=== PATIENT | male | born 1975 | race Caucasian/White ===

== ENCOUNTER 2016-06-03 11:10 | Emergency (ER) | payer MEDICARE ==
--- NOTE | 2016-06-03 11:18 | ER Document Report ---
ED Medical Screen (RME) - General Chief Complaint: Nausea Stated Complaint: NAUSEA Notes: 40-year-old male coming in with EMS has a history of elevated liver enzymes, right upper quadrant pain. Nausea, dry heaves and vomiting yesterday today just dry heaves states he has not eaten anything today. 1 liquid stool today taking fluids cannot eat. Angina, taking 7-8 hydrocodone 10 with 325 Tylenol a day for the last 6 days. Does not have a prescription. States he is having chills and sweats. I have greeted and performed a rapid initial assessment of this patient. A comprehensive ED assessment and evaluation of the patient, analysis of test results and completion of medical decision making process will be conducted by an additional ED providers. TRAVEL OUTSIDE OF THE [place] IN LAST 30 DAYS: No - Related Data Allergies/Adverse Reactions: quetiapine fumarate [From Seroquel] Adverse Reaction (Verified 05/08/16 08:18) Past Medical History - Social History Family history: CAD - Past Medical History Cardiac Medical History: Reports: Hx Hypercholesterolemia, Hx Hypertension, Hx Peripheral Vascular Disease - Left carotid stenosis 50-69% Denies: Hx Congestive Heart Failure, Hx DVT, Hx Heart Attack, Hx Pulmonary Embolism Pulmonary Medical History: Denies: Hx Asthma, Hx COPD Neurological Medical History: Reports: Hx Migraine. Denies: Hx Seizures Endocrine Medical History: Reports: Hx Hypothyroidism. Denies: Hx Diabetes Mellitus Type 1, Hx Diabetes Mellitus Type 2, Hx Hyperthyroidism GI Medical History: Reports: Hx Gastroesophageal Reflux Disease, Hx Hiatal Hernia. Denies: Hx Cirrhosis, Hx Hepatitis Musculoskeltal Medical History: Denies Hx Arthritis Psychiatric Medical History: Reports: Hx Anxiety, Hx Depression Infectious Medical History: Denies: Hx Hepatitis Past Surgical History: Reports: Hx Abdominal Surgery - x7 gastric bypass 05, bowel blockage,hernia repair, Hx Cardiac Catheterization - Which is found to be negative, Hx Cholecystectomy, Hx Gastric Bypass Surgery - Immunizations Immunizations up to date: Yes Hx Diphtheria, Pertussis, Tetanus Vaccination: Yes
[2016-06-03] MEDS ORDERED: ONDANSETRON 4 MG TAB.RAPDIS PO ONE (11:55)
[2016-06-03 12:20] LABS: APPEARANCE,URINE CLEAR; BILIRUBIN,URINE NEGATIVE (NEGATIVE); GLUCOSE, URINE NEGATIVE (NEGATIVE); KETONES,URINE NEGATIVE (NEGATIVE); LEUKOCYTE ESTERASE,URINE NEGATIVE (NEGATIVE); NITRITE,URINE NEGATIVE (NEGATIVE); PROTEIN,URINE NEGATIVE (NEGATIVE); URINE SPECIFIC GRAVITY 1.011
[2016-06-03 12:27] LABS: ABSOLUTE EOSINOPHILS # (AUTO) 0.1 10^3/uL (0.0-0.6); ABSOLUTE MONOCYTES (AUTO) 0.3 10^3/uL (0.1-1.4); ABSOLUTE NEUT (AUTO) 4.3 10^3/uL (1.7-8.2); BASOPHILS % (AUTO) 0.7 % (0-2); EOSINOPHILS % (AUTO) 2.3 % (0-6); HEMATOCRIT 45.3 % (37.9-51.0); HEMOGLOBIN 15.4 g/dL (13.5-17.0); HGB HCT DIFFERENCE 0.9; MEAN CORPUSCULAR HEMOGLOBIN 29.6 pg (27.0-33.4); MEAN CORPUSCULAR VOLUME 87 fl (80-97); RED BLOOD COUNT 5.21 10^6/uL (4.35-5.55); RED CELL DISTRIBUTION WIDTH 12.9 % (11.5-14.0); WHITE BLOOD COUNT 5.8 10^3/uL (4.0-10.5)
[2016-06-03 12:42] LABS: ALANINE AMINOTRANSFERASE 106 U/L (21-72); ALBUMIN 4.6 g/dL (3.5-5.0); ALCOHOL < 10 mg/dL (NONE DETECTED); ALKALINE PHOSPHATASE 76 U/L (38-126); ANION GAP 11 (5-19); ASPARTATE AMINO TRANSFERASE 68 U/L (17-59); BLOOD UREA NITROGEN 10 mg/dL (7-20); CALCIUM 9.5 mg/dL (8.4-10.2); CARBON DIOXIDE 28 mmol/L (22-30); CHLORIDE 94 mmol/L (98-107); CREATININE RESULT 0.76 mg/dL (0.52-1.25); GLUCOSE 104 mg/dL (75-110); LIPASE 23.6 U/L (23-300); POTASSIUM 5.4 mmol/L (3.6-5.0); SODIUM 132.8 mmol/L (137-145); TOTAL PROTEIN 7.2 g/dL (6.3-8.2)
[2016-06-03 12:51] LABS: URINE BARBITURATES SCREEN NEGATIVE; URINE METHADONE SCREEN NEGATIVE; URINE PHENCYCLIDINE SCREEN NEGATIVE
[2016-06-03] MEDS ORDERED: PROMETHAZINE HCL 25 MG TABLET PO ONE (13:54)
--- NOTE | 2016-06-03 13:54 | ER Document Report ---
ED General - General Chief Complaint: Abdominal Pain Stated Complaint: NAUSEA Time seen by provider: 13:51 Mode of Arrival: Medic Information source: Patient Notes: 40-year-old male complains of a one-day history of nausea dry heaves loose stool and right upper quadrant pain area she reports chronically having right upper quadrant abdominal pain that he says is what he feels like when his liver enzymes are elevated. He has had multiple emergency department visits abdominal pain in various locations and is taking hydrocodone that he gets off the street for abdominal pain. He reports recently taking up to 8 a day. On direct questioning he also reports subjective fever, chills, cough, shortness of breath, chest pain, back pain, dark urine, dark stools, pain and numbness and weakness in all extremities. Patient reports primary care physician is Eliane he recently had a colonoscopy which showed colitis but doesn't recall details what medications BiPAP and prescribed. Physical Exam: General: Alert, appears well. HEENT: Normocephalic. Atraumatic. PERRLA. Extraocular movements intact. Oropharynx clear. Extremities membranes moist Neck: Supple. Non-tender. Respiratory: No respiratory distress. Clear and equal breath sounds bilaterally. Cardiovascular: Regular rate and rhythm. Abdominal: Normal Inspection. Soft, trace diffuse tenderness no distension. Normal Bowel Sounds. No guarding rebound rigidity Back: Non-tender. No deformity or step off. Extremities: Moves all four extremities. Upper extremities: Normal inspection. Non-tender. Normal color. Normal ROM. Normal temperature. Lower extremities: Normal inspection. Non-tender. No edema. Normal color. Normal ROM. Normal temperature. Neurological: Speech clear mentation normal Psychological: Normal affect. Normal Mood. Skin: Warm. Dry. Normal color. TRAVEL OUTSIDE OF THE [place] IN LAST 30 DAYS: No - Related Data Allergies/Adverse Reactions: quetiapine fumarate [From [employer]] Adverse Reaction (Verified 05/08/16 08:18) Past Medical History - Social History Smoking Status: Never Smoker Family History: CAD - States all the males in his family have of heart disease in their 40s., CVA, Other - [place] Patient has suicidal ideation: No Patient has homicidal ideation: No - Past Medical History Cardiac Medical History: Reports: Hx Hypercholesterolemia, Hx Hypertension, Hx Peripheral Vascular Disease - Left carotid stenosis 50-69% Denies: Hx Congestive Heart Failure, Hx DVT, Hx Heart Attack, Hx Pulmonary Embolism Pulmonary Medical History: Denies: Hx Asthma, Hx COPD Neurological Medical History: Reports: Hx Migraine. Denies: Hx Seizures Endocrine Medical History: Reports: Hx Hypothyroidism. Denies: Hx Diabetes Mellitus Type 1, Hx Diabetes Mellitus Type 2, Hx Hyperthyroidism Renal/ Medical History: Denies: Hx Peritoneal Dialysis GI Medical History: Reports: Hx Gastroesophageal Reflux Disease, Hx Hiatal Hernia. Denies: Hx Cirrhosis, Hx Hepatitis Musculoskeltal Medical History: Denies Hx Arthritis Psychiatric Medical History: Reports: Hx Anxiety, Hx Depression Infectious Medical History: Denies: Hx Hepatitis Past Surgical History: Reports: Hx Abdominal Surgery - x7 gastric bypass 05, bowel blockage,hernia repair, Hx Cardiac Catheterization - Which is found to be negative, Hx Cholecystectomy, Hx Gastric Bypass Surgery - Immunizations Immunizations up to date: Yes Hx Diphtheria, Pertussis, Tetanus Vaccination: Yes Review of Systems - Review of Systems Constitutional: See HPI EENT: denies: Ear pain, Throat pain Cardiovascular: See HPI Respiratory: denies: Cough, Short of breath Gastrointestinal: See HPI Genitourinary: See HPI Musculoskeletal: Back pain Neurological/Psychological: denies: Weakness, Numbness Physical Exam - Vital signs Vitals: Temp Pulse Resp BP Pulse Ox 98.5 F 80 18 124/84 100 06/03/16 11:33 06/03/16 11:33 06/03/16 11:33 06/03/16 11:33 06/03/16 11:33 Course - Re-evaluation Re-evalutation: 06/03/16 14:49 While patient has a positive review of systems he does not have an exam worrisome for surgical abdomen. Review of records shows that he has had presentation similar to this many times in the past. Patient expresses concern about kidney function, liver function, and urinary tract infection, bowel obstruction, an abdominal infection and he is reassured that there is no evidence an x-ray blood test or urine tests of any of those things. He does have some nausea and will be discharged with prescription for Phenergan which she reports is worked well in the past for nausea is counseled to stop taking street drugs intervillous hydrocodone. - Vital Signs Vital signs: Temp Pulse Resp BP Pulse Ox 98.5 F 80 18 124/84 100 06/03/16 11:33 06/03/16 11:33 06/03/16 11:33 06/03/16 11:33 06/03/16 11:33 - Laboratory Result Diagrams: 06/03/16 11:51 06/03/16 11:51 Laboratory results interpreted by me: 06/03/16 06/03/16 11:51 11:51 Sodium 132.8 L Potassium 5.4 H Chloride 94 L AST 68 H ALT 106 H Urine Urobilinogen 4.0 H - Diagnostic Test Radiology reviewed: Image reviewed, Reports reviewed - EKG Interpretation by Me Additional EKG results interpreted by me: 06/03/16 14:49 EKG reviewed by myself sinus rhythm 61 no acute changes Discharge - Discharge Clinical Impression: Chronic abdominal pain, Nausea Condition: Stable Disposition: HOME, SELF-CARE Prescriptions: Promethazine HCl [Phenergan 25 mg Tablet] 1 tab PO Q6H PRN #20 tablet PRN Reason: For Nausea/Vomiting Referrals: NEHEMIAS ALONZO MD [NO LOCAL MD] - Follow up in 1 week
[2016-06-03 15:20] VITALS: BP 111/64
--- NOTE | 2016-06-03 15:50 | EKG REPORT ---
SEVERITY:- NORMAL ECG - SINUS RHYTHM : Confirmed by: Galen Lloyd 03-Jun-2016 15:49:29
== END 2016-06-03 15:20 | disposition home or self-care (01) ==
LOC: ER 11:10
DX: R10.9 Unspecified abdominal pain (principal); G89.29 Other chronic pain; R11.0 Nausea; R19.7 Diarrhea, unspecified; R10.11 Right upper quadrant pain
CPT/HCPCS: 93005; 99284; 36415; 80307 ×2; 83690; 85025; 80053; 81001; 74022; 93010; A9270 ×2; S0119

== ENCOUNTER 2016-06-04 17:39 | Emergency (ER) | payer MEDICARE ==
--- NOTE | 2016-06-04 17:55 | ER Document Report ---
ED Medical Screen (RME) - General Chief Complaint: Chest Pain Stated Complaint: CHEST PAIN Time seen by provider: 17:52 Mode of Arrival: Medic Notes: 40-year-old male presents to ED for left chest pain since 250 going up to his shoulder and his throat brought in by EMS. EKG and EMS was sinus rhythm of 88. EMS states he didn't not complain of nausea when they had him but he complained of nausea now. EMS states that he received 1 nitroglycerin his blood pressure dropped and they gave him fluids. Patient was seen for abdominal pain yesterday. I have greeted and performed a rapid initial assessment of this patient. A comprehensive ED assessment and evaluation of the patient, analysis of test results and completion of medical decision making process will be conducted by an additional ED providers. TRAVEL OUTSIDE OF THE [place] IN LAST 30 DAYS: No - Related Data Allergies/Adverse Reactions: quetiapine fumarate [From Seroquel] Adverse Reaction (Verified 05/08/16 08:18) Past Medical History - Social History Family history: CAD - Past Medical History Cardiac Medical History: Reports: Hx Hypercholesterolemia, Hx Hypertension, Hx Peripheral Vascular Disease - Left carotid stenosis 50-69% Denies: Hx Congestive Heart Failure, Hx DVT, Hx Heart Attack, Hx Pulmonary Embolism Pulmonary Medical History: Denies: Hx Asthma, Hx COPD Neurological Medical History: Reports: Hx Migraine. Denies: Hx Seizures Endocrine Medical History: Reports: Hx Hypothyroidism. Denies: Hx Diabetes Mellitus Type 1, Hx Diabetes Mellitus Type 2, Hx Hyperthyroidism Renal/ Medical History: Denies: Hx Peritoneal Dialysis GI Medical History: Reports: Hx Gastroesophageal Reflux Disease, Hx Hiatal Hernia. Denies: Hx Cirrhosis, Hx Hepatitis Musculoskeltal Medical History: Denies Hx Arthritis Psychiatric Medical History: Reports: Hx Anxiety, Hx Depression Infectious Medical History: Denies: Hx Hepatitis Past Surgical History: Reports: Hx Abdominal Surgery - x7 gastric bypass 05, bowel blockage,hernia repair, Hx Cardiac Catheterization - Which is found to be negative, Hx Cholecystectomy, Hx Gastric Bypass Surgery - Immunizations Immunizations up to date: Yes Hx Diphtheria, Pertussis, Tetanus Vaccination: Yes
[2016-06-04 18:04] VITALS: BP 105/72
--- NOTE | 2016-06-04 18:42 | EKG REPORT ---
SEVERITY:- NORMAL ECG - SINUS RHYTHM : Confirmed by: Mariaelena Sahni MD 04-Jun-2016 18:41:30
[2016-06-04 19:18] LABS: ALANINE AMINOTRANSFERASE 87 U/L (21-72); ALBUMIN 4.4 g/dL (3.5-5.0); ALKALINE PHOSPHATASE 73 U/L (38-126); ANION GAP 12 (5-19); ASPARTATE AMINO TRANSFERASE 51 U/L (17-59); BLOOD UREA NITROGEN 10 mg/dL (7-20); CALCIUM 9.3 mg/dL (8.4-10.2); CARBON DIOXIDE 24 mmol/L (22-30); CHLORIDE 92 mmol/L (98-107); CREATINE KINASE 48 U/L (55-170); CREATININE RESULT 0.75 mg/dL (0.52-1.25); GLUCOSE 88 mg/dL (75-110); POTASSIUM 4.6 mmol/L (3.6-5.0); SODIUM 128.2 mmol/L (137-145)
[2016-06-04 19:19] LABS: ALCOHOL < 10 mg/dL (NONE DETECTED)
[2016-06-04 19:28] LABS: APPEARANCE,URINE CLEAR; BILIRUBIN,URINE NEGATIVE (NEGATIVE); GLUCOSE, URINE NEGATIVE (NEGATIVE); KETONES,URINE NEGATIVE (NEGATIVE); LEUKOCYTE ESTERASE,URINE NEGATIVE (NEGATIVE); NITRITE,URINE NEGATIVE (NEGATIVE); PROTEIN,URINE NEGATIVE (NEGATIVE); UROBILINOGEN,URINE NEGATIVE mg/dL (<2.0)
[2016-06-04 19:29] LABS: ABSOLUTE BASOPHILS # (AUTO) 0.1 10^3/uL (0.0-0.2); ABSOLUTE EOSINOPHILS # (AUTO) 0.1 10^3/uL (0.0-0.6); ABSOLUTE LYMPHOCYTES (AUTO) 1.7 10^3/uL (0.5-4.7); ABSOLUTE MONOCYTES (AUTO) 0.5 10^3/uL (0.1-1.4); ABSOLUTE NEUT (AUTO) 4.6 10^3/uL (1.7-8.2); BASOPHILS % (AUTO) 0.8 % (0-2); EOSINOPHILS % (AUTO) 1.9 % (0-6); HEMATOCRIT 44.5 % (37.9-51.0); HGB HCT DIFFERENCE 0.5; LYMPHOCYTES % (AUTO) 24.7 % (13-45); MEAN CORPUSCULAR HEMOGLOBIN 29.2 pg (27.0-33.4); MEAN CORPUSCULAR HGB CONC 33.7 g/dL (32.0-36.0); MEAN CORPUSCULAR VOLUME 87 fl (80-97); MONOCYTES % (AUTO) 6.7 % (3-13); RED BLOOD COUNT 5.14 10^6/uL (4.35-5.55); RED CELL DISTRIBUTION WIDTH 13.1 % (11.5-14.0); SEGMENTED NEUTROPHILS % (AUTO) 65.9 % (42-78)
[2016-06-04 19:42] LABS: URINE BARBITURATES SCREEN NEGATIVE; URINE METHADONE SCREEN NEGATIVE; URINE PHENCYCLIDINE SCREEN NEGATIVE
== END 2016-06-04 21:20 | disposition left against medical advice (07) ==
LOC: ER 17:39
DX: Z53.9 Procedure and treatment not carried out, unspecified reason (principal); R07.9 Chest pain, unspecified; M25.512 Pain in left shoulder; R10.9 Unspecified abdominal pain; R11.0 Nausea
CPT/HCPCS: 36415; 71020; 80053; 80307; 81001; 82550; 82553; 83690; 85025; 93005; 93010; 99281; 99285

== ENCOUNTER 2016-06-30 20:37 | Emergency (ER) | payer MEDICARE ==
--- NOTE | 2016-06-30 20:56 | ER Document Report ---
ED Medical Screen (RME) - General Stated Complaint: ABDOMINAL PAIN Mode of Arrival: Medic Notes: Patient called EMS for abdominal pain right upper quadrant that started yesterday. Then patient started to report left-sided chest pain that started 3 hours ago.. Patient took aspirin at home. Pt was given nitroglycerin one sublingual, patient's blood pressure dropped to the 90s systolic. Patient states that he has been overtaking hydrocodone with acetaminophen over the past 8 days. Patient states he's been taking 10-12 tablets a day. Patient states he 's had liver failure due to Tylenol overdose in the past. hx: Narcotic addiction, liver failure, angina I have greeted and performed a rapid initial assessment of this patient. A comprehensive ED assessment and evaluation of the patient, analysis of test results and completion of the medical decision making process will be conducted by additional ED providers. TRAVEL OUTSIDE OF THE [place] IN LAST 30 DAYS: No - Related Data Allergies/Adverse Reactions: quetiapine fumarate [From Seroquel] Adverse Reaction (Verified 06/30/16 20:54) Past Medical History - Social History Family history: CAD - Past Medical History Cardiac Medical History: Reports: Hx Hypercholesterolemia, Hx Hypertension, Hx Peripheral Vascular Disease - Left carotid stenosis 50-69% Denies: Hx Congestive Heart Failure, Hx DVT, Hx Heart Attack, Hx Pulmonary Embolism Pulmonary Medical History: Denies: Hx Asthma, Hx COPD Neurological Medical History: Reports: Hx Migraine. Denies: Hx Seizures Endocrine Medical History: Reports: Hx Hypothyroidism. Denies: Hx Diabetes Mellitus Type 1, Hx Diabetes Mellitus Type 2, Hx Hyperthyroidism Renal/ Medical History: Denies: Hx Peritoneal Dialysis GI Medical History: Reports: Hx Gastroesophageal Reflux Disease, Hx Hiatal Hernia. Denies: Hx Cirrhosis, Hx Hepatitis Musculoskeltal Medical History: Denies Hx Arthritis Psychiatric Medical History: Reports: Hx Anxiety, Hx Depression Infectious Medical History: Denies: Hx Hepatitis Past Surgical History: Reports: Hx Abdominal Surgery - x7 gastric bypass 05, bowel blockage,hernia repair, Hx Cardiac Catheterization - Which is found to be negative, Hx Cholecystectomy, Hx Gastric Bypass Surgery - Immunizations Immunizations up to date: Yes Hx Diphtheria, Pertussis, Tetanus Vaccination: Yes Physical Exam - Abdominal Tenderness: Tender - Right upper quadrant
--- NOTE | 2016-06-30 21:59 | EKG REPORT ---
SEVERITY:- NORMAL ECG - SINUS RHYTHM : Confirmed by: Galen Lloyd 30-Jun-2016 21:59:14
[2016-07-01 00:14] LABS: ABSOLUTE BASOPHILS # (AUTO) 0.1 10^3/uL (0.0-0.2); ABSOLUTE EOSINOPHILS # (AUTO) 0.2 10^3/uL (0.0-0.6); ABSOLUTE MONOCYTES (AUTO) 0.6 10^3/uL (0.1-1.4); ABSOLUTE NEUT (AUTO) 5.4 10^3/uL (1.7-8.2); BASOPHILS % (AUTO) 0.8 % (0-2); EOSINOPHILS % (AUTO) 2.7 % (0-6); HEMATOCRIT 44.8 % (37.9-51.0); HEMOGLOBIN 15.6 g/dL (13.5-17.0); LYMPHOCYTES % (AUTO) 23.9 % (13-45); MEAN CORPUSCULAR HEMOGLOBIN 30.1 pg (27.0-33.4); MEAN CORPUSCULAR HGB CONC 34.9 g/dL (32.0-36.0); MEAN CORPUSCULAR VOLUME 86 fl (80-97); MONOCYTES % (AUTO) 7.5 % (3-13); SEGMENTED NEUTROPHILS % (AUTO) 65.1 % (42-78); WHITE BLOOD COUNT 8.3 10^3/uL (4.0-10.5)
[2016-07-01 00:40] LABS: APPEARANCE,URINE CLEAR; BILIRUBIN,URINE NEGATIVE (NEGATIVE); GLUCOSE, URINE NEGATIVE (NEGATIVE); KETONES,URINE NEGATIVE (NEGATIVE); LEUKOCYTE ESTERASE,URINE NEGATIVE (NEGATIVE); NITRITE,URINE NEGATIVE (NEGATIVE); PROTEIN,URINE NEGATIVE (NEGATIVE); URINE SPECIFIC GRAVITY 1.015; UROBILINOGEN,URINE NEGATIVE mg/dL (<2.0)
[2016-07-01 00:53] LABS: URINE BARBITURATES SCREEN NEGATIVE; URINE METHADONE SCREEN NEGATIVE; URINE OPIATES LOW UNCONFIRMED POSITIVE; URINE PHENCYCLIDINE SCREEN NEGATIVE
--- NOTE | 2016-07-01 01:16 | ER Document Report ---
ED General - General Chief Complaint: Abdominal Pain Stated Complaint: ABDOMINAL PAIN Mode of Arrival: Medic Notes: Patient is a 40-year-old male who presents with complaint that he fears that he might be having liver damage because of taking too much [place] 5/325. He says takes 10 of these a day. Has chronic chest and abdominal pain. He's had negative heart catheter since January 2016. He continues to have these recurrent pains in his on pain management for it. He says he is taken proximal me 10 Vicodin a day for last several days. He started Lupron per quadrant pain and therefore came to the ER. He was admitted in March due to concerned because he has slight liver enzyme elevation a few doing the same thing. He is place an N-acetylcysteine for one day and then discharged next day when every thing return to normal. Patient denies any fevers. No vomiting. No other complaints at this time. TRAVEL OUTSIDE OF THE [place] IN LAST 30 DAYS: No - Related Data Allergies/Adverse Reactions: quetiapine fumarate [From [employer]] Adverse Reaction (Verified 06/30/16 20:54) Past Medical History - Social History Smoking Status: Never Smoker Chew tobacco use (# tins/day): No Frequency of alcohol use: None Drug Abuse: None Family History: CAD - States all the males in his family have of heart disease in their 40s., CVA, Other - [place] - Past Medical History Cardiac Medical History: Reports: Hx Hypercholesterolemia, Hx Hypertension, Hx Peripheral Vascular Disease - Left carotid stenosis 50-69% Denies: Hx Congestive Heart Failure, Hx DVT, Hx Heart Attack, Hx Pulmonary Embolism Pulmonary Medical History: Denies: Hx Asthma, Hx COPD Neurological Medical History: Reports: Hx Migraine. Denies: Hx Seizures Endocrine Medical History: Reports: Hx Hypothyroidism. Denies: Hx Diabetes Mellitus Type 1, Hx Diabetes Mellitus Type 2, Hx Hyperthyroidism Renal/ Medical History: Denies: Hx Peritoneal Dialysis GI Medical History: Reports: Hx Gastroesophageal Reflux Disease, Hx Hiatal Hernia. Denies: Hx Cirrhosis, Hx Hepatitis Musculoskeltal Medical History: Denies Hx Arthritis Psychiatric Medical History: Reports: Hx Anxiety, Hx Depression Infectious Medical History: Denies: Hx Hepatitis Past Surgical History: Reports: Hx Abdominal Surgery - x7 gastric bypass 05, bowel blockage,hernia repair, Hx Cardiac Catheterization - Which is found to be negative, Hx Cholecystectomy, Hx Gastric Bypass Surgery - Immunizations Immunizations up to date: Yes Hx Diphtheria, Pertussis, Tetanus Vaccination: Yes Review of Systems - Review of Systems Notes: My Normal Review Basic REVIEW OF SYSTEMS: CONSTITUTIONAL : Denies fever, chills, or sweats. Denies recent illness. EENT: Denies eye, ear, throat, or mouth pain or symptoms. Denies nasal or sinus congestion. CARDIOVASCULAR: Shahzad chest pain. RESPIRATORY: Denies cough, cold, or chest congestion. Denies shortness of breath, difficulty breathing, or wheezing. GASTROINTESTINAL: Some upper abdominal pain. Denies nausea, vomiting, or diarrhea. Denies constipation. Last BM: MUSCULOSKELETAL: Denies neck or back pain or joint pain or swelling. SKIN: Denies rash or skin lesions. NEUROLOGICAL: Denies altered mental status or loss of consciousness. Denies headache. Denies weakness or paralysis or loss of use of either side. Denies problems with gait or speech. Denies sensory or motor loss. ALL OTHER SYSTEMS REVIEWED AND NEGATIVE. Physical Exam - Vital signs Vitals: Temp Pulse Resp BP Pulse Ox 97.3 F 65 18 108/52 L 95 06/30/16 21:10 06/30/16 21:10 06/30/16 21:10 06/30/16 21:10 06/30/16 21:10 - Notes Notes: General Appearance: Well nourished, alert, cooperative, no acute distress, no obvious discomfort. Well-appearing. Vitals: reviewed, See vital signs table. Head: no swelling or tenderness to the head Eyes: PERRL, EOMI, Conjuctiva clear Mouth: No decreasd moisture Neck: Supple, no neck tenderness, No thyromegaly Lungs: No wheezing, No rales, No rhonci, No accessory muscle use, good air exchange bilaterally. Heart: Normal rate, Regular rythm, No murmur, no rub Abdomen: Normal BS, soft, No rigidity, No reproducible abdominal tenderness to palpation, No guarding, no rebound, no abdominal masses, no organomegaly Extremities: strength 5/5 in all extremities, good pulses in all extremities, no swelling or tenderness in the extremities, no edema. Skin: warm, dry, appropriate color, no rash Neuro: speech clear, oriented x 3, normal affect, responds appropriately to questions. Course - Vital Signs Vital signs: Temp Pulse Resp BP Pulse Ox 97.3 F 65 18 108/52 L 93 06/30/16 21:10 06/30/16 21:10 07/01/16 01:01 06/30/16 21:10 07/01/16 01:01 - Laboratory Result Diagrams: 07/01/16 00:01 07/01/16 01:27 Laboratory results interpreted by me: 07/01/16 01:27 Sodium 127.9 L Chloride 91 L Creatine Kinase 43 L Lipase 19.0 L Acetaminophen < 10 L - EKG Interpretation by Me Additional EKG results interpreted by me: 07/01/16 01:16 EKG is reviewed and interpreted by me. EKG shows normal sinus rhythm with rate of [address] segment elevation or depression. No ischemic T wave inversions. WA interval, QRS duration, QTC levels are within normal range. Old EKG for comparison is from 06/04/2016. - Transfer of Care Notes: 07/01/16 02:40 Patient looks well. His laboratory evaluation is totally unremarkable. She takes 10 of the hydrocodone acetaminophen tablets a day. This brings his total Tylenol not to 3.25 g a day which is under the toxic threshold. His liver enzymes are negative. His Tylenol level 0. I'm not concerned abdominal toxicity. At this time I feel he is safe to be discharged home. I once again had a long conversation with him about taking more pain medicine prescribed and how this potentially aerates his need for more and more pain medicine which makes his symptoms continually worse. I do not think he needs admission for his chest pain as he recently had a cardiac catheterization within the last 6 months which was negative. Patient will be discharged home. Dictation of this chart was performed using voice recognition software; therefore, there may be some unintended grammatical errors. Discharge - Discharge Clinical Impression: Abdominal pain Qualifiers: Abdominal location: upper abdomen, unspecified Qualified Code(s): R10.10 - Upper abdominal pain, unspecified Chest pain Qualifiers: Chest pain type: unspecified Qualified Code(s): R07.9 - Chest pain, unspecified Condition: Good Disposition: HOME, SELF-CARE Additional Instructions: Please follow-up with doctor. Please do not take more of your pain medicine than prescribed. Please return to ER if you have worsening chest pain, difficulty breathing, fevers, vomiting, or feel unwell. Referrals: NEHEMIAS ALONZO MD [Primary Care Provider] - Follow up in 3-5 days
[2016-07-01 01:49] LABS: ALANINE AMINOTRANSFERASE 49 U/L (21-72); ALKALINE PHOSPHATASE 73 U/L (38-126); ANION GAP 11 (5-19); ASPARTATE AMINO TRANSFERASE 31 U/L (17-59); BILIRUBIN,TOTAL 0.8 mg/dL (0.2-1.3); BLOOD UREA NITROGEN 15 mg/dL (7-20); CALCIUM 9.3 mg/dL (8.4-10.2); CARBON DIOXIDE 26 mmol/L (22-30); CHLORIDE 91 mmol/L (98-107); CREATINE KINASE 43 U/L (55-170); CREATININE RESULT 0.77 mg/dL (0.52-1.25); GLUCOSE 92 mg/dL (75-110); POTASSIUM 4.8 mmol/L (3.6-5.0); SODIUM 127.9 mmol/L (137-145)
[2016-07-01 02:01] LABS: CREATINE KINASE MB 0.33 ng/mL (<4.55)
[2016-07-01 02:10] LABS: TROPONIN I < 0.012 ng/mL
[2016-07-01 03:19] VITALS: BP 103/67
== END 2016-07-01 03:19 | disposition home or self-care (01) ==
LOC: ER 20:37
DX: R10.10 Upper abdominal pain, unspecified (principal); R07.9 Chest pain, unspecified; R10.9 Unspecified abdominal pain
CPT/HCPCS: 36415; 71020; 80053; 80307; 81001; 82550; 82553; 83690; 84484; 85025; 93005; 93010; 99284

== ENCOUNTER 2016-08-03 18:59 | Emergency (ER) | payer MEDICARE ==
--- NOTE | 2016-08-03 19:05 | ER Document Report ---
ED Medical Screen (RME) - General Stated Complaint: ABDOMINAL PAIN Mode of Arrival: Medic Information source: Patient Notes: Patient presents via EMS with right upper quadrant abdominal pain that radiates into his chest. Patient has a history of this chronic pain and was seen in pain management. Patient reports he may have taken too much [place] for the pain is worried about overdose of Tylenol. Reports history of liver problems. I have greeted and performed a rapid initial assessment of this patient. A comprehensive ED assessment and evaluation of the patient, analysis of test results and completion of the medical decision making process will be conducted by additional ED providers. TRAVEL OUTSIDE OF THE [place] IN LAST 30 DAYS: No - Related Data Allergies/Adverse Reactions: quetiapine fumarate [From Seroquel] Adverse Reaction (Verified 06/30/16 20:54) Past Medical History - Social History Family history: CAD - Past Medical History Cardiac Medical History: Reports: Hx Hypercholesterolemia, Hx Hypertension, Hx Peripheral Vascular Disease - Left carotid stenosis 50-69% Denies: Hx Congestive Heart Failure, Hx DVT, Hx Heart Attack, Hx Pulmonary Embolism Pulmonary Medical History: Denies: Hx Asthma, Hx COPD Neurological Medical History: Reports: Hx Migraine. Denies: Hx Seizures Endocrine Medical History: Reports: Hx Hypothyroidism. Denies: Hx Diabetes Mellitus Type 1, Hx Diabetes Mellitus Type 2, Hx Hyperthyroidism Renal/ Medical History: Denies: Hx Peritoneal Dialysis GI Medical History: Reports: Hx Gastroesophageal Reflux Disease, Hx Hiatal Hernia. Denies: Hx Cirrhosis, Hx Hepatitis Musculoskeltal Medical History: Denies Hx Arthritis Psychiatric Medical History: Reports: Hx Anxiety, Hx Depression Infectious Medical History: Denies: Hx Hepatitis Past Surgical History: Reports: Hx Abdominal Surgery - x7 gastric bypass 05, bowel blockage,hernia repair, Hx Cardiac Catheterization - Which is found to be negative, Hx Cholecystectomy, Hx Gastric Bypass Surgery - Immunizations Immunizations up to date: Yes Hx Diphtheria, Pertussis, Tetanus Vaccination: Yes
[2016-08-03] MEDS ORDERED: PROMETHAZINE HCL 25 MG TABLET PO ONE (19:38)
[2016-08-03 20:03] LABS: ABSOLUTE BASOPHILS # (AUTO) 0.1 10^3/uL (0.0-0.2); ABSOLUTE EOSINOPHILS # (AUTO) 0.2 10^3/uL (0.0-0.6); ABSOLUTE LYMPHOCYTES (AUTO) 1.9 10^3/uL (0.5-4.7); ABSOLUTE MONOCYTES (AUTO) 0.7 10^3/uL (0.1-1.4); ABSOLUTE NEUT (AUTO) 3.4 10^3/uL (1.7-8.2); BASOPHILS % (AUTO) 1.1 % (0-2); HEMATOCRIT 43.2 % (37.9-51.0); HEMOGLOBIN 14.9 g/dL (13.5-17.0); HGB HCT DIFFERENCE 1.5; MEAN CORPUSCULAR HEMOGLOBIN 30.1 pg (27.0-33.4); MEAN CORPUSCULAR HGB CONC 34.5 g/dL (32.0-36.0); MEAN CORPUSCULAR VOLUME 87 fl (80-97); RED BLOOD COUNT 4.96 10^6/uL (4.35-5.55); SEGMENTED NEUTROPHILS % (AUTO) 53.9 % (42-78); WHITE BLOOD COUNT 6.2 10^3/uL (4.0-10.5)
[2016-08-03 20:04] LABS: APPEARANCE,URINE CLEAR; BILIRUBIN,URINE NEGATIVE (NEGATIVE); GLUCOSE, URINE NEGATIVE (NEGATIVE); KETONES,URINE NEGATIVE (NEGATIVE); LEUKOCYTE ESTERASE,URINE NEGATIVE (NEGATIVE); NITRITE,URINE NEGATIVE (NEGATIVE); PROTEIN,URINE NEGATIVE (NEGATIVE); URINE SPECIFIC GRAVITY 1.013; UROBILINOGEN,URINE NEGATIVE mg/dL (<2.0)
[2016-08-03 20:24] LABS: ALANINE AMINOTRANSFERASE 69 U/L (21-72); ALBUMIN 4.4 g/dL (3.5-5.0); ALKALINE PHOSPHATASE 74 U/L (38-126); ANION GAP 8 (5-19); ASPARTATE AMINO TRANSFERASE 52 U/L (17-59); BILIRUBIN,DIRECT 0.2 mg/dL (0.0-0.4); BILIRUBIN,TOTAL 0.6 mg/dL (0.2-1.3); BLOOD UREA NITROGEN 13 mg/dL (7-20); CALCIUM 9.6 mg/dL (8.4-10.2); CARBON DIOXIDE 34 mmol/L (22-30); CHLORIDE 91 mmol/L (98-107); CREATININE RESULT 0.83 mg/dL (0.52-1.25); GLUCOSE 103 mg/dL (75-110); POTASSIUM 5.4 mmol/L (3.6-5.0); SODIUM 133.4 mmol/L (137-145); TOTAL PROTEIN 7.2 g/dL (6.3-8.2)
--- NOTE | 2016-08-03 20:38 | ER Document Report ---
ED General - General Chief Complaint: Abdominal Pain Stated Complaint: ABDOMINAL PAIN Time seen by provider: 20:37 Mode of Arrival: Medic Notes: Patient is a 40-year-old male that comes emergency department for chief complaint of pain in his right upper abdomen. Patient states that he has had a lot of tooth pain over the past couple of days because he has dental caries and he has taken 8 of his [place] pills today. He is prescribed these for pain management. He denies any current dental pain or swelling. He states he is just here because he wants to make sure his liver enzymes are not elevated because he is concerned that he took 2 much Tylenol and has damaged/irritated his liver. Patient states he currently does not have any pain, he states he was just here for labs. He denies vomiting, fever, flank pain. TRAVEL OUTSIDE OF THE [place] IN LAST 30 DAYS: No - Related Data Allergies/Adverse Reactions: quetiapine fumarate [From [facility]ero[facility]] Adverse Reaction (Verified 08/03/16 19:07) Past Medical History - General Information source: Patient - Social History Smoking Status: Never Smoker Frequency of alcohol use: None Drug Abuse: None Lives with: Alone Family History: CAD - States all the males in his family have of heart disease in their 40s., CVA, Other - [place] - Past Medical History Cardiac Medical History: Reports: Hx Hypercholesterolemia, Hx Hypertension, Hx Peripheral Vascular Disease - Left carotid stenosis 50-69% Denies: Hx Congestive Heart Failure, Hx DVT, Hx Heart Attack, Hx Pulmonary Embolism Pulmonary Medical History: Denies: Hx Asthma, Hx COPD Neurological Medical History: Reports: Hx Migraine. Denies: Hx Seizures Endocrine Medical History: Reports: Hx Hypothyroidism. Denies: Hx Diabetes Mellitus Type 1, Hx Diabetes Mellitus Type 2, Hx Hyperthyroidism Renal/ Medical History: Denies: Hx Peritoneal Dialysis GI Medical History: Reports: Hx Gastroesophageal Reflux Disease, Hx Hiatal Hernia. Denies: Hx Cirrhosis, Hx Hepatitis Musculoskeltal Medical History: Denies Hx Arthritis Psychiatric Medical History: Reports: Hx Anxiety, Hx Depression Infectious Medical History: Denies: Hx Hepatitis Past Surgical History: Reports: Hx Abdominal Surgery - x7 gastric bypass 05, bowel blockage,hernia repair, Hx Cardiac Catheterization - Which is found to be negative, Hx Cholecystectomy, Hx Gastric Bypass Surgery - Immunizations Immunizations up to date: Yes Hx Diphtheria, Pertussis, Tetanus Vaccination: Yes Review of Systems - Review of Systems Constitutional: No symptoms reported EENT: No symptoms reported Cardiovascular: No symptoms reported Respiratory: No symptoms reported Gastrointestinal: See HPI Genitourinary: No symptoms reported Male Genitourinary: No symptoms reported Musculoskeletal: No symptoms reported Skin: No symptoms reported Hematologic/Lymphatic: No symptoms reported Neurological/Psychological: No symptoms reported Physical Exam - Vital signs Vitals: Temp Pulse Resp BP Pulse Ox 97.7 F 70 18 128/97 H 97 08/03/16 19:23 08/03/16 19:23 08/03/16 19:23 08/03/16 19:23 08/03/16 19:23 Interpretation: Normal - General General appearance: Appears well, Alert In distress: None - HEENT Head: Normocephalic, Atraumatic Eyes: Normal Pupils: PERRL - Respiratory Respiratory status: No respiratory distress Chest status: Nontender Breath sounds: Normal Chest palpation: Normal - Cardiovascular Rhythm: Regular Heart sounds: Normal auscultation Murmur: No - Abdominal Inspection: Normal Distension: No distension Bowel sounds: Normal Tenderness: Nontender. No: Tender, Guarding Organomegaly: No organomegaly - Back Back: Normal, Nontender - Extremities General upper extremity: Normal inspection, Nontender, Normal color, Normal ROM , Normal temperature General lower extremity: Normal inspection, Nontender, Normal color, Normal ROM , Normal temperature, Normal weight bearing. No: Gemini's sign - Neurological Neuro grossly intact: Yes Cognition: Normal Orientation: AAOx4 Maxime Coma Scale Eye Opening: Spontaneous Maxime Coma Scale Verbal: Oriented Maxime Coma Scale Motor: Obeys Commands Maxime Coma Scale Total: 15 Speech: Normal Motor strength normal: LUE, RUE, LLE, RLE Sensory: Normal - Psychological Associated symptoms: Normal affect, Normal mood - Skin Skin Temperature: Warm Skin Moisture: Dry Skin Color: Normal Course - Re-evaluation Re-evalutation: LFTs are not elevated, acetaminophen level is unknown unremarkable, urine patient had ingested 3258 this would put him at 2.6 grams. Patient has non- tender abdomen on examination, is well-appearing. Patient asking for a copy of his chemistry. Hyperkalemia, sodium is slightly low, offered IV fluids, patient declined, states he is ready to leave now. No emergent antibodies noted , patient will be discharged with instructions to follow-up with primary care and return for any concerning symptoms in addition to recommendations not to take more than prescribed. Patient states understanding and agreement. - Vital Signs Vital signs: Temp Pulse Resp BP Pulse Ox 98.4 F 66 16 131/80 H 95 08/03/16 21:02 08/03/16 21:02 08/03/16 21:02 08/03/16 21:02 08/03/16 21:02 - Laboratory Result Diagrams: 08/03/16 19:30 08/03/16 19:30 Laboratory results interpreted by me: 08/03/16 08/03/16 19:25 19:30 Sodium 133.4 L Potassium 5.4 H Chloride 91 L Carbon Dioxide 34 H Urine Ascorbic Acid 40 H Acetaminophen < 10 L Discharge - Discharge Clinical Impression: Abdominal pain Qualifiers: Abdominal location: upper abdomen, unspecified Qualified Code(s): R10.10 - Upper abdominal pain, unspecified Condition: Stable Disposition: HOME, SELF-CARE Additional Instructions: Your liver enzyme tests are not elevated, your Tylenol level is not elevated to a concerning level on our laboratory tests at this time. Follow-up with your provider for additional management. Do not take more than the prescribed amount of your medications. Return to the emergency department for any concerning symptoms.
[2016-08-03 21:04] VITALS: BP 131/80
--- NOTE | 2016-08-04 08:58 | EKG REPORT ---
SEVERITY:- NORMAL ECG - SINUS RHYTHM : Confirmed by: Grupo Galarza MD 04-Aug-2016 08:57:31
== END 2016-08-03 21:02 | disposition home or self-care (01) ==
LOC: ER 18:59
DX: R10.10 Upper abdominal pain, unspecified (principal)
CPT/HCPCS: 93005; 99284; 36415; 80307; 85025; 80053; 81001; 93010; A9270

== ENCOUNTER 2016-08-05 14:39 | Emergency (ER) | payer MEDICARE ==
--- NOTE | 2016-08-05 14:49 | ER Document Report ---
ED Medical Screen (RME) - General Stated Complaint: ABDOMINAL PAIN Mode of Arrival: Medic Information source: Emergency Med Personnel Notes: Patient presents EMS for right upper quadrant abdominal pain. Patient was evaluated and treated for same yesterday and the emergency department. He reports pain continues. Reports nausea. EMS gave him 8 mg of Zofran. I have greeted and performed a rapid initial assessment of this patient. A comprehensive ED assessment and evaluation of the patient, analysis of test results and completion of the medical decision making process will be conducted by additional ED providers. TRAVEL OUTSIDE OF THE [place] IN LAST 30 DAYS: No - Related Data Allergies/Adverse Reactions: quetiapine fumarate [From Seroquel] Adverse Reaction (Verified 08/03/16 19:07) Past Medical History - Social History Family history: CAD - Past Medical History Cardiac Medical History: Reports: Hx Hypercholesterolemia, Hx Hypertension, Hx Peripheral Vascular Disease - Left carotid stenosis 50-69% Denies: Hx Congestive Heart Failure, Hx DVT, Hx Heart Attack, Hx Pulmonary Embolism Pulmonary Medical History: Denies: Hx Asthma, Hx COPD Neurological Medical History: Reports: Hx Migraine. Denies: Hx Seizures Endocrine Medical History: Reports: Hx Hypothyroidism. Denies: Hx Diabetes Mellitus Type 1, Hx Diabetes Mellitus Type 2, Hx Hyperthyroidism Renal/ Medical History: Denies: Hx Peritoneal Dialysis GI Medical History: Reports: Hx Gastroesophageal Reflux Disease, Hx Hiatal Hernia. Denies: Hx Cirrhosis, Hx Hepatitis Musculoskeltal Medical History: Denies Hx Arthritis Psychiatric Medical History: Reports: Hx Anxiety, Hx Depression Infectious Medical History: Denies: Hx Hepatitis Past Surgical History: Reports: Hx Abdominal Surgery - x7 gastric bypass 05, bowel blockage,hernia repair, Hx Cardiac Catheterization - Which is found to be negative, Hx Cholecystectomy, Hx Gastric Bypass Surgery - Immunizations Immunizations up to date: Yes Hx Diphtheria, Pertussis, Tetanus Vaccination: Yes Physical Exam - Vital signs Vitals: Temp Pulse Resp BP Pulse Ox 98.2 F 71 18 134/87 H 94 08/05/16 14:56 08/05/16 14:56 08/05/16 14:56 08/05/16 14:56 08/05/16 14:56 Course - Vital Signs Vital signs: Temp Pulse Resp BP Pulse Ox 98.2 F 71 18 134/87 H 94 08/05/16 14:56 08/05/16 14:56 08/05/16 14:56 08/05/16 14:56 08/05/16 14:56
[2016-08-05 14:57] VITALS: BP 134/87
== END 2016-08-05 19:24 | disposition left against medical advice (07) ==
LOC: ER 14:39
DX: R10.11 Right upper quadrant pain (principal); R11.0 Nausea; I10 Essential (primary) hypertension; Z87.19 Personal history of other diseases of the digestive system; Z98.84 Bariatric surgery status; Z90.49 Acquired absence of other specified parts of digestive tract; Z53.20 Procedure and treatment not carried out because of patient's decision for unspecified reasons
CPT/HCPCS: 99281

== ENCOUNTER 2016-08-06 16:15 | Emergency (ER) | payer MEDICARE ==
--- NOTE | 2016-08-06 17:39 | ER Document Report ---
ED Medical Screen (RME) - General Stated Complaint: ABDOMINAL PAIN Time seen by provider: 17:36 Mode of Arrival: Ambulatory Information source: Patient Notes: 40-year-old male presents to ED for abdominal pain radiating to the chest about the throat with nausea and vomiting. Patient states she also has left chest pain that goes out his left shoulder and is difficulty to breathe. He states he has taken at least 20 hydrocodone with Tylenol in the last 2 days. I have greeted and performed a rapid initial assessment of this patient. A comprehensive ED assessment and evaluation of the patient, analysis of test results and completion of medical decision making process will be conducted by an additional ED providers. TRAVEL OUTSIDE OF THE [place] IN LAST 30 DAYS: No - Related Data Allergies/Adverse Reactions: quetiapine fumarate [From Seroquel] Adverse Reaction (Verified 08/06/16 17:34) Past Medical History - Social History Family history: CAD - Past Medical History Cardiac Medical History: Reports: Hx Hypercholesterolemia, Hx Hypertension, Hx Peripheral Vascular Disease - Left carotid stenosis 50-69% Denies: Hx Congestive Heart Failure, Hx DVT, Hx Heart Attack, Hx Pulmonary Embolism Pulmonary Medical History: Denies: Hx Asthma, Hx COPD Neurological Medical History: Reports: Hx Migraine. Denies: Hx Seizures Endocrine Medical History: Reports: Hx Hypothyroidism. Denies: Hx Diabetes Mellitus Type 1, Hx Diabetes Mellitus Type 2, Hx Hyperthyroidism Renal/ Medical History: Denies: Hx Peritoneal Dialysis GI Medical History: Reports: Hx Gastroesophageal Reflux Disease, Hx Hiatal Hernia. Denies: Hx Cirrhosis, Hx Hepatitis Musculoskeltal Medical History: Denies Hx Arthritis Psychiatric Medical History: Reports: Hx Anxiety, Hx Depression Infectious Medical History: Denies: Hx Hepatitis Past Surgical History: Reports: Hx Abdominal Surgery - x7 gastric bypass 05, bowel blockage,hernia repair, Hx Cardiac Catheterization - Which is found to be negative, Hx Cholecystectomy, Hx Gastric Bypass Surgery - Immunizations Immunizations up to date: Yes Hx Diphtheria, Pertussis, Tetanus Vaccination: Yes Physical Exam - Vital signs Vitals: Temp Pulse Resp BP Pulse Ox 97.8 F 72 24 H 120/97 H 97 08/06/16 17:07 08/06/16 17:07 08/06/16 17:07 08/06/16 17:07 08/06/16 17:07 Course - Vital Signs Vital signs: Temp Pulse Resp BP Pulse Ox 97.8 F 72 24 H 120/97 H 97 08/06/16 17:07 08/06/16 17:07 08/06/16 17:07 08/06/16 17:07 08/06/16 17:07
[2016-08-06] MEDS ORDERED: NORMAL SALINE 1000 ML 1,000 ML IV PRN (18:24)
[2016-08-06] MEDS ORDERED: FAMOTIDINE INJ/PF 20 MG/2 ML SDV IV ONE (18:24)
[2016-08-06] MEDS ORDERED: METOCLOPRAMIDE HCL INJ/PF 10 MG/2 ML SDV IV ONE (18:24)
--- NOTE | 2016-08-06 18:29 | ER Document Report ---
ED GI/ - General Chief Complaint: Abdominal Pain Stated Complaint: ABDOMINAL PAIN Time seen by provider: 18:26 Mode of Arrival: Ambulatory Information source: Patient TRAVEL OUTSIDE OF THE [place] IN LAST 30 DAYS: No - HPI Patient complains to provider of: Abdominal pain, Vomiting Onset: Last week Timing/Duration: Waxing and waning Quality of pain: Achy, Cramping Severity at maximum: Moderate Severity in ED: Moderate Pain Level: 3 Location: Right flank Associated symptoms: Nausea, Vomiting Exacerbated by: Denies Relieved by: Denies Similar symptoms previously: Yes Recently seen / treated by doctor: Yes Notes: 08/06/16 18:26 Patient is a 40-year-old male who presents to emergency room complaining of right-sided abdominal pain with nausea and vomiting, radiation of pain into his chest and neck that's been going on for the past 3-4 days, in fact he was seen in this emergency room 3 days ago discharged home, patient reports that he is "sure that I overdosed on Tylenol", disease been taking so much Vicodin over the past few days for his pain, he reports diaphoresis and chills, states it is difficult to urinate, but denies any pain with urination, patient has been seen in this emergency room on multiple occasions already this year for abdominal pain of similar nature - Related Data Allergies/Adverse Reactions: quetiapine fumarate [From Seroquel] Adverse Reaction (Verified 08/06/16 17:34) Past Medical History - General Information source: Patient - Social History Smoking Status: Unknown if Ever Smoked Chew tobacco use (# tins/day): No Frequency of alcohol use: None Drug Abuse: Prescription drugs Family History: CAD - States all the males in his family have of heart disease in their 40s., CVA, Other - [place] Patient has suicidal ideation: No Patient has homicidal ideation: No - Past Medical History Cardiac Medical History: Reports: Hx Hypercholesterolemia, Hx Hypertension, Hx Peripheral Vascular Disease - Left carotid stenosis 50-69% Denies: Hx Congestive Heart Failure, Hx DVT, Hx Heart Attack, Hx Pulmonary Embolism Pulmonary Medical History: Denies: Hx Asthma, Hx COPD Neurological Medical History: Reports: Hx Migraine. Denies: Hx Seizures Endocrine Medical History: Reports: Hx Hypothyroidism. Denies: Hx Diabetes Mellitus Type 1, Hx Diabetes Mellitus Type 2, Hx Hyperthyroidism Renal/ Medical History: Denies: Hx Peritoneal Dialysis GI Medical History: Reports: Hx Gastroesophageal Reflux Disease, Hx Hiatal Hernia. Denies: Hx Cirrhosis, Hx Hepatitis Musculoskeltal Medical History: Denies Hx Arthritis Psychiatric Medical History: Reports: Hx Anxiety, Hx Depression Infectious Medical History: Denies: Hx Hepatitis Past Surgical History: Reports: Hx Abdominal Surgery - x7 gastric bypass 05, bowel blockage,hernia repair, Hx Cardiac Catheterization - Which is found to be negative, Hx Cholecystectomy, Hx Gastric Bypass Surgery - Immunizations Immunizations up to date: Yes Hx Diphtheria, Pertussis, Tetanus Vaccination: Yes Review of Systems - Review of Systems Constitutional: Chills, Diaphoresis EENT: No symptoms reported Cardiovascular: Chest pain Respiratory: No symptoms reported Gastrointestinal: See HPI Genitourinary: No symptoms reported Male Genitourinary: No symptoms reported Musculoskeletal: No symptoms reported Skin: No symptoms reported Hematologic/Lymphatic: No symptoms reported Neurological/Psychological: No symptoms reported -: Yes All other systems reviewed and negative Physical Exam - Vital signs Vitals: Temp Pulse Resp BP Pulse Ox 97.8 F 72 24 H 120/97 H 97 08/06/16 17:07 08/06/16 17:07 08/06/16 17:07 08/06/16 17:07 08/06/16 17:07 Interpretation: Normal - General General appearance: Appears well, Alert - HEENT Head: Normocephalic, Atraumatic Eyes: Normal Pupils: PERRL - Respiratory Respiratory status: No respiratory distress Chest status: Nontender Breath sounds: Normal Chest palpation: Normal - Cardiovascular Rhythm: Regular Heart sounds: Normal auscultation Murmur: No - Abdominal Inspection: Normal Distension: No distension Bowel sounds: Normal Tenderness: Tender - Right upper quadrant tenderness Organomegaly: No organomegaly - Back Back: Normal, Nontender - Extremities General upper extremity: Normal inspection, Nontender, Normal color, Normal ROM , Normal temperature General lower extremity: Normal inspection, Nontender, Normal color, Normal ROM , Normal temperature, Normal weight bearing. No: Gemini's sign - Neurological Neuro grossly intact: Yes Cognition: Normal Orientation: AAOx4 Maxime Coma Scale Eye Opening: Spontaneous Maxime Coma Scale Verbal: Oriented [place] Coma Scale Motor: Obeys Commands [place] Coma Scale Total: 15 Speech: Normal Motor strength normal: LUE, RUE, LLE, RLE Sensory: Normal - Psychological Associated symptoms: Normal affect, Normal mood - Skin Skin Temperature: Warm Skin Moisture: Dry Skin Color: Pale Course - Re-evaluation Re-evalutation: 08/06/16 21:24 Patient sleeping comfortably, easily aroused, he reports no change in his symptoms since coming to the emergency room, however his workup is fairly unremarkable, he's had stable vital signs, he has not been observed vomiting in the emergency room and he is sleeping comfortably, patient has been seen in this emergency room multiple times for this complaint with a relatively unremarkable workup each time, therefore patient will be discharged with instructions for follow-up and advised to worsen, however I am concerned for possible narcotic seeking behavior which is why he did not receive any narcotics while in the emergency room today, patient acknowledges understanding and agreement with this plan - Vital Signs Vital signs: Temp Pulse Resp BP Pulse Ox 97.8 F 72 24 H 120/97 H 97 08/06/16 17:07 08/06/16 17:07 08/06/16 17:07 08/06/16 17:07 08/06/16 17:07 - Laboratory Result Diagrams: 08/06/16 18:55 08/06/16 18:55 Laboratory results interpreted by me: 08/06/16 08/06/16 18:25 18:55 Sodium 123.6 L Chloride 87 L Creatine Kinase 44 L Lipase 21.5 L Urine Ketones TRACE H Acetaminophen < 10 L - EKG Interpretation by Ia EKG shows normal: Sinus rhythm Rate: Normal Rhythm: NSR Additional EKG results interpreted by me: 08/06/16 19:33 Prolonged QT interview with QTC measuring 505 Discharge - Discharge Clinical Impression: Abdominal pain Qualifiers: Abdominal location: upper abdomen, unspecified Qualified Code(s): R10.10 - Upper abdominal pain, unspecified Condition: Stable Disposition: HOME, SELF-CARE Instructions: Abdominal Pain ([facility]) Additional Instructions: Follow up with your primary care provider in one to 2 days. Return to the emergency room immediately if symptoms worsen or any additional concerns.
[2016-08-06 19:11] LABS: ABSOLUTE EOSINOPHILS # (AUTO) 0.1 10^3/uL (0.0-0.6); ABSOLUTE LYMPHOCYTES (AUTO) 1.5 10^3/uL (0.5-4.7); ABSOLUTE MONOCYTES (AUTO) 0.5 10^3/uL (0.1-1.4); ABSOLUTE NEUT (AUTO) 4.7 10^3/uL (1.7-8.2); BASOPHILS % (AUTO) 0.5 % (0-2); EOSINOPHILS % (AUTO) 0.9 % (0-6); HEMATOCRIT 42.6 % (37.9-51.0); HEMOGLOBIN 15.1 g/dL (13.5-17.0); HGB HCT DIFFERENCE 2.7; LYMPHOCYTES % (AUTO) 21.4 % (13-45); MEAN CORPUSCULAR HEMOGLOBIN 29.9 pg (27.0-33.4); MEAN CORPUSCULAR HGB CONC 35.6 g/dL (32.0-36.0); MEAN CORPUSCULAR VOLUME 84 fl (80-97); MONOCYTES % (AUTO) 7.4 % (3-13); RED BLOOD COUNT 5.06 10^6/uL (4.35-5.55); RED CELL DISTRIBUTION WIDTH 12.8 % (11.5-14.0); SEGMENTED NEUTROPHILS % (AUTO) 69.8 % (42-78); WHITE BLOOD COUNT 6.8 10^3/uL (4.0-10.5)
[2016-08-06 19:21] LABS: ALANINE AMINOTRANSFERASE 67 U/L (21-72); ALBUMIN 4.3 g/dL (3.5-5.0); ALKALINE PHOSPHATASE 84 U/L (38-126); ANION GAP 13 (5-19); ASPARTATE AMINO TRANSFERASE 48 U/L (17-59); BILIRUBIN,DIRECT 0.3 mg/dL (0.0-0.4); BILIRUBIN,TOTAL 0.9 mg/dL (0.2-1.3); BLOOD UREA NITROGEN 11 mg/dL (7-20); CALCIUM 9.2 mg/dL (8.4-10.2); CARBON DIOXIDE 24 mmol/L (22-30); CHLORIDE 87 mmol/L (98-107); CREATINE KINASE 44 U/L (55-170); CREATININE RESULT 0.73 mg/dL (0.52-1.25); GLUCOSE 99 mg/dL (75-110); LIPASE 21.5 U/L (23-300); POTASSIUM 4.6 mmol/L (3.6-5.0); SODIUM 123.6 mmol/L (137-145); TOTAL PROTEIN 7.2 g/dL (6.3-8.2)
[2016-08-06 19:22] LABS: ALCOHOL < 10 mg/dL (NONE DETECTED)
[2016-08-06 19:24] LABS: APPEARANCE,URINE CLEAR; BILIRUBIN,URINE NEGATIVE (NEGATIVE); GLUCOSE, URINE NEGATIVE (NEGATIVE); KETONES,URINE TRACE mg/dL (NEGATIVE); LEUKOCYTE ESTERASE,URINE NEGATIVE (NEGATIVE); NITRITE,URINE NEGATIVE (NEGATIVE); PROTEIN,URINE NEGATIVE (NEGATIVE); URINE SPECIFIC GRAVITY 1.008; UROBILINOGEN,URINE NEGATIVE mg/dL (<2.0)
[2016-08-06 19:31] LABS: CREATINE KINASE MB 0.39 ng/mL (<4.55)
[2016-08-06 19:32] LABS: TROPONIN I < 0.012 ng/mL
[2016-08-06] MEDS ORDERED: PROMETHAZINE HCL 25 MG TABLET PO ONE (19:40)
[2016-08-06] MEDS ORDERED: KETOROLAC TROMETHAMINE INJ/PF 30 MG/1 ML SDV IV ONE (20:15)
--- NOTE | 2016-08-06 20:25 | EKG REPORT ---
SEVERITY:- ABNORMAL ECG - SINUS RHYTHM PROLONGED QT INTERVAL : Confirmed by: Galen Lloyd 06-Aug-2016 20:24:39
[2016-08-06 21:49] VITALS: BP 115/77
== END 2016-08-06 21:47 | disposition home or self-care (01) ==
LOC: ER 16:15
DX: R10.10 Upper abdominal pain, unspecified (principal); R10.811 Right upper quadrant abdominal tenderness; R11.2 Nausea with vomiting, unspecified; R07.9 Chest pain, unspecified; R61 Generalized hyperhidrosis; R68.83 Chills (without fever); R39.9 Unspecified symptoms and signs involving the genitourinary system; I10 Essential (primary) hypertension; Z82.49 Family history of ischemic heart disease and other diseases of the circulatory system; Z98.84 Bariatric surgery status
CPT/HCPCS: 93005; 99284; 96361; 96374; 96375; 36415; 82553; 80307 ×2; 82550; 83690; 85025; 80053; 81001; 84484; 71020; 93010; J1885; J2765; A9270; J7030; S0028

== ENCOUNTER 2016-08-29 18:46 | Emergency (ER) | payer MEDICARE ==
--- NOTE | 2016-08-29 20:14 | ER Document Report ---
ED Medical Screen (RME) - General Chief Complaint: Abdominal Pain Stated Complaint: SHORTNESS OF BREATH,ABDOMINAL PAIN Notes: This 40-year-old male patient comes from complaining of abdominal pain. He reports he was taking excessive Vicodin up to 90 tablets in the last several days. These are not prescribed to him. He has a long history of chronic abdominal pain and is on chronic pain management. He currently is prescribed oxycodone physician in [place]. He was here just over 3 weeks ago several days in a row for abdominal pain and then on the last visit reported that he thought he was having liver issues from too much Tylenol again. His liver enzymes were completely normal on that day. I have greeted and performed a rapid initial assessment of this patient. A comprehensive ED assessment and evaluation of the patient, analysis of test results and completion of the medical decision making process will be conducted by additional ED providers. TRAVEL OUTSIDE OF THE [place] IN LAST 30 DAYS: No - Related Data Allergies/Adverse Reactions: quetiapine fumarate [From [employer]] Adverse Reaction (Verified 08/29/16 20:07) Past Medical History - Social History Family history: CAD - Past Medical History Cardiac Medical History: Reports: Hx Hypercholesterolemia, Hx Hypertension, Hx Peripheral Vascular Disease - Left carotid stenosis 50-69% Denies: Hx Congestive Heart Failure, Hx DVT, Hx Heart Attack, Hx Pulmonary Embolism Pulmonary Medical History: Denies: Hx Asthma, Hx COPD Neurological Medical History: Reports: Hx Migraine. Denies: Hx Seizures Endocrine Medical History: Reports: Hx Hypothyroidism. Denies: Hx Diabetes Mellitus Type 1, Hx Diabetes Mellitus Type 2, Hx Hyperthyroidism Renal/ Medical History: Denies: Hx Peritoneal Dialysis GI Medical History: Reports: Hx Gastroesophageal Reflux Disease, Hx Hiatal Hernia. Denies: Hx Cirrhosis, Hx Hepatitis Musculoskeltal Medical History: Denies Hx Arthritis Psychiatric Medical History: Reports: Hx Anxiety, Hx Depression Infectious Medical History: Denies: Hx Hepatitis Past Surgical History: Reports: Hx Abdominal Surgery - x7 gastric bypass 05, bowel blockage,hernia repair, Hx Cardiac Catheterization - Which is found to be negative, Hx Cholecystectomy, Hx Gastric Bypass Surgery - Immunizations Immunizations up to date: Yes Hx Diphtheria, Pertussis, Tetanus Vaccination: Yes Physical Exam - Vital signs Vitals: Temp Pulse Resp BP Pulse Ox 97.6 F 70 20 140/95 H 96 08/29/16 18:51 08/29/16 18:51 08/29/16 18:51 08/29/16 18:51 08/29/16 18:51 Course - Vital Signs Vital signs: Temp Pulse Resp BP Pulse Ox 97.6 F 70 20 140/95 H 96 08/29/16 18:51 08/29/16 18:51 08/29/16 18:51 08/29/16 18:51 08/29/16 18:51
[2016-08-29] MEDS ORDERED: ONDANSETRON 4 MG TAB.RAPDIS PO ONE (20:44)
[2016-08-29 21:13] LABS: ABSOLUTE BASOPHILS # (AUTO) 0.1 10^3/uL (0.0-0.2); ABSOLUTE EOSINOPHILS # (AUTO) 0.4 10^3/uL (0.0-0.6); ABSOLUTE LYMPHOCYTES (AUTO) 0.9 10^3/uL (0.5-4.7); ABSOLUTE MONOCYTES (AUTO) 0.6 10^3/uL (0.1-1.4); ABSOLUTE NEUT (AUTO) 6.6 10^3/uL (1.7-8.2); BASOPHILS % (AUTO) 0.6 % (0-2); EOSINOPHILS % (AUTO) 4.4 % (0-6); HEMATOCRIT 40.9 % (37.9-51.0); HEMOGLOBIN 14.3 g/dL (13.5-17.0); LYMPHOCYTES % (AUTO) 11.1 % (13-45); MEAN CORPUSCULAR HEMOGLOBIN 29.9 pg (27.0-33.4); MEAN CORPUSCULAR VOLUME 85 fl (80-97); MONOCYTES % (AUTO) 6.7 % (3-13); RED BLOOD COUNT 4.79 10^6/uL (4.35-5.55); RED CELL DISTRIBUTION WIDTH 12.7 % (11.5-14.0); SEGMENTED NEUTROPHILS % (AUTO) 77.2 % (42-78); WHITE BLOOD COUNT 8.5 10^3/uL (4.0-10.5)
[2016-08-29 21:26] LABS: ALANINE AMINOTRANSFERASE 58 U/L (21-72); ALBUMIN 4.1 g/dL (3.5-5.0); ALKALINE PHOSPHATASE 76 U/L (38-126); ANION GAP 9 (5-19); ASPARTATE AMINO TRANSFERASE 43 U/L (17-59); BILIRUBIN,DIRECT 0.3 mg/dL (0.0-0.4); BILIRUBIN,TOTAL 0.6 mg/dL (0.2-1.3); BLOOD UREA NITROGEN 9 mg/dL (7-20); CALCIUM 9.1 mg/dL (8.4-10.2); CARBON DIOXIDE 32 mmol/L (22-30); CHLORIDE 96 mmol/L (98-107); CREATININE RESULT 0.69 mg/dL (0.52-1.25); GLUCOSE 104 mg/dL (75-110); LIPASE 27.4 U/L (23-300); POTASSIUM 4.9 mmol/L (3.6-5.0); SODIUM 136.6 mmol/L (137-145); TOTAL PROTEIN 6.9 g/dL (6.3-8.2)
[2016-08-29] MEDS ORDERED: PROMETHAZINE HCL 25 MG TABLET PO ONE (22:47)
--- NOTE | 2016-08-29 22:51 | ER Document Report ---
ED General - General Chief Complaint: Abdominal Pain Stated Complaint: SHORTNESS OF BREATH,ABDOMINAL PAIN Time seen by provider: 22:47 Mode of Arrival: Ambulatory Information source: Patient Notes: This is a 40-year-old man with a history of chronic abdominal pain (status post multiple surgeries), dental caries, anxiety and depression, headaches. The patient presents to the emergency room because he is worried about his liver because she's been taking a lot of hydrocodone over the last week. Patient states he's had liver enzyme inflammation secondary to Tylenol in the past. Allergies: Seroquel Medicines: Hydrocodone, Depakote, levothyroxine, not all, diazepam, Lexapro Past surgical history: Gastric bypass, intussusception,:, Hernia, exploratory laparotomy Primary care physician: Cristal TRAVEL OUTSIDE OF THE [place] IN LAST 30 DAYS: No - HPI Onset: Last week Onset/Duration: Gradual Quality of pain: Dull Severity: Mild Pain Level: 1 Associated symptoms: denies: Chest pain, Fever, Shortness of breath Exacerbated by: Denies Relieved by: Denies Similar symptoms previously: Yes Recently seen / treated by doctor: Yes - Related Data Allergies/Adverse Reactions: quetiapine fumarate [From Seroquel] Adverse Reaction (Verified 08/29/16 20:07) Past Medical History - General Information source: Patient - Social History Smoking Status: Never Smoker Cigarette use (# per day): No Chew tobacco use (# tins/day): No Frequency of alcohol use: None Drug Abuse: None Lives with: Family Family History: CAD - States all the males in his family have of heart disease in their 40s., CVA, Other - [place] Patient has suicidal ideation: No Patient has homicidal ideation: No - Past Medical History Cardiac Medical History: Reports: Hx Hypercholesterolemia, Hx Hypertension, Hx Peripheral Vascular Disease - Left carotid stenosis 50-69% Denies: Hx Congestive Heart Failure, Hx DVT, Hx Heart Attack, Hx Pulmonary Embolism Pulmonary Medical History: Denies: Hx Asthma, Hx COPD Neurological Medical History: Reports: Hx Migraine. Denies: Hx Seizures Endocrine Medical History: Reports: Hx Hypothyroidism. Denies: Hx Diabetes Mellitus Type 1, Hx Diabetes Mellitus Type 2, Hx Hyperthyroidism Renal/ Medical History: Denies: Hx Peritoneal Dialysis GI Medical History: Reports: Hx Gastroesophageal Reflux Disease, Hx Hiatal Hernia. Denies: Hx Cirrhosis, Hx Hepatitis Musculoskeltal Medical History: Denies Hx Arthritis Psychiatric Medical History: Reports: Hx Anxiety, Hx Depression Infectious Medical History: Denies: Hx Hepatitis Past Surgical History: Reports: Hx Abdominal Surgery - x7 gastric bypass 05, bowel blockage,hernia repair, Hx Cardiac Catheterization - Which is found to be negative, Hx Cholecystectomy, Hx Gastric Bypass Surgery - Immunizations Immunizations up to date: Yes Hx Diphtheria, Pertussis, Tetanus Vaccination: Yes Review of Systems - Review of Systems Constitutional: denies: Chills, Fever EENT: No symptoms reported Cardiovascular: No symptoms reported Respiratory: No symptoms reported Gastrointestinal: No symptoms reported Genitourinary: No symptoms reported Male Genitourinary: No symptoms reported Musculoskeletal: No symptoms reported Skin: No symptoms reported Hematologic/Lymphatic: No symptoms reported Neurological/Psychological: See HPI Physical Exam - Vital signs Vitals: Temp Pulse Resp BP Pulse Ox 97.6 F 70 20 140/95 H 96 08/29/16 18:51 08/29/16 18:51 08/29/16 18:51 08/29/16 18:51 08/29/16 18:51 Notes: Physical exam: GENERAL: 40-year-old man, alert and oriented 3, no acute distress HEAD: Atraumatic, normocephalic. EYES: Pupils equal round and reactive to light, extraocular movements intact, sclera anicteric, conjunctiva are normal. ENT: TMs normal, nares patent, oropharynx clear without exudates. Moist mucous membranes. NECK: Normal range of motion, supple without lymphadenopathy or JVD. LUNGS: Breath sounds clear to auscultation bilaterally and equal. No wheezes rales or rhonchi. HEART: Regular rate and rhythm without murmurs, rubs or gallops. ABDOMEN: Soft, normoactive bowel sounds. No tenderness to palpation. No guarding, no rebound. No masses appreciated. EXTREMITIES: Normal range of motion, no pitting or edema. No clubbing or cyanosis. NEUROLOGICAL: Cranial nerves II through XII grossly intact. Normal speech, normal gait. PSYCH: Normal mood, normal affect. SKIN: Warm, Dry, normal turgor, no rashes or lesions noted. Bedside ultrasound: No free fluid, no abnormal spleen/liver enlargement. Course - Vital Signs Vital signs: Temp Pulse Resp BP Pulse Ox 97.6 F 70 20 140/95 H 96 08/29/16 18:51 08/29/16 18:51 08/29/16 18:51 08/29/16 18:51 08/29/16 18:51 - Laboratory Result Diagrams: 08/29/16 21:04 08/29/16 21:04 Laboratory results interpreted by me: 08/29/16 08/29/16 21:04 21:04 Lymphocytes % 11.1 L Sodium 136.6 L Chloride 96 L Carbon Dioxide 32 H Acetaminophen < 10 L Discharge - Discharge Clinical Impression: chronic abdominal pain Condition: Stable Disposition: HOME, SELF-CARE Additional Instructions: Note: As we discussed, your liver function tests today were completely normal. Your Tylenol level was below 0. His are good tests. However I want you to avoid Tylenol given your past history. I want you to follow-up with your pain specialist as well as Dr. Alonzo Continue all other medicines. Referrals: NEHEMIAS ALONZO MD [Primary Care Provider] - Follow up in 3-5 days
[2016-08-29 23:17] VITALS: BP 130/75
== END 2016-08-29 23:17 | disposition home or self-care (01) ==
LOC: ER 18:46
DX: G89.29 Other chronic pain (principal); R10.9 Unspecified abdominal pain; Z98.84 Bariatric surgery status; Z98.890 Other specified postprocedural states; I10 Essential (primary) hypertension; F41.9 Anxiety disorder, unspecified; F32.9 Major depressive disorder, single episode, unspecified; E03.9 Hypothyroidism, unspecified; Z87.19 Personal history of other diseases of the digestive system; Z79.891 Long term (current) use of opiate analgesic; Z79.899 Other long term (current) drug therapy
CPT/HCPCS: 99284; 36415; 83690; 80307; 85025; 80053; A9270

== ENCOUNTER 2016-10-07 15:59 | Emergency (ER) | payer MEDICARE ==
[2016-10-07 18:05] VITALS: BP 120/77
[2016-10-07] MEDS ORDERED: LORAZEPAM INJ 2 MG/1 ML VIAL IV ONE (18:52)
[2016-10-07] MEDS ORDERED: PANTOPRAZOLE SODIUM 40 MG VIAL IV ONE (18:53)
[2016-10-07] MEDS ORDERED: NORMAL SALINE 1000 ML 1,000 ML IV ONE (18:53)
--- NOTE | 2016-10-07 18:59 | ER Document Report ---
ED Medical Screen (RME) - General Chief Complaint: Chest Pain Stated Complaint: CHEST PAIN Time Seen by Provider: 10/07/16 18:44 Mode of Arrival: Wheelchair Information source: Patient Notes: This is a 40-year-old male with a complex past medical history including gastric bypass, multiple abdominal surgeries who presents complaining of left upper chest pain radiating to left shoulder. He states the chest pain has been going on for the past few days and he was seen at [facility] yesterday. He states that since leaving [facility] he has had increased pain to the point that he admits to taking up to 18 pills of Lortab in a 24 hour period. He also states that he has a prior history of liver failure in the past, he states that his abdominal pain is severe today as well. He reports nausea and vomiting today. I have greeted and performed a rapid initial assessment of this patient. A comprehensive ED assessment and evaluation of the patient, analysis of test results and completion of the medical decision making process will be conducted by additional ED providers. TRAVEL OUTSIDE OF THE [place] IN LAST 30 DAYS: No - Related Data Allergies/Adverse Reactions: quetiapine fumarate [From Seroquel] Adverse Reaction (Verified 08/29/16 20:07) Past Medical History - Social History Family history: CAD - Past Medical History Cardiac Medical History: Reports: Hx Hypercholesterolemia, Hx Hypertension, Hx Peripheral Vascular Disease - Left carotid stenosis 50-69% Denies: Hx Congestive Heart Failure, Hx DVT, Hx Heart Attack, Hx Pulmonary Embolism Pulmonary Medical History: Denies: Hx Asthma, Hx COPD Neurological Medical History: Reports: Hx Migraine. Denies: Hx Seizures Endocrine Medical History: Reports: Hx Hypothyroidism. Denies: Hx Diabetes Mellitus Type 1, Hx Diabetes Mellitus Type 2, Hx Hyperthyroidism Renal/ Medical History: Denies: Hx Peritoneal Dialysis GI Medical History: Reports: Hx Gastroesophageal Reflux Disease, Hx Hiatal Hernia. Denies: Hx Cirrhosis, Hx Hepatitis Musculoskeltal Medical History: Denies Hx Arthritis Psychiatric Medical History: Reports: Hx Anxiety, Hx Depression Infectious Medical History: Denies: Hx Hepatitis Past Surgical History: Reports: Hx Abdominal Surgery - x7 gastric bypass 05, bowel blockage,hernia repair, Hx Cardiac Catheterization - Which is found to be negative, Hx Cholecystectomy, Hx Gastric Bypass Surgery - Immunizations Immunizations up to date: Yes Hx Diphtheria, Pertussis, Tetanus Vaccination: Yes Physical Exam - Vital signs Vitals: Temp Pulse Resp BP Pulse Ox 98.2 F 80 18 106/77 97 10/07/16 16:25 10/07/16 16:25 10/07/16 16:25 10/07/16 16:25 10/07/16 16:25 - General General appearance: Anxious In distress: Mild Notes: pale, anxious, conversant - HEENT Head: Normocephalic, Atraumatic Pupils: PERRL - Respiratory Respiratory status: No respiratory distress Breath sounds: Normal. No: Rales, Rhonchi, Wheezing - Cardiovascular Rhythm: Regular Heart sounds: Normal auscultation, S1 appreciated, S2 appreciated - Abdominal Inspection: Normal Distension: No distension Bowel sounds: Normal Tenderness: Tender - epigastric and RUQ, no guarding/rebound/rigidity Course - Vital Signs Vital signs: Temp Pulse Resp BP Pulse Ox 98.1 F 71 16 120/77 98 10/07/16 18:02 10/07/16 18:02 10/07/16 18:02 10/07/16 18:02 10/07/16 18:02
[2016-10-07] MEDS ORDERED: ONDANSETRON HCL INJ/PF 4 MG/2 ML SDV IV ONE (19:37)
[2016-10-07 19:38] LABS: ABSOLUTE EOSINOPHILS # (AUTO) 0.1 10^3/uL (0.0-0.6); ABSOLUTE LYMPHOCYTES (AUTO) 1.9 10^3/uL (0.5-4.7); ABSOLUTE MONOCYTES (AUTO) 0.5 10^3/uL (0.1-1.4); ABSOLUTE NEUT (AUTO) 5.7 10^3/uL (1.7-8.2); BASOPHILS % (AUTO) 0.5 % (0-2); HEMATOCRIT 43.4 % (37.9-51.0); HEMOGLOBIN 15.2 g/dL (13.5-17.0); HGB HCT DIFFERENCE 2.2; LYMPHOCYTES % (AUTO) 22.8 % (13-45); MEAN CORPUSCULAR HGB CONC 35.1 g/dL (32.0-36.0); MEAN CORPUSCULAR VOLUME 86 fl (80-97); MONOCYTES % (AUTO) 6.5 % (3-13); RED BLOOD COUNT 5.07 10^6/uL (4.35-5.55); RED CELL DISTRIBUTION WIDTH 13.3 % (11.5-14.0); SEGMENTED NEUTROPHILS % (AUTO) 69.2 % (42-78); WHITE BLOOD COUNT 8.3 10^3/uL (4.0-10.5)
[2016-10-07 19:43] LABS: PROTHROMBIN TIME 13.1 SEC (11.4-15.4)
[2016-10-07 19:57] LABS: ALANINE AMINOTRANSFERASE 31 U/L (21-72); ALBUMIN 4.6 g/dL (3.5-5.0); ALKALINE PHOSPHATASE 71 U/L (38-126); ANION GAP 15 (5-19); ASPARTATE AMINO TRANSFERASE 22 U/L (17-59); BILIRUBIN,DIRECT 0.3 mg/dL (0.0-0.4); BILIRUBIN,TOTAL 0.7 mg/dL (0.2-1.3); BLOOD UREA NITROGEN 6 mg/dL (7-20); CALCIUM 9.5 mg/dL (8.4-10.2); CARBON DIOXIDE 25 mmol/L (22-30); CHLORIDE 87 mmol/L (98-107); CREATINE KINASE 42 U/L (55-170); CREATININE RESULT 0.78 mg/dL (0.52-1.25); GLUCOSE 90 mg/dL (75-110); POTASSIUM 5.1 mmol/L (3.6-5.0); SODIUM 127.2 mmol/L (137-145); TOTAL PROTEIN 7.6 g/dL (6.3-8.2)
--- NOTE | 2016-10-07 19:58 | RADIOLOGY REPORT (SQ) ---
EXAM DESCRIPTION: CHEST SINGLE VIEW COMPLETED DATE/TIME: 10/07/2016 7:32 pm REASON FOR STUDY: chest pain COMPARISON: 08/06/2016 EXAM PARAMETERS: NUMBER OF VIEWS: One view. TECHNIQUE: Single frontal radiographic view of the chest acquired. RADIATION DOSE: NA LIMITATIONS: None. FINDINGS: LUNGS AND PLEURA: No opacities, masses or pneumothorax. No pleural effusion. MEDIASTINUM AND HILAR STRUCTURES: No masses. Contour normal. HEART AND VASCULAR STRUCTURES: Heart normal in size. Normal vasculature. BONES: No acute findings. HARDWARE: None in the chest. OTHER: No other significant finding. IMPRESSION: NO ACUTE RADIOGRAPHIC FINDING IN THE CHEST. TECHNICAL DOCUMENTATION: JOB ID: [id number]
[2016-10-07 20:08] LABS: CREATINE KINASE MB 0.33 ng/mL (<4.55); TROPONIN I < 0.012 ng/mL
--- NOTE | 2016-10-07 21:13 | EKG REPORT ---
SEVERITY:- NORMAL ECG - SINUS RHYTHM : Confirmed by: Galen Lloyd 07-Oct-2016 21:12:42
--- NOTE | 2016-10-07 21:33 | ER Document Report ---
ED General - General Chief Complaint: Chest Pain Stated Complaint: CHEST PAIN Time Seen by Provider: 10/07/16 18:44 Mode of Arrival: Wheelchair Information source: Patient TRAVEL OUTSIDE OF THE [place] IN LAST 30 DAYS: No - HPI Patient complains to provider of: Abdominal pain Onset: Other - 3 days Onset/Duration: Gradual, Persistent Quality of pain: Achy, Pressure, Sharp, Stabbing Severity: Moderate Pain Level: 3 Associated symptoms: Chest pain, Nausea, Vomiting, Shortness of breath Exacerbated by: Movement, Coughing, Deep breathing Relieved by: Denies Similar symptoms previously: Yes Recently seen / treated by doctor: Yes Notes: Patient is a 40-year-old male who presents to the emergency room complaining of abdominal pain that radiates up into the chest and down into the groin, he reports his pain has been going on for at least 3 days as he has been seen at [facility] yesterday and the day before for similar symptoms and released with a normal workup, he reports over the past 24 hours he took approximately 18 Vicodin 5/325 mg, and is now having "liver pain" as well, he reports numbness in his legs and down his left arm, his chest pain is sharp and pressure-like, he reports facial numbness as well, with shortness of breath, nausea and dry heaves, his last bowel movement was 2-3 days ago, he also reports having a rectal exam performed at [facility] yesterday and it was negative for blood, patient reports he had a cardiac catheterization at [facility] 2 years ago as well and it was normal - Related Data Allergies/Adverse Reactions: quetiapine fumarate [From Seroquel] Adverse Reaction (Verified 08/29/16 20:07) Past Medical History - General Information source: Patient - Social History Smoking Status: Never Smoker Family History: CAD - States all the males in his family have of heart disease in their 40s., CVA, Other - [place] - Past Medical History Cardiac Medical History: Reports: Hx Hypercholesterolemia, Hx Hypertension, Hx Peripheral Vascular Disease - Left carotid stenosis 50-69% Denies: Hx Congestive Heart Failure, Hx DVT, Hx Heart Attack, Hx Pulmonary Embolism Pulmonary Medical History: Denies: Hx Asthma, Hx COPD Neurological Medical History: Reports: Hx Migraine. Denies: Hx Seizures Endocrine Medical History: Reports: Hx Hypothyroidism. Denies: Hx Diabetes Mellitus Type 1, Hx Diabetes Mellitus Type 2, Hx Hyperthyroidism Renal/ Medical History: Denies: Hx Peritoneal Dialysis GI Medical History: Reports: Hx Gastroesophageal Reflux Disease, Hx Hiatal Hernia. Denies: Hx Cirrhosis, Hx Hepatitis Musculoskeltal Medical History: Denies Hx Arthritis Psychiatric Medical History: Reports: Hx Anxiety, Hx Depression Infectious Medical History: Denies: Hx Hepatitis Past Surgical History: Reports: Hx Abdominal Surgery - x7 gastric bypass 05, bowel blockage,hernia repair, Hx Cardiac Catheterization - Which is found to be negative, Hx Cholecystectomy, Hx Gastric Bypass Surgery - Immunizations Immunizations up to date: Yes Hx Diphtheria, Pertussis, Tetanus Vaccination: Yes Review of Systems - Review of Systems Constitutional: No symptoms reported EENT: No symptoms reported Cardiovascular: See HPI Respiratory: See HPI Gastrointestinal: See HPI Genitourinary: No symptoms reported Male Genitourinary: No symptoms reported Musculoskeletal: No symptoms reported Skin: No symptoms reported Hematologic/Lymphatic: No symptoms reported Neurological/Psychological: No symptoms reported -: Yes All other systems reviewed and negative Physical Exam - Vital signs Vitals: Temp Pulse Resp BP Pulse Ox 98.2 F 80 18 106/77 97 10/07/16 16:25 10/07/16 16:25 10/07/16 16:25 10/07/16 16:25 10/07/16 16:25 Interpretation: Normal - General General appearance: Appears well, Alert - HEENT Head: Normocephalic, Atraumatic Eyes: Normal Pupils: PERRL - Respiratory Respiratory status: No respiratory distress Chest status: Nontender Breath sounds: Normal Chest palpation: Normal - Cardiovascular Rhythm: Regular Heart sounds: Normal auscultation Murmur: No - Abdominal Inspection: Normal Distension: No distension Bowel sounds: Normal Tenderness: Tender - epigastric Organomegaly: No organomegaly - Back Back: Normal, Nontender - Extremities General upper extremity: Normal inspection, Nontender, Normal color, Normal ROM , Normal temperature General lower extremity: Normal inspection, Nontender, Normal color, Normal ROM , Normal temperature, Normal weight bearing. No: Gemini's sign - Neurological Neuro grossly intact: Yes Cognition: Normal Orientation: AAOx4 Maxime Coma Scale Eye Opening: Spontaneous [place] Coma Scale Verbal: Oriented Maxime Coma Scale Motor: Obeys Commands [place] Coma Scale Total: 15 Speech: Normal Motor strength normal: LUE, RUE, LLE, RLE Sensory: Normal - Psychological Associated symptoms: Normal affect, Normal mood - Skin Skin Temperature: Warm Skin Moisture: Dry Skin Color: Normal Course - Re-evaluation Re-evalutation: 10/08/16 00:06 Lab and imaging findings were discussed with patient at bedside which are relatively unremarkable except for some minor electrolyte abnormalities, patient was advised to follow-up with her primary care provider and control room supervisor in 2-3 days or return if symptoms worsen, patient acknowledges understanding and agreement with this plan - Vital Signs Vital signs: Temp Pulse Resp BP Pulse Ox 98.1 F 71 15 120/77 97 10/07/16 18:02 10/07/16 18:02 10/07/16 21:39 10/07/16 18:02 10/07/16 21:39 - Laboratory Result Diagrams: 10/07/16 19:25 10/07/16 19:25 Laboratory results interpreted by me: 10/07/16 19:25 Sodium 127.2 L Potassium 5.1 H Chloride 87 L BUN 6 L Creatine Kinase 42 L Salicylates 1.4 L Acetaminophen < 10 L - Diagnostic Test Radiology reviewed: Image reviewed, Reports reviewed - EKG Interpretation by Ia EKG shows normal: Sinus rhythm Rate: Normal Rhythm: NSR Discharge - Discharge Clinical Impression: Chest pain of uncertain etiology Abdominal pain Qualifiers: Abdominal location: upper abdomen, unspecified Qualified Code(s): R10.10 - Upper abdominal pain, unspecified Condition: Stable Disposition: HOME, SELF-CARE Instructions: Abdominal Pain ([facility]), Chest Pain of Unclear Cause ([facility]) Additional Instructions: Follow up with your primary care provider in one to 2 days. Return to the emergency room immediately if symptoms worsen or any additional concerns. Referrals: NEHEMIAS ALONZO MD [Primary Care Provider] - Follow up as needed
--- NOTE | 2016-10-07 22:35 | RADIOLOGY REPORT (SQ) ---
EXAM DESCRIPTION: CT ABD/PELVIS WITH IV ORAL COMPLETED DATE/TIME: 10/07/2016 10:01 pm REASON FOR STUDY: abdominal pain COMPARISON: 04/02/2016 TECHNIQUE: CT scan of the abdomen and pelvis performed using helical scanning technique with dynamic intravenous contrast injection. No oral contrast. Images reviewed with lung, soft tissue, and bone windows. Reconstructed coronal and sagittal MPR images reviewed. Delayed images for evaluation of the urinary system also acquired. All images stored on PACS. All CT scanners at this facility use dose modulation, iterative reconstruction, and/or weight based d osing when appropriate to reduce radiation dose to as low as reasonably achievable (ALARA). [facility]: Dose Right [facility]: CareDose [facility]: Dose Right [facility]: Teradose 4D [facility]: Rated People CONTRAST TYPE AND DOSE: 100mL Isovue 370- low osmolar. RENAL FUNCTION: GFR > 60. RADIATION DOSE: 41.07mGy. LIMITATIONS: None. FINDINGS: LOWER CHEST: Minimal linear subsegmental atelectasis in the right lower lobe, similar to t he previous study. LIVER: Normal size. No masses or dilated ducts. SPLEEN: Normal size. No focal lesions. PANCREAS: No masses. No significant calcifications. No adjacent inflammation or peripancreatic fluid collections. Pancreatic duct not dilated. GALLBLADDER: Surgically absent. ADRENAL GLANDS: No significant masses or asymmetry. RIGHT KIDNEY AND URETER: No solid masses. No significant calcifications. No hydronephrosis or hyd roureter. LEFT KIDNEY AND URETER: No solid masses. No significant calcifications. No hydronephrosis or hydr oureter. AORTA AND VESSELS: No aneurysm. No dissection. Renal arteries, SMA, celiac without stenosis. RETROPERITONEUM: No retroperitoneal adenopathy, hemorrhage or masses. BOWEL AND PERITONEAL CAVITY: Prior gastric bypass. No masses or inflammatory changes. No free fluid or peritoneal masses. APPENDIX: Normal. PELVIS: No mass or free fluid. Normal bladder. ABDOMINAL WALL: No masses. No hernias. BONES: No significant or acute findings. OTHER: No other significant finding. IMPRESSION: NO ACUTE FINDING IN THE ABDOMEN OR PELVIS ON CT SCAN WITH IV CONTRAST. TECHNICAL DOCUMENTATION: JOB ID: [id number] Quality ID # [id number]: Final reports with documentation of one or more dose reduction techniques (e.g., Au tomated exposure control, adjustment of the mA and/or kV according to patient size, use of iterative reconstruction technique) 2010 [employer]- All Rights Reserved
== END 2016-10-07 23:24 | disposition home or self-care (01) ==
LOC: ER 15:59
DX: R07.9 Chest pain, unspecified (principal); R10.10 Upper abdominal pain, unspecified; Z79.899 Other long term (current) drug therapy
CPT/HCPCS: 93005; 99285; 96361; 96374; 96375; 36415; 82553; 82550; 80307 ×2; 85025; 85610; 80053; 84484; 71010; 74177; 93010; J2060; C9113; J2405; J7030; S0164

== ENCOUNTER 2016-10-10 15:51 | Emergency (ER) | payer MEDICARE ==
[2016-10-10] MEDS ORDERED: ONDANSETRON HCL INJ/PF 4 MG/2 ML SDV IV ONE (17:26)
[2016-10-10] MEDS ORDERED: LORAZEPAM INJ 2 MG/1 ML VIAL IV ONE (17:26)
--- NOTE | 2016-10-10 17:29 | ER Document Report ---
ED Medical Screen (RME) - General Chief Complaint: Chest Pain Stated Complaint: CHEST PAIN Time Seen by Provider: 10/10/16 17:25 Notes: Patient is complaining of left anterior chest pain this been present off and on for the past few days. Says he has been worked up with a cardiac cath in [place] about a year ago that showed only small vessel disease but the major 3 arteries were open. He has been treated with nitroglycerin in the past with some relief, but he has been out of that medication recently. He came in by EMS who gave him a nitro tablet and it seemed to help his chest pain. However, the nitroglycerin lowers his blood pressure significantly. Patient also suffers from significant anxiety and is on Zoloft and diazepam. He says when he starts having chest pains, his anxiety only worsens it. TRAVEL OUTSIDE OF THE [place] IN LAST 30 DAYS: No - Related Data Allergies/Adverse Reactions: quetiapine fumarate [From Seroquel] Adverse Reaction (Verified 10/10/16 16:12) Past Medical History - Social History Chew tobacco use (# tins/day): No Frequency of alcohol use: None Drug Abuse: None Family history: CAD - Past Medical History Cardiac Medical History: Reports: Hx Hypercholesterolemia, Hx Hypertension, Hx Peripheral Vascular Disease - Left carotid stenosis 50-69% Denies: Hx Congestive Heart Failure, Hx DVT, Hx Heart Attack, Hx Pulmonary Embolism Pulmonary Medical History: Denies: Hx Asthma, Hx COPD Neurological Medical History: Reports: Hx Migraine. Denies: Hx Seizures Endocrine Medical History: Reports: Hx Hypothyroidism. Denies: Hx Diabetes Mellitus Type 1, Hx Diabetes Mellitus Type 2, Hx Hyperthyroidism Renal/ Medical History: Denies: Hx Peritoneal Dialysis GI Medical History: Reports: Hx Gastroesophageal Reflux Disease, Hx Hiatal Hernia. Denies: Hx Cirrhosis, Hx Hepatitis Musculoskeltal Medical History: Denies Hx Arthritis Psychiatric Medical History: Reports: Hx Anxiety, Hx Depression Infectious Medical History: Denies: Hx Hepatitis Past Surgical History: Reports: Hx Abdominal Surgery - x7 gastric bypass 05, bowel blockage,hernia repair, Hx Cardiac Catheterization - Which is found to be negative, Hx Cholecystectomy, Hx Gastric Bypass Surgery - Immunizations Immunizations up to date: Yes Hx Diphtheria, Pertussis, Tetanus Vaccination: Yes Physical Exam - Vital signs Vitals: Temp Pulse Resp BP Pulse Ox 97.8 F 76 20 123/78 97 10/10/16 16:12 10/10/16 16:12 10/10/16 16:12 10/10/16 16:12 10/10/16 16:12 Course - Vital Signs Vital signs: Temp Pulse Resp BP Pulse Ox 97.8 F 76 20 123/78 97 10/10/16 16:12 10/10/16 16:12 10/10/16 16:12 10/10/16 16:12 10/10/16 16:12
[2016-10-10 18:02] LABS: ABSOLUTE BASOPHILS # (AUTO) 0.1 10^3/uL (0.0-0.2); ABSOLUTE EOSINOPHILS # (AUTO) 0.1 10^3/uL (0.0-0.6); ABSOLUTE LYMPHOCYTES (AUTO) 2.5 10^3/uL (0.5-4.7); ABSOLUTE MONOCYTES (AUTO) 0.4 10^3/uL (0.1-1.4); ABSOLUTE NEUT (AUTO) 4.5 10^3/uL (1.7-8.2); BASOPHILS % (AUTO) 0.7 % (0-2); EOSINOPHILS % (AUTO) 0.8 % (0-6); HEMATOCRIT 40.7 % (37.9-51.0); HGB HCT DIFFERENCE 1.3; LYMPHOCYTES % (AUTO) 33.4 % (13-45); MEAN CORPUSCULAR HEMOGLOBIN 29.8 pg (27.0-33.4); MEAN CORPUSCULAR HGB CONC 34.3 g/dL (32.0-36.0); MEAN CORPUSCULAR VOLUME 87 fl (80-97); MONOCYTES % (AUTO) 5.9 % (3-13); RED BLOOD COUNT 4.69 10^6/uL (4.35-5.55); RED CELL DISTRIBUTION WIDTH 12.8 % (11.5-14.0); SEGMENTED NEUTROPHILS % (AUTO) 59.2 % (42-78); WHITE BLOOD COUNT 7.6 10^3/uL (4.0-10.5)
[2016-10-10 18:17] LABS: ALANINE AMINOTRANSFERASE 24 U/L (21-72); ALBUMIN 4.2 g/dL (3.5-5.0); ALKALINE PHOSPHATASE 63 U/L (38-126); ANION GAP 10 (5-19); ASPARTATE AMINO TRANSFERASE 16 U/L (17-59); BILIRUBIN,DIRECT 0.2 mg/dL (0.0-0.4); BILIRUBIN,TOTAL 0.7 mg/dL (0.2-1.3); BLOOD UREA NITROGEN 4 mg/dL (7-20); CALCIUM 9.1 mg/dL (8.4-10.2); CARBON DIOXIDE 27 mmol/L (22-30); CHLORIDE 86 mmol/L (98-107); CREATININE RESULT 0.81 mg/dL (0.52-1.25); GLUCOSE 101 mg/dL (75-110); LIPASE 25.8 U/L (23-300); POTASSIUM 4.2 mmol/L (3.6-5.0); SODIUM 123.3 mmol/L (137-145); TOTAL PROTEIN 7.2 g/dL (6.3-8.2)
[2016-10-10 18:27] LABS: CREATINE KINASE MB 0.31 ng/mL (<4.55)
[2016-10-10 18:28] LABS: TROPONIN I < 0.012 ng/mL
[2016-10-10] MEDS ORDERED: NORMAL SALINE 1000 ML 1,000 ML IV ONE (19:16)
--- NOTE | 2016-10-10 19:29 | RADIOLOGY REPORT (SQ) ---
EXAM DESCRIPTION: CHEST PA/LAT COMPLETED DATE/TIME: 10/10/2016 7:18 pm REASON FOR STUDY: Chest pain COMPARISON: 10/07/2016 EXAM PARAMETERS: NUMBER OF VIEWS: two views TECHNIQUE: Digital Frontal and Lateral radiographic views of the chest acquired. RADIATION DOSE: NA LIMITATIONS: none FINDINGS: LUNGS AND PLEURA: No opacities, masses or pneumothorax. No pleural effusion. MEDIASTINUM AND HILAR STRUCTURES: No masses or contour abnormalities. HEART AND VASCULAR STRUCTURES: Heart normal size. No evidence for failure. BONES: No acute findings. HARDWARE: None in the chest. OTHER: No other significant finding. IMPRESSION: NO SIGNIFICANT RADIOGRAPHIC FINDING IN THE CHEST. TECHNICAL DOCUMENTATION: JOB ID: [id number] [employer]- All Rights Reserved
[2016-10-10] MEDS ORDERED: ASPIRIN 325 MG TABLET PO ONE (19:53)
--- NOTE | 2016-10-10 19:54 | ER Document Report ---
ED General - General Chief Complaint: Chest Pain Stated Complaint: CHEST PAIN Time Seen by Provider: 10/10/16 17:25 Notes: patient is a 40 year old male who returns to the ED complaining of chest pain on /off for the past six years that has gotten worse after running out of isosorbide at home, h/o anxiety. Described as pressure lasting "hours", all over his chest. He states he wont follow up with cards in the area and has difficulty getting to [place] Surgical history significant for gastric bypass, small bowel obstruction, hernia , intussusception, cholecystectomy, ex lap Primary CARE physicians Dr. 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 Had a cath and echo 18 months ago at [facility], both normal. TRAVEL OUTSIDE OF THE U[place] IN LAST 30 DAYS: No - Related Data Allergies/Adverse Reactions: quetiapine fumarate [From [employer]] Adverse Reaction (Verified 10/10/16 16:12) Past Medical History - Social History Smoking Status: Never Smoker Chew tobacco use (# tins/day): No Frequency of alcohol use: None Drug Abuse: None Family History: CAD - States all the males in his family have of heart disease in their 40s., CVA, Other - [place] Patient has suicidal ideation: No Patient has homicidal ideation: No - Past Medical History Cardiac Medical History: Reports: Hx Hypercholesterolemia, Hx Hypertension, Hx Peripheral Vascular Disease - Left carotid stenosis 50-69% Denies: Hx Congestive Heart Failure, Hx DVT, Hx Heart Attack, Hx Pulmonary Embolism Pulmonary Medical History: Denies: Hx Asthma, Hx COPD Neurological Medical History: Reports: Hx Migraine. Denies: Hx Seizures Endocrine Medical History: Reports: Hx Hypothyroidism. Denies: Hx Diabetes Mellitus Type 1, Hx Diabetes Mellitus Type 2, Hx Hyperthyroidism Renal/ Medical History: Denies: Hx Peritoneal Dialysis GI Medical History: Reports: Hx Gastroesophageal Reflux Disease, Hx Hiatal Hernia. Denies: Hx Cirrhosis, Hx Hepatitis Musculoskeltal Medical History: Denies Hx Arthritis Psychiatric Medical History: Reports: Hx Anxiety, Hx Depression Infectious Medical History: Denies: Hx Hepatitis Past Surgical History: Reports: Hx Abdominal Surgery - x7 gastric bypass 05, bowel blockage,hernia repair, Hx Cardiac Catheterization - Which is found to be negative, Hx Cholecystectomy, Hx Gastric Bypass Surgery - Immunizations Immunizations up to date: Yes Hx Diphtheria, Pertussis, Tetanus Vaccination: Yes Review of Systems - Review of Systems Constitutional: No symptoms reported Cardiovascular: Chest pain. denies: Palpitations, Heart racing, Orthopnea, Dyspnea, Syncope, Dizziness, Lightheaded, Edema, Other Respiratory: No symptoms reported -: Yes All other systems reviewed and negative Physical Exam - Vital signs Vitals: Temp Pulse Resp BP Pulse Ox 97.8 F 76 20 123/78 97 10/10/16 16:12 10/10/16 16:12 10/10/16 16:12 10/10/16 16:12 10/10/16 16:12 - Notes Notes: PHYSICAL EXAM GENERAL: Alert, interacts well. HEAD: Normocephalic, atraumatic. EYES: Pupils equal, round, and reactive to light. Extraocular movements intact. ENT: Oral mucosa moist, tongue midline. NECK: Full range of motion. Supple. Trachea midline. LUNGS: Clear to auscultation bilaterally, no wheezes, rales, or rhonchi. No respiratory distress. HEART: Regular rate and rhythm. No murmurs, gallops, or rubs. ABDOMEN: Soft, nondistended, nontender. No guarding, rebound, or rigidity.. Bowel sounds present in all 4 quadrants. EXTREMITIES: Moves all 4 extremities spontaneously. No edema, radial and dorsalis pedis pulses 2/4 bilaterally. No cyanosis. NEUROLOGICAL: Alert and oriented x4. Normal speech. PSYCH: Normal affect, normal mood. SKIN: Warm, dry, normal turgor. No rashes or lesions noted. Course - Re-evaluation Re-evalutation: 10/11/16 06:51 Patient is very well in appearance, vitals within normal limits. Low clinical suspicion for ACS given clinical history, exam, EKG without ST elevations or depressions, and negative initial troponin. HEART score less than or equal to 3. PE also seems unlikely given clinical history, absence of tachycardia or dyspnea. Well's score of 0. CXR without evidence of pneumothorax or pneumonia. No widened mediastinum. Aortic dissection also seems unlikely given history, symmetric pulses, CXR, and vitals. At this time will discharge with return precautions and follow-up recommendations. Verbal discharge instructions given a the bedside and opportunity for questions given. Medication warnings reviewed. Patient is in agreement with this plan and has verbalized understanding of return precautions and the need for primary care follow-up in the next 24-72 hours. - Vital Signs Vital signs: Temp Pulse Resp BP Pulse Ox 97.8 F 62 20 130/80 H 96 10/10/16 16:12 10/10/16 18:56 10/10/16 20:20 10/10/16 20:20 10/10/16 20:20 - Laboratory Result Diagrams: 10/10/16 17:45 10/10/16 17:45 Laboratory results interpreted by me: 10/10/16 17:45 Sodium 123.3 L Chloride 86 L BUN 4 L AST 16 L - Diagnostic Test Radiology reviewed: Image reviewed, Reports reviewed - EKG Interpretation by Me EKG shows normal: Sinus rhythm Rate: Normal Rhythm: NSR When compared to previous EKG there are: No significant change Discharge - Discharge Clinical Impression: Chest pain, Anxiety Condition: Good Disposition: HOME, SELF-CARE Instructions: Chest Pain of Unclear Cause ([facility]) Referrals: NEHEMIAS ALONZO MD [Primary Care Provider] - Follow up in 3-5 days
[2016-10-10 20:33] VITALS: BP 130/80
== END 2016-10-10 20:33 | disposition home or self-care (01) ==
LOC: ER 15:51
DX: R07.9 Chest pain, unspecified (principal); F41.9 Anxiety disorder, unspecified; E78.00 Pure hypercholesterolemia, unspecified; I10 Essential (primary) hypertension; E03.9 Hypothyroidism, unspecified; Z90.49 Acquired absence of other specified parts of digestive tract; Z98.84 Bariatric surgery status
CPT/HCPCS: 99285; 96361; 96374; 96375; 36415; 82553; 83690; 85025; 80053; 84484; 71020; J2060; J2405; J7030

== ENCOUNTER 2016-10-27 12:13 | Emergency (ER) | payer MEDICARE ==
[2016-10-27] MEDS ORDERED: ASPIRIN 81 MG TABLET, CHEWABLE PO ONE (12:20)
[2016-10-27 12:40] LABS: ABSOLUTE LYMPHOCYTES (AUTO) 1.1 10^3/uL (0.5-4.7); ABSOLUTE MONOCYTES (AUTO) 0.4 10^3/uL (0.1-1.4); ABSOLUTE NEUT (AUTO) 4.4 10^3/uL (1.7-8.2); BASOPHILS % (AUTO) 0.5 % (0-2); EOSINOPHILS % (AUTO) 0.8 % (0-6); HEMATOCRIT 40.6 % (37.9-51.0); HEMOGLOBIN 13.8 g/dL (13.5-17.0); HGB HCT DIFFERENCE 0.8; LYMPHOCYTES % (AUTO) 17.7 % (13-45); MEAN CORPUSCULAR HEMOGLOBIN 29.4 pg (27.0-33.4); MEAN CORPUSCULAR VOLUME 86 fl (80-97); MONOCYTES % (AUTO) 6.3 % (3-13); RED CELL DISTRIBUTION WIDTH 12.6 % (11.5-14.0); SEGMENTED NEUTROPHILS % (AUTO) 74.7 % (42-78); WHITE BLOOD COUNT 5.9 10^3/uL (4.0-10.5)
--- NOTE | 2016-10-27 12:46 | ER Document Report ---
ED General - General Chief Complaint: Chest Pain Stated Complaint: CHEST PAIN Time Seen by Provider: 10/27/16 12:16 Mode of Arrival: Medic Information source: Patient Notes: 41-year-old male history of chest pain recent cardiac catheterization presents with complaints of chest pain headache abdominal pain. Patient denies any fevers or chills. As noted that the patient went through pain management detox and his last treatment was yesterday. Patient states he understands it is not his heart and has recently seen his undercollar baster but believes that there might be a blockage in the upper artery Patient was given nitroglycerin notes improvement of his pain TRAVEL OUTSIDE OF THE [place].S[place] IN LAST 30 DAYS: No - HPI Onset: Other Onset/Duration: Persistent Quality of pain: Achy Severity: Mild Pain Level: 1 Associated symptoms: Chest pain, Headache Exacerbated by: Denies Relieved by: Denies Similar symptoms previously: Yes Recently seen / treated by doctor: Yes - Related Data Allergies/Adverse Reactions: quetiapine fumarate [From [employer]] Adverse Reaction (Verified 10/27/16 12:22) Past Medical History - Social History Smoking Status: Former Smoker Cigarette use (# per day): No Chew tobacco use (# tins/day): Yes Smoking Education Provided: No Frequency of alcohol use: None Drug Abuse: None Family History: CAD - States all the males in his family have of heart disease in their 40s., CVA, Other - [place] - Past Medical History Cardiac Medical History: Reports: Hx Hypercholesterolemia, Hx Hypertension, Hx Peripheral Vascular Disease - Left carotid stenosis 50-69% Denies: Hx Congestive Heart Failure, Hx DVT, Hx Heart Attack, Hx Pulmonary Embolism Pulmonary Medical History: Denies: Hx Asthma, Hx COPD Neurological Medical History: Reports: Hx Migraine. Denies: Hx Seizures Endocrine Medical History: Reports: Hx Hypothyroidism. Denies: Hx Diabetes Mellitus Type 1, Hx Diabetes Mellitus Type 2, Hx Hyperthyroidism Renal/ Medical History: Denies: Hx Peritoneal Dialysis GI Medical History: Reports: Hx Gastroesophageal Reflux Disease, Hx Hiatal Hernia. Denies: Hx Cirrhosis, Hx Hepatitis Musculoskeltal Medical History: Denies Hx Arthritis Psychiatric Medical History: Reports: Hx Anxiety, Hx Depression Infectious Medical History: Denies: Hx Hepatitis Past Surgical History: Reports: Hx Abdominal Surgery - x7 gastric bypass 05, bowel blockage,hernia repair, Hx Cardiac Catheterization - Which is found to be negative, Hx Cholecystectomy, Hx Gastric Bypass Surgery - Immunizations Immunizations up to date: Yes Hx Diphtheria, Pertussis, Tetanus Vaccination: Yes Review of Systems - Review of Systems Notes: REVIEW OF SYSTEMS: CONSTITUTIONAL : Denies fever, chills, or sweats. Denies recent illness. EENT: Denies eye, ear, throat, or mouth pain or symptoms. Denies nasal or sinus congestion or discharge. Denies throat, tongue, or mouth swelling or difficulty swallowing. CARDIOVASCULAR: Admits to chest pain RESPIRATORY: Denies cough, cold, or chest congestion. Denies shortness of breath, difficulty breathing, or wheezing. GASTROINTESTINAL: Admits to abdominal pain GENITOURINARY: Denies difficulty urinating, painful urination, burning, frequency, blood in urine, or discharge. MUSCULOSKELETAL: Denies back or neck pain or stiffness. Denies joint pain or swelling. SKIN: Denies rash, lesions or sores. HEMATOLOGIC : Denies easy bruising or bleeding. LYMPHATIC: Denies swollen, enlarged glands. NEUROLOGICAL: Admits to headache PSYCHIATRIC: Denies anxiety or stress. Denies depression, suicidal ideation, or homicidal ideation. ALL OTHER SYSTEMS REVIEWED AND NEGATIVE. Dictation was performed using [employer] voice recognition software PHYSICAL EXAMINATION: GENERAL: Well-appearing, well-nourished and in no acute distress. HEAD: Atraumatic, normocephalic. EYES: Pupils equal round and reactive to light, extraocular movements intact, sclera anicteric, conjunctiva are normal. ENT: Nares patent, oropharynx clear without exudates. Moist mucous membranes. NECK: Normal range of motion, supple without lymphadenopathy LUNGS: Breath sounds clear to auscultation bilaterally and equal. No wheezes rales or rhonchi. HEART: Regular rate and rhythm without murmurs ABDOMEN: Soft, nontender, nondistended abdomen. No guarding, no rebound. No masses appreciated. Musculoskeletal: Normal range of motion, no pitting or edema. No cyanosis. NEUROLOGICAL: Cranial nerves grossly intact. Normal speech, normal gait. Normal sensory, motor exams PSYCH: Very anxious SKIN: Warm, Dry, normal turgor, no rashes or lesions noted. Physical Exam - Vital signs Vitals: Temp Pulse Resp BP Pulse Ox 98.2 F 69 20 129/88 H 98 10/27/16 12:15 10/27/16 12:15 10/27/16 12:15 10/27/16 12:15 10/27/16 12:15 Course - Re-evaluation Re-evalutation: 10/27/16 12:46 I have extremely low suspicion for any cardiac event given that the patient has been seen in the emergency department multiple times, had been seen other emergency departments multiple times, has had a recent heart catheterization, and has generalized complaints most consistent with withdrawal symptoms There are no bruits of his carotid 10/27/16 12:56 Patient's sodium is higher than what it was on the last visit 10/27/16 14:52 CTA is negative. This was expected given the patient's generalized complaints. He is otherwise stable for discharge to follow-up with his own undercollar baster Patient has been instructed that he must follow-up with his undercollar baster for evaluation of his carotids, given that there is only 60% blockage on his last evaluation I do not believe it needs to be emergently evaluated here today but should require evaluation the very near future After performing a Medical Screening Examination, I estimate there is LOW risk for RUPTURED ESOPHAGUS, PNEUMOTHORAX, PULMONARY EMBOLISM, ACUTE CORONARY SYNDROME, OR THORACIC AORTIC DISSECTION, thus I consider the discharge disposition reasonable. I have reevaluated this patient multiple times and no significant life threatening changes are noted. The patient and I have discussed the diagnosis and risks, and we agree with discharging home with close follow-up. We also discussed returning to the Emergency Department immediately if new or worsening symptoms occur. We have discussed the symptoms which are most concerning (e.g., bloody sputum, worsening pain or shortness of breath) that necessitate immediate return. 10/27/16 14:53 - Vital Signs Vital signs: Temp Pulse Resp BP Pulse Ox 98.2 F 69 16 126/93 H 95 10/27/16 12:15 10/27/16 12:15 10/27/16 14:00 10/27/16 13:00 10/27/16 14:00 - Laboratory Result Diagrams: 10/27/16 12:25 10/27/16 12:25 Laboratory results interpreted by me: 10/27/16 12:25 Sodium 126.3 L Chloride 89 L BUN 3 L - Diagnostic Test Radiology reviewed: Image reviewed, Reports reviewed - EKG Interpretation by Me EKG shows normal: Sinus rhythm, [place], Intervals, QRS Complexes When compared to previous EKG there are: No significant change Discharge - Discharge Clinical Impression: History of gastric bypass, Hyponatremia Chest pain Qualifiers: Chest pain type: unspecified Qualified Code(s): R07.9 - Chest pain, unspecified Condition: Stable Disposition: HOME, SELF-CARE Instructions: Chest Pain of Unclear Cause ([facility]) Referrals: NEHEMIAS ALONZO MD [Primary Care Provider] - Follow up tomorrow
[2016-10-27] MEDS ORDERED: HALOPERIDOL LACTATE INJ 5 MG/1 ML VIAL IV ONE (12:50)
[2016-10-27 12:55] LABS: ALANINE AMINOTRANSFERASE 25 U/L (21-72); ALBUMIN 4.1 g/dL (3.5-5.0); ALKALINE PHOSPHATASE 69 U/L (38-126); ANION GAP 15 (5-19); ASPARTATE AMINO TRANSFERASE 19 U/L (17-59); BILIRUBIN,DIRECT 0.3 mg/dL (0.0-0.4); BILIRUBIN,TOTAL 0.5 mg/dL (0.2-1.3); BLOOD UREA NITROGEN 3 mg/dL (7-20); CALCIUM 9.1 mg/dL (8.4-10.2); CARBON DIOXIDE 22 mmol/L (22-30); CHLORIDE 89 mmol/L (98-107); CREATINE KINASE 82 U/L (55-170); CREATININE RESULT 0.64 mg/dL (0.52-1.25); GLUCOSE 84 mg/dL (75-110); POTASSIUM 4.4 mmol/L (3.6-5.0); SODIUM 126.3 mmol/L (137-145)
--- NOTE | 2016-10-27 12:58 | RADIOLOGY REPORT (SQ) ---
EXAM DESCRIPTION: CHEST SINGLE VIEW COMPLETED DATE/TIME: 10/27/2016 12:46 pm REASON FOR STUDY: chest pain COMPARISON: 10/10/2016 EXAM PARAMETERS: NUMBER OF VIEWS: One view. TECHNIQUE: Single frontal radiographic view of the chest acquired. RADIATION DOSE: NA LIMITATIONS: None. FINDINGS: LUNGS AND PLEURA: No opacities, masses or pneumothorax. No pleural effusion. MEDIASTINUM AND HILAR STRUCTURES: No masses. Contour normal. HEART AND VASCULAR STRUCTURES: Heart normal in size. Normal vasculature. BONES: No acute findings. HARDWARE: None in the chest. OTHER: No other significant finding. IMPRESSION: NO ACUTE RADIOGRAPHIC FINDING IN THE CHEST. TECHNICAL DOCUMENTATION: JOB ID: [id number]
--- NOTE | 2016-10-27 13:02 | EKG REPORT ---
SEVERITY:- NORMAL ECG - SINUS RHYTHM : Confirmed by: Mariaelena Sahni MD 27-Oct-2016 13:01:39
[2016-10-27 13:04] LABS: CREATINE KINASE MB 0.64 ng/mL (<4.55); TROPONIN I < 0.012 ng/mL
[2016-10-27 14:34] VITALS: BP 126/93
--- NOTE | 2016-10-27 14:49 | RADIOLOGY REPORT (SQ) ---
EXAM DESCRIPTION: CTA CHEST COMPLETED DATE/TIME: 10/27/2016 2:29 pm REASON FOR STUDY: chest pain COMPARISON: Chest radiograph TECHNIQUE: CT scan of the chest performed using helical scanning technique with dynamic intravenous contrast injection. Images reviewed with lung, soft tissue and bone windows. Reconstructed coronal and sagittal MPR images reviewed. Additional 3 dimensional post-processing performed to develop Maximal Intensity Projection images (TX P). All images stored on PACS. All CT scanners at this facility use dose modulation, iterative reconstruction, and/or weight based d osing when appropriate to reduce radiation dose to as low as reasonably achievable (ALARA). [facility]: Dose Right [facility]: CareDose [facility]: Dose Right [facility]: Teradose 4D [facility]: [employer] CONTRAST TYPE AND DOSE: contrast/concentration: Isovue 370.00 mg/ml; Total Contrast Delivered: 82.0 ml; Total Saline Delivered: 110.0 ml RENAL FUNCTION: None required. The patient is less than 50 years old. RADIATION DOSE: 44.16 . LIMITATIONS: None. FINDINGS: LUNGS AND PLEURA: Scarring at the right lung base. AORTA AND GREAT VESSELS: No aneurysm or dissection. HEART: No pericardial effusion. PULMONARY ARTERIES: No emboli visualized in the main pulmonary arteries or the segmental branches. HILAR AND MEDIASTINAL STRUCTURES: No identified masses or abnormal nodes. HARDWARE: None in the chest. UPPER ABDOMEN: Gastric bypass. THYROID AND OTHER SOFT TISSUES: No masses. No adenopathy. BONES: No acute or significant finding. 3D MIPS: Confirm above findings. OTHER: No other significant finding. IMPRESSION: NORMAL CTA OF THE CHEST. NO PULMONARY EMBOLI. TECHNICAL DOCUMENTATION: JOB ID: [id number] Quality ID # [id number]: Final reports with documentation of one or more dose reduction techniques (e.g., Au tomated exposure control, adjustment of the mA and/or kV according to patient size, use of iterative reconstruction technique) 2010 [employer]- All Rights Reserved
== END 2016-10-27 15:03 | disposition home or self-care (01) ==
LOC: ER 12:13
DX: R07.9 Chest pain, unspecified (principal); E87.1 Hypo-osmolality and hyponatremia; R51 Headache; R10.9 Unspecified abdominal pain; I10 Essential (primary) hypertension; F41.9 Anxiety disorder, unspecified; Z87.891 Personal history of nicotine dependence; Z82.49 Family history of ischemic heart disease and other diseases of the circulatory system; Z98.84 Bariatric surgery status; Z90.49 Acquired absence of other specified parts of digestive tract
CPT/HCPCS: 93005; 99285; 96374; 36415; 82553; 82550; 85025; 80053; 84484; 71010; 71275; 93010; J1630

== ENCOUNTER 2016-10-28 19:28 | Emergency (ER) | payer MEDICARE ==
--- NOTE | 2016-10-28 21:01 | ER Document Report ---
ED Medical Screen (RME) - General Chief Complaint: Chest Pain Stated Complaint: CHEST PAIN Time Seen by Provider: 10/28/16 21:00 Mode of Arrival: Medic Information source: Patient Notes: Patient reports midsternal chest pain that he describes as a pressure that radiates to the left shoulder. Patient states pain started 1:30 in the morning on Friday. Patient states he was just recently here yesterday for the same complaint and had a CT of the chest performed. Patient does report a history of angina in the past. hx: Angina, hypothyroid, anxiety, depression, gastric bypass TRAVEL OUTSIDE OF THE [place] IN LAST 30 DAYS: No - Related Data Allergies/Adverse Reactions: quetiapine fumarate [From [facility]] Adverse Reaction (Verified 10/27/16 12:22) Past Medical History - Social History Family history: CAD - Past Medical History Cardiac Medical History: Reports: Hx Hypercholesterolemia, Hx Hypertension, Hx Peripheral Vascular Disease - Left carotid stenosis 50-69% Denies: Hx Congestive Heart Failure, Hx DVT, Hx Heart Attack, Hx Pulmonary Embolism Pulmonary Medical History: Denies: Hx Asthma, Hx COPD Neurological Medical History: Reports: Hx Migraine. Denies: Hx Seizures Endocrine Medical History: Reports: Hx Hypothyroidism. Denies: Hx Diabetes Mellitus Type 1, Hx Diabetes Mellitus Type 2, Hx Hyperthyroidism Renal/ Medical History: Denies: Hx Peritoneal Dialysis GI Medical History: Reports: Hx Gastroesophageal Reflux Disease, Hx Hiatal Hernia. Denies: Hx Cirrhosis, Hx Hepatitis Musculoskeltal Medical History: Denies Hx Arthritis Psychiatric Medical History: Reports: Hx Anxiety, Hx Depression Infectious Medical History: Denies: Hx Hepatitis Past Surgical History: Reports: Hx Abdominal Surgery - x7 gastric bypass 05, bowel blockage,hernia repair, Hx Cardiac Catheterization - Which is found to be negative, Hx Cholecystectomy, Hx Gastric Bypass Surgery - Immunizations Immunizations up to date: Yes Hx Diphtheria, Pertussis, Tetanus Vaccination: Yes Physical Exam - Vital signs Vitals: Temp Pulse Resp BP Pulse Ox 98.5 F 74 20 106/67 96 10/28/16 19:46 10/28/16 19:46 10/28/16 19:46 10/28/16 19:46 10/28/16 19:46 - Respiratory Chest status: Nontender - Cardiovascular Rhythm: Regular Heart sounds: S1 appreciated, S2 appreciated Course - Vital Signs Vital signs: Temp Pulse Resp BP Pulse Ox 98.5 F 74 20 106/67 96 10/28/16 19:46 10/28/16 19:46 10/28/16 19:46 10/28/16 19:46 10/28/16 19:46
--- NOTE | 2016-10-28 21:54 | RADIOLOGY REPORT (SQ) ---
EXAM DESCRIPTION: CHEST PA/LAT COMPLETED DATE/TIME: 10/28/2016 9:34 pm REASON FOR STUDY: cp COMPARISON: 10/10/2016 EXAM PARAMETERS: NUMBER OF VIEWS: two views TECHNIQUE: Digital Frontal and Lateral radiographic views of the chest acquired. RADIATION DOSE: NA LIMITATIONS: none FINDINGS: LUNGS AND PLEURA: No acute opacities, masses or pneumothorax. No pleural effusion. MEDIASTINUM AND HILAR STRUCTURES: No masses or contour abnormalities. HEART AND VASCULAR STRUCTURES: Heart normal size. No evidence for failure. BONES: No acute findings. HARDWARE: None in the chest. OTHER: No other significant finding. IMPRESSION: No acute findings. TECHNICAL DOCUMENTATION: JOB ID: [id number] [employer]- All Rights Reserved
[2016-10-28 22:28] LABS: ABSOLUTE EOSINOPHILS # (AUTO) 0.1 10^3/uL (0.0-0.6); ABSOLUTE LYMPHOCYTES (AUTO) 2.2 10^3/uL (0.5-4.7); ABSOLUTE MONOCYTES (AUTO) 0.6 10^3/uL (0.1-1.4); ABSOLUTE NEUT (AUTO) 4.3 10^3/uL (1.7-8.2); BASOPHILS % (AUTO) 0.6 % (0-2); EOSINOPHILS % (AUTO) 1.2 % (0-6); HEMATOCRIT 40.8 % (37.9-51.0); HEMOGLOBIN 13.9 g/dL (13.5-17.0); HGB HCT DIFFERENCE 0.9; LYMPHOCYTES % (AUTO) 30.6 % (13-45); MEAN CORPUSCULAR HEMOGLOBIN 29.6 pg (27.0-33.4); MEAN CORPUSCULAR HGB CONC 34.2 g/dL (32.0-36.0); MEAN CORPUSCULAR VOLUME 87 fl (80-97); MONOCYTES % (AUTO) 8.3 % (3-13); RED BLOOD COUNT 4.71 10^6/uL (4.35-5.55); RED CELL DISTRIBUTION WIDTH 12.7 % (11.5-14.0); SEGMENTED NEUTROPHILS % (AUTO) 59.3 % (42-78); WHITE BLOOD COUNT 7.3 10^3/uL (4.0-10.5)
[2016-10-28 22:40] LABS: APPEARANCE,URINE SLIGHTLY-CLOUDY; BILIRUBIN,URINE SMALL (NEGATIVE); GLUCOSE, URINE NEGATIVE (NEGATIVE); KETONES,URINE 80 mg/dL (NEGATIVE); LEUKOCYTE ESTERASE,URINE NEGATIVE (NEGATIVE); NITRITE,URINE NEGATIVE (NEGATIVE); PROTEIN,URINE 30 mg/dL (NEGATIVE); URINE SPECIFIC GRAVITY 1.024
[2016-10-28 22:53] LABS: URINE BARBITURATES SCREEN UNCONFIRMED POSITIVE; URINE METHADONE SCREEN NEGATIVE; URINE OPIATES LOW NEGATIVE; URINE PHENCYCLIDINE SCREEN NEGATIVE
[2016-10-28 22:57] LABS: ALANINE AMINOTRANSFERASE 32 U/L (21-72); ALBUMIN 4.2 g/dL (3.5-5.0); ALKALINE PHOSPHATASE 69 U/L (38-126); ANION GAP 16 (5-19); ASPARTATE AMINO TRANSFERASE 20 U/L (17-59); BILIRUBIN,DIRECT 0.4 mg/dL (0.0-0.4); BILIRUBIN,TOTAL 0.5 mg/dL (0.2-1.3); BLOOD UREA NITROGEN 5 mg/dL (7-20); CALCIUM 9.4 mg/dL (8.4-10.2); CARBON DIOXIDE 23 mmol/L (22-30); CHLORIDE 91 mmol/L (98-107); CREATINE KINASE 58 U/L (55-170); GLUCOSE 79 mg/dL (75-110); LIPASE 46.2 U/L (23-300); POTASSIUM 4.5 mmol/L (3.6-5.0); SODIUM 130.2 mmol/L (137-145); TOTAL PROTEIN 7.1 g/dL (6.3-8.2)
[2016-10-28 23:14] LABS: CREATINE KINASE MB 0.36 ng/mL (<4.55)
[2016-10-28 23:15] LABS: TROPONIN I < 0.012 ng/mL
--- NOTE | 2016-10-29 00:48 | ER Document Report ---
ED General - General Chief Complaint: Chest Pain Stated Complaint: CHEST PAIN Time Seen by Provider: 10/28/16 21:00 Mode of Arrival: Medic Notes: Patient is a 41-year-old male well-known to this emergency department who presents with chest pain has been ongoing for 3 days. Describes as a stabbing, intermittent pain to his central chest with radiation into his jaw. States that he always has pain into his bilateral arms and has actually been evaluated by a neurologist both neurologic and motor testing and that this is not new or different today. States he took nitro at home with moderate improvement of the pain. Nothing worsens the pain. He has been evaluated repeatedly for this exact same complaint over the last several days and was actually just seen here in the emergency department yesterday. At that time he had a normal troponin, normal EKG and a normal CTA of the chest. Patient also relates that is been to [facility] repeatedly in the past several weeks and was actually told "not come back until I had a catheterization done". 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 Patient had a catheterization as well as a stress echocardiogram 18 months ago which were noted to be completely normal. TRAVEL OUTSIDE OF THE [place] IN LAST 30 DAYS: No - Related Data Allergies/Adverse Reactions: quetiapine fumarate [From [employer]] Adverse Reaction (Verified 10/27/16 12:22) Past Medical History - General Information source: Patient - Social History Smoking Status: Never Smoker Frequency of alcohol use: None Drug Abuse: None Lives with: Family Family History: CAD - States all the males in his family have of heart disease in their 40s., CVA, Other - [place] - Past Medical History Cardiac Medical History: Reports: Hx Hypercholesterolemia, Hx Hypertension, Hx Peripheral Vascular Disease - Left carotid stenosis 50-69% Denies: Hx Congestive Heart Failure, Hx DVT, Hx Heart Attack, Hx Pulmonary Embolism Pulmonary Medical History: Denies: Hx Asthma, Hx COPD Neurological Medical History: Reports: Hx Migraine. Denies: Hx Seizures Endocrine Medical History: Reports: Hx Hypothyroidism. Denies: Hx Diabetes Mellitus Type 1, Hx Diabetes Mellitus Type 2, Hx Hyperthyroidism Renal/ Medical History: Denies: Hx Peritoneal Dialysis GI Medical History: Reports: Hx Gastroesophageal Reflux Disease, Hx Hiatal Hernia. Denies: Hx Cirrhosis, Hx Hepatitis Musculoskeltal Medical History: Denies Hx Arthritis Psychiatric Medical History: Reports: Hx Anxiety, Hx Depression Infectious Medical History: Denies: Hx Hepatitis Past Surgical History: Reports: Hx Abdominal Surgery - x7 gastric bypass 05, bowel blockage,hernia repair, Hx Cardiac Catheterization - Which is found to be negative, Hx Cholecystectomy, Hx Gastric Bypass Surgery - Immunizations Immunizations up to date: Yes Hx Diphtheria, Pertussis, Tetanus Vaccination: Yes Review of Systems - Review of Systems Notes: Constitutional: Negative for fever. HENT: Negative for sore throat. Eyes: Negative for visual changes. Cardiovascular: Positive for chest pain. Respiratory: Negative for shortness of breath. Gastrointestinal: Negative for abdominal pain, vomiting or diarrhea. Genitourinary: Negative for dysuria. Musculoskeletal: Negative for back pain. Skin: Negative for rash. Neurological: Negative for headaches, weakness or numbness. 10 point ROS negative except as marked above and in HPI. Physical Exam - Vital signs Vitals: Temp Pulse Resp BP Pulse Ox 98.5 F 74 20 106/67 96 10/28/16 19:46 10/28/16 19:46 10/28/16 19:46 10/28/16 19:46 10/28/16 19:46 Interpretation: Normal Notes: PHYSICAL EXAMINATION: GENERAL: Well-appearing, well-nourished and in no acute distress. HEAD: Atraumatic, normocephalic. EYES: Pupils equal round and reactive to light, extraocular movements intact, sclera anicteric, conjunctiva are normal. ENT: nares patent, oropharynx clear without exudates. Moist mucous membranes. NECK: Normal range of motion, supple without lymphadenopathy LUNGS: Breath sounds clear to auscultation bilaterally and equal. No wheezes rales or rhonchi. HEART: Regular rate and rhythm without murmurs ABDOMEN: Soft, nontender, normoactive bowel sounds. No guarding, no rebound. No masses appreciated. EXTREMITIES: Normal range of motion, no pitting or edema. No cyanosis. NEUROLOGICAL: No focal neurological deficits. Moves all extremities spontaneously and on command. PSYCH: Normal mood, normal affect. SKIN: Warm, Dry, normal turgor, no rashes or lesions noted. Course - Re-evaluation Re-evalutation: 10/29/16 00:49 Patient presents again today for recurrent chest pain with a overall non- concerning story. Vitals within normal limits at time of assessment. Patient has repeatedly normal evaluations here in the emergency department and had a normal heart catheterization 18 months ago as well as a normal echo at that time. He is scheduled to follow-up with his hobbing press operator tomorrow afternoon. He had a CTA of his chest yesterday which did not demonstrate any evidence of dissection or an acute pulmonary embolus. Low clinical suspicion for ACS given clinical history, exam, EKG without ST elevations or depressions, and negative initial troponin. HEART score less than or equal to 3. PE also seems unlikely given clinical history, absence of tachycardia or dyspnea. Patient is PERC criteria negative. CXR without evidence of pneumothorax or pneumonia. No widened mediastinum. Aortic dissection also seems unlikely given history, symmetric pulses, CXR, and vitals. HEART Score: History:0 EC Age:0 Risk Factors:1 Troponin:0 Total: 1 - Vital Signs Vital signs: Temp Pulse Resp BP Pulse Ox 98.7 F 66 16 132/88 H 89 L 10/28/16 22:35 10/28/16 22:35 10/29/16 01:01 10/29/16 01:01 10/29/16 01:01 - Laboratory Result Diagrams: 10/28/16 21:50 10/28/16 21:50 Laboratory results interpreted by me: 10/28/16 10/28/16 21:50 21:50 Sodium 130.2 L Chloride 91 L BUN 5 L Urine Protein 30 H Urine Ketones 80 H Urine Bilirubin SMALL H Urine Urobilinogen 2.0 H - Diagnostic Test Radiology reviewed: Image reviewed, Reports reviewed Radiology results interpreted by me: 10/29/16 00:50 Chest x-ray: No acute infiltrate or pneumothorax - EKG Interpretation by Me Additional EKG results interpreted by me: 10/29/16 00:50 Normal sinus rhythm. Rate 71. No ST elevations or depressions. QTC is 418. Discharge - Discharge Clinical Impression: Chest pain of uncertain etiology Condition: Fair Disposition: HOME, SELF-CARE Additional Instructions: You were seen today for chest pain. The exact cause of your pain is unclear. However, based on your cardiac enzyme testing, chest x-ray, and EKG it does not appear that it is from an immediately life-threatening cause at this time. Although your testing here is normal is critical that you follow-up with your primary care physician for continued evaluation of this chest pain and possible stress testing. I recommended you see your physician within the next 24-48 hours to be evaluated for consideration of a stress test. Please return to emergency department immediately if you have worsening of your chest pain, shortness of breath, vomiting, become unable to exert yourself due to pain or difficulty breathing, you pass out, or have any pain that radiates into your arms, jaw, or back. Please also return if you have any additional symptoms that are concerning to you.
[2016-10-29 01:04] VITALS: BP 132/88
--- NOTE | 2016-10-29 12:44 | EKG REPORT ---
SEVERITY:- NORMAL ECG - SINUS RHYTHM : Confirmed by: Mariaelena Sahni MD 29-Oct-2016 12:44:01
== END 2016-10-29 01:10 | disposition home or self-care (01) ==
LOC: ER 19:28
DX: R07.9 Chest pain, unspecified (principal); R68.84 Jaw pain
CPT/HCPCS: 36415; 71020; 80053; 80307; 81001; 82550; 82553; 83690; 84484; 85025; 93005; 93010; 99285

== ENCOUNTER 2016-10-29 17:58 | Emergency (ER) | payer MEDICARE ==
[2016-10-29] MEDS ORDERED: ONDANSETRON 4 MG TAB.RAPDIS PO ONE (18:59)
--- NOTE | 2016-10-29 19:00 | ER Document Report ---
ED Medical Screen (RME) - General Chief Complaint: Abdominal pain, Nausea Stated Complaint: ABDOMINAL PAIN,NAUSEA Time Seen by Provider: 10/29/16 18:54 Notes: This 41-year-old male patient comes emergency room complaining of abdominal pain with nausea. States has not been able to have bowel movement and several days. States when he tries to move his bowels he describes what sounds like rectal prolapse. He also had chest pain for last 3 days. He emergency room yesterday and the day before. He has chronic pain but states he has had no pain medication in a month. He does have a past history of gastric bypass and bowel obstructions. I have greeted and performed a rapid initial assessment of this patient. A comprehensive ED assessment and evaluation of the patient, analysis of test results and completion of the medical decision making process will be conducted by additional ED providers. TRAVEL OUTSIDE OF THE [place] IN LAST 30 DAYS: No - Related Data Allergies/Adverse Reactions: quetiapine fumarate [From Seroquel] Adverse Reaction (Verified 10/27/16 12:22) Past Medical History - Social History Family history: CAD - Past Medical History Cardiac Medical History: Reports: Hx Hypercholesterolemia, Hx Hypertension, Hx Peripheral Vascular Disease - Left carotid stenosis 50-69% Denies: Hx Congestive Heart Failure, Hx DVT, Hx Heart Attack, Hx Pulmonary Embolism Pulmonary Medical History: Denies: Hx Asthma, Hx COPD Neurological Medical History: Reports: Hx Migraine. Denies: Hx Seizures Endocrine Medical History: Reports: Hx Hypothyroidism. Denies: Hx Diabetes Mellitus Type 1, Hx Diabetes Mellitus Type 2, Hx Hyperthyroidism Renal/ Medical History: Denies: Hx Peritoneal Dialysis GI Medical History: Reports: Hx Gastroesophageal Reflux Disease, Hx Hiatal Hernia. Denies: Hx Cirrhosis, Hx Hepatitis Musculoskeltal Medical History: Denies Hx Arthritis Psychiatric Medical History: Reports: Hx Anxiety, Hx Depression Infectious Medical History: Denies: Hx Hepatitis Past Surgical History: Reports: Hx Abdominal Surgery - x7 gastric bypass 05, bowel blockage,hernia repair, Hx Cardiac Catheterization - Which is found to be negative, Hx Cholecystectomy, Hx Gastric Bypass Surgery - Immunizations Immunizations up to date: Yes Hx Diphtheria, Pertussis, Tetanus Vaccination: Yes Physical Exam - Vital signs Vitals: Temp Pulse Resp BP Pulse Ox 98.1 F 77 20 125/81 93 10/29/16 18:19 10/29/16 18:19 10/29/16 18:19 10/29/16 18:19 10/29/16 18:19 Course - Vital Signs Vital signs: Temp Pulse Resp BP Pulse Ox 98.1 F 77 20 125/81 93 10/29/16 18:19 10/29/16 18:19 10/29/16 18:19 10/29/16 18:19 10/29/16 18:19
[2016-10-29 19:49] LABS: ABSOLUTE EOSINOPHILS # (AUTO) 0.1 10^3/uL (0.0-0.6); ABSOLUTE LYMPHOCYTES (AUTO) 1.7 10^3/uL (0.5-4.7); ABSOLUTE MONOCYTES (AUTO) 0.5 10^3/uL (0.1-1.4); BASOPHILS % (AUTO) 0.7 % (0-2); EOSINOPHILS % (AUTO) 1.1 % (0-6); HEMATOCRIT 41.9 % (37.9-51.0); HEMOGLOBIN 14.3 g/dL (13.5-17.0); LYMPHOCYTES % (AUTO) 31.8 % (13-45); MEAN CORPUSCULAR HEMOGLOBIN 29.6 pg (27.0-33.4); MEAN CORPUSCULAR HGB CONC 34.1 g/dL (32.0-36.0); MEAN CORPUSCULAR VOLUME 87 fl (80-97); MONOCYTES % (AUTO) 9.5 % (3-13); RED BLOOD COUNT 4.82 10^6/uL (4.35-5.55); RED CELL DISTRIBUTION WIDTH 12.6 % (11.5-14.0); SEGMENTED NEUTROPHILS % (AUTO) 56.9 % (42-78); WHITE BLOOD COUNT 5.2 10^3/uL (4.0-10.5)
[2016-10-29 19:55] LABS: APPEARANCE,URINE SLIGHTLY-CLOUDY; BILIRUBIN,URINE NEGATIVE (NEGATIVE); GLUCOSE, URINE NEGATIVE (NEGATIVE); KETONES,URINE 80 mg/dL (NEGATIVE); LEUKOCYTE ESTERASE,URINE NEGATIVE (NEGATIVE); NITRITE,URINE NEGATIVE (NEGATIVE); PROTEIN,URINE 30 mg/dL (NEGATIVE); URINE SPECIFIC GRAVITY 1.016
--- NOTE | 2016-10-29 19:57 | RADIOLOGY REPORT (SQ) ---
EXAM DESCRIPTION: ACUTE ABDOMEN SERIES COMPLETED DATE/TIME: 10/29/2016 7:45 pm REASON FOR STUDY: abd pain, prior gastric bypass COMPARISON: None. NUMBER OF VIEWS: Three views. TECHNIQUE: Frontal chest, supine abdomen and upright/decubitus abdomen radiographic images acquired. LIMITATIONS: None. FINDINGS: CHEST: Lungs clear of infiltrates. FREE AIR: None. No abnormal gas collections. BOWEL GAS PATTERN: Nonobstructive pattern. No dilated loops or air fluid levels. CALCIFICATIONS: No suspicious calcifications. HARDWARE: There are surgical clips in the right upper quadrant consistent with prior cholecystectomy. SOFT TISSUES: No gross mass or suggestion of organomegaly. BONES: No acute fracture. No worrisome bone lesions. OTHER: No other significant finding. IMPRESSION: NO RADIOGRAPHIC EVIDENCE FOR ACUTE ABDOMINAL DISEASE. TECHNICAL DOCUMENTATION: JOB ID: [id number] [employer]- All Rights Reserved
[2016-10-29 19:59] LABS: ALANINE AMINOTRANSFERASE 26 U/L (21-72); ALBUMIN 4.4 g/dL (3.5-5.0); ALKALINE PHOSPHATASE 70 U/L (38-126); ANION GAP 14 (5-19); ASPARTATE AMINO TRANSFERASE 20 U/L (17-59); BILIRUBIN,DIRECT 0.4 mg/dL (0.0-0.4); BILIRUBIN,TOTAL 0.5 mg/dL (0.2-1.3); BLOOD UREA NITROGEN 4 mg/dL (7-20); CALCIUM 9.3 mg/dL (8.4-10.2); CARBON DIOXIDE 26 mmol/L (22-30); CHLORIDE 87 mmol/L (98-107); CREATININE RESULT 0.67 mg/dL (0.52-1.25); GLUCOSE 84 mg/dL (75-110); POTASSIUM 4.3 mmol/L (3.6-5.0); TOTAL PROTEIN 7.2 g/dL (6.3-8.2)
[2016-10-29] MEDS ORDERED: NORMAL SALINE 1000 ML 1,000 ML IV ONE (23:25)
[2016-10-30] MEDS ORDERED: ONDANSETRON 4 MG TAB.RAPDIS PO ONE (00:59)
--- NOTE | 2016-10-30 01:04 | ER Document Report ---
ED General - General Chief Complaint: Abdominal Pain Stated Complaint: ABDOMINAL PAIN,NAUSEA Time Seen by Provider: 10/29/16 18:54 Notes: Patient is a 41-year-old male presents with complaint of pain and pain into his abdomen and some nausea and vomiting. Patient says whenever he does use a bowel movement he feels as if his rectum is prolapsing. He says when he has a sensation he feels he cannot pass stool. Says it has been ongoing for several days. 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 He has been seen here many times this week for the chest pain. He comes to the ER frequently for complaints. Patient denies any passing of blood. He denies hemorrhoids. He denies ever seeing a surgeon about rectal prolapse or hemorrhoids. He does have a history of gastric bypass. TRAVEL OUTSIDE OF THE [place] IN LAST 30 DAYS: No - Related Data Allergies/Adverse Reactions: quetiapine fumarate [From [employer]] Adverse Reaction (Verified 10/27/16 12:22) Past Medical History - Social History Smoking Status: Unknown if Ever Smoked Frequency of alcohol use: None Drug Abuse: None Family History: CAD - States all the males in his family have of heart disease in their 40s., CVA, Other - [place] - Past Medical History Cardiac Medical History: Reports: Hx Hypercholesterolemia, Hx Hypertension, Hx Peripheral Vascular Disease - Left carotid stenosis 50-69% Denies: Hx Congestive Heart Failure, Hx DVT, Hx Heart Attack, Hx Pulmonary Embolism Pulmonary Medical History: Denies: Hx Asthma, Hx COPD Neurological Medical History: Reports: Hx Migraine. Denies: Hx Seizures Endocrine Medical History: Reports: Hx Hypothyroidism. Denies: Hx Diabetes Mellitus Type 1, Hx Diabetes Mellitus Type 2, Hx Hyperthyroidism Renal/ Medical History: Denies: Hx Peritoneal Dialysis GI Medical History: Reports: Hx Gastroesophageal Reflux Disease, Hx Hiatal Hernia. Denies: Hx Cirrhosis, Hx Hepatitis Musculoskeltal Medical History: Denies Hx Arthritis Psychiatric Medical History: Reports: Hx Anxiety, Hx Depression Infectious Medical History: Denies: Hx Hepatitis Past Surgical History: Reports: Hx Abdominal Surgery - x7 gastric bypass 05, bowel blockage,hernia repair, Hx Cardiac Catheterization - Which is found to be negative, Hx Cholecystectomy, Hx Gastric Bypass Surgery - Immunizations Immunizations up to date: Yes Hx Diphtheria, Pertussis, Tetanus Vaccination: Yes Review of Systems - Review of Systems Notes: My Normal Review Basic REVIEW OF SYSTEMS: CONSTITUTIONAL : Denies fever, chills, or sweats. Denies recent illness. EENT: Denies eye, ear, throat, or mouth pain or symptoms. Denies nasal or sinus congestion. CARDIOVASCULAR: Denies chest pain. RESPIRATORY: Denies cough, cold, or chest congestion. Denies shortness of breath, difficulty breathing, or wheezing. GASTROINTESTINAL: Intermittent abdominal pain. Some nausea. Denies constipation. MUSCULOSKELETAL: Denies neck or back pain or joint pain or swelling. SKIN: Denies rash or skin lesions. NEUROLOGICAL: Denies altered mental status or loss of consciousness. Denies headache. Denies weakness or paralysis or loss of use of either side. Denies problems with gait or speech. Denies sensory or motor loss. ALL OTHER SYSTEMS REVIEWED AND NEGATIVE. Physical Exam - Vital signs Vitals: Temp Pulse Resp BP Pulse Ox 98.1 F 77 20 125/81 93 10/29/16 18:19 10/29/16 18:19 10/29/16 18:19 10/29/16 18:19 10/29/16 18:19 - Notes Notes: General Appearance: Well nourished, alert, cooperative, no acute distress, no obvious discomfort. Well appearing. Vitals: reviewed, See vital signs table. Head: no swelling or tenderness to the head Eyes: PERRL, EOMI, Conjuctiva clear Lungs: No wheezing, No rales, No rhonci, No accessory muscle use, good air exchange bilaterally. Heart: Normal rate, Regular rythm, No murmur, no rub Abdomen: Normal BS, soft, No rigidity, No abdominal tenderness, No guarding, no rebound, no abdominal masses, no organomegaly Exam: Some external/internal hemorrhoids on exam. No active bleeding. There is no inflammation or swelling of the rectal tissue. Patient cannot reproduce any type of rectal prolapse on exam even with bearing down Extremities: strength 5/5 in all extremities, good pulses in all extremities, no swelling or tenderness in the extremities, no edema. Skin: warm, dry, appropriate color, no rash Neuro: speech clear, oriented x 3, normal affect, responds appropriately to questions. Course - Vital Signs Vital signs: Temp Pulse Resp BP Pulse Ox 97.6 F 78 18 125/79 98 10/30/16 01:42 10/30/16 01:42 10/30/16 01:42 10/30/16 01:42 10/30/16 01:42 - Laboratory Result Diagrams: 10/29/16 19:30 10/29/16 19:30 Laboratory results interpreted by me: 10/29/16 10/29/16 19:30 19:30 Sodium 127.0 L Chloride 87 L BUN 4 L Urine Protein 30 H Urine Ketones 80 H Urine Urobilinogen 2.0 H - Transfer of Care Notes: 10/30/16 07:07 Describes what he thinks is rectal prolapse. I cannot reproduce the prolapse on exam. His rectum is not inflamed or swollen appearing. He does have some hemorrhoids. The sensation is feeling may be hemorrhoids or pushing out during bowel movements. His abdominal x-ray is normal. I did give him some IV fluids. He looks well. Feel it is safe for him to follow-up with the surgeon in regards to his hemorrhoids versus possible rectal prolapse. I encouraged him return to ER immediately if he has a sensation of prolapse and it does not reduce. I encouraged him return to ER immediately if has worsening pain, intractable vomiting, or fevers. Patient agrees with plan and will be discharged home. Dictation of this chart was performed using voice recognition software; therefore, there may be some unintended grammatical errors. Discharge - Discharge Clinical Impression: Rectal pain Abdominal pain Qualifiers: Abdominal location: lower abdomen, unspecified Qualified Code(s): R10.30 - Lower abdominal pain, unspecified Nausea & vomiting Qualifiers: Vomiting type: unspecified Vomiting Intractability: unspecified Qualified Code( s): R11.2 - Nausea with vomiting, unspecified Condition: Good Disposition: HOME, SELF-CARE Additional Instructions: ABDOMINAL PAIN: There are many causes of abdominal pain. Pain can mean a serious problem requiring surgery (such as appendicitis). It can also be an innocent problem that goes away on its own (such as a viral infection). Often, time must pass to determine the cause of pain. The physician does not feel that hospitalization is necessary, at present. Things may change within the next 24 hours. Call the doctor or come back for re- examination if any problems occur, such as: (1) Pain that becomes more severe, steady, or becomes concentrated in one specific area. Also, pain that is more severe with movement or coughing. (2) Vomiting that persists or becomes more frequent. (3) Blood in the vomitus, urine, or bowel movements. Blood in the stool may have a tarry or black appearance. (4) Shaking chills or fever greater than 100 degrees F. (5) The abdomen becomes more distended or swollen. (6) Bowel movements cease. (7) Failure to improve as expected. ANTINAUSEA MEDICATION: You have been given a medication to suppress nausea and vomiting. This type of medication can be given as a shot, pill, or suppository. It will usually last for many hours. Pills and shots usually last six to eight hours, suppositories last about 12 hours. For the typical illness, only one or two doses of the medication may be necessary. Mild lightheadedness may occur. This type of medicine can cause drowsiness. Do not drive or operate dangerous machinery while under its influence. Do not mix with alcohol. See your doctor at once if you have muscle spasms or tightness, or uncontrollable motions (particularly of the neck, mouth, or jaw). Persistent vomiting or severe lightheadedness should also be evaluated by the physician. FOLLOW-UP CARE: If you have been referred to a physician for follow-up care, call the physician s office for an appointment as you were instructed or within the next two days. If you experience worsening or a significant change in your symptoms, notify the physician immediately or return to the Emergency Department at any time for re-evaluation. FOLLOW-UP CARE: Please use medications as prescribed. Please follow-up closely with the primary care doctor for reevaluation. Please continue have them keep a close eye on her sodium as she did have a history of hyponatremia. Please return to ER immediately if you have fevers, worsening pain, bloody stool, or feel unwell. Please follow-up with surgery clinic in regards to your possible rectal prolapse. Prescriptions: Docusate Sodium [Colace 100 mg Capsule] 100 mg PO DAILY #30 capsule Ondansetron [Zofran Odt 4 mg Tablet] 1 tab PO Q4H PRN #15 tab.rapdis PRN Reason: For Nausea/Vomiting Phenylephrine HCl/[place] Butter [Preparation H Suppository] 1 each RC TID #20 supp.rect Referrals: MACIE YU MD [ACTIVE STAFF] - Follow up in 3-5 days
[2016-10-30 01:44] VITALS: BP 125/79
== END 2016-10-30 01:42 | disposition home or self-care (01) ==
LOC: ER 17:58
DX: R10.30 Lower abdominal pain, unspecified (principal); R11.2 Nausea with vomiting, unspecified; Z98.84 Bariatric surgery status; K64.8 Other hemorrhoids; K64.4 Residual hemorrhoidal skin tags; R07.9 Chest pain, unspecified; I10 Essential (primary) hypertension; Z82.49 Family history of ischemic heart disease and other diseases of the circulatory system; Z87.19 Personal history of other diseases of the digestive system
CPT/HCPCS: 99284; 96372; 96375; 96365; 36415; 85025; 80053; 81001; 74022; A9270 ×2; J7030; S0119

== ENCOUNTER 2016-10-30 21:46 | Emergency (ER) | payer MEDICARE ==
--- NOTE | 2016-10-30 22:32 | ER Document Report ---
ED Medical Screen (RME) - General Chief Complaint: Abdominal Pain Stated Complaint: ABDOMINAL PAIN Time Seen by Provider: 10/30/16 22:29 Notes: 41-year-old male, chief complaint of upper abdominal pain with nausea and vomiting, states now is the seventh day, states he has not had a bowel movement in 7 days, states he was evaluated yesterday and discharged with bentyl, Zofran , and stool softener recommendations. He states he is worse today so he returned. Denies fever. Got zofran by EMS. TRAVEL OUTSIDE OF THE [place] IN LAST 30 DAYS: No - Related Data Allergies/Adverse Reactions: quetiapine fumarate [From [employer]] Adverse Reaction (Verified 10/27/16 12:22) Past Medical History - Social History Family history: CAD - Past Medical History Cardiac Medical History: Reports: Hx Hypercholesterolemia, Hx Hypertension, Hx Peripheral Vascular Disease - Left carotid stenosis 50-69% Denies: Hx Congestive Heart Failure, Hx DVT, Hx Heart Attack, Hx Pulmonary Embolism Pulmonary Medical History: Denies: Hx Asthma, Hx COPD Neurological Medical History: Reports: Hx Migraine. Denies: Hx Seizures Endocrine Medical History: Reports: Hx Hypothyroidism. Denies: Hx Diabetes Mellitus Type 1, Hx Diabetes Mellitus Type 2, Hx Hyperthyroidism Renal/ Medical History: Denies: Hx Peritoneal Dialysis GI Medical History: Reports: Hx Gastroesophageal Reflux Disease, Hx Hiatal Hernia. Denies: Hx Cirrhosis, Hx Hepatitis Musculoskeltal Medical History: Denies Hx Arthritis Psychiatric Medical History: Reports: Hx Anxiety, Hx Depression Infectious Medical History: Denies: Hx Hepatitis Past Surgical History: Reports: Hx Abdominal Surgery - x7 gastric bypass 05, bowel blockage,hernia repair, Hx Cardiac Catheterization - Which is found to be negative, Hx Cholecystectomy, Hx Gastric Bypass Surgery - Immunizations Immunizations up to date: Yes Hx Diphtheria, Pertussis, Tetanus Vaccination: Yes Physical Exam - Vital signs Vitals: Temp Pulse Resp BP Pulse Ox 98.6 F 72 18 126/82 H 99 10/30/16 21:51 10/30/16 21:51 10/30/16 21:51 10/30/16 21:51 10/30/16 21:51 - General General appearance: Appears well In distress: None - Abdominal Distension: No distension Tenderness: Nontender. No: Brambila's sign, Guarding Course - Vital Signs Vital signs: Temp Pulse Resp BP Pulse Ox 98.6 F 72 18 126/82 H 99 10/30/16 21:51 10/30/16 21:51 10/30/16 21:51 10/30/16 21:51 10/30/16 21:51
[2016-10-30 22:54] LABS: ABSOLUTE EOSINOPHILS # (AUTO) 0.1 10^3/uL (0.0-0.6); ABSOLUTE LYMPHOCYTES (AUTO) 1.6 10^3/uL (0.5-4.7); ABSOLUTE MONOCYTES (AUTO) 0.5 10^3/uL (0.1-1.4); ABSOLUTE NEUT (AUTO) 4.1 10^3/uL (1.7-8.2); BASOPHILS % (AUTO) 0.8 % (0-2); EOSINOPHILS % (AUTO) 1.2 % (0-6); HEMATOCRIT 40.1 % (37.9-51.0); HEMOGLOBIN 13.9 g/dL (13.5-17.0); HGB HCT DIFFERENCE 1.6; MEAN CORPUSCULAR HEMOGLOBIN 29.8 pg (27.0-33.4); MEAN CORPUSCULAR HGB CONC 34.6 g/dL (32.0-36.0); MEAN CORPUSCULAR VOLUME 86 fl (80-97); MONOCYTES % (AUTO) 8.1 % (3-13); RED BLOOD COUNT 4.66 10^6/uL (4.35-5.55); RED CELL DISTRIBUTION WIDTH 12.6 % (11.5-14.0); SEGMENTED NEUTROPHILS % (AUTO) 63.9 % (42-78); WHITE BLOOD COUNT 6.3 10^3/uL (4.0-10.5)
[2016-10-30 23:08] LABS: ALANINE AMINOTRANSFERASE 36 U/L (21-72); ALBUMIN 4.1 g/dL (3.5-5.0); ALKALINE PHOSPHATASE 67 U/L (38-126); ANION GAP 15 (5-19); ASPARTATE AMINO TRANSFERASE 29 U/L (17-59); BILIRUBIN,DIRECT 0.4 mg/dL (0.0-0.4); BILIRUBIN,TOTAL 0.5 mg/dL (0.2-1.3); BLOOD UREA NITROGEN 3 mg/dL (7-20); CALCIUM 8.6 mg/dL (8.4-10.2); CARBON DIOXIDE 23 mmol/L (22-30); CHLORIDE 91 mmol/L (98-107); CREATININE RESULT 0.65 mg/dL (0.52-1.25); GLUCOSE 79 mg/dL (75-110); LIPASE 49.7 U/L (23-300); SODIUM 129.3 mmol/L (137-145)
[2016-10-30 23:09] LABS: POTASSIUM 3.5 mmol/L (3.6-5.0)
--- NOTE | 2016-10-30 23:53 | RADIOLOGY REPORT (SQ) ---
EXAM DESCRIPTION: ACUTE ABDOMEN SERIES COMPLETED DATE/TIME: 10/30/2016 10:51 pm REASON FOR STUDY: vomiting, no bowel movement, hx surgery COMPARISON: 10/29/2016 NUMBER OF VIEWS: Three views. TECHNIQUE: Frontal chest, supine abdomen and upright/decubitus abdomen radiographic images acquired. LIMITATIONS: None. FINDINGS: CHEST: Lungs clear of infiltrates. FREE AIR: None. No abnormal gas collections. BOWEL GAS PATTERN: Nonobstructive pattern. No dilated loops or air fluid levels. CONSTIPATION: mild. CALCIFICATIONS: No suspicious calcifications. HARDWARE: None in the abdomen. SOFT TISSUES: No gross mass or suggestion of organomegaly. BONES: No acute fracture. No worrisome bone lesions. OTHER: No other significant finding. IMPRESSION: NO RADIOGRAPHIC EVIDENCE FOR ACUTE ABDOMINAL DISEASE. CONSTIPATION. TECHNICAL DOCUMENTATION: JOB ID: [id number] [employer]- All Rights Reserved
[2016-10-31] MEDS ORDERED: MAGNESIUM CITRATE 296 ML BOTTLE PO ONE (00:18)
[2016-10-31] MEDS ORDERED: FAMOTIDINE 20 MG TABLET PO ONE (00:19)
--- NOTE | 2016-10-31 00:21 | ER Document Report ---
ED GI/ - General Chief Complaint: Abdominal Pain Stated Complaint: ABDOMINAL PAIN Time Seen by Provider: 10/30/16 22:29 Notes: 41-year-old male, chief complaint of upper abdominal pain with nausea and vomiting, states now is the seventh day, states he has not had a bowel movement in 7 days, states he was evaluated yesterday and discharged with bentyl, Zofran , and stool softener recommendations. He states he is worse today so he returned. Denies fever. Got zofran by EMS. TRAVEL OUTSIDE OF THE [place] IN LAST 30 DAYS: No - Related Data Allergies/Adverse Reactions: quetiapine fumarate [From Seroquel] Adverse Reaction (Verified 10/27/16 12:22) Past Medical History - General Information source: Patient - Social History Smoking Status: Never Smoker Frequency of alcohol use: None Drug Abuse: None Lives with: Family Family History: CAD - States all the males in his family have of heart disease in their 40s., CVA, Other - [place] Patient has suicidal ideation: No Patient has homicidal ideation: No - Past Medical History Cardiac Medical History: Reports: Hx Hypercholesterolemia, Hx Hypertension, Hx Peripheral Vascular Disease - Left carotid stenosis 50-69% Denies: Hx Congestive Heart Failure, Hx DVT, Hx Heart Attack, Hx Pulmonary Embolism Pulmonary Medical History: Denies: Hx Asthma, Hx COPD Neurological Medical History: Reports: Hx Migraine. Denies: Hx Seizures Endocrine Medical History: Reports: Hx Hypothyroidism. Denies: Hx Diabetes Mellitus Type 1, Hx Diabetes Mellitus Type 2, Hx Hyperthyroidism Renal/ Medical History: Denies: Hx Peritoneal Dialysis GI Medical History: Reports: Hx Gastroesophageal Reflux Disease, Hx Hiatal Hernia. Denies: Hx Cirrhosis, Hx Hepatitis Musculoskeltal Medical History: Denies Hx Arthritis Psychiatric Medical History: Reports: Hx Anxiety, Hx Depression Infectious Medical History: Denies: Hx Hepatitis Past Surgical History: Reports: Hx Abdominal Surgery - x7 gastric bypass 05, bowel blockage,hernia repair, Hx Cardiac Catheterization - Which is found to be negative, Hx Cholecystectomy, Hx Gastric Bypass Surgery - Immunizations Immunizations up to date: Yes Hx Diphtheria, Pertussis, Tetanus Vaccination: Yes Review of Systems - Review of Systems Constitutional: No symptoms reported EENT: No symptoms reported Cardiovascular: No symptoms reported Respiratory: No symptoms reported Gastrointestinal: See HPI Genitourinary: No symptoms reported Male Genitourinary: No symptoms reported Musculoskeletal: No symptoms reported Skin: No symptoms reported Hematologic/Lymphatic: No symptoms reported Neurological/Psychological: No symptoms reported Physical Exam - Vital signs Vitals: Temp Pulse Resp BP Pulse Ox 98.6 F 72 18 126/82 H 99 10/30/16 21:51 10/30/16 21:51 10/30/16 21:51 10/30/16 21:51 10/30/16 21:51 Interpretation: Normal - General General appearance: Appears well, Alert In distress: None - patient alert and well appearing - HEENT Head: Normocephalic, Atraumatic Eyes: Normal Pupils: PERRL - Respiratory Respiratory status: No respiratory distress Chest status: Nontender Breath sounds: Normal Chest palpation: Normal - Cardiovascular Rhythm: Regular Heart sounds: Normal auscultation Murmur: No - Abdominal Inspection: Normal Distension: No distension Bowel sounds: Normal Tenderness: Nontender. No: Tender - non-tender abdomen Organomegaly: No organomegaly - Rectal Tenderness: Yes - patient verbally reports pain, although no withdrawal or wincing noted Stool: No: Black, Bloody Hemorrhoids: Internal, External - two external, one internal noted; no significant swelling of either. No: Anal fissure, Mass Notes: I asked patient to bear down to check for rectal prolapse, patient bear down hard enough passing gas but still did not have any evidence of rectal prolapse on examination. No evidence of rectal prolapse on digital exam. - Back Back: Normal, Nontender. No: Tender - Extremities General upper extremity: Normal inspection, Nontender, Normal ROM, Normal strength General lower extremity: Normal inspection, Nontender, Normal ROM, Normal strength - Neurological Neuro grossly intact: Yes Cognition: Normal Orientation: AAOx4 Maxime Coma Scale Eye Opening: Spontaneous Maxime Coma Scale Verbal: Oriented [place] Coma Scale Motor: Obeys Commands [place] Coma Scale Total: 15 Speech: Normal Motor strength normal: LUE, RUE, LLE, RLE Sensory: Normal - Psychological Associated symptoms: Normal affect, Normal mood - Skin Skin Temperature: Warm Skin Moisture: Dry Skin Color: Normal Course - Re-evaluation Re-evalutation: CBC unremarkable, chemistry with some hyponatremia but this is improved from yesterday. Patient is well-appearing on examination, calm and relaxed. However patient speaks anxiously about his symptoms. Acute abdominal series shows no evidence of obstruction, shows some retained stool. On my examination patient has no evidence of rectal prolapse, even had him bear down and he passed gas but was unable to pass the prolapse he states he has. On examination digitally he has internal and external hemorrhoids but no other abnormalities are noted. I suspect these symptoms he is having are from the hemorrhoids. I discussed this with patient in detail. Patient insists that he tried a Fleet enema but could not "get it inside", states he was obstructed. I do not have significant concern about this because of the normal digital exam, however because his constipation and symptoms I offered him a soapsuds and mineral oil enema to help clear his constipation. Patient declines, he states he wants to drink magnesium citrate instead. I offered this again after patient started to complain about the same symptoms, patient again declines. 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 I did discuss return precautions with patient, patient states understanding and agreement. - Vital Signs Vital signs: Temp Pulse Resp BP Pulse Ox 98.6 F 72 18 126/82 H 99 10/30/16 21:51 10/30/16 21:51 10/30/16 21:51 10/30/16 21:51 10/30/16 21:51 - Laboratory Result Diagrams: 10/30/16 22:35 10/30/16 22:35 Laboratory results interpreted by me: 10/30/16 22:35 Sodium 129.3 L Potassium 3.5 L Chloride 91 L BUN 3 L Discharge - Discharge Clinical Impression: Rectal pain Abdominal pain Qualifiers: Abdominal location: generalized Qualified Code(s): R10.84 - Generalized abdominal pain Condition: Stable Disposition: HOME, SELF-CARE Additional Instructions: Your workup shows constipation, but no concerning abnormality. Your exam shows internal and external hemorrhoids, but no prolapse is found. No other abnormalities found. You have declined an enema today, but take the magnesium citrate as prescribed, continue stool softeners. Follow up with gastroenterology today as discussed. Return to the ED for any concerning or worsening symptoms.
[2016-10-31 02:19] VITALS: BP 130/74
== END 2016-10-31 00:25 | disposition home or self-care (01) ==
LOC: ER 21:46
DX: K62.89 Other specified diseases of anus and rectum (principal); R10.30 Lower abdominal pain, unspecified; R11.2 Nausea with vomiting, unspecified; R11.0 Nausea
CPT/HCPCS: 99284; 36415; 83690; 85025; 80053; 74022; A9270; J3490

== ENCOUNTER 2016-11-01 19:25 | Emergency (ER) | payer MEDICARE ==
[2016-11-01] MEDS ORDERED: SUCRALFATE 1 GM TABLET PO ONE (20:21)
[2016-11-01] MEDS ORDERED: NORMAL SALINE 1000 ML 1,000 ML IV ONE (20:21)
[2016-11-01] MEDS ORDERED: FAMOTIDINE 20 MG TABLET PO ONE (20:21)
--- NOTE | 2016-11-01 20:26 | ER Document Report ---
ED GI/ - General Chief Complaint: Abdominal Pain Stated Complaint: ABDOMINAL PAIN Notes: Patient is a 41-year-old male who comes emergency department for chief complaint of upper abdominal pain and reduced appetite. He states that he has not felt like he can eat anything and he has only ate a few chips today. He denies vomiting. He denies fever. He denies chest pain, dizziness, shortness of breath, lightheadedness. He states he did have a bowel movement yesterday. He denies blood in his stool or black stools. Patient has a past medical history of gastric bypass, on omeprazole, cholecystectomy, hernia repair, hypertension, anxiety. TRAVEL OUTSIDE OF THE [place] IN LAST 30 DAYS: No - Related Data Allergies/Adverse Reactions: quetiapine fumarate [From Seroquel] Adverse Reaction (Verified 10/27/16 12:22) Past Medical History - General Information source: Patient - Social History Smoking Status: Never Smoker Frequency of alcohol use: None Drug Abuse: None Lives with: Family Family History: CAD - States all the males in his family have of heart disease in their 40s., CVA, Other - [place] Patient has suicidal ideation: No Patient has homicidal ideation: No - Past Medical History Cardiac Medical History: Reports: Hx Hypercholesterolemia, Hx Hypertension, Hx Peripheral Vascular Disease - Left carotid stenosis 50-69% Denies: Hx Congestive Heart Failure, Hx DVT, Hx Heart Attack, Hx Pulmonary Embolism Pulmonary Medical History: Denies: Hx Asthma, Hx COPD Neurological Medical History: Reports: Hx Migraine. Denies: Hx Seizures Endocrine Medical History: Reports: Hx Hypothyroidism. Denies: Hx Diabetes Mellitus Type 1, Hx Diabetes Mellitus Type 2, Hx Hyperthyroidism Renal/ Medical History: Denies: Hx Peritoneal Dialysis GI Medical History: Reports: Hx Gastroesophageal Reflux Disease, Hx Hiatal Hernia. Denies: Hx Cirrhosis, Hx Hepatitis Musculoskeltal Medical History: Denies Hx Arthritis Psychiatric Medical History: Reports: Hx Anxiety, Hx Depression Infectious Medical History: Denies: Hx Hepatitis Past Surgical History: Reports: Hx Abdominal Surgery - x7 gastric bypass 05, bowel blockage,hernia repair, Hx Cardiac Catheterization - Which is found to be negative, Hx Cholecystectomy, Hx Gastric Bypass Surgery - Immunizations Immunizations up to date: Yes Hx Diphtheria, Pertussis, Tetanus Vaccination: Yes Review of Systems - Review of Systems Constitutional: See HPI EENT: No symptoms reported Cardiovascular: No symptoms reported Respiratory: No symptoms reported Gastrointestinal: See HPI Genitourinary: No symptoms reported Male Genitourinary: No symptoms reported Musculoskeletal: No symptoms reported Skin: No symptoms reported Hematologic/Lymphatic: No symptoms reported Neurological/Psychological: No symptoms reported Physical Exam - Vital signs Vitals: Temp Pulse Resp BP Pulse Ox 98.0 F 77 22 H 95/68 L 95 11/01/16 19:32 11/01/16 19:32 11/01/16 19:32 11/01/16 19:32 11/01/16 19:32 Interpretation: Normal - General General appearance: Appears well, Alert In distress: None - HEENT Head: Normocephalic, Atraumatic Eyes: Normal Conjunctiva: Normal Extraocular movements intact: Yes Eyelashes: Normal Pupils: PERRL Mucous membranes: Dry Pharynx: Normal Neck: Normal - Respiratory Respiratory status: No respiratory distress Chest status: Nontender Breath sounds: Normal Chest palpation: Normal - Cardiovascular Rhythm: Regular. No: Tachycardia Heart sounds: Normal auscultation, S1 appreciated, S2 appreciated Murmur: No - Abdominal Inspection: Normal Distension: No distension Bowel sounds: Normal Tenderness: Nontender - completely non-tender abdomen. No: Tender, Guarding Organomegaly: No organomegaly - Back Back: Normal, Nontender. No: Tender - Extremities General upper extremity: Normal inspection, Nontender, Normal color, Normal ROM , Normal temperature General lower extremity: Normal inspection, Nontender, Normal color, Normal ROM , Normal temperature, Normal weight bearing. No: Gemini's sign - Neurological Neuro grossly intact: Yes Cognition: Normal Orientation: AAOx4 Maxime Coma Scale Eye Opening: Spontaneous [place] Coma Scale Verbal: Oriented Maxime Coma Scale Motor: Obeys Commands [place] Coma Scale Total: 15 Speech: Normal Motor strength normal: LUE, RUE, LLE, RLE Sensory: Normal - Psychological Associated symptoms: Normal affect, Normal mood - Skin Skin Temperature: Warm Skin Moisture: Dry Skin Color: Normal Course - Re-evaluation Re-evalutation: This is patient's fourth visit to the department this week, patient is here frequently for complaints of abdominal pain and chest pain. Patient also admits that he went to his meat boner after being here multiple times for complaints of prolapse, being told it was hemorrhoids, and he was told that he does not have a prolapse but he has hemorrhoids by his meat boner. Blood pressure is slightly low, patient has dry mucous membranes, although he is not tachycardic. Giving IV fluids, checking labs, minimal abdominal tenderness noted in the epigastric region, No guarding or signs of acute abdomen. 11/02/16 Blood pressure improved after IV fluids, patient able to ambulate without any signs of difficulty, patient is actually very well-appearing. Patient is extremely talkative, difficult to interject remarks or questions. Extremely well-appearing. Abdomen reexamined and soft and benign. CBC, chemistry, lipase with no concerning abnormalities or change from prior. Patient tolerated medications and fluids by mouth without any difficulty. Patient is here very frequently with the same complaints. Low suspicion of any emergent abnormality. Discussed follow-up, will treat with Carafate in addition to his omeprazole because of upper abdominal symptoms in the setting of gastric bypass , discussed return precautions in detail, patient states understanding and agreement. - Vital Signs Vital signs: Temp Pulse Resp BP Pulse Ox 98.4 F 63 18 107/61 89 L 11/01/16 22:45 11/01/16 22:51 11/01/16 22:45 11/01/16 22:51 11/01/16 22:51 - Laboratory Result Diagrams: 11/01/16 20:55 11/01/16 20:55 Laboratory results interpreted by me: 11/01/16 11/01/16 20:55 20:55 Hgb 13.2 L Sodium 129.4 L Chloride 90 L BUN < 2 L Discharge - Discharge Clinical Impression: Abdominal pain Condition: Stable Disposition: HOME, SELF-CARE Additional Instructions: No abnormalities were seen on your workup today. Continue your omeprazole, I recommend taking the prescribed Carafate along with this. Continue to rehydrate, follow-up with your meat boner, return to the emergency department for any concerning or worsening symptoms including vomiting , returned abdominal pain, fever, black or bloody stools, or any other concerning symptoms. Prescriptions: Sucralfate [Carafate 1 gm Tablet] 1 gm PO QID #20 tablet
[2016-11-01 21:06] LABS: ABSOLUTE EOSINOPHILS # (AUTO) 0.1 10^3/uL (0.0-0.6); ABSOLUTE LYMPHOCYTES (AUTO) 1.4 10^3/uL (0.5-4.7); ABSOLUTE MONOCYTES (AUTO) 0.4 10^3/uL (0.1-1.4); ABSOLUTE NEUT (AUTO) 2.7 10^3/uL (1.7-8.2); BASOPHILS % (AUTO) 0.8 % (0-2); EOSINOPHILS % (AUTO) 1.1 % (0-6); HEMATOCRIT 38.8 % (37.9-51.0); HEMOGLOBIN 13.2 g/dL (13.5-17.0); HGB HCT DIFFERENCE 0.8; LYMPHOCYTES % (AUTO) 31.2 % (13-45); MEAN CORPUSCULAR HEMOGLOBIN 29.4 pg (27.0-33.4); MEAN CORPUSCULAR HGB CONC 34.1 g/dL (32.0-36.0); MEAN CORPUSCULAR VOLUME 86 fl (80-97); MONOCYTES % (AUTO) 9.5 % (3-13); SEGMENTED NEUTROPHILS % (AUTO) 57.4 % (42-78); WHITE BLOOD COUNT 4.6 10^3/uL (4.0-10.5)
[2016-11-01 21:24] LABS: ALANINE AMINOTRANSFERASE 30 U/L (21-72); ALBUMIN 3.7 g/dL (3.5-5.0); ALKALINE PHOSPHATASE 64 U/L (38-126); ANION GAP 14 (5-19); ASPARTATE AMINO TRANSFERASE 18 U/L (17-59); BILIRUBIN,DIRECT 0.4 mg/dL (0.0-0.4); BILIRUBIN,TOTAL 0.4 mg/dL (0.2-1.3); CALCIUM 8.5 mg/dL (8.4-10.2); CARBON DIOXIDE 25 mmol/L (22-30); CHLORIDE 90 mmol/L (98-107); CREATININE RESULT 0.71 mg/dL (0.52-1.25); GLUCOSE 76 mg/dL (75-110); LIPASE 30.4 U/L (23-300); POTASSIUM 4.1 mmol/L (3.6-5.0); SODIUM 129.4 mmol/L (137-145); TOTAL PROTEIN 6.3 g/dL (6.3-8.2)
[2016-11-01 21:26] LABS: BLOOD UREA NITROGEN < 2 mg/dL (7-20)
[2016-11-01 22:53] VITALS: BP 107/61
== END 2016-11-01 23:27 | disposition home or self-care (01) ==
LOC: ER 19:25
DX: R10.10 Upper abdominal pain, unspecified (principal); E78.00 Pure hypercholesterolemia, unspecified; I10 Essential (primary) hypertension; E03.9 Hypothyroidism, unspecified; K21.9 Gastro-esophageal reflux disease without esophagitis; Z98.84 Bariatric surgery status; Z90.49 Acquired absence of other specified parts of digestive tract
CPT/HCPCS: 99284; 36415; 83690; 85025; 80053; A9270 ×2; J7030

== ENCOUNTER 2016-11-04 13:48 | Emergency (ER) | payer MEDICARE ==
--- NOTE | 2016-11-04 14:42 | ER Document Report ---
ED Medical Screen (RME) - General Chief Complaint: Abdominal Pain Stated Complaint: ABDOMINAL PAIN Time Seen by Provider: 11/04/16 14:19 Mode of Arrival: Wheelchair Information source: Patient TRAVEL OUTSIDE OF THE [place] IN LAST 30 DAYS: No - HPI Patient complains to provider of: pain Notes: 11/04/16 14:42 Patient is a 41-year-old male who presents to the emergency room for the time this month complaining of abdominal pain radiating up into his chest, he also complains of left-sided head pain, left arm pain, inability to have a bowel movement for over a week - Related Data Allergies/Adverse Reactions: quetiapine fumarate [From [employer] Adverse Reaction (Verified 11/04/16 13:57) Past Medical History - Social History Family history: CAD - Past Medical History Cardiac Medical History: Reports: Hx Hypercholesterolemia, Hx Hypertension, Hx Peripheral Vascular Disease - Left carotid stenosis 50-69% Denies: Hx Congestive Heart Failure, Hx DVT, Hx Heart Attack, Hx Pulmonary Embolism Pulmonary Medical History: Denies: Hx Asthma, Hx COPD Neurological Medical History: Reports: Hx Migraine. Denies: Hx Seizures Endocrine Medical History: Reports: Hx Hypothyroidism. Denies: Hx Diabetes Mellitus Type 1, Hx Diabetes Mellitus Type 2, Hx Hyperthyroidism Renal/ Medical History: Denies: Hx Peritoneal Dialysis GI Medical History: Reports: Hx Gastroesophageal Reflux Disease, Hx Hiatal Hernia. Denies: Hx Cirrhosis, Hx Hepatitis Musculoskeltal Medical History: Denies Hx Arthritis Psychiatric Medical History: Reports: Hx Anxiety, Hx Depression Infectious Medical History: Denies: Hx Hepatitis Past Surgical History: Reports: Hx Abdominal Surgery - x7 gastric bypass 05, bowel blockage,hernia repair, Hx Cardiac Catheterization - Which is found to be negative, Hx Cholecystectomy, Hx Gastric Bypass Surgery - Immunizations Immunizations up to date: Yes Hx Diphtheria, Pertussis, Tetanus Vaccination: Yes Physical Exam - Vital signs Vitals: Temp Pulse Resp BP Pulse Ox 97.6 F 82 20 115/77 97 11/04/16 13:58 11/04/16 13:58 11/04/16 13:58 11/04/16 13:58 11/04/16 13:58 Course - Vital Signs Vital signs: Temp Pulse Resp BP Pulse Ox 97.6 F 82 20 115/77 97 11/04/16 13:58 11/04/16 13:58 11/04/16 13:58 11/04/16 13:58 11/04/16 13:58
[2016-11-04] MEDS ORDERED: ONDANSETRON 4 MG TAB.RAPDIS SL ONE (15:11)
[2016-11-04 15:33] LABS: ABSOLUTE BASOPHILS # (AUTO) 0.1 10^3/uL (0.0-0.2); ABSOLUTE MONOCYTES (AUTO) 0.4 10^3/uL (0.1-1.4); BASOPHILS % (AUTO) 1.1 % (0-2); EOSINOPHILS % (AUTO) 0.6 % (0-6); HEMATOCRIT 45.9 % (37.9-51.0); HGB HCT DIFFERENCE 0.9; LYMPHOCYTES % (AUTO) 18.4 % (13-45); MEAN CORPUSCULAR HEMOGLOBIN 29.9 pg (27.0-33.4); MEAN CORPUSCULAR HGB CONC 34.1 g/dL (32.0-36.0); MEAN CORPUSCULAR VOLUME 88 fl (80-97); MONOCYTES % (AUTO) 7.1 % (3-13); RED BLOOD COUNT 5.23 10^6/uL (4.35-5.55); RED CELL DISTRIBUTION WIDTH 13.4 % (11.5-14.0); SEGMENTED NEUTROPHILS % (AUTO) 72.8 % (42-78); WHITE BLOOD COUNT 5.5 10^3/uL (4.0-10.5)
[2016-11-04 15:50] LABS: ALANINE AMINOTRANSFERASE 25 U/L (21-72); ALBUMIN 4.2 g/dL (3.5-5.0); ALKALINE PHOSPHATASE 74 U/L (38-126); ANION GAP 14 (5-19); ASPARTATE AMINO TRANSFERASE 14 U/L (17-59); BILIRUBIN,DIRECT 0.4 mg/dL (0.0-0.4); BILIRUBIN,TOTAL 0.5 mg/dL (0.2-1.3); CALCIUM 9.2 mg/dL (8.4-10.2); CARBON DIOXIDE 28 mmol/L (22-30); CHLORIDE 91 mmol/L (98-107); CREATINE KINASE 33 U/L (55-170); CREATININE RESULT 0.69 mg/dL (0.52-1.25); GLUCOSE 100 mg/dL (75-110); HEMOGLOBIN 15.6 g/dL (13.5-17.0); LIPASE 44.9 U/L (23-300); POTASSIUM 4.3 mmol/L (3.6-5.0); SODIUM 132.8 mmol/L (137-145)
[2016-11-04 15:54] LABS: BLOOD UREA NITROGEN < 2 mg/dL (7-20)
--- NOTE | 2016-11-04 15:58 | RADIOLOGY REPORT (SQ) ---
EXAM DESCRIPTION: CHEST PA/LAT COMPLETED DATE/TIME: 11/04/2016 3:28 pm REASON FOR STUDY: cp COMPARISON: Chest films 08/06/2016, 10/28/2016 CT angio chest 10/27/2016 EXAM PARAMETERS: NUMBER OF VIEWS: two views TECHNIQUE: Digital Frontal and Lateral radiographic views of the chest acquired. RADIATION DOSE: NA LIMITATIONS: none FINDINGS: LUNGS AND PLEURA: No opacities, masses or pneumothorax. No pleural effusion. MEDIASTINUM AND HILAR STRUCTURES: No masses or contour abnormalities. HEART AND VASCULAR STRUCTURES: Heart normal size. No evidence for failure. BONES: No acute findings. Old right clavicle fracture HARDWARE: Clips right upper quadrant post cholecystectomy OTHER: No other significant finding. IMPRESSION: NO SIGNIFICANT RADIOGRAPHIC FINDING IN THE CHEST. TECHNICAL DOCUMENTATION: JOB ID: [id number] [employer]- All Rights Reserved
[2016-11-04 16:05] LABS: CREATINE KINASE MB < 0.22 ng/mL (<4.55); TROPONIN I < 0.012 ng/mL
--- NOTE | 2016-11-04 18:55 | EKG REPORT ---
SEVERITY:- NORMAL ECG - SINUS RHYTHM : Confirmed by: Galen Lloyd 04-Nov-2016 18:54:26
--- NOTE | 2016-11-04 19:32 | ER Document Report ---
ED General - General Chief Complaint: Abdominal Pain Stated Complaint: ABDOMINAL PAIN Time Seen by Provider: 11/04/16 14:19 Mode of Arrival: Wheelchair Information source: Patient Notes: Patient presents emergency department with multiple complaints to include abdominal pain chest pain face and arm numbness constipation. Patient reports he has not had a bowel movement for 13 days. He reports that he has some tissue coming out of his rectum. Patient also complains he has been able to eat and drink. He denies fever vomiting he reports diarrhea on and off but again reports no bowel movement in the last 13 days. Patient has been to the emergency department multiple times for these complaints. This is his seventh visit in October. He has had CTAs CTs KUB multiple biopsies done. Patient reports he was at his GI doctor today who told him to take MiraLAX. 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 Patient reports his symptoms started in 2004 after he had gastric bypass. Patient also complains that his groin area is purple. TRAVEL OUTSIDE OF THE [place] IN LAST 30 DAYS: No - HPI Onset: Other - chronic Onset/Duration: Persistent Quality of pain: Achy Severity: Severe Pain Level: 4 Associated symptoms: Nausea, Vomiting Exacerbated by: Denies Relieved by: Denies Similar symptoms previously: Yes Recently seen / treated by doctor: Yes - Related Data Allergies/Adverse Reactions: quetiapine fumarate [From Seroquel] Adverse Reaction (Verified 11/04/16 13:57) Past Medical History - General Information source: Patient - Social History Smoking Status: Former Smoker Frequency of alcohol use: None Drug Abuse: None Family History: CAD - States all the males in his family have of heart disease in their 40s., CVA, Other - [place] Patient has suicidal ideation: No Patient has homicidal ideation: No - Past Medical History Cardiac Medical History: Reports: Hx Hypercholesterolemia, Hx Hypertension, Hx Peripheral Vascular Disease - Left carotid stenosis 50-69% Denies: Hx Congestive Heart Failure, Hx DVT, Hx Heart Attack, Hx Pulmonary Embolism Pulmonary Medical History: Denies: Hx Asthma, Hx COPD Neurological Medical History: Reports: Hx Migraine. Denies: Hx Seizures Endocrine Medical History: Reports: Hx Hypothyroidism. Denies: Hx Diabetes Mellitus Type 1, Hx Diabetes Mellitus Type 2, Hx Hyperthyroidism Renal/ Medical History: Denies: Hx Peritoneal Dialysis GI Medical History: Reports: Hx Gastroesophageal Reflux Disease, Hx Hiatal Hernia. Denies: Hx Cirrhosis, Hx Hepatitis Musculoskeltal Medical History: Denies Hx Arthritis Psychiatric Medical History: Reports: Hx Anxiety, Hx Depression Infectious Medical History: Denies: Hx Hepatitis Past Surgical History: Reports: Hx Abdominal Surgery - x7 gastric bypass 05, bowel blockage,hernia repair, Hx Cardiac Catheterization - Which is found to be negative, Hx Cholecystectomy, Hx Gastric Bypass Surgery - Immunizations Immunizations up to date: Yes Hx Diphtheria, Pertussis, Tetanus Vaccination: Yes Physical Exam - Vital signs Vitals: Temp Pulse Resp BP Pulse Ox 97.6 F 82 20 115/77 97 11/04/16 13:58 11/04/16 13:58 11/04/16 13:58 11/04/16 13:58 11/04/16 13:58 - Notes Notes: PHYSICAL EXAMINATION: GENERAL:nontoxic looking HEAD: Atraumatic, normocephalic. EYES: Pupils equal round , extraocular movements intact, sclera anicteric, conjunctiva are normal. ENT: nares patent, Moist mucous membranes. NECK: Normal range of motion, supple without lymphadenopathy LUNGS: CTAB and equal. No wheezes rales or rhonchi. HEART: Regular rate and rhythm without murmurs ABDOMEN: Soft, no tenderness. No guarding, no rebound EXTREMITIES: Normal range of motion, no pitting edema. No cyanosis. NEUROLOGICAL: Cranial nerves grossly intact. Normal sensory/motor exams. PSYCH: Normal mood, normal affect. SKIN: Warm, Dry, normal turgor, no rashes or lesions noted - Rectal Tenderness: No Hemorrhoids: No: Internal - Genitourinary Tenderness: Nontender Scrotum: Normal. No: Swelling, Redness Course - Re-evaluation Re-evalutation: 11/05/16 Labs unremarkable patient is requesting a repeat CT of his abdomen. Consulted Dr. Ma. He advises against this. Patient has been here 7 times this month for the same complaints. He has been evaluated by GI today. He is experiencing chronic abdominal and chest pain. Pt was advised on the importance of fu with his pcp and GI for these symptoms. - Vital Signs Vital signs: Temp Pulse Resp BP Pulse Ox 98.0 F 86 15 131/87 H 96 11/04/16 19:48 11/04/16 19:13 11/04/16 19:48 11/04/16 19:48 11/04/16 19:48 - Laboratory Result Diagrams: 11/04/16 15:20 11/04/16 15:20 Laboratory results interpreted by me: 11/04/16 15:20 Sodium 132.8 L Chloride 91 L BUN < 2 L AST 14 L Creatine Kinase 33 L - Diagnostic Test Radiology reviewed: Image reviewed, Reports reviewed - neg Discharge - Discharge Clinical Impression: Paresthesia, Chronic abdominal pain, Chronic chest pain Condition: Stable Disposition: HOME, SELF-CARE Instructions: Abdominal Pain ([facility]), Chest Pain of Unclear Cause ([facility]), Constipation ([facility]), Stool Softener ([facility]), Gastroenterology Additional Instructions: *You have been evaluated for chronic abdominal pain, chronic chest pain, constipation, paresthesia *Take over the counter stool softener as indicated *Follow up with a primary care provider this week *Follow up with your central stores attendant within one week *Return to ED for worsening condition, changes, needs Referrals: NEHEMIAS ALONZO MD [Primary Care Provider] - Follow up in 3-5 days
[2016-11-04 19:57] VITALS: BP 131/87
== END 2016-11-04 19:49 | disposition home or self-care (01) ==
LOC: ER 13:48
DX: G89.29 Other chronic pain (principal); R10.9 Unspecified abdominal pain; R07.89 Other chest pain; R20.0 Anesthesia of skin; K59.00 Constipation, unspecified; R11.0 Nausea; I25.10 Atherosclerotic heart disease of native coronary artery without angina pectoris; I10 Essential (primary) hypertension; Z98.84 Bariatric surgery status; Z87.891 Personal history of nicotine dependence; Z82.49 Family history of ischemic heart disease and other diseases of the circulatory system; Z90.49 Acquired absence of other specified parts of digestive tract; Z87.19 Personal history of other diseases of the digestive system
CPT/HCPCS: 36415; 71020; 80053; 82550; 82553; 83690; 84484; 85025; 93005; 93010; 99284

== ENCOUNTER 2016-11-07 21:53 | Emergency (ER) | payer MEDICARE ==
[2016-11-08] MEDS ORDERED: SUCRALFATE SUSP 1 GM/10 ML UDCUP PO ONE (00:32)
[2016-11-08] MEDS ORDERED: PROMETHAZINE HCL 25 MG TABLET PO ONE (00:32)
[2016-11-08] MEDS ORDERED: DIAZEPAM 5 MG TABLET PO ONE (00:32)
[2016-11-08] MEDS ORDERED: FAMOTIDINE 20 MG TABLET PO ONE (00:32)
--- NOTE | 2016-11-08 01:01 | ER Document Report ---
ED General - General Chief Complaint: Abdominal Pain Stated Complaint: ABDOMINAL PAIN Time Seen by Provider: 11/07/16 23:57 Mode of Arrival: Medic Information source: Patient TRAVEL OUTSIDE OF THE [place] IN LAST 30 DAYS: No - HPI Notes: 41 y.o. male with hx 7 prior abdominal surgeries with gastric bypass and cholecystectomy comes in with report of chronic pain extending from the upper thighs through the abdomen to the lower chest through the head. The patient denies any head injury or neck stiffness or fever or chills. Patient has had multiple evaluations for various degrees of pain, and he states this is worse since he stopped taking his Valium and pain medications approximately a month ago. The patient reports he is also out of his Phenergan that he takes. The patient has had 7 visits previously this month and is had [address] scans in the last month. The patient has also had multiple negative x-ray studies within the past month. He was seen by his neurophysiological technician to demonstrate a negative nuclear stress test earlier this month and had a negative cardiac catheterization 18 months ago. The patient saw his GI specialist and had a upper endoscopy performed this morning which showed mild gastritis and inflammation and a biopsy was taken. He initially described constipation with no bowel movement for up to 14 days, then later admitted he was having watery bowel movements. He has had no recent antibiotics. He has been taking magnesium citrate. He does report recent weight loss, then states that he has gained some weight more recently. He is taking Prilosec daily [id number] 40 mg. The patient takes aspirin on a daily basis, with supplemental aspirin whenever he thinks he is having chest pain. Patient was advised to stop taking the aspirin, and he states his fans clerk had told him this previously also. - Related Data Allergies/Adverse Reactions: quetiapine fumarate [From [employer]] Adverse Reaction (Verified 11/04/16 13:57) Past Medical History - Social History Smoking Status: Former Smoker Frequency of alcohol use: None Drug Abuse: None Lives with: Family Family History: CAD - States all the males in his family have of heart disease in their 40s., CVA, Other - [place] Patient has suicidal ideation: No Patient has homicidal ideation: No - Past Medical History Cardiac Medical History: Reports: Hx Hypercholesterolemia, Hx Hypertension, Hx Peripheral Vascular Disease - Left carotid stenosis 50-69% Denies: Hx Congestive Heart Failure, Hx DVT, Hx Heart Attack, Hx Pulmonary Embolism Pulmonary Medical History: Denies: Hx Asthma, Hx COPD Neurological Medical History: Reports: Hx Migraine. Denies: Hx Seizures Endocrine Medical History: Reports: Hx Hypothyroidism. Denies: Hx Diabetes Mellitus Type 1, Hx Diabetes Mellitus Type 2, Hx Hyperthyroidism Renal/ Medical History: Denies: Hx Peritoneal Dialysis GI Medical History: Reports: Hx Gastroesophageal Reflux Disease, Hx Hiatal Hernia. Denies: Hx Cirrhosis, Hx Hepatitis Musculoskeltal Medical History: Denies Hx Arthritis Psychiatric Medical History: Reports: Hx Anxiety, Hx Depression Infectious Medical History: Denies: Hx Hepatitis Past Surgical History: Reports: Hx Abdominal Surgery - x7 gastric bypass 05, bowel blockage,hernia repair, Hx Cardiac Catheterization - Which is found to be negative, Hx Cholecystectomy, Hx Gastric Bypass Surgery - Immunizations Immunizations up to date: Yes Hx Diphtheria, Pertussis, Tetanus Vaccination: Yes Review of Systems - Review of Systems Notes: REVIEW OF SYSTEMS: CONSTITUTIONAL : Denies fever, chills, or sweats. EENT: Denies eye, ear, throat, or mouth pain or symptoms. Denies nasal or sinus congestion or discharge. Denies throat, tongue, or mouth swelling or difficulty swallowing. CARDIOVASCULAR: Denies palpitations or racing or irregular heart beat. Denies ankle edema. RESPIRATORY: Denies cough, cold, or chest congestion. Denies shortness of breath, difficulty breathing, or wheezing. GASTROINTESTINAL: Denies abdominal distention. Denies diarrhea and later admitted to possible diarrhea. Denies blood in vomitus, stools, or per rectum. Denies black, tarry stools. GENITOURINARY: Denies difficulty urinating, painful urination, burning, frequency, blood in urine, or discharge. MUSCULOSKELETAL: Denies neck pain or stiffness. Denies joint pain or swelling. SKIN: Denies rash, lesions or sores. HEMATOLOGIC : Denies easy bruising or bleeding. LYMPHATIC: Denies swollen, enlarged glands. NEUROLOGICAL: Denies confusion or altered mental status. Denies passing out or loss of consciousness. Denies dizziness or lightheadedness. Denies weakness or paralysis or loss of use of either side. Denies problems with gait or speech. Denies sensory loss, numbness, or tingling. Denies seizures. PSYCHIATRIC: Admits to anxiety, worse since he stopped taking his Valium. Denies depression, suicidal ideation, or homicidal ideation. ALL OTHER SYSTEMS REVIEWED AND NEGATIVE. Dictation was performed using [employer] voice recognition software Physical Exam - Vital signs Vitals: Temp Pulse Resp BP Pulse Ox 98.4 F 68 18 127/84 H 99 11/07/16 22:02 11/07/16 22:02 11/07/16 22:02 11/07/16 22:02 11/07/16 22:02 - Notes Notes: PHYSICAL EXAMINATION: GENERAL: Well-appearing, well-nourished and in no acute distress. HEAD: Atraumatic, normocephalic. EYES: Pupils equal round and reactive to light, extraocular movements intact, sclera anicteric, conjunctiva are normal. No temporal arterial tenderness. No TMJ joint tenderness. Normal anterior chambers that are not shallow. ENT: Nares patent, oropharynx clear without exudates. Moist mucous membranes. Poor dentition. NECK: Normal range of motion, supple without lymphadenopathy LUNGS: Breath sounds clear to auscultation bilaterally and equal. No wheezes rales or rhonchi. HEART: Regular rate and rhythm without murmurs ABDOMEN: Soft, nondistended abdomen. No guarding, no rebound. No masses appreciated. patient describes diffuse abdominal pain mainly to the upper abdomen, but He can be distracted with away from the pain with discussion. Musculoskeletal: Normal range of motion, no pitting or edema. No cyanosis. NEUROLOGICAL: Cranial nerves grossly intact. Normal speech, normal gait. Normal sensory, motor exams PSYCH: Normal mood, normal affect. SKIN: Warm, Dry, normal turgor, no rashes or lesions noted. Course - Re-evaluation Re-evalutation: 11/08/16 03:27 Patient given medications for gastritis and nausea with improvement on repeat exam. There is no significant pain or nausea at the current time. No obvious evidence for constipation noted on x-ray. No evidence for bowel obstruction or significant inflammatory process or hepatitis or pancreatitis or GI bleed or acidosis or severe dehydration. Patient was reassured that he did not have any obvious vascular phenomenon going on. The patient was also counseled about the number of CT scans he had had previously and the risk for developing cancer related to the multiple CT scans. We will start the patient on Levsin, add in Carafate, write for prescription of Phenergan, and have him stop taking aspirin. 11/08/16 03:30 - Vital Signs Vital signs: Temp Pulse Resp BP Pulse Ox 98.1 F 71 14 123/64 95 11/08/16 02:02 11/08/16 02:02 11/08/16 02:02 11/08/16 02:02 11/08/16 02:02 - Laboratory Result Diagrams: 11/08/16 00:54 11/08/16 00:54 Laboratory results interpreted by me: 11/08/16 11/08/16 11/08/16 00:54 00:54 00:54 Sodium 127.6 L Chloride 92 L BUN 3 L Lactic Acid 0.6 L Direct Bilirubin 0.5 H Urine Ketones Valproic Acid 30.0 L 11/08/16 02:04 Sodium Chloride BUN Lactic Acid Direct Bilirubin Urine Ketones 20 H Valproic Acid - EKG Interpretation by Me Additional EKG results interpreted by me: 11/08/16 01:22 EKG as interpreted by me showed normal sinus rhythm heart rate of 67. There is no gross evidence for acute [place] or ischemia identified. Discharge - Discharge Clinical Impression: Dehydration Abdominal pain Qualifiers: Abdominal location: upper abdomen, unspecified Qualified Code(s): R10.10 - Upper abdominal pain, unspecified Gastritis Qualifiers: Gastritis type: unspecified gastritis Chronicity: acute Gastritis bleeding: without bleeding Qualified Code(s): K29.00 - Acute gastritis without bleeding Condition: Stable Disposition: HOME, SELF-CARE Instructions: Abdominal Pain ([facility]), Antinausea Medication ([facility]), Gastritis ([facility] ) Additional Instructions: Drink plenty of fluids. Return to the ED in case of bloody diarrhea, severe pain or vomiting or fever. Stop taking aspirin. Continue Prilosec as directed. Add in Carafate for gastritis. Take Levsin for abdominal cramping and spasm. Prescriptions: Hyoscyamine Sulfate [Levsin 0.125 Tablet] 0.125 mg PO Q6HP PRN #30 tablet PRN Reason: Promethazine HCl [Phenergan 25 mg Tablet] 1 tab PO Q6H PRN #20 tablet PRN Reason: Sucralfate [Carafate 1 gm Tablet] 1 gm PO ACHS #120 tablet Referrals: NEHEMIAS ALONZO MD [Primary Care Provider] - Follow up as needed
[2016-11-08 01:12] LABS: ABSOLUTE EOSINOPHILS # (AUTO) 0.1 10^3/uL (0.0-0.6); ABSOLUTE LYMPHOCYTES (AUTO) 1.8 10^3/uL (0.5-4.7); ABSOLUTE MONOCYTES (AUTO) 0.6 10^3/uL (0.1-1.4); ABSOLUTE NEUT (AUTO) 3.6 10^3/uL (1.7-8.2); BASOPHILS % (AUTO) 0.7 % (0-2); EOSINOPHILS % (AUTO) 0.9 % (0-6); HEMATOCRIT 44.1 % (37.9-51.0); HEMOGLOBIN 14.8 g/dL (13.5-17.0); HGB HCT DIFFERENCE 0.3; LYMPHOCYTES % (AUTO) 30.1 % (13-45); MEAN CORPUSCULAR HEMOGLOBIN 29.5 pg (27.0-33.4); MEAN CORPUSCULAR HGB CONC 33.7 g/dL (32.0-36.0); MEAN CORPUSCULAR VOLUME 88 fl (80-97); MONOCYTES % (AUTO) 9.1 % (3-13); RED BLOOD COUNT 5.03 10^6/uL (4.35-5.55); RED CELL DISTRIBUTION WIDTH 13.2 % (11.5-14.0); SEGMENTED NEUTROPHILS % (AUTO) 59.2 % (42-78); WHITE BLOOD COUNT 6.1 10^3/uL (4.0-10.5)
[2016-11-08 01:32] LABS: MAGNESIUM 2.1 mg/dL (1.6-2.3)
[2016-11-08 01:33] LABS: ALANINE AMINOTRANSFERASE 39 U/L (21-72); ALBUMIN 3.8 g/dL (3.5-5.0); ALKALINE PHOSPHATASE 62 U/L (38-126); ANION GAP 14 (5-19); ASPARTATE AMINO TRANSFERASE 24 U/L (17-59); BILIRUBIN,DIRECT 0.5 mg/dL (0.0-0.4); BILIRUBIN,TOTAL 0.7 mg/dL (0.2-1.3); BLOOD UREA NITROGEN 3 mg/dL (7-20); CALCIUM 8.8 mg/dL (8.4-10.2); CARBON DIOXIDE 22 mmol/L (22-30); CHLORIDE 92 mmol/L (98-107); CREATININE RESULT 0.61 mg/dL (0.52-1.25); GLUCOSE 83 mg/dL (75-110); LIPASE 35.2 U/L (23-300); POTASSIUM 3.8 mmol/L (3.6-5.0); SODIUM 127.6 mmol/L (137-145); TOTAL PROTEIN 6.4 g/dL (6.3-8.2)
[2016-11-08 02:05] LABS: THYROID STIMULATING HORMONE 2.97 uIU/mL (0.47-4.68)
[2016-11-08 02:22] LABS: APPEARANCE,URINE CLEAR; BILIRUBIN,URINE NEGATIVE (NEGATIVE); GLUCOSE, URINE NEGATIVE (NEGATIVE); KETONES,URINE 20 mg/dL (NEGATIVE); LEUKOCYTE ESTERASE,URINE NEGATIVE (NEGATIVE); NITRITE,URINE NEGATIVE (NEGATIVE); PROTEIN,URINE NEGATIVE (NEGATIVE); URINE SPECIFIC GRAVITY 1.005; UROBILINOGEN,URINE NEGATIVE mg/dL (<2.0)
--- NOTE | 2016-11-08 02:23 | RADIOLOGY REPORT (SQ) ---
EXAM DESCRIPTION: ACUTE ABDOMEN SERIES COMPLETED DATE/TIME: 11/08/2016 2:09 am REASON FOR STUDY: abd pain, chest pain COMPARISON: 10/30/2016. NUMBER OF VIEWS: Three views. 4 images. TECHNIQUE: Frontal chest, supine abdomen and upright/decubitus abdomen radiographic images acquired. LIMITATIONS: None. FINDINGS: CHEST: Lungs clear of infiltrates. FREE AIR: None. No abnormal gas collections. BOWEL GAS PATTERN: All retained fluid in the colon with small air-fluid levels. Right colon measures up to 6 cm. CALCIFICATIONS: No suspicious calcifications. HARDWARE: Right upper abdominal clips. SOFT TISSUES: No gross mass or suggestion of organomegaly. BONES: No acute fracture. No worrisome bone lesions. [id number] osteoarthritis of bilateral h ips. OTHER: No other significant finding. IMPRESSION: There is retained fluid in the colon which may indicate malabsorption and/or gastroenter itis. No acute cardiopulmonary findings. TECHNICAL DOCUMENTATION: JOB ID: [id number] [employer]- All Rights Reserved
[2016-11-08 02:35] LABS: URINE BARBITURATES SCREEN UNCONFIRMED POSITIVE; URINE METHADONE SCREEN NEGATIVE; URINE OPIATES LOW NEGATIVE; URINE PHENCYCLIDINE SCREEN NEGATIVE
[2016-11-08 04:05] VITALS: BP 118/71
--- NOTE | 2016-11-08 08:38 | EKG REPORT ---
SEVERITY:- NORMAL ECG - SINUS RHYTHM : Confirmed by: Galen Lloyd 08-Nov-2016 08:38:11
== END 2016-11-08 04:02 | disposition home or self-care (01) ==
LOC: ER 21:53
DX: K29.00 Acute gastritis without bleeding (principal); E86.0 Dehydration; M79.659 Pain in unspecified thigh; R07.9 Chest pain, unspecified; R51 Headache; G89.29 Other chronic pain; K21.9 Gastro-esophageal reflux disease without esophagitis; Z98.890 Other specified postprocedural states; I10 Essential (primary) hypertension; Z79.899 Other long term (current) drug therapy; Z79.82 Long term (current) use of aspirin; Z98.84 Bariatric surgery status; Z90.49 Acquired absence of other specified parts of digestive tract; Z87.891 Personal history of nicotine dependence; Z82.49 Family history of ischemic heart disease and other diseases of the circulatory system; F41.9 Anxiety disorder, unspecified; T42.4X6A Underdosing of benzodiazepines, initial encounter; Z91.128 Patient's intentional underdosing of medication regimen for other reason; Z91.14 Patient's other noncompliance with medication regimen; R20.2 Paresthesia of skin
CPT/HCPCS: 93005; 99284; 99285; 96361; 96374; 36415 ×2; 84439; 82553; 82550; 83690; 83735; 84443; 85025 ×2; 80053 ×2; 81001; 84484 ×2; 80164; 80307; 83605; 74022; 93010; A9270 ×3; J3490; J2060; J7030

== ENCOUNTER 2016-11-08 21:49 | Emergency (ER) | payer MEDICARE ==
[2016-11-08] MEDS ORDERED: ASPIRIN 81 MG TABLET, CHEWABLE PO ONE (22:02)
--- NOTE | 2016-11-08 22:11 | ER Document Report ---
ED General - General Chief Complaint: Chest Pain Stated Complaint: CHEST PAIN Time Seen by Provider: 11/08/16 22:02 TRAVEL OUTSIDE OF THE [place] IN LAST 30 DAYS: No - HPI Notes: 41 y.o. male with hx 7 prior abdominal surgeries with gastric bypass and cholecystectomy comes in with report of chronic recurring chest pain, this evening came on at 2100 while at rest. The pain is extending to the left side and he feels a generalized numbness throughout his body associated with it. Patient has had multiple evaluations for chest and abdomen pain, and he states this is worse since he stopped taking his Valium and pain medications approximately a month ago. One was a negative CTA of the chest the patient has had 8 visits previously this month and is had [address] scans in the last month, 2 weeks ago. The patient has also had multiple negative x-ray studies within the past month. He was seen by his maintainer operator to demonstrate a negative nuclear stress test earlier this month and had a negative cardiac catheterization 18 months ago. The patient saw his GI specialist and had a upper endoscopy performed yesterday morning which showed mild gastritis and inflammation and a biopsy was taken. Patient had normal lab work And normal x-ray of acute abdominal series yesterday when he was seen for chest and abdominal pain. Today he is only complaining of the chest pain. Yesterday, the patient was advised to stop taking his aspirin due to reflux components and possible esophagitis. He was again given aspirin en route coming into the emergency department today. - Related Data Allergies/Adverse Reactions: quetiapine fumarate [From [employer]] Adverse Reaction (Verified 11/08/16 22:11) Past Medical History - General Information source: Patient - Social History Smoking Status: Never Smoker Frequency of alcohol use: None Drug Abuse: None Lives with: Family Family History: CAD - States all the males in his family have of heart disease in their 40s., CVA, Other - [place] - Past Medical History Cardiac Medical History: Reports: Hx Hypercholesterolemia, Hx Hypertension, Hx Peripheral Vascular Disease - Left carotid stenosis 50-69% Denies: Hx Congestive Heart Failure, Hx DVT, Hx Heart Attack, Hx Pulmonary Embolism Pulmonary Medical History: Denies: Hx Asthma, Hx COPD Neurological Medical History: Reports: Hx Migraine. Denies: Hx Seizures Endocrine Medical History: Reports: Hx Hypothyroidism. Denies: Hx Diabetes Mellitus Type 1, Hx Diabetes Mellitus Type 2, Hx Hyperthyroidism Renal/ Medical History: Denies: Hx Peritoneal Dialysis GI Medical History: Reports: Hx Gastroesophageal Reflux Disease, Hx Hiatal Hernia. Denies: Hx Cirrhosis, Hx Hepatitis Musculoskeltal Medical History: Denies Hx Arthritis Psychiatric Medical History: Reports: Hx Anxiety, Hx Depression Infectious Medical History: Denies: Hx Hepatitis Past Surgical History: Reports: Hx Abdominal Surgery - x7 gastric bypass 05, bowel blockage,hernia repair, Hx Cardiac Catheterization - Which is found to be negative, Hx Cholecystectomy, Hx Gastric Bypass Surgery - Immunizations Immunizations up to date: Yes Hx Diphtheria, Pertussis, Tetanus Vaccination: Yes Review of Systems - Review of Systems Notes: REVIEW OF SYSTEMS: CONSTITUTIONAL : Denies fever, chills, or sweats. Denies recent illness. EENT: Denies eye, ear, throat, or mouth pain or symptoms. Denies nasal or sinus congestion or discharge. Denies throat, tongue, or mouth swelling or difficulty swallowing. CARDIOVASCULAR: Denies palpitations or racing or irregular heart beat. Denies ankle edema. RESPIRATORY: Denies cough, cold, or chest congestion. Denies shortness of breath, difficulty breathing, or wheezing. GASTROINTESTINAL: Denies abdominal reports chronic abdominal pain distention. Denies nausea, vomiting, or diarrhea. Denies blood in vomitus, stools, or per rectum. Denies black, tarry stools. Denies constipation., Unchanged. Reports generalized tingling sensation. GENITOURINARY: Denies difficulty urinating, painful urination, burning, frequency, blood in urine, or discharge. MUSCULOSKELETAL: Denies back or neck pain or stiffness. Denies joint pain or swelling. SKIN: Denies rash, lesions or sores. HEMATOLOGIC : Denies easy bruising or bleeding. LYMPHATIC: Denies swollen, enlarged glands. NEUROLOGICAL: Denies confusion or altered mental status. Denies passing out or loss of consciousness. Denies dizziness. Denies headache. Denies weakness or paralysis or loss of use of either side. Denies problems with gait or speech. Denies sensory loss, numbness, or tingling. Denies seizures. PSYCHIATRIC: Reports some anxiety. Denies anxiety or stress. Denies depression , suicidal ideation, or homicidal ideation. ALL OTHER SYSTEMS REVIEWED AND NEGATIVE. Dictation was performed using [employer] voice recognition software Physical Exam - Vital signs Vitals: Resp BP 19 118/77 11/08/16 21:53 11/08/16 21:53 - Notes Notes: PHYSICAL EXAMINATION: GENERAL: Well-appearing, well-nourished and in no acute distress. HEAD: Atraumatic, normocephalic. EYES: Pupils equal round and reactive to light, extraocular movements intact, sclera anicteric, conjunctiva are normal. ENT: Nares patent, oropharynx clear without exudates. Moist mucous membranes. NECK: Normal range of motion, supple without lymphadenopathy. No carotid bruits. LUNGS: Breath sounds clear to auscultation bilaterally and equal. No wheezes rales or rhonchi. HEART: Regular rate and rhythm without murmurs. Reproducible anterior chest wall pain where the patient flinches and moves, then at other times he can be distracted away from it with discussion. ABDOMEN: Soft, nondistended abdomen. No guarding, no rebound. No masses appreciated. Mild midepigastric tenderness, somewhat improved from my exam yesterday. Musculoskeletal: Normal range of motion, no pitting or edema. No cyanosis. NEUROLOGICAL: Cranial nerves grossly intact. Normal speech, normal gait. Normal sensory, motor exams, although the patient reports previous generalized tingling sensation. No focal unilateral findings. PSYCH: Very anxious. Patient will not make eye contact. SKIN: Warm, Dry, normal turgor, no rashes or lesions noted. Course - Re-evaluation Re-evalutation: 11/09/16 03:40 After IV Ativan and GI cocktail and Carafate and Pepcid, the patient had complete relief of his discomfort went to sleep and repeat blood pressure was 102/71. Patient was again reassured about his symptoms. The patient was also undertaken and discussion about narcotic withdrawal and benzodiazepine withdrawal is possible etiologies for his discomfort. The patient has been on Subutex recently, and he claims he has taken himself off of his Valium a month ago. Patient requested additional Ativan was given 1 mg. He will follow-up with regular practitioner. Given the negative cardiac evaluations done previously recently, and today's negative cardiac enzymes, there is no obvious evidence for acute [place] or ischemia. - Vital Signs Vital signs: Temp Pulse Resp BP Pulse Ox 98 F 24 H 113/79 99 11/08/16 22:01 11/09/16 01:01 11/09/16 01:01 11/09/16 01:01 - Laboratory Result Diagrams: 11/08/16 21:56 11/08/16 21:56 Laboratory results interpreted by me: 11/08/16 21:56 Sodium 126.5 L Chloride 90 L BUN 2 L Creatine Kinase 44 L Total Protein 6.2 L - EKG Interpretation by Me EKG shows normal: Sinus rhythm Rate: Normal Additional EKG results interpreted by me: 11/08/16 22:22 EKG as interpreted by me showed normal sinus rhythm heart rate of 75. There is no gross evidence for acute [place] or ischemia identified. There is no change from previous EKG reviewed in the old record. Discharge - Discharge Clinical Impression: Anxiety, Chest pain of uncertain etiology Chest pain Qualifiers: Chest pain type: unspecified Qualified Code(s): R07.9 - Chest pain, unspecified Condition: Stable Disposition: HOME, SELF-CARE Instructions: Chest Pain of Unclear Cause ([facility]), Anxiety ([facility])
[2016-11-08] MEDS ORDERED: MAG HYDROX/AL HYDROX/SIMETH SUSP 30 ML UDCUP PO ONE (22:12)
[2016-11-08] MEDS ORDERED: LORAZEPAM INJ 2 MG/1 ML VIAL IV ONE (22:12)
[2016-11-08] MEDS ORDERED: LIDOCAINE 2% VISCOUS SOLN 20 ML UDCUP PO ONE (22:12)
[2016-11-08] MEDS ORDERED: SUCRALFATE SUSP 1 GM/10 ML UDCUP PO ONE (22:13)
[2016-11-08] MEDS ORDERED: FAMOTIDINE 20 MG TABLET PO ONE (22:13)
[2016-11-08 22:17] LABS: ABSOLUTE BASOPHILS # (AUTO) 0.1 10^3/uL (0.0-0.2); ABSOLUTE EOSINOPHILS # (AUTO) 0.1 10^3/uL (0.0-0.6); ABSOLUTE MONOCYTES (AUTO) 0.6 10^3/uL (0.1-1.4); ABSOLUTE NEUT (AUTO) 3.6 10^3/uL (1.7-8.2); BASOPHILS % (AUTO) 1.2 % (0-2); EOSINOPHILS % (AUTO) 1.4 % (0-6); HEMATOCRIT 43.3 % (37.9-51.0); HEMOGLOBIN 14.6 g/dL (13.5-17.0); HGB HCT DIFFERENCE 0.5; LYMPHOCYTES % (AUTO) 31.2 % (13-45); MEAN CORPUSCULAR HEMOGLOBIN 29.7 pg (27.0-33.4); MEAN CORPUSCULAR HGB CONC 33.7 g/dL (32.0-36.0); MEAN CORPUSCULAR VOLUME 88 fl (80-97); MONOCYTES % (AUTO) 9.7 % (3-13); RED BLOOD COUNT 4.91 10^6/uL (4.35-5.55); RED CELL DISTRIBUTION WIDTH 13.3 % (11.5-14.0); SEGMENTED NEUTROPHILS % (AUTO) 56.5 % (42-78); WHITE BLOOD COUNT 6.3 10^3/uL (4.0-10.5)
[2016-11-08 22:40] LABS: ALANINE AMINOTRANSFERASE 43 U/L (21-72); ALBUMIN 3.7 g/dL (3.5-5.0); ALKALINE PHOSPHATASE 55 U/L (38-126); ANION GAP 12 (5-19); ASPARTATE AMINO TRANSFERASE 28 U/L (17-59); BILIRUBIN,DIRECT 0.4 mg/dL (0.0-0.4); BILIRUBIN,TOTAL 0.6 mg/dL (0.2-1.3); BLOOD UREA NITROGEN 2 mg/dL (7-20); CALCIUM 8.4 mg/dL (8.4-10.2); CARBON DIOXIDE 25 mmol/L (22-30); CHLORIDE 90 mmol/L (98-107); CREATINE KINASE 44 U/L (55-170); CREATININE RESULT 0.66 mg/dL (0.52-1.25); GLUCOSE 91 mg/dL (75-110); SODIUM 126.5 mmol/L (137-145); TOTAL PROTEIN 6.2 g/dL (6.3-8.2)
[2016-11-08] MEDS ORDERED: NORMAL SALINE 1000 ML 1,000 ML IV ONE (22:51)
[2016-11-09] MEDS ORDERED: LORAZEPAM 1 MG TABLET PO ONE (03:35)
[2016-11-09 03:55] VITALS: BP 102/71
--- NOTE | 2016-11-09 13:46 | EKG REPORT ---
SEVERITY:- NORMAL ECG - SINUS RHYTHM : Confirmed by: Galen Lloyd 09-Nov-2016 13:45:29
== END 2016-11-09 03:54 | disposition home or self-care (01) ==
LOC: ER 21:49
DX: R07.89 Other chest pain (principal); F41.9 Anxiety disorder, unspecified; T42.4X6A Underdosing of benzodiazepines, initial encounter; Z91.128 Patient's intentional underdosing of medication regimen for other reason; Z91.14 Patient's other noncompliance with medication regimen; R20.2 Paresthesia of skin; K29.70 Gastritis, unspecified, without bleeding; Z82.49 Family history of ischemic heart disease and other diseases of the circulatory system; Z98.84 Bariatric surgery status; Z98.890 Other specified postprocedural states; I10 Essential (primary) hypertension
CPT/HCPCS: 93005; 99285; 96361; 96374; 36415; 82553; 82550; 85025; 80053; 84484; 93010; A9270 ×2; J3490; J2060; J7030

== ENCOUNTER 2016-11-10 13:49 | Emergency (ER) | payer SELFPAY ==
[2016-11-10] MEDS ORDERED: MAG HYDROX/AL HYDROX/SIMETH SUSP 30 ML UDCUP PO ONE (14:42)
[2016-11-10] MEDS ORDERED: LORAZEPAM 1 MG TABLET PO ONE ×2 (14:42→16:25)
[2016-11-10] MEDS ORDERED: PROMETHAZINE HCL 25 MG TABLET PO ONE (14:42)
[2016-11-10] MEDS ORDERED: FAMOTIDINE 20 MG TABLET PO ONE (14:43)
[2016-11-10] MEDS ORDERED: LIDOCAINE 2% VISCOUS SOLN 20 ML UDCUP PO ONE (14:43)
[2016-11-10] MEDS ORDERED: SUCRALFATE SUSP 1 GM/10 ML UDCUP PO ONE (14:43)
--- NOTE | 2016-11-10 14:44 | ER Document Report ---
ED General - General Chief Complaint: Abdominal Pain Stated Complaint: EPIGASTRIC PAIN Time Seen by Provider: 11/10/16 14:23 Notes: 41 y.o. male with hx 7 prior abdominal surgeries with gastric bypass and cholecystectomy comes in with report of chronic recurring chest pain and abdominal pain that he has had on/off for the past three weeks since he completed a detox program in [place] for opiates and benzodiazepines. The pain is extending to the left side and he feels a generalized numbness throughout his body associated with it. Patient has had multiple evaluations for chest and abdomen pain, and he states this is worse since he stopped taking his Valium and pain medications approximately a month ago. One was a negative CTA of the chest the patient has had 8 visits previously this month and is had [address] scans in the last month, 2 weeks ago. The patient has also had multiple negative x-ray studies within the past month. He was seen by his project manager entertainment and media to demonstrate a negative nuclear stress test earlier this month and had a negative cardiac catheterization 18 months ago. The patient saw his GI specialist and had a upper endoscopy performed within the past week which showed mild gastritis and inflammation and a biopsy was taken. Patient had normal lab work Patient states he has been taking a PPI and carafate for his abdominal pain with minor relief TRAVEL OUTSIDE OF THE [place] IN LAST 30 DAYS: No - Related Data Allergies/Adverse Reactions: quetiapine fumarate [From Seroquel] Adverse Reaction (Verified 11/08/16 22:11) Past Medical History - Social History Smoking Status: Former Smoker Chew tobacco use (# tins/day): No Frequency of alcohol use: None Family History: CAD - States all the males in his family have of heart disease in their 40s., CVA, Other - [place] - Past Medical History Cardiac Medical History: Reports: Hx Hypercholesterolemia, Hx Hypertension, Hx Peripheral Vascular Disease - Left carotid stenosis 50-69% Denies: Hx Congestive Heart Failure, Hx DVT, Hx Heart Attack, Hx Pulmonary Embolism Pulmonary Medical History: Denies: Hx Asthma, Hx COPD Neurological Medical History: Reports: Hx Migraine. Denies: Hx Seizures Endocrine Medical History: Reports: Hx Hypothyroidism. Denies: Hx Diabetes Mellitus Type 1, Hx Diabetes Mellitus Type 2, Hx Hyperthyroidism Renal/ Medical History: Denies: Hx Peritoneal Dialysis GI Medical History: Reports: Hx Gastroesophageal Reflux Disease, Hx Hiatal Hernia. Denies: Hx Cirrhosis, Hx Hepatitis Musculoskeltal Medical History: Denies Hx Arthritis Psychiatric Medical History: Reports: Hx Anxiety, Hx Depression Infectious Medical History: Denies: Hx Hepatitis Past Surgical History: Reports: Hx Abdominal Surgery - x7 gastric bypass 05, bowel blockage,hernia repair, Hx Cardiac Catheterization - Which is found to be negative, Hx Cholecystectomy, Hx Gastric Bypass Surgery - Immunizations Immunizations up to date: Yes Hx Diphtheria, Pertussis, Tetanus Vaccination: Yes Review of Systems - Review of Systems Constitutional: No symptoms reported Cardiovascular: Chest pain Gastrointestinal: Abdominal pain - sharp, stabbing epigastric pain wiht crmaping. denies: Diarrhea, Nausea, Vomiting, Constipation Musculoskeletal: No symptoms reported Neurological/Psychological: See HPI Physical Exam - Vital signs Vitals: Temp Pulse Resp BP Pulse Ox 98.5 F 76 25 H 143/90 H 100 11/10/16 14:06 11/10/16 14:06 11/10/16 14:06 11/10/16 14:06 11/10/16 14:06 - Notes Notes: PHYSICAL EXAM GENERAL: Alert, interacts well. HEAD: Normocephalic, atraumatic. EYES: Pupils equal, round, and reactive to light. Extraocular movements intact. ENT: Oral mucosa moist, tongue midline. NECK: Full range of motion. Supple. Trachea midline. LUNGS: Clear to auscultation bilaterally, no wheezes, rales, or rhonchi. No respiratory distress. HEART: Regular rate and rhythm. No murmurs, gallops, or rubs. ABDOMEN: Soft, nondistended, nontender. No guarding, rebound, or rigidity.. Bowel sounds present in all 4 quadrants. EXTREMITIES: Moves all 4 extremities spontaneously. No edema, radial and dorsalis pedis pulses 2/4 bilaterally. No cyanosis. NEUROLOGICAL: Alert and oriented x4. Normal speech. PSYCH: Normal affect, anxious SKIN: Warm, dry, normal turgor. No rashes or lesions noted. Course - Re-evaluation Re-evalutation: 11/10/16 19:35 After IV Ativan and GI cocktail and Carafate and Pepcid, the patient had improvement of his discomfort and relaxing. He states that he feels ativan improves his abdominal and chest pain. Patient was again reassured about his symptoms. The patient was also undertaken and discussion about narcotic withdrawal and benzodiazepine withdrawal is possible etiologies for his discomfort. The patient has been on Subutex recently, and he claims he has taken himself off of his Valium a month ago. Patient requesting outpt script for ativan even though he has a mental health provider. he is to follow up with them this week Given the negative cardiac evaluations done previously recently, and today's negative cardiac enzymes, there is no obvious evidence for acute [place] or ischemia. - Vital Signs Vital signs: Temp Pulse Resp BP Pulse Ox 99.1 F 72 17 138/95 H 98 11/10/16 16:40 11/10/16 16:40 11/10/16 16:40 11/10/16 16:40 11/10/16 16:40 - Laboratory Result Diagrams: 11/10/16 14:00 11/10/16 14:00 Laboratory results interpreted by me: 11/10/16 11/10/16 14:00 15:15 Sodium 129.7 L Chloride 90 L BUN 2 L Urine Ketones 20 H - Diagnostic Test Radiology reviewed: Image reviewed, Reports reviewed Discharge - Discharge Clinical Impression: Anxiety Withdrawal from benzodiazepine Qualifiers: Complication of substance-induced condition: uncomplicated Qualified Code(s): F13.230 - Sedative, hypnotic or anxiolytic dependence with withdrawal, uncomplicated Condition: Stable Disposition: HOME, SELF-CARE Additional Instructions: Symptoms today are related to withdrawal from narcotics and benzodiazepines. Please follow-up with your mental health provider this coming week. Please keep your appointments with your project manager entertainment and media and flag signaler Referrals: NEHEMIAS ALONZO MD [Primary Care Provider] - Follow up as needed LASHA LINTON MD [ACTIVE STAFF] - Follow up as needed (GI) MARLO YEN MD [ACTIVE STAFF] - Follow up as needed (Cardiology)
--- NOTE | 2016-11-10 15:03 | RADIOLOGY REPORT (SQ) ---
EXAM DESCRIPTION: ACUTE ABDOMEN SERIES COMPLETED DATE/TIME: 11/10/2016 2:55 pm REASON FOR STUDY: abdominal pain COMPARISON: 11/08/2016 NUMBER OF VIEWS: Three views. TECHNIQUE: PA chest, supine abdomen and upright/decubitus abdomen radiographic images acquired. LIMITATIONS: None. FINDINGS: CHEST: Lungs clear of infiltrates. FREE AIR: None. No abnormal gas collections. BOWEL GAS PATTERN: Few scattered small bowel loops with air fluid levels. No distended large or small bowel loops. CALCIFICATIONS: No suspicious calcifications. HARDWARE: None in the abdomen. SOFT TISSUES: No gross mass or suggestion of organomegaly. BONES: No acute fracture. No worrisome bone lesions. OTHER: No other significant finding. IMPRESSION: NONSPECIFIC BOWEL GAS PATTERN WITHOUT EVIDENCE FOR OBSTRUCTION. Improved over previous. TECHNICAL DOCUMENTATION: JOB ID: [id number] [employer]- All Rights Reserved
[2016-11-10 15:23] LABS: ABSOLUTE EOSINOPHILS # (AUTO) 0.1 10^3/uL (0.0-0.6); ABSOLUTE LYMPHOCYTES (AUTO) 1.1 10^3/uL (0.5-4.7); ABSOLUTE MONOCYTES (AUTO) 0.5 10^3/uL (0.1-1.4); ABSOLUTE NEUT (AUTO) 4.2 10^3/uL (1.7-8.2); BASOPHILS % (AUTO) 0.7 % (0-2); HEMATOCRIT 44.7 % (37.9-51.0); HEMOGLOBIN 14.7 g/dL (13.5-17.0); HGB HCT DIFFERENCE -0.6; LYMPHOCYTES % (AUTO) 19.1 % (13-45); MEAN CORPUSCULAR HEMOGLOBIN 29.4 pg (27.0-33.4); MEAN CORPUSCULAR VOLUME 89 fl (80-97); MONOCYTES % (AUTO) 7.7 % (3-13); RED BLOOD COUNT 5.01 10^6/uL (4.35-5.55); SEGMENTED NEUTROPHILS % (AUTO) 71.5 % (42-78); WHITE BLOOD COUNT 5.9 10^3/uL (4.0-10.5)
[2016-11-10 15:27] LABS: APPEARANCE,URINE CLEAR; BILIRUBIN,URINE NEGATIVE (NEGATIVE); GLUCOSE, URINE NEGATIVE (NEGATIVE); KETONES,URINE 20 mg/dL (NEGATIVE); LEUKOCYTE ESTERASE,URINE NEGATIVE (NEGATIVE); NITRITE,URINE NEGATIVE (NEGATIVE); PROTEIN,URINE NEGATIVE (NEGATIVE); URINE SPECIFIC GRAVITY 1.004; UROBILINOGEN,URINE NEGATIVE mg/dL (<2.0)
[2016-11-10 15:34] LABS: ALANINE AMINOTRANSFERASE 42 U/L (21-72); ALBUMIN 4.1 g/dL (3.5-5.0); ALKALINE PHOSPHATASE 66 U/L (38-126); ANION GAP 14 (5-19); ASPARTATE AMINO TRANSFERASE 21 U/L (17-59); BILIRUBIN,DIRECT 0.4 mg/dL (0.0-0.4); BILIRUBIN,TOTAL 0.6 mg/dL (0.2-1.3); BLOOD UREA NITROGEN 2 mg/dL (7-20); CALCIUM 8.8 mg/dL (8.4-10.2); CARBON DIOXIDE 26 mmol/L (22-30); CHLORIDE 90 mmol/L (98-107); GLUCOSE 102 mg/dL (75-110); LIPASE 56.6 U/L (23-300); POTASSIUM 4.3 mmol/L (3.6-5.0); SODIUM 129.7 mmol/L (137-145); TOTAL PROTEIN 6.9 g/dL (6.3-8.2)
[2016-11-10] MEDS ORDERED: DICYCLOMINE HCL INJ 20 MG/2 ML AMPULE IM PRN (15:45)
--- NOTE | 2016-11-10 16:37 | EKG REPORT ---
SEVERITY:- NORMAL ECG - SINUS RHYTHM : Confirmed by: Galen Lloyd 10-Nov-2016 16:36:34
[2016-11-10 16:48] VITALS: BP 138/95
== END 2016-11-10 16:49 | disposition home or self-care (01) ==
LOC: ER 13:49
DX: F13.230 Sedative, hypnotic or anxiolytic dependence with withdrawal, uncomplicated (principal); F41.9 Anxiety disorder, unspecified; T42.4X6A Underdosing of benzodiazepines, initial encounter; Z91.128 Patient's intentional underdosing of medication regimen for other reason; Z91.14 Patient's other noncompliance with medication regimen; K29.70 Gastritis, unspecified, without bleeding; R10.13 Epigastric pain; R07.9 Chest pain, unspecified; G89.29 Other chronic pain; R20.0 Anesthesia of skin; I10 Essential (primary) hypertension; Z98.84 Bariatric surgery status; Z90.49 Acquired absence of other specified parts of digestive tract; Z98.890 Other specified postprocedural states; Z87.891 Personal history of nicotine dependence; Z82.49 Family history of ischemic heart disease and other diseases of the circulatory system
CPT/HCPCS: 93005; 99284; 36415; 83690; 85025; 80053; 81001; 84484; 74022; 93010; J3490

== ENCOUNTER 2016-11-27 16:19 | Emergency (ER) | payer MEDICARE ==
[2016-11-27] MEDS ORDERED: ONDANSETRON HCL INJ/PF 4 MG/2 ML SDV IV ONE (17:07)
[2016-11-27] MEDS ORDERED: NORMAL SALINE 1000 ML 1,000 ML IV PRN (17:07)
--- NOTE | 2016-11-27 17:11 | ER Document Report ---
ED Medical Screen (RME) - General Chief Complaint: Abdominal Pain Stated Complaint: ABDOMINAL PAIN Time Seen by Provider: 11/27/16 17:07 Notes: Patient presents with approximately 1 week of pain that has gotten worse today. Patient states the pain is in the right upper quadrant. He states it feels similar to when he had a hepatitis from narcotic abuse before. He states he has recently been abusing narcotics and has been taking approximately 18 pills per day. He states he did take 8 of them today. He also states he has a history of gastric bypass and has had an internal hernia after gastric bypass. He states he has been vomiting and feeling ill. Last BM was yesterday. No problems with urination. on Exam patient is pale and clammy. Abdomen is mildly diffusely tender but there is no rebound or guarding. TRAVEL OUTSIDE OF THE [place] IN LAST 30 DAYS: No - Related Data Allergies/Adverse Reactions: quetiapine fumarate [From Seroquel] Adverse Reaction (Verified 11/27/16 16:58) Past Medical History - Social History Family history: CAD - Past Medical History Cardiac Medical History: Reports: Hx Hypercholesterolemia, Hx Hypertension, Hx Peripheral Vascular Disease - Left carotid stenosis 50-69% Denies: Hx Congestive Heart Failure, Hx DVT, Hx Heart Attack, Hx Pulmonary Embolism Pulmonary Medical History: Denies: Hx Asthma, Hx COPD Neurological Medical History: Reports: Hx Migraine. Denies: Hx Seizures Endocrine Medical History: Reports: Hx Hypothyroidism. Denies: Hx Diabetes Mellitus Type 1, Hx Diabetes Mellitus Type 2, Hx Hyperthyroidism Renal/ Medical History: Denies: Hx Peritoneal Dialysis GI Medical History: Reports: Hx Gastroesophageal Reflux Disease, Hx Hiatal Hernia. Denies: Hx Cirrhosis, Hx Hepatitis Musculoskeltal Medical History: Denies Hx Arthritis Psychiatric Medical History: Reports: Hx Anxiety, Hx Depression Infectious Medical History: Denies: Hx Hepatitis Past Surgical History: Reports: Hx Abdominal Surgery - x7 gastric bypass 05, bowel blockage,hernia repair, Hx Cardiac Catheterization - Which is found to be negative, Hx Cholecystectomy, Hx Gastric Bypass Surgery - Immunizations Immunizations up to date: Yes Hx Diphtheria, Pertussis, Tetanus Vaccination: Yes Physical Exam - Vital signs Vitals: Temp Pulse Resp BP Pulse Ox 98.2 F 100 18 140/98 H 95 11/27/16 16:38 11/27/16 16:38 11/27/16 16:38 11/27/16 16:38 11/27/16 16:38 Course - Vital Signs Vital signs: Temp Pulse Resp BP Pulse Ox 98.2 F 100 18 140/98 H 95 11/27/16 16:38 11/27/16 16:38 11/27/16 16:38 11/27/16 16:38 11/27/16 16:38
[2016-11-27 17:47] LABS: ABSOLUTE BASOPHILS # (AUTO) 0.1 10^3/uL (0.0-0.2); ABSOLUTE EOSINOPHILS # (AUTO) 0.3 10^3/uL (0.0-0.6); ABSOLUTE LYMPHOCYTES (AUTO) 1.1 10^3/uL (0.5-4.7); ABSOLUTE MONOCYTES (AUTO) 0.3 10^3/uL (0.1-1.4); ABSOLUTE NEUT (AUTO) 4.4 10^3/uL (1.7-8.2); BASOPHILS % (AUTO) 0.9 % (0-2); EOSINOPHILS % (AUTO) 4.9 % (0-6); HEMATOCRIT 42.7 % (37.9-51.0); HEMOGLOBIN 14.5 g/dL (13.5-17.0); HGB HCT DIFFERENCE 0.8; LYMPHOCYTES % (AUTO) 18.6 % (13-45); MEAN CORPUSCULAR HEMOGLOBIN 29.6 pg (27.0-33.4); MEAN CORPUSCULAR HGB CONC 33.9 g/dL (32.0-36.0); MEAN CORPUSCULAR VOLUME 87 fl (80-97); MONOCYTES % (AUTO) 4.9 % (3-13); RED BLOOD COUNT 4.89 10^6/uL (4.35-5.55); RED CELL DISTRIBUTION WIDTH 13.1 % (11.5-14.0); SEGMENTED NEUTROPHILS % (AUTO) 70.7 % (42-78); WHITE BLOOD COUNT 6.2 10^3/uL (4.0-10.5)
[2016-11-27 18:06] LABS: ALANINE AMINOTRANSFERASE 35 U/L (21-72); ALBUMIN 3.9 g/dL (3.5-5.0); ALKALINE PHOSPHATASE 69 U/L (38-126); ANION GAP 10 (5-19); ASPARTATE AMINO TRANSFERASE 24 U/L (17-59); BILIRUBIN,DIRECT 0.3 mg/dL (0.0-0.4); BILIRUBIN,TOTAL 0.5 mg/dL (0.2-1.3); BLOOD UREA NITROGEN 7 mg/dL (7-20); CALCIUM 8.9 mg/dL (8.4-10.2); CARBON DIOXIDE 26 mmol/L (22-30); CHLORIDE 98 mmol/L (98-107); CREATININE RESULT 0.69 mg/dL (0.52-1.25); GLUCOSE 104 mg/dL (75-110); LIPASE 16.4 U/L (23-300); POTASSIUM 4.5 mmol/L (3.6-5.0); SODIUM 134.1 mmol/L (137-145); TOTAL PROTEIN 6.7 g/dL (6.3-8.2)
[2016-11-27 18:09] LABS: APPEARANCE,URINE CLEAR; BILIRUBIN,URINE NEGATIVE (NEGATIVE); GLUCOSE, URINE NEGATIVE (NEGATIVE); KETONES,URINE NEGATIVE (NEGATIVE); LEUKOCYTE ESTERASE,URINE NEGATIVE (NEGATIVE); NITRITE,URINE NEGATIVE (NEGATIVE); PROTEIN,URINE NEGATIVE (NEGATIVE); URINE SPECIFIC GRAVITY 1.008; UROBILINOGEN,URINE NEGATIVE mg/dL (<2.0)
[2016-11-27 18:14] LABS: ALCOHOL < 10 mg/dL (NONE DETECTED)
[2016-11-27 18:21] LABS: URINE BARBITURATES SCREEN UNCONFIRMED POSITIVE; URINE METHADONE SCREEN NEGATIVE; URINE OPIATES LOW UNCONFIRMED POSITIVE; URINE PHENCYCLIDINE SCREEN NEGATIVE
[2016-11-27] MEDS ORDERED: MAG HYDROX/AL HYDROX/SIMETH SUSP 30 ML UDCUP PO ONE (18:26)
[2016-11-27] MEDS ORDERED: METOCLOPRAMIDE HCL ORAL SOLN 10 MG/10 ML UDCUP PO ONE (18:26)
[2016-11-27] MEDS ORDERED: LIDOCAINE 2% VISCOUS SOLN 20 ML UDCUP PO ONE (18:26)
[2016-11-27 18:36] LABS: ADD ON TESTING BLD IN LAB ACKNOWLEDGE
[2016-11-27] MEDS ORDERED: PROMETHAZINE HCL 25 MG TABLET PO ONE (18:38)
--- NOTE | 2016-11-27 18:43 | ER Document Report ---
ED General - General Chief Complaint: Abdominal Pain Stated Complaint: ABDOMINAL PAIN Time Seen by Provider: 11/27/16 17:07 Notes: Patient is a 41-year-old male very well-known to me in this emergency department for frequent visits for chronic abdominal pain and chest pain who presents with concerns of right upper quadrant abdominal pain and epigastric abdominal pain. States this started after he took a total of 8 tablets of hydrocodone in an attempt to treat his chronic abdominal pain. He does admit to purchasing these illegally. Describes the pain as a dull, constant, cramping pain. Nothing improves or worsens the pain. Notes associated nausea. He has had similar pain in the past. Not seen his primary care doctor regarding this concern. Denies any chest pain today. TRAVEL OUTSIDE OF THE [place] IN LAST 30 DAYS: No - Related Data Allergies/Adverse Reactions: quetiapine fumarate [From Seroquel] Adverse Reaction (Verified 11/27/16 16:58) Past Medical History - General Information source: Patient - Social History Smoking Status: Never Smoker Frequency of alcohol use: None Drug Abuse: Prescription drugs Lives with: Family Family History: CAD - States all the males in his family have of heart disease in their 40s., CVA, Other - [place] Patient has suicidal ideation: No Patient has homicidal ideation: No - Past Medical History Cardiac Medical History: Reports: Hx Hypercholesterolemia, Hx Hypertension, Hx Peripheral Vascular Disease - Left carotid stenosis 50-69% Denies: Hx Congestive Heart Failure, Hx DVT, Hx Heart Attack, Hx Pulmonary Embolism Pulmonary Medical History: Denies: Hx Asthma, Hx COPD Neurological Medical History: Reports: Hx Migraine. Denies: Hx Seizures Endocrine Medical History: Reports: Hx Hypothyroidism. Denies: Hx Diabetes Mellitus Type 1, Hx Diabetes Mellitus Type 2, Hx Hyperthyroidism Renal/ Medical History: Denies: Hx Peritoneal Dialysis GI Medical History: Reports: Hx Gastroesophageal Reflux Disease, Hx Hiatal Hernia. Denies: Hx Cirrhosis, Hx Hepatitis Musculoskeltal Medical History: Denies Hx Arthritis Psychiatric Medical History: Reports: Hx Anxiety, Hx Depression Infectious Medical History: Denies: Hx Hepatitis Past Surgical History: Reports: Hx Abdominal Surgery - x7 gastric bypass 05, bowel blockage,hernia repair, Hx Cardiac Catheterization - Which is found to be negative, Hx Cholecystectomy, Hx Gastric Bypass Surgery - Immunizations Immunizations up to date: Yes Hx Diphtheria, Pertussis, Tetanus Vaccination: Yes Review of Systems - Review of Systems Notes: Constitutional: Negative for fever. HENT: Negative for sore throat. Eyes: Negative for visual changes. Cardiovascular: Negative for chest pain. Respiratory: Negative for shortness of breath. Gastrointestinal: Positive for abdominal pain and nausea Genitourinary: Negative for dysuria. Musculoskeletal: Negative for back pain. Skin: Negative for rash. Neurological: Negative for headaches, weakness or numbness. 10 point ROS negative except as marked above and in HPI. Physical Exam - Vital signs Vitals: Temp Pulse Resp BP Pulse Ox 98.2 F 100 18 140/98 H 95 11/27/16 16:38 11/27/16 16:38 11/27/16 16:38 11/27/16 16:38 11/27/16 16:38 Notes: PHYSICAL EXAMINATION: GENERAL: Well-appearing, well-nourished and in no acute distress. HEAD: Atraumatic, normocephalic. EYES: Pupils equal round and reactive to light, extraocular movements intact, sclera anicteric, conjunctiva are normal. ENT: nares patent, oropharynx clear without exudates. Moist mucous membranes. NECK: Normal range of motion, supple without lymphadenopathy LUNGS: Breath sounds clear to auscultation bilaterally and equal. No wheezes rales or rhonchi. HEART: Regular rate and rhythm without murmurs ABDOMEN: Soft, nontender, normoactive bowel sounds. No guarding, no rebound. No masses appreciated. EXTREMITIES: Normal range of motion, no pitting or edema. No cyanosis. NEUROLOGICAL: No focal neurological deficits. Moves all extremities spontaneously and on command. PSYCH: Normal mood, normal affect. SKIN: Warm, Dry, normal turgor, no rashes or lesions noted. Course - Re-evaluation Re-evalutation: 11/27/16 18:39 Patient presents with ongoing chronic abdominal pain and chest pain after again abusing narcotic pain medications containing acetaminophen today. Reports a total of 2 g of Tylenol ingestion in the past 24 hours, well below a toxic dose. LFTs are normal. Patient has an extensive history of emergency department visits for abdominal pain and chest pain. I have again had an extensive conversation with this patient about the missed use of both opioids as well as benzodiazepines in the relation between chronic opiate use and chronic pain syndromes. I have told him that he needs to stop using his medications, they are causing his pain, and putting him at risk for secondary to overdose. I also informed him that is illegal to continue to purchase these medications illicitly which he admits to. His abdominal exam is otherwise completely benign without any focal tenderness rebound or guarding. I disagree with the triage assessment the patient is ill in appearance, in fact he appears the same as when I have seen him on multiple prior occasions and is in absolutely no distress. He has tolerated oral intake without any difficulty. Vitals are within normal limits at time of my assessment. Laboratories likewise are unremarkable. Patient has had an extensive number of CT scans of the abdomen and pelvis as well as x-rays of the abdomen pelvis regarding a similar presentation. He also recently had an upper endoscopy which is noted to be not benign. Again as discussed in the past the patient I believe that the risks of further radio imaging of the abdomen and pelvis far out weighed the likely benefits. He has agreed with this stating he would like to not proceed with a CT of the abdomen pelvis today. At this time will discharge with return precautions and follow-up recommendations. Verbal discharge instructions given a the bedside and opportunity for questions given. Medication warnings reviewed. Patient is in agreement with this plan and has verbalized understanding of return precautions and the need for primary care follow-up in the next 24-72 hours. - Vital Signs Vital signs: Temp Pulse Resp BP Pulse Ox 98.2 F 75 18 148/95 H 95 11/27/16 16:38 11/27/16 19:15 11/27/16 19:15 11/27/16 19:15 11/27/16 19:15 - Laboratory Result Diagrams: 11/27/16 17:20 11/27/16 17:20 Laboratory results interpreted by me: 11/27/16 11/27/16 17:20 17:20 Sodium 134.1 L Lipase 16.4 L Acetaminophen < 10 L Discharge - Discharge Clinical Impression: Chronic abdominal pain, Opiate abuse, continuous, Benzodiazepine abuse Condition: Stable Disposition: HOME, SELF-CARE Additional Instructions: You need to get into rehab again and discontinue the use of both benzodiazepines like Valium and opiates like hydrocodone. Please be aware that purchasing these medications off the street is a serious crime for which you can go to halfway. Please also be aware that these medications are not helping your chronic pain and anxiety but rather one of the main causes of them. Please return for any additional concerns you may have including worsening pain , fever of 101F or higher, persistent vomiting, or any other symptoms that are worrisome to you. Referrals: NEHEMIAS ALONZO MD [Primary Care Provider] - Follow up as needed
[2016-11-27 19:16] VITALS: BP 148/95
== END 2016-11-27 19:17 | disposition home or self-care (01) ==
LOC: ER 16:19
DX: F11.10 Opioid abuse, uncomplicated (principal); F19.10 Other psychoactive substance abuse, uncomplicated; R10.9 Unspecified abdominal pain; G89.29 Other chronic pain; Z79.899 Other long term (current) drug therapy
CPT/HCPCS: 99284; 96361; 96374; 36415; 80307 ×3; 83690; 85025; 80053; 81001; J3490; A9270 ×2; J2405; J7030

== ENCOUNTER 2016-12-01 11:36 | Emergency (ER) | payer MEDICARE ==
[2016-12-01] MEDS ORDERED: PROMETHAZINE HCL 25 MG TABLET PO ONE (13:09)
--- NOTE | 2016-12-01 13:10 | ER Document Report ---
ED Medical Screen (RME) - General Chief Complaint: Abdominal Pain Stated Complaint: RIGHT UPPER PAIN Time Seen by Provider: 12/01/16 13:08 Mode of Arrival: Ambulatory Information source: Patient Notes: The 41-year-old man with a history of chronic abdominal pain with multiple ER encounters for this pain. Presents with right upper abdominal pain associated with nausea TRAVEL OUTSIDE OF THE [place] IN LAST 30 DAYS: No - Related Data Allergies/Adverse Reactions: quetiapine fumarate [From Seroquel] Adverse Reaction (Verified 11/27/16 16:58) Past Medical History - Social History Chew tobacco use (# tins/day): No Frequency of alcohol use: None Drug Abuse: None, Methamphetamine Family history: CAD - Past Medical History Cardiac Medical History: Reports: Hx Hypercholesterolemia, Hx Hypertension, Hx Peripheral Vascular Disease - Left carotid stenosis 50-69% Denies: Hx Congestive Heart Failure, Hx DVT, Hx Heart Attack, Hx Pulmonary Embolism Pulmonary Medical History: Denies: Hx Asthma, Hx COPD Neurological Medical History: Reports: Hx Migraine. Denies: Hx Seizures Endocrine Medical History: Reports: Hx Hypothyroidism. Denies: Hx Diabetes Mellitus Type 1, Hx Diabetes Mellitus Type 2, Hx Hyperthyroidism Renal/ Medical History: Denies: Hx Peritoneal Dialysis GI Medical History: Reports: Hx Gastroesophageal Reflux Disease, Hx Hiatal Hernia. Denies: Hx Cirrhosis, Hx Hepatitis Musculoskeltal Medical History: Denies Hx Arthritis Psychiatric Medical History: Reports: Hx Anxiety, Hx Depression Infectious Medical History: Denies: Hx Hepatitis Past Surgical History: Reports: Hx Abdominal Surgery - x7 gastric bypass 05, bowel blockage,hernia repair, Hx Cardiac Catheterization - Which is found to be negative, Hx Cholecystectomy, Hx Gastric Bypass Surgery - Immunizations Immunizations up to date: Yes Hx Diphtheria, Pertussis, Tetanus Vaccination: Yes Physical Exam - Vital signs Vitals: Temp Pulse Resp BP Pulse Ox 97.7 F 74 17 121/79 97 12/01/16 11:58 12/01/16 11:58 12/01/16 11:58 12/01/16 11:58 12/01/16 11:58 Course - Vital Signs Vital signs: Temp Pulse Resp BP Pulse Ox 97.7 F 74 18 121/79 97 12/01/16 11:58 12/01/16 11:58 12/01/16 12:57 12/01/16 11:58 12/01/16 11:58
[2016-12-01 13:41] LABS: ABSOLUTE EOSINOPHILS # (AUTO) 0.1 10^3/uL (0.0-0.6); ABSOLUTE LYMPHOCYTES (AUTO) 1.2 10^3/uL (0.5-4.7); ABSOLUTE MONOCYTES (AUTO) 0.3 10^3/uL (0.1-1.4); ABSOLUTE NEUT (AUTO) 8.3 10^3/uL (1.7-8.2); BASOPHILS % (AUTO) 0.3 % (0-2); EOSINOPHILS % (AUTO) 0.8 % (0-6); HEMATOCRIT 43.5 % (37.9-51.0); HGB HCT DIFFERENCE 1.5; MEAN CORPUSCULAR HEMOGLOBIN 30.1 pg (27.0-33.4); MEAN CORPUSCULAR HGB CONC 34.6 g/dL (32.0-36.0); MEAN CORPUSCULAR VOLUME 87 fl (80-97); MONOCYTES % (AUTO) 3.4 % (3-13); RED BLOOD COUNT 4.99 10^6/uL (4.35-5.55); RED CELL DISTRIBUTION WIDTH 13.1 % (11.5-14.0); SEGMENTED NEUTROPHILS % (AUTO) 83.5 % (42-78); WHITE BLOOD COUNT 9.9 10^3/uL (4.0-10.5)
[2016-12-01 13:51] LABS: URINE BARBITURATES SCREEN UNCONFIRMED POSITIVE; URINE METHADONE SCREEN NEGATIVE; URINE OPIATES LOW UNCONFIRMED POSITIVE; URINE PHENCYCLIDINE SCREEN NEGATIVE
--- NOTE | 2016-12-01 13:52 | ER Document Report ---
ED GI/ - General Mode of Arrival: Ambulatory TRAVEL OUTSIDE OF THE [place] IN LAST 30 DAYS: No - HPI Patient complains to provider of: Abdominal pain Associated symptoms: Other - see above <ROHIT STACK - Last Filed: 12/01/16 13:56> <EVER SALINAS - Last Filed: 12/01/16 14:59> - General Chief Complaint: Abdominal Pain Stated Complaint: RIGHT UPPER PAIN Time Seen by Provider: 12/01/16 13:08 Notes: Patient is a 41 year old male with a history of chronic abdominal pain presents to the ED with complaints of RUQ abdominal pain onset 11/28/16. Patient has been to the ED 13 times in the past 2 months for the same symptoms. Patient states he has a history of liver failure and is wanting his enzymes checked. Patient also states he has nausea. Patient had an endoscopy done 1 1/2 weeks ago and was told he had gastritis. Patient states he is taking 15 325mg Hydrocodone since 11/19/16. Patient states he last took 4 Hydrocodone this morning. Patient states he has missed his 2 pain management appointments 5-6 months ago and was kicked out of the clinic but states he has an appointment coming up with a new pain clinic. GI: Dr. Greene PCP:Dr. Alonzo Patient receives 85-10mg Valium on a monthly basis. (ROHIT STACK) - Related Data Allergies/Adverse Reactions: quetiapine fumarate [From Seroquel] Adverse Reaction (Verified 11/27/16 16:58) Past Medical History - General Information source: Patient - Social History Smoking Status: Never Smoker Chew tobacco use (# tins/day): No Frequency of alcohol use: None Drug Abuse: None, Methamphetamine Family History: CAD - States all the males in his family have of heart disease in their 40s., CVA, Other - [place] Patient has suicidal ideation: No Patient has homicidal ideation: No - Past Medical History Cardiac Medical History: Reports: Hx Hypercholesterolemia, Hx Hypertension, Hx Peripheral Vascular Disease - Left carotid stenosis 50-69% Denies: Hx Congestive Heart Failure, Hx DVT, Hx Heart Attack, Hx Pulmonary Embolism Pulmonary Medical History: Denies: Hx Asthma, Hx COPD Neurological Medical History: Reports: Hx Migraine. Denies: Hx Seizures Endocrine Medical History: Reports: Hx Hypothyroidism. Denies: Hx Diabetes Mellitus Type 1, Hx Diabetes Mellitus Type 2, Hx Hyperthyroidism Renal/ Medical History: Denies: Hx Peritoneal Dialysis GI Medical History: Reports: Hx Gastroesophageal Reflux Disease, Hx Hiatal Hernia. Denies: Hx Cirrhosis, Hx Hepatitis Musculoskeltal Medical History: Denies Hx Arthritis Psychiatric Medical History: Reports: Hx Anxiety, Hx Depression Infectious Medical History: Denies: Hx Hepatitis Past Surgical History: Reports: Hx Abdominal Surgery - x7 gastric bypass 05, bowel blockage,hernia repair, Hx Cardiac Catheterization - Which is found to be negative, Hx Cholecystectomy, Hx Gastric Bypass Surgery - Immunizations Immunizations up to date: Yes Hx Diphtheria, Pertussis, Tetanus Vaccination: Yes <ROHIT STACK - Last Filed: 12/01/16 13:56> Review of Systems - Review of Systems Constitutional: No symptoms reported EENT: No symptoms reported Cardiovascular: No symptoms reported Respiratory: No symptoms reported Gastrointestinal: See HPI, Abdominal pain - RUQ, Nausea Genitourinary: No symptoms reported Male Genitourinary: No symptoms reported Musculoskeletal: No symptoms reported Skin: No symptoms reported Hematologic/Lymphatic: No symptoms reported Neurological/Psychological: No symptoms reported <ROHIT STACK - Last Filed: 12/01/16 13:56> Physical Exam - General General appearance: Alert, Other - depressed In distress: None - HEENT Head: Normocephalic, Atraumatic Eyes: Normal Extraocular movements intact: Yes Pupils: PERRL - Respiratory Respiratory status: No respiratory distress Breath sounds: Normal - Cardiovascular Rhythm: Regular Heart sounds: Normal auscultation Murmur: No - Abdominal Inspection: Normal Distension: No distension Bowel sounds: Normal Tenderness: Nontender, Tender - RUQ - Back Back: Normal - Extremities General upper extremity: Normal inspection, Normal ROM General lower extremity: Normal inspection, Normal ROM - Neurological Neuro grossly intact: Yes - Psychological Associated symptoms: Depressed - Skin Skin Temperature: Warm Skin Moisture: Dry Skin Color: Normal <SEDAROHIT - Last Filed: 12/01/16 13:56> Course - Laboratory Result Diagrams: 12/01/16 13:15 12/01/16 13:15 <SEDAROHIT - Last Filed: 12/01/16 13:56> - Laboratory Result Diagrams: 12/01/16 13:15 12/01/16 13:15 - Diagnostic Test Radiology reviewed: Image reviewed, Reports reviewed - Chest x-ray ordered at triage is unremarkable. <EVER SALINAS - Last Filed: 12/01/16 14:59> - Re-evaluation Re-evalutation: 12/01/16 14:49 Today makes 13 visits in 2 months to this emergency room for the same complaint. He has also seen his primary care provider and second class welder during this time. He reports having endoscopy 1-1/2 weeks ago and told he had some gastritis. He has a long history of buying narcotics off the street to take for his chronic pain, especially since he was discharged from [facility] pain management last year. At one time he was seen for liver injury from excessive Tylenol use. Today his Tylenol level is undetectable, and his liver enzymes are quite low. He will be encouraged to follow-up with his primary care provider and second class welder at [facility] tomorrow. He reports that he does have an appointment with [facility] pain management sometime in the future, even though he has been disengaged from his prior pain management doctor for at least 7 months. 12/01/16 14:58 The patient does state that his liver hurts worse when he takes Tylenol, but he cannot explain why he would take Sullivan for pain if it does in fact make his pain worse. (EVER SALINAS) - Vital Signs Vital signs: Temp Pulse Resp BP Pulse Ox 97.7 F 74 18 121/79 97 12/01/16 11:58 12/01/16 11:58 12/01/16 12:57 12/01/16 11:58 12/01/16 11:58 - Laboratory Laboratory results interpreted by me: 12/01/16 12/01/16 12/01/16 13:15 13:15 13:15 Plt Count 571 H Seg Neutrophils % 83.5 H Lymphocytes % 12.0 L Absolute Neutrophils 8.3 H Sodium 130.7 L Chloride 92 L Lipase 21.5 L Acetaminophen < 10 L Discharge <ROHIT STACK - Last Filed: 12/01/16 13:56> <EVER SALINAS - Last Filed: 12/01/16 14:59> - Discharge Clinical Impression: Chronic abdominal pain Condition: Stable Disposition: HOME, SELF-CARE Additional Instructions: Your workup today does not show any laboratory abnormalities. Your liver enzymes are actually quite low, your lipase is quite low, and there is no Tylenol in your system at this time. You should follow-up with your primary care provider at [facility] tomorrow to discuss pain management options available to you. Referrals: NEHEMIAS ALONZO MD [Primary Care Provider] - Follow up tomorrow Tonyaibe Attestation: 12/01/16 14:53 I personally performed the services described in the documentation, reviewed and edited the documentation which was dictated to the scribe in my presence, and it accurately records my words and actions. (EVER SALINAS) Scribe Documentation - Scribe Written by Lyle:: lyle Freire, 12/01/2016, 1340 acting as scribe for :: Crescencio <ROHIT STACK - Last Filed: 12/01/16 13:56>
[2016-12-01 13:54] LABS: ALANINE AMINOTRANSFERASE 32 U/L (21-72); ALBUMIN 4.3 g/dL (3.5-5.0); ALKALINE PHOSPHATASE 73 U/L (38-126); ANION GAP 11 (5-19); ASPARTATE AMINO TRANSFERASE 29 U/L (17-59); BILIRUBIN,DIRECT 0.3 mg/dL (0.0-0.4); BILIRUBIN,TOTAL 0.4 mg/dL (0.2-1.3); BLOOD UREA NITROGEN 11 mg/dL (7-20); CALCIUM 9.4 mg/dL (8.4-10.2); CARBON DIOXIDE 28 mmol/L (22-30); CHLORIDE 92 mmol/L (98-107); CREATININE RESULT 0.71 mg/dL (0.52-1.25); GLUCOSE 102 mg/dL (75-110); POTASSIUM 4.9 mmol/L (3.6-5.0); SODIUM 130.7 mmol/L (137-145); TOTAL PROTEIN 7.4 g/dL (6.3-8.2)
[2016-12-01 14:06] LABS: ADD ON TESTING BLD IN LAB ACKNOWLEDGE
[2016-12-01 14:16] LABS: LIPASE 21.5 U/L (23-300)
[2016-12-01 15:15] VITALS: BP 124/78
== END 2016-12-01 15:15 | disposition home or self-care (01) ==
LOC: ER 11:36
DX: G89.29 Other chronic pain (principal); R10.11 Right upper quadrant pain; R11.0 Nausea; E78.00 Pure hypercholesterolemia, unspecified; I10 Essential (primary) hypertension; E03.9 Hypothyroidism, unspecified; K21.9 Gastro-esophageal reflux disease without esophagitis; Z98.84 Bariatric surgery status; Z90.49 Acquired absence of other specified parts of digestive tract
CPT/HCPCS: 99284; 36415; 83690; 80307 ×2; 85025; 80053; A9270

== ENCOUNTER 2016-12-07 01:20 | Emergency (ER) | payer MEDICARE ==
[2016-12-07 01:51] VITALS: BP 136/93
[2016-12-07] MEDS ORDERED: LIDOCAINE 5% (700 MG) TRANSDERMAL ADH..PATCH TP ONE (02:14)
[2016-12-07] MEDS ORDERED: METOCLOPRAMIDE HCL ORAL SOLN 10 MG/10 ML UDCUP PO ONE (02:14)
[2016-12-07] MEDS ORDERED: MAG HYDROX/AL HYDROX/SIMETH SUSP 30 ML UDCUP PO ONE (02:14)
[2016-12-07] MEDS ORDERED: LIDOCAINE 2% VISCOUS SOLN 20 ML UDCUP PO ONE (02:14)
--- NOTE | 2016-12-07 02:19 | ER Document Report ---
ED General - General Chief Complaint: Chest Pain Stated Complaint: CHEST PAIN Time Seen by Provider: 12/07/16 01:23 Notes: Patient is a 41-year-old male well-known to me and this emergency department with frequent visits for chronic pain related complaints again presents today for left-sided chest pain. This is very typical for patient's report of chest pain and he notes that it is in his left chest as a pressure-like sensation and radiates into his left arm and jaw. Patient has had repeated evaluations for this pain including multiple CTs of his chest over the last 2 years, cardiac catheterization less than 2 years ago was noted to be completely normal and multiple normal stress tests. 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 Patient does admit to ongoing Valium and Reynolds abuse despite having been directed multiple times including by myself to discontinue these medications and seek rehabilitation. He is unable to tell me what improves or worsens his pain although he admits to using 10 total tablets of Reynolds today that he has purchased illegally. TRAVEL OUTSIDE OF THE [place] IN LAST 30 DAYS: No - Related Data Allergies/Adverse Reactions: quetiapine fumarate [From [employer]] Adverse Reaction (Verified 11/27/16 16:58) Past Medical History - General Information source: Patient - Social History Smoking Status: Never Smoker Cigarette use (# per day): No Frequency of alcohol use: None Drug Abuse: None Lives with: Parents Family History: CAD - States all the males in his family have of heart disease in their 40s., CVA, Other - [place] - Past Medical History Cardiac Medical History: Reports: Hx Hypercholesterolemia, Hx Hypertension, Hx Peripheral Vascular Disease - Left carotid stenosis 50-69% Denies: Hx Congestive Heart Failure, Hx DVT, Hx Heart Attack, Hx Pulmonary Embolism Pulmonary Medical History: Denies: Hx Asthma, Hx COPD Neurological Medical History: Reports: Hx Migraine. Denies: Hx Seizures Endocrine Medical History: Reports: Hx Hypothyroidism. Denies: Hx Diabetes Mellitus Type 1, Hx Diabetes Mellitus Type 2, Hx Hyperthyroidism Renal/ Medical History: Denies: Hx Peritoneal Dialysis GI Medical History: Reports: Hx Gastroesophageal Reflux Disease, Hx Hiatal Hernia. Denies: Hx Cirrhosis, Hx Hepatitis Musculoskeltal Medical History: Denies Hx Arthritis Psychiatric Medical History: Reports: Hx Anxiety, Hx Depression Infectious Medical History: Denies: Hx Hepatitis Past Surgical History: Reports: Hx Abdominal Surgery - x7 gastric bypass 05, bowel blockage,hernia repair, Hx Cardiac Catheterization - Which is found to be negative, Hx Cholecystectomy, Hx Gastric Bypass Surgery - Immunizations Immunizations up to date: Yes Hx Diphtheria, Pertussis, Tetanus Vaccination: Yes Review of Systems - Review of Systems Notes: Constitutional: Negative for fever. HENT: Negative for sore throat. Eyes: Negative for visual changes. Cardiovascular: Positive for chest pain. Respiratory: Positive for shortness of breath. Gastrointestinal: Negative for abdominal pain, vomiting or diarrhea. Genitourinary: Negative for dysuria. Musculoskeletal: Negative for back pain. Skin: Negative for rash. Neurological: Negative for headaches, weakness or numbness. 10 point ROS negative except as marked above and in HPI. Physical Exam - Vital signs Vitals: Temp Resp BP 97.3 F 11 L 136/93 H 12/07/16 01:32 12/07/16 01:32 12/07/16 01:32 Interpretation: Normal Notes: PHYSICAL EXAMINATION: GENERAL: Well-appearing, well-nourished and in no acute distress. HEAD: Atraumatic, normocephalic. EYES: Pupils equal round and reactive to light, extraocular movements intact, sclera anicteric, conjunctiva are normal. ENT: nares patent, oropharynx clear without exudates. Moist mucous membranes. NECK: Normal range of motion, supple without lymphadenopathy LUNGS: Breath sounds clear to auscultation bilaterally and equal. No wheezes rales or rhonchi. HEART: Regular rate and rhythm without murmurs ABDOMEN: Soft, nontender, normoactive bowel sounds. No guarding, no rebound. No masses appreciated. EXTREMITIES: Normal range of motion, no pitting or edema. No cyanosis. NEUROLOGICAL: No focal neurological deficits. Moves all extremities spontaneously and on command. PSYCH: Normal mood, normal affect. SKIN: Warm, Dry, normal turgor, no rashes or lesions noted. Course - Re-evaluation Re-evalutation: 12/07/16 02:14 Presentation of chest pain in an otherwise well appearing patient. Low clinical suspicion for ACS given clinical history, exam, EKG without ST elevations or depressions, and negative initial troponin. HEART score less than or equal to 3. PE also seems unlikely given clinical history, absence of tachycardia or dyspnea. Patient is PERC criteria negative. I have again had an extensive conversation with this patient about his repeated use of the emergency medical system and the ongoing and increasing risk for iatrogenic injury. Patient discloses to me that he again had another CT of his chest last week at [facility]. I have had and documented multiple prior conversations with this patient about the seriousness of his ongoing pursuit of medical diagnostic imaging and testing risk to him from these repeated radiographic imaging. It is also addicted to both Valium and hydrocodone. I have again discussed with him that these medications are directly contributing to his chronic pain syndrome and need to be discontinued. He will be discharged today and I have encouraged him to get into rehab, start working and living a normal life as there is nothing to preclude him from doing this, and pursue psychiatric treatment. - Vital Signs Vital signs: Temp Pulse Resp BP Pulse Ox 97.3 F 11 L 136/93 H 12/07/16 01:32 12/07/16 01:32 12/07/16 01:32 - EKG Interpretation by Me Additional EKG results interpreted by me: 12/07/16 02:16 Normal sinus rhythm. Rate 62. No ST elevations or depressions. QTC is 411. Discharge - Discharge Clinical Impression: Opiate abuse, continuous, Benzodiazepine dependence Chest pain Qualifiers: Chest pain type: unspecified Qualified Code(s): R07.9 - Chest pain, unspecified Condition: Good Disposition: HOME, SELF-CARE Additional Instructions: As we have discussed multiple times, you need to stop taking Valium and hydrocodone. These are directly contributing to your symptoms. You need to stop focusing on your chronic pain so much, begin to resume normal daily activities. Again your EKG and cardiac markers are normal today. We have also discussed today that she need to stop pursuing advanced aggressive imaging as you have had an extensive number of CT scans both at this hospital as well as at [facility]. The continued use of CT scans puts you at significantly increased risk of development of malignancy. Referrals: NEHEMIAS ALONZO MD [Primary Care Provider] - Follow up as needed
--- NOTE | 2016-12-07 15:19 | EKG REPORT ---
SEVERITY:- NORMAL ECG - SINUS RHYTHM : Confirmed by: Mariaelena Sahni MD 07-Dec-2016 15:18:26
== END 2016-12-07 02:53 | disposition home or self-care (01) ==
LOC: ER 01:20
DX: F11.20 Opioid dependence, uncomplicated (principal); F19.20 Other psychoactive substance dependence, uncomplicated; R07.9 Chest pain, unspecified; G89.29 Other chronic pain
CPT/HCPCS: 93005; 99285; 36415; 84484; 93010; J3490; A9270

== ENCOUNTER 2016-12-21 15:17 | Emergency (ER) | payer MEDICARE ==
[2016-12-21] MEDS ORDERED: ASPIRIN 325 MG TABLET PO ONE (15:46)
[2016-12-21] MEDS ORDERED: NITROGLYCERIN 2% OINTMENT 1 GM PACKET TP ONE (15:46)
--- NOTE | 2016-12-21 15:52 | ER Document Report ---
ED Medical Screen (RME) - General Chief Complaint: Chest Pain Stated Complaint: CHEST PAIN Time Seen by Provider: 12/21/16 15:51 Mode of Arrival: Wheelchair Information source: Patient - Pt with c/o CP and "pain in my liver." States this has been going on foir several days with exacerbation today TRAVEL OUTSIDE OF THE [place] IN LAST 30 DAYS: No - Related Data Allergies/Adverse Reactions: quetiapine fumarate [From Seroquel] Adverse Reaction (Verified 12/21/16 15:41) Past Medical History - Social History Family history: CAD - Past Medical History Cardiac Medical History: Reports: Hx Hypercholesterolemia, Hx Hypertension, Hx Peripheral Vascular Disease - Left carotid stenosis 50-69% Denies: Hx Congestive Heart Failure, Hx DVT, Hx Heart Attack, Hx Pulmonary Embolism Pulmonary Medical History: Denies: Hx Asthma, Hx COPD Neurological Medical History: Reports: Hx Migraine. Denies: Hx Seizures Endocrine Medical History: Reports: Hx Hypothyroidism. Denies: Hx Diabetes Mellitus Type 1, Hx Diabetes Mellitus Type 2, Hx Hyperthyroidism Renal/ Medical History: Denies: Hx Peritoneal Dialysis GI Medical History: Reports: Hx Gastroesophageal Reflux Disease, Hx Hiatal Hernia. Denies: Hx Cirrhosis, Hx Hepatitis Musculoskeltal Medical History: Denies Hx Arthritis Psychiatric Medical History: Reports: Hx Anxiety, Hx Depression Infectious Medical History: Denies: Hx Hepatitis Past Surgical History: Reports: Hx Abdominal Surgery - x7 gastric bypass 05, bowel blockage,hernia repair, Hx Cardiac Catheterization - Which is found to be negative, Hx Cholecystectomy, Hx Gastric Bypass Surgery - Immunizations Immunizations up to date: Yes Hx Diphtheria, Pertussis, Tetanus Vaccination: Yes Physical Exam - Vital signs Vitals: Temp Pulse Resp BP Pulse Ox 98 F 87 20 124/85 98 12/21/16 15:22 12/21/16 15:22 12/21/16 15:22 12/21/16 15:22 12/21/16 15:22 Course - Vital Signs Vital signs: Temp Pulse Resp BP Pulse Ox 98 F 87 20 124/85 98 12/21/16 15:22 12/21/16 15:22 12/21/16 15:22 12/21/16 15:22 12/21/16 15:22
[2016-12-21] MEDS ORDERED: NITROGLYCERIN 2% OINTMENT 1 GM PACKET ONE (15:54)
[2016-12-21] MEDS ORDERED: NORMAL SALINE 1000 ML 1,000 ML IV ONE (16:25)
[2016-12-21 16:28] LABS: ABSOLUTE EOSINOPHILS # (AUTO) 0.3 10^3/uL (0.0-0.6); ABSOLUTE LYMPHOCYTES (AUTO) 1.5 10^3/uL (0.5-4.7); ABSOLUTE MONOCYTES (AUTO) 0.6 10^3/uL (0.1-1.4); ABSOLUTE NEUT (AUTO) 4.4 10^3/uL (1.7-8.2); BASOPHILS % (AUTO) 0.5 % (0-2); HEMATOCRIT 44.3 % (37.9-51.0); HEMOGLOBIN 15.3 g/dL (13.5-17.0); HGB HCT DIFFERENCE 1.6; LYMPHOCYTES % (AUTO) 21.7 % (13-45); MEAN CORPUSCULAR HEMOGLOBIN 30.2 pg (27.0-33.4); MEAN CORPUSCULAR HGB CONC 34.4 g/dL (32.0-36.0); MEAN CORPUSCULAR VOLUME 88 fl (80-97); MONOCYTES % (AUTO) 8.1 % (3-13); RED BLOOD COUNT 5.05 10^6/uL (4.35-5.55); RED CELL DISTRIBUTION WIDTH 13.3 % (11.5-14.0); SEGMENTED NEUTROPHILS % (AUTO) 64.7 % (42-78); WHITE BLOOD COUNT 6.8 10^3/uL (4.0-10.5)
--- NOTE | 2016-12-21 16:38 | EKG REPORT ---
SEVERITY:- NORMAL ECG - SINUS RHYTHM : Confirmed by: Galen Lloyd 21-Dec-2016 16:37:33
[2016-12-21 16:53] LABS: ALANINE AMINOTRANSFERASE 23 U/L (21-72); ALBUMIN 4.4 g/dL (3.5-5.0); ALKALINE PHOSPHATASE 69 U/L (38-126); ANION GAP 11 (5-19); ASPARTATE AMINO TRANSFERASE 17 U/L (17-59); BILIRUBIN,DIRECT 0.4 mg/dL (0.0-0.4); BILIRUBIN,TOTAL 0.6 mg/dL (0.2-1.3); BLOOD UREA NITROGEN 7 mg/dL (7-20); CALCIUM 9.7 mg/dL (8.4-10.2); CARBON DIOXIDE 27 mmol/L (22-30); CHLORIDE 89 mmol/L (98-107); CREATINE KINASE 27 U/L (55-170); CREATININE RESULT 0.66 mg/dL (0.52-1.25); GLUCOSE 105 mg/dL (75-110); POTASSIUM 4.7 mmol/L (3.6-5.0); SODIUM 127.1 mmol/L (137-145); TOTAL PROTEIN 7.3 g/dL (6.3-8.2)
[2016-12-21 17:11] LABS: TROPONIN I < 0.012 ng/mL
--- NOTE | 2016-12-21 17:28 | RADIOLOGY REPORT (SQ) ---
EXAM DESCRIPTION: CHEST PA/LAT COMPLETED DATE/TIME: 12/21/2016 4:45 pm REASON FOR STUDY: CP COMPARISON: 11/04/2016 EXAM PARAMETERS: NUMBER OF VIEWS: two views TECHNIQUE: Digital Frontal and Lateral radiographic views of the chest acquired. RADIATION DOSE: NA LIMITATIONS: none FINDINGS: LUNGS AND PLEURA: Mildly increased interstitial markings localize to the right lower lobe. No pneumothorax. No pleural effusion. MEDIASTINUM AND HILAR STRUCTURES: No masses or contour abnormalities. HEART AND VASCULAR STRUCTURES: Heart normal size. No evidence for failure. BONES: No acute findings. HARDWARE: None in the chest. OTHER: No other significant finding. IMPRESSION: Subtle findings suggest a developing right lower lobe pneumonitis. TECHNICAL DOCUMENTATION: JOB ID: [id number] [employer]- All Rights Reserved
[2016-12-21 17:35] LABS: APPEARANCE,URINE CLEAR; BILIRUBIN,URINE NEGATIVE (NEGATIVE); GLUCOSE, URINE NEGATIVE (NEGATIVE); KETONES,URINE NEGATIVE (NEGATIVE); LEUKOCYTE ESTERASE,URINE NEGATIVE (NEGATIVE); NITRITE,URINE NEGATIVE (NEGATIVE); PROTEIN,URINE NEGATIVE (NEGATIVE); URINE SPECIFIC GRAVITY 1.008; UROBILINOGEN,URINE NEGATIVE mg/dL (<2.0)
[2016-12-21 17:52] LABS: URINE BARBITURATES SCREEN NEGATIVE; URINE METHADONE SCREEN NEGATIVE; URINE OPIATES LOW UNCONFIRMED POSITIVE; URINE PHENCYCLIDINE SCREEN NEGATIVE
--- NOTE | 2016-12-21 18:25 | ER Document Report ---
ED General - General Chief Complaint: Chest Pain Stated Complaint: CHEST PAIN Time Seen by Provider: 12/21/16 16:18 Mode of Arrival: Wheelchair TRAVEL OUTSIDE OF THE [place] IN LAST 30 DAYS: No - HPI Patient complains to provider of: Right-sided chest pain Notes: Patient with multiple visits to the ER coming in today for right-sided chest pain. Patient states earlier this morning. Patient states he is still taking oral narcotics and benzodiazepines off of the street. Patient states no nausea no vomiting. Patient's previous visits were reviewed according previous visits patient has had multiple cardiac catheterizations in the past showing no cardiac disease. Patient also denies any recent travel. Denies fevers or chills. Review of patient's studies here showed normal CTAs and abdominal x- rays. Patient also has had a carotid Doppler performed showing a 50% stenosis of the left carotid artery. By my evaluation patient is wincing in pain also putting his hand into the right upper quadrant. Patient states this is very painful as he pushes his hand into the right upper quadrant. There are multiple abrasions in the right upper quadrant patient states he continues to have these because he keeps rubbing the area. Patient states a history of liver failure however most recent laboratory studies also showed no elevation in liver function test. Upon my evaluation patient is moving all 4 extremities does not look to be in any signs of any distress no airway compromise. - Related Data Allergies/Adverse Reactions: quetiapine fumarate [From Seroquel] Adverse Reaction (Verified 12/21/16 20:04) Past Medical History - General Information source: Patient - Pt with c/o CP and "pain in my liver." States this has been going on foir several days with exacerbation today - Social History Smoking Status: Former Smoker Chew tobacco use (# tins/day): No Frequency of alcohol use: None Drug Abuse: None Family History: CAD - States all the males in his family have of heart disease in their 40s., CVA, Other - [place] - Past Medical History Cardiac Medical History: Reports: Hx Hypercholesterolemia, Hx Hypertension, Hx Peripheral Vascular Disease - Left carotid stenosis 50-69% Denies: Hx Congestive Heart Failure, Hx DVT, Hx Heart Attack, Hx Pulmonary Embolism Pulmonary Medical History: Denies: Hx Asthma, Hx COPD Neurological Medical History: Reports: Hx Migraine. Denies: Hx Seizures Endocrine Medical History: Reports: Hx Hypothyroidism. Denies: Hx Diabetes Mellitus Type 1, Hx Diabetes Mellitus Type 2, Hx Hyperthyroidism Renal/ Medical History: Denies: Hx Peritoneal Dialysis GI Medical History: Reports: Hx Gastroesophageal Reflux Disease, Hx Hiatal Hernia. Denies: Hx Cirrhosis, Hx Hepatitis Musculoskeltal Medical History: Denies Hx Arthritis Psychiatric Medical History: Reports: Hx Anxiety, Hx Depression Infectious Medical History: Denies: Hx Hepatitis Past Surgical History: Reports: Hx Abdominal Surgery - x7 gastric bypass 05, bowel blockage,hernia repair, Hx Cardiac Catheterization - Which is found to be negative, Hx Cholecystectomy, Hx Gastric Bypass Surgery - Immunizations Immunizations up to date: Yes Hx Diphtheria, Pertussis, Tetanus Vaccination: Yes Review of Systems - Review of Systems Constitutional: No symptoms reported EENT: No symptoms reported Cardiovascular: Chest pain - Right-sided Respiratory: No symptoms reported Gastrointestinal: Abdominal pain Genitourinary: No symptoms reported Male Genitourinary: No symptoms reported Musculoskeletal: No symptoms reported Skin: No symptoms reported Hematologic/Lymphatic: No symptoms reported Neurological/Psychological: No symptoms reported Physical Exam - Vital signs Vitals: Temp Pulse Resp BP Pulse Ox 98 F 87 20 124/85 98 12/21/16 15:22 12/21/16 15:22 12/21/16 15:22 12/21/16 15:22 12/21/16 15:22 Interpretation: Normal - General General appearance: Appears well, Alert - HEENT Head: Normocephalic, Atraumatic Eyes: Normal Pupils: PERRL - Respiratory Respiratory status: No respiratory distress Chest status: Nontender Breath sounds: Normal Chest palpation: Normal - Cardiovascular Rhythm: Regular Heart sounds: Normal auscultation Murmur: No - Abdominal Inspection: Normal Distension: No distension Bowel sounds: Normal Tenderness: Nontender - Patient has no tenderness to deep auscultation of all 4 quadrants of his abdomen Organomegaly: No organomegaly Notes: Abrasion to the skin of the right upper quadrant were patient continues to rub - Back Back: Normal, Nontender - Extremities General upper extremity: Normal inspection, Nontender, Normal color, Normal ROM , Normal temperature General lower extremity: Normal inspection, Nontender, Normal color, Normal ROM , Normal temperature, Normal weight bearing. No: Gemini's sign - Neurological Neuro grossly intact: Yes Cognition: Normal Orientation: AAOx4 Maxime Coma Scale Eye Opening: Spontaneous Maxime Coma Scale Verbal: Oriented Maxime Coma Scale Motor: Obeys Commands Maxime Coma Scale Total: 15 Speech: Normal Motor strength normal: LUE, RUE, LLE, RLE Sensory: Normal - Psychological Associated symptoms: Normal affect, Normal mood - Skin Skin Temperature: Warm Skin Moisture: Dry Skin Color: Normal Course - Re-evaluation Re-evalutation: 12/21/16 19:19 Laboratory studies not show any significant pathology. Chest x-ray was read as pneumonitis however more likely this is felt to be atelectasis lungs are clear no white count no fever. Patient's sodium is low however this looks to be chronic more likely from the patient's chronic drug abuse. Patient will be discharged follow-up with his primary care physician notified by nursing staff patient now complaining of numbness and tingling however patient is moving all 4 extremities later notified by nursing staff that the patient was taking selfies without any distress. The patient has atypical chest pain as the patient's chest pain is not suggestive of pulmonary embolus, cardiac ischemia, aortic dissection, or other serious etiology. Given the extremely low risk of these diagnoses further testing and evaluation for these possibilities does not appear to be indicated at this time. The patient has been instructed to return if the symptoms worsen or change in any way. - Vital Signs Vital signs: Temp Pulse Resp BP Pulse Ox 98.1 F 87 19 147/94 H 99 12/21/16 19:01 12/21/16 15:26 12/21/16 19:01 12/21/16 19:01 12/21/16 19:01 - Laboratory Result Diagrams: 12/21/16 16:10 12/21/16 16:10 Laboratory results interpreted by me: 12/21/16 16:10 Sodium 127.1 L Chloride 89 L Creatine Kinase 27 L Lipase 18.0 L Discharge - Discharge Clinical Impression: Chronic chest pain Condition: Good Disposition: HOME, SELF-CARE Additional Instructions: Your laboratory studies today did not show any signs of significant infection cardiac pathology. I recommend she follow-up with your primary care physician highly recommend she stop taking medications achieved by off the street. Drink plenty water to stay hydrated. Referrals: NEHEMIAS ALONZO MD [Primary Care Provider] - Follow up as needed
[2016-12-21 19:17] VITALS: BP 147/94
== END 2016-12-21 19:05 | disposition home or self-care (01) ==
LOC: ER 15:17
DX: G89.29 Other chronic pain (principal); R07.9 Chest pain, unspecified; E78.00 Pure hypercholesterolemia, unspecified; I10 Essential (primary) hypertension; E03.9 Hypothyroidism, unspecified; Z98.84 Bariatric surgery status; Z90.49 Acquired absence of other specified parts of digestive tract
CPT/HCPCS: 93005; 99285; 36415; 82553; 82550; 83690; 85025; 80053; 81001; 84484; 80307; 71020; 93010; A9270 ×2

== ENCOUNTER 2016-12-21 19:18 | Emergency (ER) | payer MEDICARE ==
[2016-12-21] MEDS ORDERED: KETOROLAC TROMETHAMINE 60 MG/2 ML SDV IM ONE (20:03)
--- NOTE | 2016-12-21 20:05 | ER Document Report ---
ED Medical Screen (RME) - General Chief Complaint: Chest Pain Stated Complaint: CHEST PAIN AND ABDOMINAL PAIN Time Seen by Provider: 12/21/16 20:02 Mode of Arrival: Wheelchair Information source: Patient TRAVEL OUTSIDE OF THE [place] IN LAST 30 DAYS: No - HPI Patient complains to provider of: KALEE RIVAS Onset: This afternoon - pt seen here earllier today with neg W/U states "they didn't do anything for me." I explained to him we would not repeat his full w/u but would get him seen again - Related Data Allergies/Adverse Reactions: quetiapine fumarate [From Seroquel] Adverse Reaction (Verified 12/21/16 15:41) Past Medical History - Social History Family history: CAD - Past Medical History Cardiac Medical History: Reports: Hx Hypercholesterolemia, Hx Hypertension, Hx Peripheral Vascular Disease - Left carotid stenosis 50-69% Denies: Hx Congestive Heart Failure, Hx DVT, Hx Heart Attack, Hx Pulmonary Embolism Pulmonary Medical History: Denies: Hx Asthma, Hx COPD Neurological Medical History: Reports: Hx Migraine. Denies: Hx Seizures Endocrine Medical History: Reports: Hx Hypothyroidism. Denies: Hx Diabetes Mellitus Type 1, Hx Diabetes Mellitus Type 2, Hx Hyperthyroidism Renal/ Medical History: Denies: Hx Peritoneal Dialysis GI Medical History: Reports: Hx Gastroesophageal Reflux Disease, Hx Hiatal Hernia. Denies: Hx Cirrhosis, Hx Hepatitis Musculoskeltal Medical History: Denies Hx Arthritis Psychiatric Medical History: Reports: Hx Anxiety, Hx Depression Infectious Medical History: Denies: Hx Hepatitis Past Surgical History: Reports: Hx Abdominal Surgery - x7 gastric bypass 05, bowel blockage,hernia repair, Hx Cardiac Catheterization - Which is found to be negative, Hx Cholecystectomy, Hx Gastric Bypass Surgery - Immunizations Immunizations up to date: Yes Hx Diphtheria, Pertussis, Tetanus Vaccination: Yes Physical Exam - Vital signs Vitals: Temp Pulse Resp BP Pulse Ox 97.7 F 86 20 130/86 H 96 12/21/16 19:50 12/21/16 19:50 12/21/16 19:50 12/21/16 19:50 12/21/16 19:50 Course - Vital Signs Vital signs: Temp Pulse Resp BP Pulse Ox 97.7 F 86 20 130/86 H 96 12/21/16 19:50 12/21/16 19:50 12/21/16 19:50 12/21/16 19:50 12/21/16 19:50
[2016-12-21] MEDS ORDERED: PROMETHAZINE HCL INJ 50 MG/1 ML VIAL IM ONE (20:09)
--- NOTE | 2016-12-21 23:30 | ER Document Report ---
ED General - General Chief Complaint: Chest Pain Stated Complaint: CHEST PAIN AND ABDOMINAL PAIN Time Seen by Provider: 12/21/16 20:02 Mode of Arrival: Wheelchair Notes: Patient is a 41-year-old male well-known to this emergency department and to me who again presents for the second time today complaining of left-sided chest pain as well as right upper quadrant abdominal pain. This is identical to patient's prior presentations. He admits to ongoing narcotic and benzodiazepine abuse and admits that he is purchasing his drugs illegally. Patient again states that these medications do not help but he continues to take them anyway so he can feel normal. Describes the pain to his areas as constant, severe, throbbing, stabbing in nature. Nothing improves or worsens his symptoms. Patient was lost his insurance and disability and states that this is preventing him from seeking rehab. TRAVEL OUTSIDE OF THE [place] IN LAST 30 DAYS: No - Related Data Allergies/Adverse Reactions: quetiapine fumarate [From SeroYield[employer]] Adverse Reaction (Verified 12/21/16 20:04) Past Medical History - General Information source: Patient - Social History Smoking Status: Never Smoker Frequency of alcohol use: Rare Drug Abuse: Prescription drugs Lives with: Family Family History: CAD - States all the males in his family have of heart disease in their 40s., CVA, Other - [place] Patient has suicidal ideation: No Patient has homicidal ideation: No - Past Medical History Cardiac Medical History: Reports: Hx Hypercholesterolemia, Hx Hypertension, Hx Peripheral Vascular Disease - Left carotid stenosis 50-69% Denies: Hx Congestive Heart Failure, Hx DVT, Hx Heart Attack, Hx Pulmonary Embolism Pulmonary Medical History: Denies: Hx Asthma, Hx COPD Neurological Medical History: Reports: Hx Migraine. Denies: Hx Seizures Endocrine Medical History: Reports: Hx Hypothyroidism. Denies: Hx Diabetes Mellitus Type 1, Hx Diabetes Mellitus Type 2, Hx Hyperthyroidism Renal/ Medical History: Denies: Hx Peritoneal Dialysis GI Medical History: Reports: Hx Gastroesophageal Reflux Disease, Hx Hiatal Hernia. Denies: Hx Cirrhosis, Hx Hepatitis Musculoskeltal Medical History: Denies Hx Arthritis Psychiatric Medical History: Reports: Hx Anxiety, Hx Depression Infectious Medical History: Denies: Hx Hepatitis Past Surgical History: Reports: Hx Abdominal Surgery - x7 gastric bypass 05, bowel blockage,hernia repair, Hx Cardiac Catheterization - Which is found to be negative, Hx Cholecystectomy, Hx Gastric Bypass Surgery - Immunizations Immunizations up to date: Yes Hx Diphtheria, Pertussis, Tetanus Vaccination: Yes Review of Systems - Review of Systems Notes: Constitutional: Negative for fever. HENT: Negative for sore throat. Eyes: Negative for visual changes. Cardiovascular: Positive for chest pain. Respiratory: Negative for shortness of breath. Gastrointestinal: Positive for abdominal pain Genitourinary: Negative for dysuria. Musculoskeletal: Negative for back pain. Skin: Negative for rash. Neurological: Negative for headaches, weakness or numbness. 10 point ROS negative except as marked above and in HPI. Physical Exam - Vital signs Vitals: Temp Pulse Resp BP Pulse Ox 97.7 F 86 20 130/86 H 96 12/21/16 19:50 12/21/16 19:50 12/21/16 19:50 12/21/16 19:50 12/21/16 19:50 Interpretation: Normal Notes: PHYSICAL EXAMINATION: GENERAL: Well-appearing, well-nourished and in no acute distress. HEAD: Atraumatic, normocephalic. EYES: Pupils equal round and reactive to light, extraocular movements intact, sclera anicteric, conjunctiva are normal. ENT: nares patent, oropharynx clear without exudates. Moist mucous membranes. NECK: Normal range of motion, supple without lymphadenopathy LUNGS: Breath sounds clear to auscultation bilaterally and equal. No wheezes rales or rhonchi. HEART: Regular rate and rhythm without murmurs ABDOMEN: Soft, nontender, normoactive bowel sounds. No guarding, no rebound. No masses appreciated. EXTREMITIES: Normal range of motion, no pitting or edema. No cyanosis. NEUROLOGICAL: No focal neurological deficits. Moves all extremities spontaneously and on command. PSYCH: Perseverates on his pain, need for medications SKIN: Warm, Dry, normal turgor, no rashes or lesions noted. Course - Re-evaluation Re-evalutation: 12/21/16 23:27 Patient presents for the second time today complaining of ongoing left-sided chest pain and right upper quadrant abdominal pain. Please review my prior documentation from this patient on 12/07/2016 as well as the providers documentation from earlier today. In summary patient is unfortunately a drug addict to both opiates as well as benzodiazepines. Presentation today is identical to prior presentations continue to complain of left-sided chest pain right upper quadrant abdominal pain. He is well in appearance, vitals are within normal limits, his EKG is without ischemic changes. He had a normal troponin earlier today as well as a normal chest x-ray. I have again informed the patient that he will not receive controlled substances here in this emergency department that he needs to seek help for his chronic opiate and benzodiazepine abuse. At this time will discharge with return precautions and follow-up recommendations. Verbal discharge instructions given a the bedside and opportunity for questions given. Medication warnings reviewed. Patient is in agreement with this plan and has verbalized understanding of return precautions and the need for primary care follow-up in the next 24-72 hours. - Vital Signs Vital signs: Temp Pulse Resp BP Pulse Ox 97.5 F 69 17 134/89 H 98 12/21/16 23:37 12/21/16 23:37 12/21/16 23:37 12/21/16 23:37 12/21/16 23:37 - EKG Interpretation by Me Additional EKG results interpreted by me: 12/21/16 23:28 Normal sinus rhythm. Rate 71. No ST elevations or depressions. QTC is 435. Discharge - Discharge Clinical Impression: Chronic chest pain, Polysubstance abuse, Opiate dependence, continuous Condition: Fair Disposition: HOME, SELF-CARE Additional Instructions: Please get help. You are an addict and need to get into rehab. Your labs today are normal and a repeat EKG is normal. Referrals: NEHEMIAS ALONZO MD [Primary Care Provider] - Follow up as needed
[2016-12-21 23:39] VITALS: BP 134/89
--- NOTE | 2016-12-22 23:13 | EKG REPORT ---
SEVERITY:- NORMAL ECG - SINUS RHYTHM : Confirmed by: Galen Lloyd 22-Dec-2016 23:12:33
== END 2016-12-21 23:45 | disposition home or self-care (01) ==
LOC: ER 19:18
DX: G89.29 Other chronic pain (principal); R07.9 Chest pain, unspecified; R10.11 Right upper quadrant pain; E78.00 Pure hypercholesterolemia, unspecified; F11.20 Opioid dependence, uncomplicated; I10 Essential (primary) hypertension; E03.9 Hypothyroidism, unspecified; K21.9 Gastro-esophageal reflux disease without esophagitis; Z98.84 Bariatric surgery status; Z90.49 Acquired absence of other specified parts of digestive tract
CPT/HCPCS: 93005; 99284; 96372; 93010; J1885

== ENCOUNTER 2016-12-22 21:17 | Emergency (ER) | payer MEDICARE ==
--- NOTE | 2016-12-22 21:59 | ER Document Report ---
ED General - General Chief Complaint: Chest Pain Stated Complaint: CHEST PAIN Time Seen by Provider: 12/22/16 21:39 Notes: The patient is a 41-year-old male, past medical history benzo and opioid addiction, presents with his usual left chest pain radiation to his neck and left upper abdomen. He has been seen here multiple times this week for similar symptoms with negative workups. He was given 2 nitroglycerin and 8 mg Zofran ODT prior to arrival by EMS. Patient says that he is obtaining his opioids and benzos illegally on the street. He denies shortness of breath, fevers, vomiting , numbness, tingling, headache or rash. TRAVEL OUTSIDE OF THE [place] IN LAST 30 DAYS: No - Related Data Allergies/Adverse Reactions: quetiapine fumarate [From Seroquel] Adverse Reaction (Verified 12/21/16 20:04) Past Medical History - General Information source: Patient - Social History Smoking Status: Current Every Day Smoker Drug Abuse: Heroin, Other - Benzos Family History: CAD - States all the males in his family have of heart disease in their 40s., CVA, Other - [place] - Past Medical History Cardiac Medical History: Reports: Hx Hypercholesterolemia, Hx Hypertension, Hx Peripheral Vascular Disease - Left carotid stenosis 50-69% Denies: Hx Congestive Heart Failure, Hx DVT, Hx Heart Attack, Hx Pulmonary Embolism Pulmonary Medical History: Denies: Hx Asthma, Hx COPD Neurological Medical History: Reports: Hx Migraine. Denies: Hx Seizures Endocrine Medical History: Reports: Hx Hypothyroidism. Denies: Hx Diabetes Mellitus Type 1, Hx Diabetes Mellitus Type 2, Hx Hyperthyroidism Renal/ Medical History: Denies: Hx Peritoneal Dialysis GI Medical History: Reports: Hx Gastroesophageal Reflux Disease, Hx Hiatal Hernia. Denies: Hx Cirrhosis, Hx Hepatitis Musculoskeltal Medical History: Denies Hx Arthritis Psychiatric Medical History: Reports: Hx Anxiety, Hx Depression Infectious Medical History: Denies: Hx Hepatitis Past Surgical History: Reports: Hx Abdominal Surgery - x7 gastric bypass 05, bowel blockage,hernia repair, Hx Cardiac Catheterization - Which is found to be negative, Hx Cholecystectomy, Hx Gastric Bypass Surgery - Immunizations Immunizations up to date: Yes Hx Diphtheria, Pertussis, Tetanus Vaccination: Yes Review of Systems - Review of Systems Notes: REVIEW OF SYSTEMS: CONSTITUTIONAL: -fevers, -chills EENT: -eye pain, -difficulty swallowing, -nasal congestion CARDIOVASCULAR: +chest pain, -syncope. RESPIRATORY: -cough, -SOB GASTROINTESTINAL: -abdominal pain, -nausea, -vomiting, -diarrhea GENITOURINARY: -dysuria, -hematuria MUSCULOSKELETAL: -back pain, -neck pain SKIN: -rash or skin lesions. HEMATOLOGIC: -easy bruising or bleeding. LYMPHATIC: -swollen, enlarged glands. NEUROLOGICAL: -altered mental status or loss of consciousness, -headache, - neurologic symptoms PSYCHIATRIC: -anxiety, -depression. ALL OTHER SYSTEMS REVIEWED AND NEGATIVE. Physical Exam - Vital signs Vitals: Temp Pulse Resp BP Pulse Ox 98.8 F 69 16 132/98 H 98 12/22/16 21:25 12/22/16 21:25 12/22/16 21:25 12/22/16 21:25 12/22/16 21:25 - Notes Notes: PHYSICAL EXAMINATION: GENERAL: Well-appearing, well-nourished and in no acute distress. HEAD: Atraumatic, normocephalic. EYES: Pupils equal round and reactive to light, extraocular movements intact, sclera anicteric, conjunctiva are normal. ENT: nares patent, oropharynx clear without exudates. Moist mucous membranes. NECK: Normal range of motion, supple without lymphadenopathy LUNGS: Breath sounds clear to auscultation bilaterally and equal. No wheezes rales or rhonchi. HEART: Regular rate and rhythm without murmurs ABDOMEN: Soft, nontender, normoactive bowel sounds. No guarding, no rebound. No masses appreciated. EXTREMITIES: Normal range of motion, no pitting or edema. No cyanosis. NEUROLOGICAL: Cranial nerves grossly intact. Normal speech, normal gait. Normal sensory and motor exams. PSYCH: Normal mood, normal affect. SKIN: Warm, Dry, normal turgor, no rashes or lesions noted. Course - Re-evaluation Re-evalutation: Patient presents with his chronic chest and back pain. Troponin and EKG did not show any evidence of ischemic changes. Chest x-ray shows a possible small pleural effusion and he has no signs of infection at this time. Patient does have slightly worsening hyponatremia, but does not have any altered mental status or seizures at this time. He has had lower values in the past. [facility] provided and instructed him about fluid restriction and beginning electrolyte repletion fluids and he understands. He will follow-up in 2 days with his primary care physician for a recheck of his sodium. [facility] resources provided to patient. - Vital Signs Vital signs: Temp Pulse Resp BP Pulse Ox 98.8 F 69 16 132/98 H 98 12/22/16 21:25 12/22/16 21:25 12/22/16 21:25 12/22/16 21:25 12/22/16 21:25 - Laboratory Result Diagrams: 12/22/16 22:00 12/22/16 22:00 Laboratory results interpreted by me: 12/22/16 22:00 Sodium 120.1 L* Chloride 86 L Lipase 15.7 L - Diagnostic Test Radiology reviewed: Image reviewed, Reports reviewed Radiology results interpreted by me: CXR: possible small right pleural effusion - EKG Interpretation by Me EKG shows normal: Sinus rhythm, [place], Intervals, QRS Complexes, ST-T Waves Rate: Normal Discharge - Discharge Clinical Impression: Hyponatremia Chest pain Qualifiers: Chest pain type: unspecified Qualified Code(s): R07.9 - Chest pain, unspecified Condition: Stable Disposition: HOME, SELF-CARE Additional Instructions: Hyponatremia You have an abnormally low level of serum sodium, called hyponatremia. Low serum sodium may cause weakness, fatigue, confusion, or even seizures. Usually, low sodium is due to taking diuretics (water pills), combined with drinking too much water. It can also be due to excessive vomiting or diarrhea. If no obvious cause is evident, further evaluation will be necessary. If the hyponatremia results from taking diuretics, it's treated by restricting the amount of water you can drink. If it's due to vomiting and diarrhea, it's treated by drinking liberal amounts of rehydration solution (for example Lytren or Pedialyte). A follow-up blood test is often done to see that the sodium is returning to normal. Call the physician if you have severe weakness, muscle twitching or cramping, palpitations (pounding or irregular heartbeat), confusion, headache, seizures, or any other new or alarming symptoms. CHEST PAIN OF UNCLEAR CAUSE: The exact cause of your chest pain isn't clear. Fortunately, there is no evidence of a dangerous medical condition. Further testing may be required to find the source of the pain. Most often, we find that this pain is coming from the chest wall -- the muscles or rib joints in the chest. But chest pain can come from the lung and lung lining, the esophagus, the heart valves or heart lining, and even the stomach or gallbladder. Rest. Eat lightly until the pain is gone. We may prescribe medicine for pain and inflammation. You should call the physician immediately if the pain radiates to the shoulder, jaw or arms; if you start to run a fever or develop a cough; or if you develop shortness of breath, or other new or alarming symptoms. NORMAL EXAM AND WORKUP: At this time, your examination and workup show no significant abnormality. No significant abnormal physical findings were noted. All laboratory, EKG, and imaging (x-ray, CT scans, ultrasound) studies that were ordered show no significant abnormality. Although your examination and all studies that were ordered showed no significant abnormal finding, there are no examinations and no studies that are 100% accurate. There is always the possibility that some abnormality could exist and not be detected with physical examination or within the limits and capabilities of laboratory and other studies. You should return or follow up as you were instructed on your visit today for further evaluation if your symptoms do not resolve. FOLLOW-UP CARE: If you have been referred to a physician for follow-up care, call the physician s office for an appointment as you were instructed or within the next two days. If you experience worsening or a significant change in your symptoms, notify the physician immediately or return to the Emergency Department at any time for re-evaluation.
[2016-12-22 22:17] LABS: ABSOLUTE EOSINOPHILS # (AUTO) 0.2 10^3/uL (0.0-0.6); ABSOLUTE LYMPHOCYTES (AUTO) 1.3 10^3/uL (0.5-4.7); ABSOLUTE MONOCYTES (AUTO) 0.5 10^3/uL (0.1-1.4); ABSOLUTE NEUT (AUTO) 3.8 10^3/uL (1.7-8.2); BASOPHILS % (AUTO) 0.5 % (0-2); EOSINOPHILS % (AUTO) 4.2 % (0-6); HEMATOCRIT 41.2 % (37.9-51.0); HEMOGLOBIN 14.6 g/dL (13.5-17.0); HGB HCT DIFFERENCE 2.6; LYMPHOCYTES % (AUTO) 21.8 % (13-45); MEAN CORPUSCULAR HEMOGLOBIN 30.5 pg (27.0-33.4); MEAN CORPUSCULAR HGB CONC 35.4 g/dL (32.0-36.0); MEAN CORPUSCULAR VOLUME 86 fl (80-97); MONOCYTES % (AUTO) 8.9 % (3-13); RED BLOOD COUNT 4.77 10^6/uL (4.35-5.55); RED CELL DISTRIBUTION WIDTH 12.9 % (11.5-14.0); SEGMENTED NEUTROPHILS % (AUTO) 64.6 % (42-78); WHITE BLOOD COUNT 5.9 10^3/uL (4.0-10.5)
[2016-12-22 22:25] LABS: ALANINE AMINOTRANSFERASE 26 U/L (21-72); ALKALINE PHOSPHATASE 63 U/L (38-126); ANION GAP 10 (5-19); ASPARTATE AMINO TRANSFERASE 18 U/L (17-59); BILIRUBIN,DIRECT 0.3 mg/dL (0.0-0.4); BILIRUBIN,TOTAL 0.6 mg/dL (0.2-1.3); BLOOD UREA NITROGEN 10 mg/dL (7-20); CALCIUM 9.5 mg/dL (8.4-10.2); CARBON DIOXIDE 24 mmol/L (22-30); CHLORIDE 86 mmol/L (98-107); CREATINE KINASE 94 U/L (55-170); CREATININE RESULT 0.62 mg/dL (0.52-1.25); GLUCOSE 96 mg/dL (75-110); LIPASE 15.7 U/L (23-300); TOTAL PROTEIN 6.8 g/dL (6.3-8.2)
[2016-12-22 22:37] LABS: SODIUM 120.1 mmol/L (137-145)
[2016-12-22] MEDS ORDERED: NORMAL SALINE 1000 ML 1,000 ML IV ONE (22:41)
--- NOTE | 2016-12-22 22:46 | RADIOLOGY REPORT (SQ) ---
EXAM DESCRIPTION: CHEST SINGLE VIEW COMPLETED DATE/TIME: 12/22/2016 10:20 pm REASON FOR STUDY: chest pain COMPARISON: 12/21/2016 EXAM PARAMETERS: NUMBER OF VIEWS: One view. TECHNIQUE: Single frontal radiographic view of the chest acquired. RADIATION DOSE: NA LIMITATIONS: None. FINDINGS: LUNGS AND PLEURA: No consolidation, masses or pneumothorax. Possible small right pleural effusion. MEDIASTINUM AND HILAR STRUCTURES: No masses. Contour normal. HEART AND VASCULAR STRUCTURES: Heart normal in size. Normal vasculature. BONES: No acute findings. HARDWARE: None in the chest. OTHER: No other significant finding. IMPRESSION: Possible small right pleural effusion. TECHNICAL DOCUMENTATION: JOB ID: [id number]
[2016-12-22] MEDS ORDERED: NITROGLYCERIN 0.4 MG/TAB 25 TAB/BOTTLE SL PRN (23:07)
--- NOTE | 2016-12-22 23:12 | EKG REPORT ---
SEVERITY:- NORMAL ECG - SINUS RHYTHM : Confirmed by: Galen Lloyd 22-Dec-2016 23:12:17
[2016-12-23 00:29] VITALS: BP 123/92
== END 2016-12-23 00:29 | disposition home or self-care (01) ==
LOC: ER 21:17
DX: G89.29 Other chronic pain (principal); R07.9 Chest pain, unspecified; M54.9 Dorsalgia, unspecified; E87.1 Hypo-osmolality and hyponatremia; I10 Essential (primary) hypertension; F17.200 Nicotine dependence, unspecified, uncomplicated; Z98.84 Bariatric surgery status; Z82.49 Family history of ischemic heart disease and other diseases of the circulatory system
CPT/HCPCS: 93005; 99285; 96360; 36415; 82550; 83690; 85025; 80053; 84484; 71010; 93010; J7030

== ENCOUNTER 2016-12-23 17:48 | Emergency (ER) | payer MEDICARE ==
--- NOTE | 2016-12-23 18:48 | ER Document Report ---
ED Cardiac - General Chief Complaint: Chest Pain Stated Complaint: CHEST PAIN Time Seen by Provider: 12/23/16 18:45 Notes: Patient is a 41-year-old male, past medical history chronic chest and back pain , presents with his usual left upper chest pain and radiation into his left neck. He is concerned that his carotid is blocked because he had an ultrasound 3 years ago that showed 65% stenosis. Patient had multiple workups this week for cardiac issues that were negative. He is continuing to abuse opioids and benzos. He denies shortness of breath, leg swelling, nausea, vomiting, back pain, fevers, neuro symptoms or rash. TRAVEL OUTSIDE OF THE [place] IN LAST 30 DAYS: No - Related Data Allergies/Adverse Reactions: quetiapine fumarate [From [employer]] Adverse Reaction (Verified 12/21/16 20:04) Past Medical History - General Information source: Patient - Social History Smoking Status: Former Smoker Frequency of alcohol use: None Drug Abuse: Prescription drugs, Other Family History: CAD - States all the males in his family have of heart disease in their 40s., CVA, Other - [place] - Past Medical History Cardiac Medical History: Reports: Hx Hypercholesterolemia, Hx Hypertension, Hx Peripheral Vascular Disease - Left carotid stenosis 50-69% Denies: Hx Congestive Heart Failure, Hx DVT, Hx Heart Attack, Hx Pulmonary Embolism Pulmonary Medical History: Denies: Hx Asthma, Hx COPD Neurological Medical History: Reports: Hx Migraine. Denies: Hx Seizures Endocrine Medical History: Reports: Hx Hypothyroidism. Denies: Hx Diabetes Mellitus Type 1, Hx Diabetes Mellitus Type 2, Hx Hyperthyroidism Renal/ Medical History: Denies: Hx Peritoneal Dialysis GI Medical History: Reports: Hx Gastroesophageal Reflux Disease, Hx Hiatal Hernia. Denies: Hx Cirrhosis, Hx Hepatitis Musculoskeltal Medical History: Denies Hx Arthritis Psychiatric Medical History: Reports: Hx Anxiety, Hx Depression Infectious Medical History: Denies: Hx Hepatitis Past Surgical History: Reports: Hx Abdominal Surgery - x7 gastric bypass 05, bowel blockage,hernia repair, Hx Cardiac Catheterization - Which is found to be negative, Hx Cholecystectomy, Hx Gastric Bypass Surgery - Immunizations Immunizations up to date: Yes Hx Diphtheria, Pertussis, Tetanus Vaccination: Yes Review of Systems - Review of Systems Notes: REVIEW OF SYSTEMS: CONSTITUTIONAL: -fevers, -chills EENT: -eye pain, -difficulty swallowing, -nasal congestion CARDIOVASCULAR: +chest pain, -syncope. RESPIRATORY: -cough, -SOB GASTROINTESTINAL: -abdominal pain, - nausea, -vomiting, -diarrhea GENITOURINARY: -dysuria, -hematuria MUSCULOSKELETAL: -back pain, -neck pain SKIN: -rash or skin lesions. HEMATOLOGIC: -easy bruising or bleeding. LYMPHATIC: -swollen, enlarged glands. NEUROLOGICAL: -altered mental status or loss of consciousness, -headache, - neurologic symptoms PSYCHIATRIC: -anxiety, -depression. ALL OTHER SYSTEMS REVIEWED AND NEGATIVE. Physical Exam - Vital signs Vitals: Pulse Resp BP Pulse Ox 64 18 136/93 H 97 12/23/16 20:17 12/23/16 20:17 12/23/16 20:17 12/23/16 20:17 - Notes Notes: PHYSICAL EXAMINATION: GENERAL: Well-appearing, well-nourished and in no acute distress. HEAD: Atraumatic, normocephalic. EYES: Pupils equal round and reactive to light, extraocular movements intact, sclera anicteric, conjunctiva are normal. ENT: nares patent, oropharynx clear without exudates. Moist mucous membranes. NECK: Normal range of motion, supple without lymphadenopathy LUNGS: Breath sounds clear to auscultation bilaterally and equal. No wheezes rales or rhonchi. HEART: Regular rate and rhythm without murmurs ABDOMEN: Soft, nontender, normoactive bowel sounds. No guarding, no rebound. No masses appreciated. EXTREMITIES: Normal range of motion, no pitting or edema. No cyanosis. NEUROLOGICAL: Cranial nerves grossly intact. Normal speech, normal gait. Normal sensory and motor exams. PSYCH: Normal mood, normal affect. SKIN: Warm, Dry, normal turgor, no rashes or lesions noted. Course - Re-evaluation Re-evalutation: Patient's EKG does not show any acute findings. His chest pain is chronic in nature and has not changed over his prior multiple evaluations in the emergency room. I evaluated him with labs and chest x-ray last night, which were unremarkable, other than a slight hyponatremia. Patient said that he has fluid restricted himself today and drank Gatorade. His Na improved to 124 today from the 120 last night. Troponin negative. 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 - Vital Signs Vital signs: Temp Pulse Resp BP Pulse Ox 64 18 136/93 H 97 08/14/17 20:17 12/23/16 20:17 12/23/16 20:17 12/23/16 20:17 - Laboratory Result Diagrams: 12/23/16 20:14 12/23/16 20:14 Laboratory results interpreted by me: 12/23/16 20:14 Sodium 124.2 L Chloride 89 L BUN 6 L ALT 18 L Creatine Kinase 48 L - EKG Interpretation by Me EKG shows normal: Sinus rhythm, Capay, Intervals, QRS Complexes, ST-T Waves Discharge - Discharge Clinical Impression: Chest pain Qualifiers: Chest pain type: unspecified Qualified Code(s): R07.9 - Chest pain, unspecified Condition: Stable Disposition: HOME, SELF-CARE Additional Instructions: CHEST PAIN OF UNCLEAR CAUSE: The exact cause of your chest pain isn't clear. Fortunately, there is no evidence of a dangerous medical condition. Further testing may be required to find the source of the pain. Most often, we find that this pain is coming from the chest wall -- the muscles or rib joints in the chest. But chest pain can come from the lung and lung lining, the esophagus, the heart valves or heart lining, and even the stomach or gallbladder. Rest. Eat lightly until the pain is gone. We may prescribe medicine for pain and inflammation. You should call the physician immediately if the pain radiates to the shoulder, jaw or arms; if you start to run a fever or develop a cough; or if you develop shortness of breath, or other new or alarming symptoms. NORMAL EXAM AND WORKUP: At this time, your examination and workup show no significant abnormality. No significant abnormal physical findings were noted. All laboratory, EKG, and imaging (x-ray, CT scans, ultrasound) studies that were ordered show no significant abnormality. Although your examination and all studies that were ordered showed no significant abnormal finding, there are no examinations and no studies that are 100% accurate. There is always the possibility that some abnormality could exist and not be detected with physical examination or within the limits and capabilities of laboratory and other studies. You should return or follow up as you were instructed on your visit today for further evaluation if your symptoms do not resolve. CHEST WALL PAIN: Your chest pain may be coming from the chest wall. This is often caused by straining the muscles or joints in the chest during physical activity, direct trauma, coughing, or vigorous vomiting. Persons with arthritis are especially prone to this type of pain, due to inflammation of the cartilage joints near the breast bone. Occasionally, no cause can be found. Rest from strenuous physical activity. This kind of chest pain is usually made worse by movement of the chest. Depending on the symptoms, we may prescribe medicine for pain, muscle relaxation, and antiinflammatory effects. If the pain is new, and seems to be due to muscle strain, cold packs can help. Otherwise, apply gentle warmth to the painful area for 15 minutes every hour or two. You should call contact the doctor immediately if things change. Further evaluation is needed if you develop a fever or cough, if the nature of the pain changes, or if you become short of breath. ANGINA EPISODE: Your physician has diagnosed the pain you experienced as an episode of angina. Angina occurs when a portion of the heart muscle temporarily lacks oxygen. It does not cause any permanent heart damage, but serves as a warning. Hospitalization is not necessary now. Evaluation of your cardiac condition , and medical therapy for angina will be necessary. It's important you be sure to keep all appointments and take medication exactly as prescribed. Angina is usually treated with a type of "nitrate" medication. This is available as ointment, pills, or sublingual (under the tongue) tablets. Depending on your clinical situation, other medications may be added to help control angina. These may include beta blockers or calcium blockers. If episodes of angina are occurring with increased frequency, or if chest pain lasts longer than 15 minutes or does not respond to nitroglycerin, you must seek emergency medical care immediately. ACID REFLUX DISEASE (GERD): Gastro-Esophageal Reflux Disease (GERD) is caused by stomach acid refluxing back up into the esophagus. The valve at the end of the esophagus may be weak. This is common in persons with a hiatal hernia. GERD symptoms can include indigestion, chest pain, heartburn, or food "sticking." Certain foods, alcohol, and aspirin can make GERD worse. Treatment depends on the severity. Usually, antacids or acid-suppressing medicines are used. When the esophagus is acutely inflamed, the physician will often prescribe membrane-protective drugs such as Carafate. Some patients benefit from medication such as Reglan that tightens the valve at the top of the stomach. Avoid those foods that bring on your symptoms. For many people, these foods are coffee, chocolate, onions, garlic, and carbonated drinks. Don't use alcohol, aspirin, caffeine, or tobacco. Don't eat late at night -- within 4 hours of bedtime. Don't over-eat. If necessary, elevate the head of your bed about 4 inches so that stomach acid will not roll up into your esophagus. Call the doctor if you develop severe chest pain, inability to swallow fluids, fever, or worsening symptoms. ASPIRIN: Aspirin has been shown to have a beneficial effect on blood circulation by reducing the clotting effect of platelets in the blood. These beneficial effects can be achieved by taking just a single baby (81 mg) aspirin a day. It is recommended that any person over the age of forty take a single baby aspirin every day for heart and brain circulation, unless you are allergic to aspirin or have some significant bleeding disorder. It is strongly recommended that people who have proven cardiac or blood circulation disturbances should take a baby aspirin every day. NITRATES: Nitroglycerin and related longer-acting nitrate medications are used to prevent or treat attacks of angina. These medicines dilate blood vessels, decreasing the work of the heart, and improving its supply of oxygen. Many different forms are available, including sublingual tablets (used under the tongue), sprays, skin patches, and long-acting pills. If the particular form of medication you have been given is not working well for you, contact your doctor. Long-acting forms: Take exactly as prescribed. Sudden stopping of medication can provoke increased attacks. Sublingual tabs or spray: A headache will usually occur with use. Sit or lie while waiting for the pain to go away. If angina doesn't respond to three doses (five minutes apart), call for emergency assistance. ANTACID THERAPY: You have been instructed to start antacid therapy. Antacids directly neutralize stomach acid. This is useful for acid irritation of the esophagus, gastritis, and ulcers. You should take two tablespoons of antacid one hour after each meal and three hours after each meal. If you are not eating, take the antacid every two hours. If you are using a concentrate (such as Maalox TC), use only one tablespoon. Many antacids affect the bowels. The most common problem is diarrhea. In this case, a pure aluminum hydroxide antacid (such as AlternaGel) can be substituted for some or all doses. If the problem is constipation, add a teaspoon of Milk of Magnesia to each dose. Call the doctor if you experience continued diarrhea or constipation, or if you develop lightheadedness, bloody stool or vomitus, severe abdominal pain, or black stool. PRILOSEC (ACID PUMP INHIBITOR): Prilosec (omeprazole) is an acid-pump inhibitor. It blocks the secretion of hydrogen ions in the acid-producing cells of the stomach. Prilosec keeps your stomach from making acid. Take all medication as prescribed, even after the pain is gone. Regular antacids may be added as needed if you have symptoms while taking this medicine. There are usually no side effects from this medication. Contact your doctor if there is fever, rash, yellow skin color, increasing abdominal pain, weakness, or unusual bruising. Return at once if you develop lightheadedness, black or bloody stool, or bloody vomitus. ORAL NARCOTIC MEDICATION: You have been given a prescription for pain control. This medication is a narcotic. It's best taken with food, as nausea can result if taken on an empty stomach. Don't operate machinery or drive within six hours of taking this medication. Do not combine this medicine with alcohol, or with any medication which can cause sedation (such as cold tablets or sleeping pills) unless you get permission from the physician. Narcotics tend to cause constipation. If possible, drink plenty of fluids and eat a diet high in fiber and fruits. Please be aware that prescription narcotics also have the potential for abuse. People become addicted to these medications because of the general sense of wellbeing that they induce. This feeling along with a significant reduction in tension, anxiety, and aggression provides a stimulating seductive quality to these drugs. Once your pain is under control, we encourage you to discard your unused narcotics. FOLLOW-UP CARE: If you have been referred to a physician for follow-up care, call the physician s office for an appointment as you were instructed or within the next two days. If you experience worsening or a significant change in your symptoms, notify the physician immediately or return to the Emergency Department at any time for re-evaluation.
--- NOTE | 2016-12-23 19:21 | EKG REPORT ---
SEVERITY:- NORMAL ECG - SINUS RHYTHM : Confirmed by: Grupo Galarza MD 23-Dec-2016 19:20:25
[2016-12-23 20:29] LABS: ABSOLUTE EOSINOPHILS # (AUTO) 0.1 10^3/uL (0.0-0.6); ABSOLUTE LYMPHOCYTES (AUTO) 1.2 10^3/uL (0.5-4.7); ABSOLUTE MONOCYTES (AUTO) 0.5 10^3/uL (0.1-1.4); ABSOLUTE NEUT (AUTO) 2.8 10^3/uL (1.7-8.2); BASOPHILS % (AUTO) 0.4 % (0-2); EOSINOPHILS % (AUTO) 2.8 % (0-6); HEMATOCRIT 41.8 % (37.9-51.0); HEMOGLOBIN 14.5 g/dL (13.5-17.0); HGB HCT DIFFERENCE 1.7; LYMPHOCYTES % (AUTO) 25.8 % (13-45); MEAN CORPUSCULAR HEMOGLOBIN 30.3 pg (27.0-33.4); MEAN CORPUSCULAR HGB CONC 34.7 g/dL (32.0-36.0); MEAN CORPUSCULAR VOLUME 87 fl (80-97); MONOCYTES % (AUTO) 11.1 % (3-13); RED BLOOD COUNT 4.79 10^6/uL (4.35-5.55); RED CELL DISTRIBUTION WIDTH 13.2 % (11.5-14.0); SEGMENTED NEUTROPHILS % (AUTO) 59.9 % (42-78); WHITE BLOOD COUNT 4.7 10^3/uL (4.0-10.5)
[2016-12-23 20:43] LABS: ALANINE AMINOTRANSFERASE 18 U/L (21-72); ALBUMIN 4.2 g/dL (3.5-5.0); ALKALINE PHOSPHATASE 58 U/L (38-126); ANION GAP 11 (5-19); ASPARTATE AMINO TRANSFERASE 18 U/L (17-59); BILIRUBIN,DIRECT 0.3 mg/dL (0.0-0.4); BILIRUBIN,TOTAL 0.6 mg/dL (0.2-1.3); BLOOD UREA NITROGEN 6 mg/dL (7-20); CALCIUM 9.4 mg/dL (8.4-10.2); CARBON DIOXIDE 24 mmol/L (22-30); CHLORIDE 89 mmol/L (98-107); CREATINE KINASE 48 U/L (55-170); CREATININE RESULT 0.62 mg/dL (0.52-1.25); GLUCOSE 88 mg/dL (75-110); POTASSIUM 4.4 mmol/L (3.6-5.0); SODIUM 124.2 mmol/L (137-145); TOTAL PROTEIN 7.1 g/dL (6.3-8.2)
[2016-12-23 21:31] VITALS: BP 135/95
== END 2016-12-23 21:29 | disposition home or self-care (01) ==
LOC: ER 17:48
DX: R07.9 Chest pain, unspecified (principal); G89.29 Other chronic pain; M54.9 Dorsalgia, unspecified; Z87.891 Personal history of nicotine dependence; F11.10 Opioid abuse, uncomplicated; F19.20 Other psychoactive substance dependence, uncomplicated
CPT/HCPCS: 36415; 80053; 82550; 84484; 85025; 93005; 93010; 99285

== ENCOUNTER 2016-12-25 05:19 | Emergency (ER) | payer MEDICARE ==
--- NOTE | 2016-12-25 08:05 | RADIOLOGY REPORT (SQ) ---
EXAM DESCRIPTION: CHEST PA/LAT COMPLETED DATE/TIME: 12/25/2016 7:52 am REASON FOR STUDY: CP COMPARISON: 12/21/2016. 11/04/2016. EXAM PARAMETERS: NUMBER OF VIEWS: two views TECHNIQUE: Digital Frontal and Lateral radiographic views of the chest acquired. RADIATION DOSE: NA LIMITATIONS: none FINDINGS: LUNGS AND PLEURA: No opacities, masses or pneumothorax. No pleural effusion. MEDIASTINUM AND HILAR STRUCTURES: No masses or contour abnormalities. HEART AND VASCULAR STRUCTURES: Heart normal size. No evidence for failure. BONES: No acute findings. HARDWARE: Upper abdominal clip. OTHER: No other significant finding. IMPRESSION: NO SIGNIFICANT RADIOGRAPHIC FINDING IN THE CHEST. TECHNICAL DOCUMENTATION: JOB ID: [id number] [facility]- All Rights Reserved
[2016-12-25] MEDS ORDERED: NORMAL SALINE 1000 ML 1,000 ML IV ONE (08:30)
[2016-12-25 09:22] VITALS: BP 145/86
[2016-12-25 10:10] LABS: ABSOLUTE EOSINOPHILS # (AUTO) 0.2 10^3/uL (0.0-0.6); ABSOLUTE LYMPHOCYTES (AUTO) 1.3 10^3/uL (0.5-4.7); ABSOLUTE MONOCYTES (AUTO) 0.8 10^3/uL (0.1-1.4); ABSOLUTE NEUT (AUTO) 7.5 10^3/uL (1.7-8.2); BASOPHILS % (AUTO) 0.3 % (0-2); EOSINOPHILS % (AUTO) 1.6 % (0-6); HEMATOCRIT 40.1 % (37.9-51.0); HEMOGLOBIN 14.3 g/dL (13.5-17.0); HGB HCT DIFFERENCE 2.8; LYMPHOCYTES % (AUTO) 13.1 % (13-45); MEAN CORPUSCULAR HEMOGLOBIN 30.6 pg (27.0-33.4); MEAN CORPUSCULAR HGB CONC 35.6 g/dL (32.0-36.0); MEAN CORPUSCULAR VOLUME 86 fl (80-97); RED BLOOD COUNT 4.66 10^6/uL (4.35-5.55); RED CELL DISTRIBUTION WIDTH 13.3 % (11.5-14.0)
[2016-12-25 10:16] LABS: APPEARANCE,URINE CLEAR; BILIRUBIN,URINE NEGATIVE (NEGATIVE); GLUCOSE, URINE NEGATIVE (NEGATIVE); KETONES,URINE 20 mg/dL (NEGATIVE); LEUKOCYTE ESTERASE,URINE NEGATIVE (NEGATIVE); NITRITE,URINE NEGATIVE (NEGATIVE); PROTEIN,URINE NEGATIVE (NEGATIVE); URINE SPECIFIC GRAVITY 1.025; UROBILINOGEN,URINE NEGATIVE mg/dL (<2.0)
[2016-12-25 10:22] LABS: WHITE BLOOD COUNT 9.7 10^3/uL (4.0-10.5)
[2016-12-25 10:24] LABS: TROPONIN I < 0.012 ng/mL
[2016-12-25 10:25] LABS: BLOOD UREA NITROGEN 8 mg/dL (7-20); CHLORIDE 88 mmol/L (98-107); CREATININE RESULT 0.63 mg/dL (0.52-1.25); GLUCOSE 93 mg/dL (75-110)
[2016-12-25 10:26] LABS: ALANINE AMINOTRANSFERASE 19 U/L (21-72); ALBUMIN 4.1 g/dL (3.5-5.0); ALKALINE PHOSPHATASE 57 U/L (38-126); ANION GAP 10 (5-19); ASPARTATE AMINO TRANSFERASE 41 U/L (17-59); CARBON DIOXIDE 27 mmol/L (22-30); SODIUM 125.3 mmol/L (137-145)
[2016-12-25 10:27] LABS: BILIRUBIN,TOTAL 0.8 mg/dL (0.2-1.3)
[2016-12-25 10:28] LABS: CREATINE KINASE 40 U/L (55-170)
[2016-12-25 10:46] LABS: URINE BARBITURATES SCREEN NEGATIVE; URINE METHADONE SCREEN NEGATIVE; URINE OPIATES LOW UNCONFIRMED POSITIVE; URINE PHENCYCLIDINE SCREEN NEGATIVE
--- NOTE | 2016-12-25 13:48 | EKG REPORT ---
SEVERITY:- NORMAL ECG - SINUS RHYTHM : Confirmed by: Grupo Galarza MD 25-Dec-2016 13:46:57
== END 2016-12-25 09:49 | disposition home or self-care (01) ==
LOC: ER 05:19
DX: F41.9 Anxiety disorder, unspecified (principal); F19.10 Other psychoactive substance abuse, uncomplicated
CPT/HCPCS: 36415; 71020; 80053; 80307; 81001; 82550; 82553; 84484; 85025; 93005; 93010; 96360; 99285

== ENCOUNTER 2017-01-01 10:19 | Emergency (ER) | payer MEDICARE ==
--- NOTE | 2017-01-01 10:35 | ER Document Report ---
ED Medical Screen (RME) - General Chief Complaint: Abdominal Pain Stated Complaint: SEVER ABDOMINAL PAIN Time Seen by Provider: 01/01/17 10:33 Notes: Patient states that he is having right upper quadrant abdominal pain. It is severe. He also has nausea. 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 He states he is no longer in pain management however he still does buy opioids on the street. He states he is down to taking about 6 Vicodin per day. He states he has been seen here multiple times for similar pain. TRAVEL OUTSIDE OF THE [place] IN LAST 30 DAYS: No - Related Data Allergies/Adverse Reactions: quetiapine fumarate [From [employer]] Adverse Reaction (Verified 01/01/17 10:21) Past Medical History - Social History Drug Abuse: Prescription drugs Family history: CAD - Past Medical History Cardiac Medical History: Reports: Hx Hypercholesterolemia, Hx Hypertension, Hx Peripheral Vascular Disease - Left carotid stenosis 50-69% Denies: Hx Congestive Heart Failure, Hx DVT, Hx Heart Attack, Hx Pulmonary Embolism Pulmonary Medical History: Denies: Hx Asthma, Hx COPD Neurological Medical History: Reports: Hx Migraine. Denies: Hx Seizures Endocrine Medical History: Reports: Hx Hypothyroidism. Denies: Hx Diabetes Mellitus Type 1, Hx Diabetes Mellitus Type 2, Hx Hyperthyroidism Renal/ Medical History: Denies: Hx Peritoneal Dialysis GI Medical History: Reports: Hx Gastroesophageal Reflux Disease, Hx Hiatal Hernia. Denies: Hx Cirrhosis, Hx Hepatitis Musculoskeltal Medical History: Denies Hx Arthritis Psychiatric Medical History: Reports: Hx Anxiety, Hx Depression Infectious Medical History: Denies: Hx Hepatitis Past Surgical History: Reports: Hx Abdominal Surgery - x7 gastric bypass 05, bowel blockage,hernia repair, Hx Cardiac Catheterization - Which is found to be negative, Hx Cholecystectomy, Hx Gastric Bypass Surgery - Immunizations Immunizations up to date: Yes Hx Diphtheria, Pertussis, Tetanus Vaccination: Yes Physical Exam - Vital signs Vitals: Temp 98.7 F 01/01/17 10:24 Course - Vital Signs Vital signs: Temp Pulse Resp BP Pulse Ox 98.7 F 66 20 110/71 98 01/01/17 10:24 01/01/17 10:25 01/01/17 10:25 01/01/17 10:25 01/01/17 10:25
[2017-01-01 11:28] LABS: ABSOLUTE EOSINOPHILS # (AUTO) 0.1 10^3/uL (0.0-0.6); ABSOLUTE LYMPHOCYTES (AUTO) 1.1 10^3/uL (0.5-4.7); ABSOLUTE MONOCYTES (AUTO) 0.4 10^3/uL (0.1-1.4); ABSOLUTE NEUT (AUTO) 7.1 10^3/uL (1.7-8.2); BASOPHILS % (AUTO) 0.5 % (0-2); EOSINOPHILS % (AUTO) 1.2 % (0-6); HEMATOCRIT 43.8 % (37.9-51.0); HEMOGLOBIN 15.1 g/dL (13.5-17.0); HGB HCT DIFFERENCE 1.5; LYMPHOCYTES % (AUTO) 12.6 % (13-45); MEAN CORPUSCULAR HEMOGLOBIN 30.1 pg (27.0-33.4); MEAN CORPUSCULAR HGB CONC 34.5 g/dL (32.0-36.0); MEAN CORPUSCULAR VOLUME 87 fl (80-97); MONOCYTES % (AUTO) 4.6 % (3-13); RED BLOOD COUNT 5.01 10^6/uL (4.35-5.55); RED CELL DISTRIBUTION WIDTH 12.5 % (11.5-14.0); SEGMENTED NEUTROPHILS % (AUTO) 81.1 % (42-78); WHITE BLOOD COUNT 8.7 10^3/uL (4.0-10.5)
[2017-01-01 11:40] LABS: APPEARANCE,URINE CLEAR; BILIRUBIN,URINE NEGATIVE (NEGATIVE); GLUCOSE, URINE NEGATIVE (NEGATIVE); KETONES,URINE TRACE mg/dL (NEGATIVE); LEUKOCYTE ESTERASE,URINE NEGATIVE (NEGATIVE); NITRITE,URINE NEGATIVE (NEGATIVE); PROTEIN,URINE NEGATIVE (NEGATIVE); URINE SPECIFIC GRAVITY 1.012
[2017-01-01] MEDS ORDERED: ONDANSETRON HCL INJ/PF 4 MG/2 ML SDV IV ONE (11:44)
[2017-01-01 11:54] LABS: ALANINE AMINOTRANSFERASE 27 U/L (21-72); ALBUMIN 4.7 g/dL (3.5-5.0); ALKALINE PHOSPHATASE 67 U/L (38-126); ANION GAP 11 (5-19); ASPARTATE AMINO TRANSFERASE 16 U/L (17-59); BILIRUBIN,DIRECT 0.4 mg/dL (0.0-0.4); BILIRUBIN,TOTAL 0.7 mg/dL (0.2-1.3); BLOOD UREA NITROGEN 7 mg/dL (7-20); CALCIUM 10.2 mg/dL (8.4-10.2); CARBON DIOXIDE 26 mmol/L (22-30); CHLORIDE 90 mmol/L (98-107); GLUCOSE 119 mg/dL (75-110); LIPASE 27.5 U/L (23-300); POTASSIUM 5.3 mmol/L (3.6-5.0); SODIUM 126.6 mmol/L (137-145); TOTAL PROTEIN 7.4 g/dL (6.3-8.2)
[2017-01-01] MEDS ORDERED: MAG HYDROX/AL HYDROX/SIMETH SUSP 30 ML UDCUP PO ONE (12:24)
[2017-01-01] MEDS ORDERED: LIDOCAINE 2% VISCOUS SOLN 20 ML UDCUP PO ONE (12:24)
[2017-01-01] MEDS ORDERED: METOCLOPRAMIDE HCL ORAL SOLN 10 MG/10 ML UDCUP PO ONE (12:24)
[2017-01-01] MEDS ORDERED: NORMAL SALINE 1000 ML 1,000 ML IV ONE (13:15)
--- NOTE | 2017-01-01 13:50 | RADIOLOGY REPORT (SQ) ---
EXAM DESCRIPTION: U/S ABDOMEN LIMITED W/O DOP COMPLETED DATE/TIME: 01/01/2017 1:37 pm REASON FOR STUDY: ruq pain, no gallbladder COMPARISON: 11/03/2015 TECHNIQUE: Dynamic and static grayscale images acquired of the abdomen and recorded on PACS. Additio nal selected color Doppler and spectral images recorded. LIMITATIONS: None. FINDINGS: PANCREAS: Poorly visualized. No definite abnormality. LIVER: No masses. Echotexture normal. LIVER VASCULATURE: Normal directional flow of the main portal vein and hepatic veins. GALLBLADDER: Surgically absent. ULTRASOUND-DETECTED ROGERS'S SIGN: Negative. INTRAHEPATIC DUCTS AND COMMON DUCT: CBD and intrahepatic ducts normal caliber. No filling defects. INFERIOR VENA CAVA: Normal flow. AORTA: No aneurysm. RIGHT KIDNEY: Normal size. Normal echogenicity. No solid or suspicious masses. No hydronephrosis. No calcifications. PERITONEAL AND RIGHT PLEURAL SPACE: No ascites or effusions. OTHER: No other significant findings. IMPRESSION: Negative right upper quadrant ultrasound status post cholecystectomy. TECHNICAL DOCUMENTATION: JOB ID: [id number] [employer]- All Rights Reserved
--- NOTE | 2017-01-01 13:54 | ER Document Report ---
ED GI/ - General Chief Complaint: Abdominal Pain Stated Complaint: SEVER ABDOMINAL PAIN Time Seen by Provider: 01/01/17 10:33 Mode of Arrival: Ambulatory Information source: Patient Notes: Patient is a 41 year-old male very well-known to this emergency department who always comes in for chest pain and abdominal pain who presents to the ER today for right upper quadrant abdominal pain that is normal for him but hurts a little worse today. Patient states that he does not have a gallbladder. He is concerned about his liver function as he takes Vicodin "off the street" and is a drug addict, takes a lot of tylenol. He denies any fever, chills, diarrhea. Is also been diagnosed with gastritis in the past and admits to some nausea without vomiting. TRAVEL OUTSIDE OF THE [place] IN LAST 30 DAYS: No - Related Data Allergies/Adverse Reactions: quetiapine fumarate [From Seroquel] Adverse Reaction (Verified 01/01/17 10:21) Past Medical History - General Information source: Patient - Social History Smoking Status: Unknown if Ever Smoked Drug Abuse: Prescription drugs Family History: CAD - States all the males in his family have of heart disease in their 40s., CVA, Other - [place] - Past Medical History Cardiac Medical History: Reports: Hx Hypercholesterolemia, Hx Hypertension, Hx Peripheral Vascular Disease - Left carotid stenosis 50-69% Denies: Hx Congestive Heart Failure, Hx DVT, Hx Heart Attack, Hx Pulmonary Embolism Pulmonary Medical History: Denies: Hx Asthma, Hx COPD Neurological Medical History: Reports: Hx Migraine. Denies: Hx Seizures Endocrine Medical History: Reports: Hx Hypothyroidism. Denies: Hx Diabetes Mellitus Type 1, Hx Diabetes Mellitus Type 2, Hx Hyperthyroidism Renal/ Medical History: Denies: Hx Peritoneal Dialysis GI Medical History: Reports: Hx Gastroesophageal Reflux Disease, Hx Hiatal Hernia. Denies: Hx Cirrhosis, Hx Hepatitis Musculoskeltal Medical History: Denies Hx Arthritis Psychiatric Medical History: Reports: Hx Anxiety, Hx Depression Infectious Medical History: Denies: Hx Hepatitis Past Surgical History: Reports: Hx Abdominal Surgery - x7 gastric bypass 05, bowel blockage,hernia repair, Hx Cardiac Catheterization - Which is found to be negative, Hx Cholecystectomy, Hx Gastric Bypass Surgery - Immunizations Immunizations up to date: Yes Hx Diphtheria, Pertussis, Tetanus Vaccination: Yes Review of Systems - Review of Systems Constitutional: No symptoms reported EENT: No symptoms reported Cardiovascular: No symptoms reported Respiratory: No symptoms reported Gastrointestinal: See HPI Genitourinary: No symptoms reported Male Genitourinary: No symptoms reported Musculoskeletal: No symptoms reported Skin: No symptoms reported Hematologic/Lymphatic: No symptoms reported Neurological/Psychological: No symptoms reported Physical Exam - Vital signs Vitals: Temp 98.7 F 01/01/17 10:24 - Notes Notes: PHYSICAL EXAMINATION: GENERAL:chronically ill appearing, in no acute distress. HEAD: Atraumatic, normocephalic. EYES: Pupils equal round and reactive to light, extraocular movements intact, sclera anicteric, conjunctiva are normal. NECK: Normal range of motion, supple without lymphadenopathy LUNGS: CTAB and equal. No wheezes rales or rhonchi. HEART: Regular rate and rhythm without murmurs ABDOMEN: Soft, mild RUQ and epigastric tenderness. No guarding, no rebound BACK: no vertebral tenderness, normal ROM GI/: no CVA tenderness EXTREMITIES: Normal range of motion, no pitting edema. No cyanosis. NEUROLOGICAL: Cranial nerves grossly intact. Normal sensory/motor exams. PSYCH: anxious, asking questions constantly SKIN: Warm, Dry, normal turgor, no rashes or lesions noted Course - Re-evaluation Re-evalutation: 01/01/17 16:09 Lab work is unremarkable today including normal cardiac enzymes and a negative right upper quadrant ultrasound. I did also order a hepatitis panel, it is pending. - Vital Signs Vital signs: Temp Pulse Resp BP Pulse Ox 98.0 F 62 20 115/78 96 01/01/17 15:34 01/01/17 15:34 01/01/17 15:34 01/01/17 15:34 01/01/17 15:34 - Laboratory Result Diagrams: 01/01/17 11:12 01/01/17 11:12 Laboratory results interpreted by me: 01/01/17 01/01/17 01/01/17 11:12 11:12 11:12 Seg Neutrophils % 81.1 H Lymphocytes % 12.6 L Sodium 126.6 L Potassium 5.3 H Chloride 90 L Glucose 119 H AST 16 L Urine Ketones TRACE H Urine Urobilinogen 2.0 H Discharge - Discharge Clinical Impression: Abdominal pain Qualifiers: Abdominal location: generalized Qualified Code(s): R10.84 - Generalized abdominal pain Condition: Stable Disposition: HOME, SELF-CARE Additional Instructions: Return immediately for any new or worsening symptoms. Follow up with primary care provider, call tomorrow to make followup appointment. Prescriptions: Sucralfate [Carafate 1 gm Tablet] 1 gm PO ACHS #40 tablet
[2017-01-01 15:38] VITALS: BP 115/78
== END 2017-01-01 15:38 | disposition home or self-care (01) ==
LOC: ER 10:19
DX: R10.11 Right upper quadrant pain (principal); R10.84 Generalized abdominal pain; R11.0 Nausea; F41.9 Anxiety disorder, unspecified; I10 Essential (primary) hypertension; Z98.84 Bariatric surgery status; Z90.49 Acquired absence of other specified parts of digestive tract; Z87.19 Personal history of other diseases of the digestive system
CPT/HCPCS: 99284; 96374; 36415; 83690; 85025; 80053; 81001; 80074; 76705; J3490; A9270; J2405; J7030

== ENCOUNTER 2017-01-09 12:26 | Emergency (ER) | payer MEDICARE ==
[2017-01-09 12:34] VITALS: BP 119/87
--- NOTE | 2017-01-09 12:54 | ER Document Report ---
ED General - General Chief Complaint: Abdominal Pain Stated Complaint: RIGHT SIDE/FLANK PAIN, BACK PAIN Time Seen by Provider: 01/09/17 12:43 Mode of Arrival: Ambulatory Information source: Patient Notes: This is a 41-year-old man presenting with right upper quadrant pain for 1 day. Patient states that he is addicted to Vicodin and he is concerned about his liver. The patient has had multiple encounters to the emergency room and is had serial liver function tests. Records from the ER reveal that he has had his liver panel checked 11 times since November 01. He denies any fever, chills, nausea or vomiting. TRAVEL OUTSIDE OF THE [place] IN LAST 30 DAYS: No - HPI Onset: Yesterday Onset/Duration: Gradual Quality of pain: Dull Severity: Moderate Pain Level: 2 Associated symptoms: denies: Chest pain, Fever, Shortness of breath Exacerbated by: Denies Relieved by: Denies Similar symptoms previously: Yes Recently seen / treated by doctor: Yes - Related Data Allergies/Adverse Reactions: quetiapine fumarate [From [employer]] Adverse Reaction (Verified 01/09/17 12:31) Past Medical History - General Information source: Patient - Social History Smoking Status: Current Every Day Smoker Cigarette use (# per day): Yes - 1 pack per day Chew tobacco use (# tins/day): No Smoking Education Provided: No Frequency of alcohol use: Occasional Drug Abuse: Prescription drugs Lives with: Alone Family History: CAD - States all the males in his family have of heart disease in their 40s., CVA, Other - [place] Patient has suicidal ideation: No Patient has homicidal ideation: No - Past Medical History Cardiac Medical History: Reports: Hx Hypercholesterolemia, Hx Hypertension, Hx Peripheral Vascular Disease - Left carotid stenosis 50-69% Denies: Hx Congestive Heart Failure, Hx DVT, Hx Heart Attack, Hx Pulmonary Embolism Pulmonary Medical History: Denies: Hx Asthma, Hx COPD Neurological Medical History: Reports: Hx Migraine. Denies: Hx Seizures Endocrine Medical History: Reports: Hx Hypothyroidism. Denies: Hx Diabetes Mellitus Type 1, Hx Diabetes Mellitus Type 2, Hx Hyperthyroidism Renal/ Medical History: Denies: Hx Peritoneal Dialysis GI Medical History: Reports: Hx Gastroesophageal Reflux Disease, Hx Hiatal Hernia. Denies: Hx Cirrhosis, Hx Hepatitis Musculoskeltal Medical History: Denies Hx Arthritis Psychiatric Medical History: Reports: Hx Anxiety, Hx Depression Infectious Medical History: Denies: Hx Hepatitis Past Surgical History: Reports: Hx Abdominal Surgery - x7 gastric bypass 05, bowel blockage,hernia repair, Hx Cardiac Catheterization - Which is found to be negative, Hx Cholecystectomy, Hx Gastric Bypass Surgery - Immunizations Immunizations up to date: Yes Hx Diphtheria, Pertussis, Tetanus Vaccination: Yes Review of Systems - Review of Systems Constitutional: denies: Chills, Fever EENT: No symptoms reported Cardiovascular: No symptoms reported Respiratory: No symptoms reported Gastrointestinal: See HPI Genitourinary: No symptoms reported Male Genitourinary: No symptoms reported Musculoskeletal: No symptoms reported Skin: No symptoms reported Hematologic/Lymphatic: No symptoms reported Neurological/Psychological: No symptoms reported Physical Exam - Vital signs Vitals: Temp Pulse Resp BP Pulse Ox 97.4 F 69 20 119/87 H 100 01/09/17 12:33 01/09/17 12:33 01/09/17 12:33 01/09/17 12:33 01/09/17 12:33 Notes: Physical exam: GENERAL: 41-year-old man, alert and oriented 3, no acute distress. HEAD: Atraumatic, normocephalic. EYES: Pupils equal round and reactive to light, extraocular movements intact, sclera anicteric, conjunctiva are normal. ENT: TMs normal, nares patent, oropharynx clear without exudates. Moist mucous membranes. NECK: Normal range of motion, supple without ovious mass or JVD. LUNGS: Breath sounds clear to auscultation bilaterally and equal. No wheezes rales or rhonchi. HEART: Regular rate and rhythm without murmurs, rubs or gallops. ABDOMEN: Soft, normoactive bowel sounds. He does have some right upper quadrant tenderness to palpation. No guarding, no rebound. No masses appreciated. EXTREMITIES: Normal range of motion, no pitting or edema. No clubbing or cyanosis. NEUROLOGICAL: Cranial nerves II through XII grossly intact. Normal speech, moving all extremities. PSYCH: Normal mood, normal affect. SKIN: Warm, Dry, normal turgor, no rashes or lesions noted. Course - Re-evaluation Re-evalutation: 01/09/17 12:57 I have had conversations with one of the EMS paramedics who oversees this patient in the community for primary care. They are trying to get him into outpatient detox. I have also discussed management of this patient with Benedicto from social work who is well-known with this patient. The patient has refused inpatient detox in the past unless they allow him to take his benzodiazepines ( which are not willing to do). Therefore, he is not been to inpatient detox. He has been referred to outpatient detox ([facility]) and will be referred there today. I reviewed his ultrasound on January 01 which showed no acute process. I reviewed the patient's liver panels from this summer: January 01, December 25, December 23, December 22, December 21, December 01, November 27, November 10, November 08, November 04, and November 01. All of these lab tests have been normal. On physical exam, the patient does have right upper quadrant tenderness which is without any mass or peritoneal findings. He is nonjaundiced on exam. I have explained to him that ultimately, he will only get better if he stops using drugs. Additionally, he will have to go to detox without preconditions or else he will never truly get better. As mentioned above, he has no evidence of icterus or peritonitis and his vital signs are stable. He is discharged and referred to [facility]. - Vital Signs Vital signs: Temp Pulse Resp BP Pulse Ox 97.4 F 69 20 119/87 H 100 01/09/17 12:33 01/09/17 12:33 01/09/17 12:33 01/09/17 12:33 01/09/17 12:33 Discharge - Discharge Clinical Impression: Chronic abdominal pain Condition: Stable Disposition: HOME, SELF-CARE Additional Instructions: Your advised to follow-up at [facility]: I recommend going directly there after leaving the emergency room.
== END 2017-01-09 12:57 | disposition home or self-care (01) ==
LOC: ER 12:26
DX: R10.11 Right upper quadrant pain (principal); R10.9 Unspecified abdominal pain; G89.29 Other chronic pain; M54.9 Dorsalgia, unspecified; F17.210 Nicotine dependence, cigarettes, uncomplicated
CPT/HCPCS: 99283

== ENCOUNTER 2017-01-10 12:57 | Emergency (ER) | payer MEDICARE ==
--- NOTE | 2017-01-10 13:23 | ER Document Report ---
ED Fall - General Chief Complaint: Fall Stated Complaint: BACK PAIN Time Seen by Provider: 01/10/17 13:06 Notes: The patient is a 41-year-old male, past medical history chronic back pain, polysubstance abuse, presents by EMS after he had a fall after taking his sleeping medications and Valium earlier today. He has a laceration on his forehead, neck pain and does not think that he has any LOC. He was scheduled to go to outpatient detox today at 1330 before the fall. He denies chest pain, shortness of breath, blurry vision, dental pain, nausea, vomiting, chest pain, shortness of breath, numbness, tingling or urinary problems. TRAVEL OUTSIDE OF THE [place] IN LAST 30 DAYS: No - Related data Allergies/Adverse Reactions: quetiapine fumarate [From Seroquel] Adverse Reaction (Verified 01/09/17 12:31) Past Medical History - General Information source: Patient - Social History Smoking Status: Unknown if Ever Smoked Family History: CAD - States all the males in his family have of heart disease in their 40s., CVA, Other - [place] - Past Medical History Cardiac Medical History: Reports: Hx Hypercholesterolemia, Hx Hypertension, Hx Peripheral Vascular Disease - Left carotid stenosis 50-69% Denies: Hx Congestive Heart Failure, Hx DVT, Hx Heart Attack, Hx Pulmonary Embolism Pulmonary Medical History: Denies: Hx Asthma, Hx COPD Neurological Medical History: Reports: Hx Migraine. Denies: Hx Seizures Endocrine Medical History: Reports: Hx Hypothyroidism. Denies: Hx Diabetes Mellitus Type 1, Hx Diabetes Mellitus Type 2, Hx Hyperthyroidism Renal/ Medical History: Denies: Hx Peritoneal Dialysis GI Medical History: Reports: Hx Gastroesophageal Reflux Disease, Hx Hiatal Hernia. Denies: Hx Cirrhosis, Hx Hepatitis Musculoskeltal Medical History: Denies Hx Arthritis Psychiatric Medical History: Reports: Hx Anxiety, Hx Depression Infectious Medical History: Denies: Hx Hepatitis Past Surgical History: Reports: Hx Abdominal Surgery - x7 gastric bypass 05, bowel blockage,hernia repair, Hx Cardiac Catheterization - Which is found to be negative, Hx Cholecystectomy, Hx Gastric Bypass Surgery - Immunizations Immunizations up to date: Yes Hx Diphtheria, Pertussis, Tetanus Vaccination: Yes Review of Systems - Review of Systems Notes: REVIEW OF SYSTEMS: CONSTITUTIONAL: -fevers, -chills EENT: -eye pain, -difficulty swallowing, -nasal congestion CARDIOVASCULAR:-chest pain, -syncope. RESPIRATORY: -cough, -SOB GASTROINTESTINAL: -abdominal pain, -nausea, -vomiting, -diarrhea GENITOURINARY: -dysuria, -hematuria MUSCULOSKELETAL: -back pain, -neck pain SKIN: +forehead laceration, -rash or skin lesions. HEMATOLOGIC: -easy bruising or bleeding. LYMPHATIC: -swollen, enlarged glands. NEUROLOGICAL: -altered mental status or loss of consciousness, -headache, - neurologic symptoms PSYCHIATRIC: -anxiety, -depression. ALL OTHER SYSTEMS REVIEWED AND NEGATIVE. Physical Exam - Vital signs Vitals: Temp Pulse Resp BP Pulse Ox 97.1 F 66 16 112/69 97 01/10/17 13:12 01/10/17 13:12 01/10/17 13:12 01/10/17 13:12 01/10/17 13:12 - Notes Notes: PHYSICAL EXAMINATION: GENERAL: Well-appearing, well-nourished and in no acute distress. HEAD: Forehead laceration. EYES: Pupils equal round and reactive to light, extraocular movements intact, sclera anicteric, conjunctiva are normal. ENT: nares patent, oropharynx clear without exudates. Moist mucous membranes. NECK: Normal range of motion, supple without lymphadenopathy LUNGS: Breath sounds clear to auscultation bilaterally and equal. No wheezes rales or rhonchi. HEART: Regular rate and rhythm without murmurs ABDOMEN: Soft, nontender, normoactive bowel sounds. No guarding, no rebound. No masses appreciated. EXTREMITIES: Normal range of motion, no pitting or edema. No cyanosis. NEUROLOGICAL: Cranial nerves grossly intact. Normal speech, normal gait. Normal sensory and motor exams. PSYCH: Normal mood, normal affect. SKIN: 3 cm linear forehead laceration Course - Re-evaluation Re-evalutation: Patient's head CT and C-spine CT do not show any acute fractures. There is a pulmonary nodule and possible area of infection or inflammation on the CT C- spine. He has no cough, fevers, hypoxia or shortness of breath to suggest pneumonia. Instructed him to have this followed up by his primary care physician. Forehead laceration repaired with Dermabond and Steri-Strips. Community paramedicine and case specialist in the ER and patient will be transferred to [facility] center today. - Vital Signs Vital signs: Temp Pulse Resp BP Pulse Ox 97.1 F 66 16 112/69 97 01/10/17 13:14 01/10/17 13:14 01/10/17 13:14 01/10/17 13:14 01/10/17 13:14 - Diagnostic Test Radiology reviewed: Image reviewed, Reports reviewed Radiology results interpreted by me: CT Head: NAD CT C-spine: 1. No acute abnormality cervical spine. There is mild spondylosis and degenerative disc change. 2. There is ground-glass opacification in the right upper lobe. Interstitial edema, infection, or inflammation. 3. 8 mm right pleural nodule. Procedures - Laceration/Wound Repair Mid- Head Time completed: 13:53 Wound length (cm): 3 Wound's Depth, Shape: Linear Laceration pre-procedure: Chloraprep applied Wound Repaired With: Steri-strips, Dermabond Layer Closure?: No Post-procedure wound care: Sterile dressing applied Post-procedure NV exam normal: Yes Complications: No Discharge - Discharge Clinical Impression: Head injury Qualifiers: Encounter type: initial encounter Qualified Code(s): S09.90XA - Unspecified injury of head, initial encounter Forehead laceration Qualifiers: Encounter type: initial encounter Qualified Code(s): S01.81XA - Laceration without foreign body of other part of head, initial encounter Condition: Stable Disposition: HOME, SELF-CARE Additional Instructions: You will be discharged to go to [facility] to help with your drug addiction. LACERATION CARE: Your laceration has been Dermabonded to keep the skin edges aligned during healing. Please follow the care instructions the doctor has outlined for you and return for further care, according to the schedule you've been given. Keep the wound and dressing clean. Unless you were told otherwise, you may shower daily, blotting the wound dry with a clean, unused towel. At other times, If the dressing gets wet or blood soaked, remove it and blot the wound dry, then reapply a new dressing. Unless you were instructed otherwise, dressings should be changed at least daily. If any signs of infection occur (swelling, redness, drainage, increasing tenderness, red streaks, tender lumps in the armpit or groin above the laceration, or fever), see the doctor immediately. SOAP CLEANSING: Gently wash the wound daily using a mild soap (like Ivory, Phisoderm, Neutrogena). Use warm water, rubbing gently until all debris, ooze, and crusting have been washed from the wound. Allow to dry briefly (about 10 minutes) after cleaning. Repeat this cleansing at least three times a day for the first two days and then once or twice a day. ANTIBIOTIC OINTMENT PROTECTION: Your wounds are such that dressing them is not practical or optional. After cleansing, you should apply a thin coating of antibiotic ointment ( Bacitracin, not Neosporin) to the wounds at least three times daily. This lessens infection risk, and may decrease the amount of scarring. Use a q-tip or dull butter knife, not your finger, to apply this ointment. Any debris or ooze which builds up in the ointment should be gently rubbed off with a sterile gauze pad. Harder crusting may need to be gently scrubbed off with a clean wash cloth with soap and warm water, perhaps applying a warm, wet wash cloth to the wound for ten minutes first. Development of redness, severe itching, or blistering may mean allergy to the ointment. See the doctor. FOLLOW-UP CARE: If you have been referred to another physician for follow-up care, call that physicians office for an appointment as you were instructed. If you experience a significant change in your laceration, or if you are concerned there may be an infection (swelling, redness, drainage, increasing tenderness, red streaks, tender lumps in the armpit or groin above the laceration, or fever) , return to the Emergency Department immediately re-evaluation. Referrals: NEHEMIAS ALONZO MD [Primary Care Provider] - Follow up as needed
--- NOTE | 2017-01-10 13:50 | RADIOLOGY REPORT (SQ) ---
EXAM DESCRIPTION: CT HEAD WITHOUT COMPLETED DATE/TIME: 01/10/2017 1:30 pm REASON FOR STUDY: fall COMPARISON: None. TECHNIQUE: Axial images acquired through the brain without intravenous contrast. Images reviewed wi th bone, brain and subdural windows. Images stored on PACS. All CT scanners at this facility use dose modulation, iterative reconstruction, and/or weight based d osing when appropriate to reduce radiation dose to as low as reasonably achievable (ALARA). [facility]: Dose Right [facility]: CareDose [facility]: Dose Right [facility]: Teradose 4D [facility]: Hop Skip Connect RADIATION DOSE: Up-to-date CT equipment and radiation dose reduction techniques were employed. CTDIv ol: 64.6 mGy. DLP: 1163 mGy-cm. mGy. LIMITATIONS: None. FINDINGS: VENTRICLES: Normal size and contour. CEREBRUM: No masses. No hemorrhage. No midline shift. No evidence for acute infarction. Normal gra y/white matter differentiation. No areas of low density in the white matter. CEREBELLUM: No masses. No hemorrhage. No alteration of density. No evidence for acute infarction. EXTRAAXIAL SPACES: No fluid collections. No masses. ORBITS AND GLOBE: No intra- or extraconal masses. Normal contour of globe without masses. CALVARIUM: No fracture. PARANASAL SINUSES: Minimal mucoperiosteal thickening in the right maxillary sinus. SOFT TISSUES: No mass or hematoma. OTHER: No other significant finding. IMPRESSION: Minimal right maxillary sinus disease with no acute intracranial pathology. COMMENT: Quality ID # [id number]: Final reports with documentation of one or more dose reduction techniques (e.g., Automated exposure control, adjustment of the mA and/or kV according to patient size, use of iterative reconstruction technique) TECHNICAL DOCUMENTATION: JOB ID: [id number]- All Rights Reserved
--- NOTE | 2017-01-10 13:56 | RADIOLOGY REPORT (SQ) ---
EXAM DESCRIPTION: CT CERVICAL SPINE WITHOUT COMPLETED DATE/TIME: 01/10/2017 1:30 pm REASON FOR STUDY: fall COMPARISON: None. TECHNIQUE: Axial images acquired through the cervical spine without intravenous contrast. Images re viewed with lung, soft tissue and bone windows. Reconstructed coronal and sagittal MPR images review ed. Images stored on PACS. All CT scanners at this facility use dose modulation, iterative reconstruction, and/or weight based d osing when appropriate to reduce radiation dose to as low as reasonably achievable (ALARA). [facility]: Dose Right [facility]: CareDose [facility]: Dose Right [facility]: Teradose 4D [facility]: Smart [employer] RADIATION DOSE: Up-to-date CT equipment and radiation dose reduction techniques were employed. CTDIv ol: 21.0 mGy. DLP: 437 mGy-cm. mGy. LIMITATIONS: None. FINDINGS: ALIGNMENT: Anatomic. MINERALIZATION: Normal. VERTEBRAL BODIES: No fractures or dislocation. Small anterior osteophytes at C5 and C6. DISCS: There is minimal narrowing of the disc spaces C5-6 C6-7. FACETS, LATERAL MASSES, POSTERIOR ELEMENTS: No fractures. No dislocation. No acute findings. HARDWARE: None in the spine. VISUALIZED RIBS: No fractures. LUNG APICES AND SOFT TISSUES: There is ground-glass opacification in the right upper lobe. There is an 8 mm pleural nodule medial superior aspect of the right upper hemithorax. OTHER: No other significant finding. IMPRESSION: 1. No acute abnormality cervical spine. There is mild spondylosis and degenerative dis c change. 2. There is ground-glass opacification in the right upper lobe. Interstitial edema, infection, or i nflammation. 3. 8 mm right pleural nodule. TECHNICAL DOCUMENTATION: JOB ID: [id number] Quality ID # [id number]: Final reports with documentation of one or more dose reduction techniques (e.g., Au tomated exposure control, adjustment of the mA and/or kV according to patient size, use of iterative reconstruction technique) 2010 [employer]- All Rights Reserved
[2017-01-10 16:06] VITALS: BP 108/69
== END 2017-01-10 15:44 | disposition home or self-care (01) ==
LOC: ER 12:57
PROC: 0HQ1XZZ Repair Face Skin, External Approach (ICD-10-PCS; principal; 2017-01-10)
DX: S01.81XA Laceration without foreign body of other part of head, initial encounter (principal); W19.XXXA Unspecified fall, initial encounter; Y93.89 Activity, other specified; M47.9 Spondylosis, unspecified; M54.2 Cervicalgia; I10 Essential (primary) hypertension; R91.1 Solitary pulmonary nodule; Z98.84 Bariatric surgery status
CPT/HCPCS: 70450; 72125; 99285

== ENCOUNTER 2017-02-04 12:49 | Emergency (ER) | payer MEDICARE ==
[2017-02-04 13:12] VITALS: BP 110/81
--- NOTE | 2017-02-04 13:26 | ER Document Report ---
ED Medical Screen (RME) - General Chief Complaint: Chest Pain Stated Complaint: CHEST PAIN Time Seen by Provider: 02/04/17 13:24 Notes: Patient presents with left-sided chest pain going to his neck. He states is severe and started last evening. He states he was recently hospitalized for this pain with a negative workup. Patient has a history of gastric bypass and polysubstance abuse. Patient states she has also been lightheaded and dizzy. TRAVEL OUTSIDE OF THE [place] IN LAST 30 DAYS: No - Related Data Allergies/Adverse Reactions: quetiapine fumarate [From Seroquel] Adverse Reaction (Verified 01/09/17 12:31) Past Medical History - Social History Family history: CAD - Past Medical History Cardiac Medical History: Reports: Hx Hypercholesterolemia, Hx Hypertension, Hx Peripheral Vascular Disease - Left carotid stenosis 50-69% Denies: Hx Congestive Heart Failure, Hx DVT, Hx Heart Attack, Hx Pulmonary Embolism Pulmonary Medical History: Denies: Hx Asthma, Hx COPD Neurological Medical History: Reports: Hx Migraine. Denies: Hx Seizures Endocrine Medical History: Reports: Hx Hypothyroidism. Denies: Hx Diabetes Mellitus Type 1, Hx Diabetes Mellitus Type 2, Hx Hyperthyroidism Renal/ Medical History: Denies: Hx Peritoneal Dialysis GI Medical History: Reports: Hx Gastroesophageal Reflux Disease, Hx Hiatal Hernia. Denies: Hx Cirrhosis, Hx Hepatitis Musculoskeltal Medical History: Denies Hx Arthritis Psychiatric Medical History: Reports: Hx Anxiety, Hx Depression Infectious Medical History: Denies: Hx Hepatitis Past Surgical History: Reports: Hx Abdominal Surgery - x7 gastric bypass 05, bowel blockage,hernia repair, Hx Cardiac Catheterization - Which is found to be negative, Hx Cholecystectomy, Hx Gastric Bypass Surgery - Immunizations Immunizations up to date: Yes Hx Diphtheria, Pertussis, Tetanus Vaccination: Yes Physical Exam - Vital signs Vitals: Temp Pulse Resp BP Pulse Ox 98.1 F 73 20 110/81 96 02/04/17 13:02 02/04/17 13:02 02/04/17 13:02 02/04/17 13:02 02/04/17 13:02 Course - Vital Signs Vital signs: Temp Pulse Resp BP Pulse Ox 98.1 F 73 20 110/81 96 02/04/17 13:02 02/04/17 13:02 02/04/17 13:02 02/04/17 13:02 02/04/17 13:02
[2017-02-04 13:58] LABS: ABSOLUTE BASOPHILS # (AUTO) 0.1 10^3/uL (0.0-0.2); ABSOLUTE EOSINOPHILS # (AUTO) 0.1 10^3/uL (0.0-0.6); ABSOLUTE LYMPHOCYTES (AUTO) 1.4 10^3/uL (0.5-4.7); ABSOLUTE MONOCYTES (AUTO) 0.4 10^3/uL (0.1-1.4); BASOPHILS % (AUTO) 0.9 % (0-2); EOSINOPHILS % (AUTO) 2.2 % (0-6); HEMATOCRIT 41.7 % (37.9-51.0); HEMOGLOBIN 14.6 g/dL (13.5-17.0); HGB HCT DIFFERENCE 2.1; LYMPHOCYTES % (AUTO) 23.7 % (13-45); MEAN CORPUSCULAR HGB CONC 35.1 g/dL (32.0-36.0); MEAN CORPUSCULAR VOLUME 86 fl (80-97); MONOCYTES % (AUTO) 6.5 % (3-13); RED BLOOD COUNT 4.87 10^6/uL (4.35-5.55); RED CELL DISTRIBUTION WIDTH 13.6 % (11.5-14.0); SEGMENTED NEUTROPHILS % (AUTO) 66.7 % (42-78)
--- NOTE | 2017-02-04 14:19 | ER Document Report ---
ED General - General Chief Complaint: Chest Pain Stated Complaint: CHEST PAIN Time Seen by Provider: 02/04/17 13:24 Mode of Arrival: Medic Information source: Patient Notes: This is a 41-year-old man with a history of chronic pain and substance abuse who presents to the emergency room with upper abdominal pain and left arm and leg pain. Patient states that his pain started approximately 15 hours ago (02/03 at 2100) and that it has been constant since that time. Patient has had similar pain to this in the past. Patient states that given his substance abuse , he is concerned that he may have inflamed his liver. Patient has had multiple encounters in the emergency room for similar symptoms. TRAVEL OUTSIDE OF THE [place] IN LAST 30 DAYS: No - HPI Onset: Yesterday Onset/Duration: Gradual Quality of pain: Dull Severity: Moderate Pain Level: 4 Associated symptoms: Chest pain. denies: Fever, Shortness of breath Exacerbated by: Movement Relieved by: Denies Similar symptoms previously: Yes Recently seen / treated by doctor: Yes - Related Data Allergies/Adverse Reactions: quetiapine fumarate [From Seroquel] Adverse Reaction (Verified 01/09/17 12:31) Past Medical History - General Information source: Patient - Social History Smoking Status: Never Smoker Cigarette use (# per day): No Chew tobacco use (# tins/day): No Frequency of alcohol use: Rare Drug Abuse: None Lives with: Alone Family History: CAD - States all the males in his family have of heart disease in their 40s., CVA, Other - [place] Patient has suicidal ideation: No Patient has homicidal ideation: No - Past Medical History Cardiac Medical History: Reports: Hx Hypercholesterolemia, Hx Hypertension, Hx Peripheral Vascular Disease - Left carotid stenosis 50-69% Denies: Hx Congestive Heart Failure, Hx DVT, Hx Heart Attack, Hx Pulmonary Embolism Pulmonary Medical History: Denies: Hx Asthma, Hx COPD Neurological Medical History: Reports: Hx Migraine. Denies: Hx Seizures Endocrine Medical History: Reports: Hx Hypothyroidism. Denies: Hx Diabetes Mellitus Type 1, Hx Diabetes Mellitus Type 2, Hx Hyperthyroidism Renal/ Medical History: Denies: Hx Peritoneal Dialysis GI Medical History: Reports: Hx Gastroesophageal Reflux Disease, Hx Hiatal Hernia. Denies: Hx Cirrhosis, Hx Hepatitis Musculoskeltal Medical History: Denies Hx Arthritis Psychiatric Medical History: Reports: Hx Anxiety, Hx Depression Infectious Medical History: Denies: Hx Hepatitis Past Surgical History: Reports: Hx Abdominal Surgery - x7 gastric bypass 05, bowel blockage,hernia repair, Hx Cardiac Catheterization - Which is found to be negative, Hx Cholecystectomy, Hx Gastric Bypass Surgery - Immunizations Immunizations up to date: Yes Hx Diphtheria, Pertussis, Tetanus Vaccination: Yes Review of Systems - Review of Systems Constitutional: denies: Chills, Fever EENT: No symptoms reported Cardiovascular: See HPI Respiratory: No symptoms reported Gastrointestinal: No symptoms reported Genitourinary: No symptoms reported Male Genitourinary: No symptoms reported Musculoskeletal: See HPI Skin: No symptoms reported Hematologic/Lymphatic: No symptoms reported Neurological/Psychological: See HPI Physical Exam - Vital signs Vitals: Temp Pulse Resp BP Pulse Ox 98.1 F 73 20 110/81 96 02/04/17 13:02 02/04/17 13:02 02/04/17 13:02 02/04/17 13:02 02/04/17 13:02 Notes: Physical exam: GENERAL: 41-year-old man, alert and oriented 3 HEAD: Atraumatic, normocephalic. EYES: Pupils equal round and reactive to light, extraocular movements intact, sclera anicteric, conjunctiva are normal. ENT: TMs normal, nares patent, oropharynx clear without exudates. Moist mucous membranes. NECK: Normal range of motion, supple without obvious mass or JVD. LUNGS: Breath sounds clear to auscultation bilaterally and equal. No wheezes rales or rhonchi. HEART: Regular rate and rhythm without murmurs, rubs or gallops. ABDOMEN: Soft, normoactive bowel sounds. No tenderness to palpation. No guarding, no rebound. No masses appreciated. EXTREMITIES: Normal range of motion, no pitting or edema. No clubbing or cyanosis. NEUROLOGICAL: Cranial nerves II through XII grossly intact. Normal speech, moving all extremities. PSYCH: Normal mood, normal affect. SKIN: Warm, Dry, normal turgor, no rashes or lesions noted. Course - Re-evaluation Re-evalutation: 02/04/17 16:26 On reassessment of the patient, he is complaining of persistent pain which she has had in the past. He is nauseated and I will give him some nausea medicine. Repeat examination reveals clear lungs, heart regular, abdomen soft and nontender, his distal pulses are good and his extremities are warm. We will continue to follow. 02/04/17 20:44 Patient's cardiac enzymes have remained normal. He is hemodynamically stable. He has continued to have this pain which she has had chronically. I have had a long discussion with the patient. I do not think he is having an acute coronary syndrome. He has had a recent workup and hospitalization at [facility]. He has had an extensive vascular and cardiac workup within the last several months including echo, ultrasounds of the carotid arteries and the subclavian vessels. A stress test in October was normal. Cardiac cath 2 years ago was clean. 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 He has had this persistent pain and is followed by the pain clinic. He will follow-up with his outpatient doctors. 02/04/17 20:48 - Vital Signs Vital signs: Temp Pulse Resp BP Pulse Ox 98.1 F 73 20 110/81 96 02/04/17 13:02 02/04/17 13:02 02/04/17 13:02 02/04/17 13:02 02/04/17 13:02 - Laboratory Result Diagrams: 02/04/17 13:40 02/04/17 14:47 Laboratory results interpreted by me: 02/04/17 02/04/17 13:40 14:47 Plt Count 475 H Sodium 129.2 L Potassium 5.5 H Chloride 92 L - EKG Interpretation by Ct Rate: Normal Rhythm: NSR - EKG shows normal sinus rhythm with a ventricular rate of 72, no acute ST-T wave changes Discharge - Discharge Clinical Impression: Chest wall pain Condition: Stable Disposition: HOME, SELF-CARE Additional Instructions: Thank you for choosing [facility] for your care. The examination and treatment you have received in the Emergency Department today has been rendered on an emergency basis only and is not intended to be a substitute for complete medical care. You should contact your follow-up physician as it is important that he or she examine you for any new or remaining problems. If given a copy of any lab tests or radiology reports, please bring them with you when you see your physician. If your problem worsens or new symptoms appear and you are unable to arrange prompt follow-up care, return to the Emergency Department. Any other instructions: Follow up with your outpatient doctors. Continue current medicines.
[2017-02-04 15:29] LABS: ALANINE AMINOTRANSFERASE 36 U/L (21-72); ALBUMIN 4.2 g/dL (3.5-5.0); ALKALINE PHOSPHATASE 67 U/L (38-126); ANION GAP 10 (5-19); ASPARTATE AMINO TRANSFERASE 20 U/L (17-59); BILIRUBIN,DIRECT 0.4 mg/dL (0.0-0.4); BILIRUBIN,TOTAL 0.5 mg/dL (0.2-1.3); BLOOD UREA NITROGEN 13 mg/dL (7-20); CALCIUM 9.7 mg/dL (8.4-10.2); CARBON DIOXIDE 27 mmol/L (22-30); CHLORIDE 92 mmol/L (98-107); CREATININE RESULT 0.68 mg/dL (0.52-1.25); GLUCOSE 85 mg/dL (75-110); LIPASE 25.3 U/L (23-300); POTASSIUM 5.5 mmol/L (3.6-5.0); SODIUM 129.2 mmol/L (137-145); TOTAL PROTEIN 6.9 g/dL (6.3-8.2)
[2017-02-04] MEDS ORDERED: MAG HYDROX/AL HYDROX/SIMETH SUSP 30 ML UDCUP PO ONE (16:04)
[2017-02-04] MEDS ORDERED: LIDOCAINE 2% VISCOUS SOLN 20 ML UDCUP PO ONE (16:04)
[2017-02-04] MEDS ORDERED: METOCLOPRAMIDE HCL ORAL SOLN 10 MG/10 ML UDCUP PO ONE (16:04)
[2017-02-04] MEDS ORDERED: NORMAL SALINE 1000 ML 1,000 ML IV PRN (16:04)
[2017-02-04] MEDS ORDERED: ONDANSETRON HCL INJ/PF 4 MG/2 ML SDV IV ONE (16:05)
[2017-02-04 16:14] LABS: APPEARANCE,URINE CLEAR; BILIRUBIN,URINE NEGATIVE (NEGATIVE); GLUCOSE, URINE NEGATIVE (NEGATIVE); KETONES,URINE NEGATIVE (NEGATIVE); LEUKOCYTE ESTERASE,URINE NEGATIVE (NEGATIVE); NITRITE,URINE NEGATIVE (NEGATIVE); PROTEIN,URINE NEGATIVE (NEGATIVE); URINE SPECIFIC GRAVITY 1.017; UROBILINOGEN,URINE NEGATIVE mg/dL (<2.0)
[2017-02-04 16:29] LABS: URINE BARBITURATES SCREEN UNCONFIRMED POSITIVE; URINE METHADONE SCREEN NEGATIVE; URINE OPIATES LOW UNCONFIRMED POSITIVE; URINE PHENCYCLIDINE SCREEN NEGATIVE
--- NOTE | 2017-02-04 16:46 | EKG REPORT ---
SEVERITY:- NORMAL ECG - SINUS RHYTHM : Confirmed by: Mariaelena Sahni MD 04-Feb-2017 16:45:13
== END 2017-02-04 21:04 | disposition home or self-care (01) ==
LOC: ER 12:49
DX: R07.89 Other chest pain (principal); G89.29 Other chronic pain; E78.00 Pure hypercholesterolemia, unspecified; I10 Essential (primary) hypertension; E03.9 Hypothyroidism, unspecified; K21.9 Gastro-esophageal reflux disease without esophagitis; Z98.84 Bariatric surgery status
CPT/HCPCS: 93005; 99285; 96361; 96374; 36415; 83690; 85025; 80053; 81001; 84484; 80307; 93010; J3490; A9270; J2405; J7030

== ENCOUNTER 2017-02-09 10:07 | Emergency (ER) | payer MEDICARE ==
--- NOTE | 2017-02-09 10:12 | ER Document Report ---
ED General - General Stated Complaint: ABDOMINAL PAIN Time Seen by Provider: 02/09/17 10:10 Mode of Arrival: Medic Information source: Patient Notes: 41-year-old male chronic abdominal pain chest pain presents with complaints of abdominal pain chest pain 3 hours after using heroin. Patient denies any fevers or chills TRAVEL OUTSIDE OF THE [place] IN LAST 30 DAYS: No - HPI Onset: Just prior to arrival Onset/Duration: Sudden Quality of pain: Achy Severity: Mild Pain Level: 1 Associated symptoms: Other Exacerbated by: Other - raya Relieved by: Denies Similar symptoms previously: Yes Recently seen / treated by doctor: Yes - Related Data Allergies/Adverse Reactions: quetiapine fumarate [From [employer]] Adverse Reaction (Verified 01/09/17 12:31) Past Medical History - Social History Smoking Status: Current Every Day Smoker Cigarette use (# per day): Yes Chew tobacco use (# tins/day): No Smoking Education Provided: No Drug Abuse: Heroin, Marijuana, Prescription drugs, Other Family History: CAD - States all the males in his family have of heart disease in their 40s., CVA, Other - [place] - Past Medical History Cardiac Medical History: Reports: Hx Hypercholesterolemia, Hx Hypertension, Hx Peripheral Vascular Disease - Left carotid stenosis 50-69% Denies: Hx Congestive Heart Failure, Hx DVT, Hx Heart Attack, Hx Pulmonary Embolism Pulmonary Medical History: Denies: Hx Asthma, Hx COPD Neurological Medical History: Reports: Hx Migraine. Denies: Hx Seizures Endocrine Medical History: Reports: Hx Hypothyroidism. Denies: Hx Diabetes Mellitus Type 1, Hx Diabetes Mellitus Type 2, Hx Hyperthyroidism Renal/ Medical History: Denies: Hx Peritoneal Dialysis GI Medical History: Reports: Hx Gastroesophageal Reflux Disease, Hx Hiatal Hernia. Denies: Hx Cirrhosis, Hx Hepatitis Musculoskeltal Medical History: Denies Hx Arthritis Psychiatric Medical History: Reports: Hx Anxiety, Hx Depression Infectious Medical History: Denies: Hx Hepatitis Past Surgical History: Reports: Hx Abdominal Surgery - x7 gastric bypass 05, bowel blockage,hernia repair, Hx Cardiac Catheterization - Which is found to be negative, Hx Cholecystectomy, Hx Gastric Bypass Surgery - Immunizations Immunizations up to date: Yes Hx Diphtheria, Pertussis, Tetanus Vaccination: Yes Review of Systems - Review of Systems Notes: REVIEW OF SYSTEMS: CONSTITUTIONAL : Denies fever, chills, or sweats. Denies recent illness. EENT: Denies eye, ear, throat, or mouth pain or symptoms. Denies nasal or sinus congestion or discharge. Denies throat, tongue, or mouth swelling or difficulty swallowing. CARDIOVASCULAR: Admits chest pain RESPIRATORY: Denies cough, cold, or chest congestion. Denies shortness of breath, difficulty breathing, or wheezing. GASTROINTESTINAL: Admits to abdominal pain GENITOURINARY: Denies difficulty urinating, painful urination, burning, frequency, blood in urine, or discharge. MUSCULOSKELETAL: Denies back or neck pain or stiffness. Denies joint pain or swelling. SKIN: Denies rash, lesions or sores. HEMATOLOGIC : Denies easy bruising or bleeding. LYMPHATIC: Denies swollen, enlarged glands. NEUROLOGICAL: Denies confusion or altered mental status. Denies passing out or loss of consciousness. Denies dizziness or lightheadedness. Denies headache. Denies weakness or paralysis or loss of use of either side. Denies problems with gait or speech. Denies sensory loss, numbness, or tingling. Denies seizures. PSYCHIATRIC: Denies anxiety or stress. Denies depression, suicidal ideation, or homicidal ideation. ALL OTHER SYSTEMS REVIEWED AND NEGATIVE. Dictation was performed using [employer] voice recognition software PHYSICAL EXAMINATION: GENERAL: Well-appearing, well-nourished and in no acute distress. HEAD: Atraumatic, normocephalic. EYES: Pupils equal round and reactive to light, extraocular movements intact, sclera anicteric, conjunctiva are normal. ENT: Nares patent, oropharynx clear without exudates. Moist mucous membranes. Poor dentition NECK: Normal range of motion, supple without lymphadenopathy LUNGS: Breath sounds clear to auscultation bilaterally and equal. No wheezes rales or rhonchi. HEART: Regular rate and rhythm without murmurs ABDOMEN: Soft, nontender, nondistended abdomen. No guarding, no rebound. No masses appreciated. Musculoskeletal: Normal range of motion, no pitting or edema. No cyanosis. NEUROLOGICAL: Cranial nerves grossly intact. Normal speech, normal gait. Normal sensory, motor exams PSYCH: Normal mood, normal affect. SKIN: Warm, Dry, normal turgor, no rashes or lesions noted. Physical Exam - Vital signs Vitals: Resp 16 02/09/17 10:10 Course - Re-evaluation Re-evalutation: 02/09/17 10:14 Cardiac enzymes lab work pending, patient has very destructive behavior has been counseled regarding this 02/09/17 12:14 Patient is noted to have chronic hyponatremia, he was given IV fluids otherwise he is at his baseline. Patient has not vomited in the emergency department and will be discharged home to follow-up After performing a Medical Screening Examination, I estimate there is LOW risk for RUPTURED ESOPHAGUS, PNEUMOTHORAX, PULMONARY EMBOLISM, ACUTE CORONARY SYNDROME, OR THORACIC AORTIC DISSECTION, thus I consider the discharge disposition reasonable. I have reevaluated this patient multiple times and no significant life threatening changes are noted. The patient and I have discussed the diagnosis and risks, and we agree with discharging home with close follow-up. We also discussed returning to the Emergency Department immediately if new or worsening symptoms occur. We have discussed the symptoms which are most concerning (e.g., bloody sputum, worsening pain or shortness of breath) that necessitate immediate return. - Vital Signs Vital signs: Temp Pulse Resp BP Pulse Ox 97.7 F 62 16 138/94 H 98 02/09/17 10:15 02/09/17 10:15 02/09/17 10:15 02/09/17 10:15 02/09/17 10:15 - Laboratory Result Diagrams: 02/09/17 10:00 02/09/17 10:00 Laboratory results interpreted by me: 02/09/17 02/09/17 10:00 10:00 MCHC 36.1 H Seg Neutrophils % 82.6 H Lymphocytes % 10.5 L Sodium 126.8 L Potassium 5.2 H Chloride 91 L BUN 6 L Glucose 116 H AST 13 L Creatine Kinase 32 L Discharge - Discharge Clinical Impression: Chronic hyponatremia, Chest pain of uncertain etiology Condition: Stable Disposition: HOME, SELF-CARE Instructions: Abdominal Pain ([facility]) Additional Instructions: Follow up with your physician tomorrow for further care or return to the ED IMMEDIATELY if symptoms worsen or new concerns occur. If you cannot afford to follow up with your primary care physician a list of low cost clinics have been provided at the end of your discharge papers as well. Referrals: ALMA PATRICK MD [ACTIVE STAFF] - Follow up tomorrow
[2017-02-09 10:35] LABS: ABSOLUTE BASOPHILS # (AUTO) 0.1 10^3/uL (0.0-0.2); ABSOLUTE EOSINOPHILS # (AUTO) 0.1 10^3/uL (0.0-0.6); ABSOLUTE MONOCYTES (AUTO) 0.5 10^3/uL (0.1-1.4); ABSOLUTE NEUT (AUTO) 7.6 10^3/uL (1.7-8.2); BASOPHILS % (AUTO) 0.6 % (0-2); EOSINOPHILS % (AUTO) 0.9 % (0-6); HEMATOCRIT 39.3 % (37.9-51.0); HEMOGLOBIN 14.2 g/dL (13.5-17.0); HGB HCT DIFFERENCE 3.3; LYMPHOCYTES % (AUTO) 10.5 % (13-45); MEAN CORPUSCULAR HEMOGLOBIN 30.9 pg (27.0-33.4); MEAN CORPUSCULAR HGB CONC 36.1 g/dL (32.0-36.0); MEAN CORPUSCULAR VOLUME 86 fl (80-97); MONOCYTES % (AUTO) 5.4 % (3-13); RED BLOOD COUNT 4.59 10^6/uL (4.35-5.55); RED CELL DISTRIBUTION WIDTH 13.7 % (11.5-14.0); SEGMENTED NEUTROPHILS % (AUTO) 82.6 % (42-78); WHITE BLOOD COUNT 9.2 10^3/uL (4.0-10.5)
[2017-02-09 10:59] LABS: ALANINE AMINOTRANSFERASE 28 U/L (21-72); ALBUMIN 4.2 g/dL (3.5-5.0); ALKALINE PHOSPHATASE 62 U/L (38-126); ANION GAP 8 (5-19); ASPARTATE AMINO TRANSFERASE 13 U/L (17-59); BILIRUBIN,DIRECT 0.4 mg/dL (0.0-0.4); BILIRUBIN,TOTAL 0.6 mg/dL (0.2-1.3); BLOOD UREA NITROGEN 6 mg/dL (7-20); CALCIUM 9.8 mg/dL (8.4-10.2); CARBON DIOXIDE 28 mmol/L (22-30); CHLORIDE 91 mmol/L (98-107); CREATINE KINASE 32 U/L (55-170); CREATININE RESULT 0.66 mg/dL (0.52-1.25); GLUCOSE 116 mg/dL (75-110); POTASSIUM 5.2 mmol/L (3.6-5.0); SODIUM 126.8 mmol/L (137-145); TOTAL PROTEIN 6.8 g/dL (6.3-8.2)
[2017-02-09 11:08] LABS: URINE BARBITURATES SCREEN UNCONFIRMED POSITIVE; URINE METHADONE SCREEN NEGATIVE; URINE OPIATES LOW UNCONFIRMED POSITIVE; URINE PHENCYCLIDINE SCREEN NEGATIVE
[2017-02-09 11:14] LABS: CREATINE KINASE MB 0.45 ng/mL (<4.55)
[2017-02-09 11:19] LABS: TROPONIN I < 0.012 ng/mL
[2017-02-09] MEDS ORDERED: NORMAL SALINE 1000 ML 1,000 ML IV ONE (11:26)
--- NOTE | 2017-02-09 13:05 | EKG REPORT ---
SEVERITY:- NORMAL ECG - SINUS RHYTHM : Confirmed by: Galen Lloyd 09-Feb-2017 13:04:08
[2017-02-09 13:33] VITALS: BP 130/87
== END 2017-02-09 13:41 | disposition home or self-care (01) ==
LOC: ER 10:07
DX: E87.1 Hypo-osmolality and hyponatremia (principal); R07.9 Chest pain, unspecified; R10.9 Unspecified abdominal pain; G89.29 Other chronic pain; F17.210 Nicotine dependence, cigarettes, uncomplicated
CPT/HCPCS: 93005; 99284; 96360; 36415; 82553; 82550; 85025; 80053; 84484; 80307; 93010; J7030

== ENCOUNTER 2017-02-24 07:26 | Emergency (ER) | payer MEDICARE ==
[2017-02-24 08:37] LABS: ABSOLUTE BASOPHILS # (AUTO) 0.1 10^3/uL (0.0-0.2); ABSOLUTE EOSINOPHILS # (AUTO) 0.6 10^3/uL (0.0-0.6); ABSOLUTE LYMPHOCYTES (AUTO) 1.3 10^3/uL (0.5-4.7); ABSOLUTE MONOCYTES (AUTO) 0.5 10^3/uL (0.1-1.4); ABSOLUTE NEUT (AUTO) 2.2 10^3/uL (1.7-8.2); BASOPHILS % (AUTO) 2.5 % (0-2); EOSINOPHILS % (AUTO) 12.6 % (0-6); HEMATOCRIT 42.5 % (37.9-51.0); HEMOGLOBIN 14.7 g/dL (13.5-17.0); HGB HCT DIFFERENCE 1.6; MEAN CORPUSCULAR HEMOGLOBIN 30.2 pg (27.0-33.4); MEAN CORPUSCULAR HGB CONC 34.7 g/dL (32.0-36.0); MEAN CORPUSCULAR VOLUME 87 fl (80-97); MONOCYTES % (AUTO) 10.9 % (3-13); RED BLOOD COUNT 4.88 10^6/uL (4.35-5.55); RED CELL DISTRIBUTION WIDTH 13.4 % (11.5-14.0); WHITE BLOOD COUNT 4.7 10^3/uL (4.0-10.5)
[2017-02-24 08:52] LABS: ALANINE AMINOTRANSFERASE 42 U/L (21-72); ALBUMIN 4.3 g/dL (3.5-5.0); ALKALINE PHOSPHATASE 53 U/L (38-126); ANION GAP 12 (5-19); ASPARTATE AMINO TRANSFERASE 25 U/L (17-59); BILIRUBIN,DIRECT 0.4 mg/dL (0.0-0.4); BILIRUBIN,TOTAL 0.7 mg/dL (0.2-1.3); BLOOD UREA NITROGEN 9 mg/dL (7-20); CALCIUM 9.7 mg/dL (8.4-10.2); CARBON DIOXIDE 29 mmol/L (22-30); CHLORIDE 99 mmol/L (98-107); CREATININE RESULT 0.85 mg/dL (0.52-1.25); GLUCOSE 99 mg/dL (75-110); LIPASE 19.5 U/L (23-300); SODIUM 140.2 mmol/L (137-145); TOTAL PROTEIN 6.8 g/dL (6.3-8.2); URINE BARBITURATES SCREEN NEGATIVE; URINE METHADONE SCREEN NEGATIVE; URINE OPIATES LOW UNCONFIRMED POSITIVE; URINE PHENCYCLIDINE SCREEN NEGATIVE
[2017-02-24] MEDS ORDERED: ONDANSETRON 4 MG TAB.RAPDIS PO ONE (08:54)
--- NOTE | 2017-02-24 10:21 | ER Document Report ---
ED General - General Chief Complaint: Abdominal Pain Stated Complaint: ABDOMINAL PAIN AND VOMITING Time Seen by Provider: 02/24/17 07:47 TRAVEL OUTSIDE OF THE [place] IN LAST 30 DAYS: No - HPI Patient complains to provider of: Abdominal pain nausea vomiting Notes: Patient coming in for nausea vomiting abdominal pain. Patient has multiple visits here. Patient is a known drug addict patient states he still is buying [place] on the street. Patient states he took approximately 30 mg of a narcotic prior to arrival. Patient states yesterday he took 10 Irvine's. Patient complaining of right-sided abdominal pain. Concerned about his LFTs. Patient states he does not want to undergo detox at this time. States multiple bouts of nausea. Otherwise patient resting company upon my evaluation per - Related Data Allergies/Adverse Reactions: quetiapine fumarate [From [employer]] Adverse Reaction (Verified 02/24/17 09:56) Hypotension Home Medications: Current Home Medications Buspirone HCl [Buspar 10 mg Tablet] 10 mg PO TID 02/24/17 [History] Sertraline HCl 150 mg PO DAILY 02/24/17 [History] Past Medical History - Social History Smoking Status: Unknown if Ever Smoked Chew tobacco use (# tins/day): No Frequency of alcohol use: None Drug Abuse: None Family History: CAD - States all the males in his family have of heart disease in their 40s., CVA, Other - [place] Patient has suicidal ideation: No - Past Medical History Cardiac Medical History: Reports: Hx Hypercholesterolemia, Hx Hypertension, Hx Peripheral Vascular Disease - Left carotid stenosis 50-69% Denies: Hx Congestive Heart Failure, Hx DVT, Hx Heart Attack, Hx Pulmonary Embolism Pulmonary Medical History: Denies: Hx Asthma, Hx COPD Neurological Medical History: Reports: Hx Migraine. Denies: Hx Seizures Endocrine Medical History: Reports: Hx Hypothyroidism. Denies: Hx Diabetes Mellitus Type 1, Hx Diabetes Mellitus Type 2, Hx Hyperthyroidism Renal/ Medical History: Denies: Hx Peritoneal Dialysis GI Medical History: Reports: Hx Gastroesophageal Reflux Disease, Hx Hiatal Hernia. Denies: Hx Cirrhosis, Hx Hepatitis Musculoskeltal Medical History: Denies Hx Arthritis Psychiatric Medical History: Reports: Hx Anxiety, Hx Depression Infectious Medical History: Denies: Hx Hepatitis Past Surgical History: Reports: Hx Abdominal Surgery - gastric bypass 05, bowel blockagex2, umbilical hernia repair, Hx Cardiac Catheterization - Which is found to be negative~2015, Hx Cholecystectomy, Hx Gastric Bypass Surgery - Immunizations Immunizations up to date: Yes Hx Diphtheria, Pertussis, Tetanus Vaccination: Yes Review of Systems - Review of Systems Constitutional: No symptoms reported EENT: No symptoms reported Cardiovascular: No symptoms reported Respiratory: No symptoms reported Gastrointestinal: Abdominal pain, Nausea, Vomiting Genitourinary: No symptoms reported Male Genitourinary: No symptoms reported Musculoskeletal: No symptoms reported Skin: No symptoms reported Hematologic/Lymphatic: No symptoms reported Neurological/Psychological: No symptoms reported -: Yes All other systems reviewed and negative Physical Exam - Vital signs Vitals: Temp Pulse Resp BP Pulse Ox 97.6 F 76 18 138/94 H 98 02/24/17 07:32 02/24/17 07:32 02/24/17 07:32 02/24/17 07:32 02/24/17 07:32 Interpretation: Normal - General General appearance: Appears well, Alert - HEENT Head: Normocephalic, Atraumatic Eyes: Normal Pupils: PERRL - Respiratory Respiratory status: No respiratory distress Chest status: Nontender Breath sounds: Normal Chest palpation: Normal - Cardiovascular Rhythm: Regular Heart sounds: Normal auscultation Murmur: No - Abdominal Inspection: Normal Distension: No distension Bowel sounds: Normal Tenderness: Nontender Organomegaly: No organomegaly - Back Back: Normal, Nontender - Extremities General upper extremity: Normal inspection, Nontender, Normal color, Normal ROM , Normal temperature General lower extremity: Normal inspection, Nontender, Normal color, Normal ROM , Normal temperature, Normal weight bearing. No: Gemini's sign - Neurological Neuro grossly intact: Yes Cognition: Normal Orientation: AAOx4 Dodge Coma Scale Eye Opening: Spontaneous Dodge Coma Scale Verbal: Oriented Maxime Coma Scale Motor: Obeys Commands Maxime Coma Scale Total: 15 Speech: Normal Motor strength normal: LUE, RUE, LLE, RLE Sensory: Normal - Psychological Associated symptoms: Normal affect, Normal mood - Skin Skin Temperature: Warm Skin Moisture: Dry Skin Color: Normal Course - Re-evaluation Re-evalutation: 02/24/17 14:59 The patient presents with abdominal pain without signs of peritonitis or other life-threatening or serious etiology. The patient appears stable for discharge and has been instructed to return immediately if the symptoms worsen in any way , or in 8-12hr if not improved for re-evaluation. The patient has been instructed to return if the symptoms worsen or change in any way. No critical etiology seen. Patient was given referrals for psychiatric tenderness to undergo detox. Patient will be given antiemetics for home. - Vital Signs Vital signs: Temp Pulse Resp BP Pulse Ox 97.8 F 65 20 130/95 H 100 02/24/17 10:36 02/24/17 10:36 02/24/17 10:36 02/24/17 10:36 02/24/17 10:36 - Laboratory Result Diagrams: 02/24/17 08:18 02/24/17 08:18 Laboratory results interpreted by me: 02/24/17 02/24/17 08:18 08:18 Eosinophils % 12.6 H Basophils % 2.5 H Lipase 19.5 L Discharge - Discharge Clinical Impression: Polysubstance abuse Nausea & vomiting Qualifiers: Vomiting type: unspecified Vomiting Intractability: unspecified Qualified Code( s): R11.2 - Nausea with vomiting, unspecified Condition: Good Disposition: HOME, SELF-CARE Instructions: Nausea or Vomiting, Nonspecific ([facility]) Additional Instructions: Your laboratory studies today are normal. There is no signs of any significant pathology. Please follow-up with your primary care physician I will highly recommend following up with the resources provided for possible detox. Prescriptions: Metoclopramide HCl [Reglan] 5 mg PO Q6 #20 tablet Ondansetron [Zofran Odt 4 mg Tablet] 1 - 2 tab PO Q4H PRN #30 tab.rapdis PRN Reason: For Nausea/Vomiting Forms: Return to Work Referrals: [facility] Mobile Crisis Team [Provider Group] - Follow up as needed [facility] [Provider Group] - Follow up as needed [facility] [Provider Group] - Follow up as needed
[2017-02-24 10:37] VITALS: BP 130/95
== END 2017-02-24 10:36 | disposition home or self-care (01) ==
LOC: ER 07:26
DX: F11.20 Opioid dependence, uncomplicated (principal); F19.10 Other psychoactive substance abuse, uncomplicated; R11.2 Nausea with vomiting, unspecified; R10.9 Unspecified abdominal pain; I10 Essential (primary) hypertension; Z98.84 Bariatric surgery status; Z90.49 Acquired absence of other specified parts of digestive tract; Z87.19 Personal history of other diseases of the digestive system
CPT/HCPCS: 99284; 36415; 83690; 85025; 80053; 80307; A9270; S0119

== ENCOUNTER 2017-02-26 22:47 | Emergency (ER) | payer MEDICARE ==
[2017-02-27 01:31] LABS: ALANINE AMINOTRANSFERASE 33 U/L (21-72); ALBUMIN 4.3 g/dL (3.5-5.0); ALKALINE PHOSPHATASE 55 U/L (38-126); ANION GAP 14 (5-19); ASPARTATE AMINO TRANSFERASE 17 U/L (17-59); BILIRUBIN,DIRECT 0.3 mg/dL (0.0-0.4); BLOOD UREA NITROGEN 7 mg/dL (7-20); CALCIUM 9.2 mg/dL (8.4-10.2); CARBON DIOXIDE 24 mmol/L (22-30); CHLORIDE 84 mmol/L (98-107); CREATININE RESULT 0.76 mg/dL (0.52-1.25); GLUCOSE 97 mg/dL (75-110); LIPASE 20.8 U/L (23-300); SODIUM 122.1 mmol/L (137-145); TOTAL PROTEIN 6.6 g/dL (6.3-8.2)
--- NOTE | 2017-02-27 01:35 | ER Document Report ---
ED GI/ - General Chief Complaint: Abdominal Pain Stated Complaint: LIVER, KIDNEY, AND CHEST PAIN Time Seen by Provider: 02/27/17 00:53 Notes: The patient is a 41-year-old male, chronic opioid and benzo abuse, frequent user of the emergency room, presents with multiple complaints, including right upper quadrant abdominal pain, right flank pain and nausea. He had the exact same symptoms yesterday and had a negative workup. He declined detox at that time. Patient denies fevers, rash, chest pain, tremulousness, seizures or diarrhea. TRAVEL OUTSIDE OF THE [place] IN LAST 30 DAYS: No - Related Data Allergies/Adverse Reactions: quetiapine fumarate [From [employer]] Adverse Reaction (Verified 02/24/17 09:56) Hypotension Past Medical History - General Information source: Patient - Social History Smoking Status: Current Every Day Smoker Drug Abuse: Prescription drugs Family History: CAD - States all the males in his family have of heart disease in their 40s., CVA, Other - [place] Patient has suicidal ideation: No Patient has homicidal ideation: No - Past Medical History Cardiac Medical History: Reports: Hx Hypercholesterolemia, Hx Hypertension, Hx Peripheral Vascular Disease - Left carotid stenosis 50-69% Denies: Hx Congestive Heart Failure, Hx DVT, Hx Heart Attack, Hx Pulmonary Embolism Pulmonary Medical History: Denies: Hx Asthma, Hx COPD Neurological Medical History: Reports: Hx Migraine. Denies: Hx Seizures Endocrine Medical History: Reports: Hx Hypothyroidism. Denies: Hx Diabetes Mellitus Type 1, Hx Diabetes Mellitus Type 2, Hx Hyperthyroidism Renal/ Medical History: Denies: Hx Peritoneal Dialysis GI Medical History: Reports: Hx Gastroesophageal Reflux Disease, Hx Hiatal Hernia. Denies: Hx Cirrhosis, Hx Hepatitis Musculoskeltal Medical History: Denies Hx Arthritis Psychiatric Medical History: Reports: Hx Anxiety, Hx Depression Infectious Medical History: Denies: Hx Hepatitis Past Surgical History: Reports: Hx Abdominal Surgery - gastric bypass 05, bowel blockagex2, umbilical hernia repair, Hx Cardiac Catheterization - Which is found to be negative~2014, Hx Cholecystectomy, Hx Gastric Bypass Surgery - Immunizations Immunizations up to date: Yes Hx Diphtheria, Pertussis, Tetanus Vaccination: Yes Review of Systems - Review of Systems Notes: REVIEW OF SYSTEMS: CONSTITUTIONAL: -fevers, -chills EENT: -eye pain, -difficulty swallowing, -nasal congestion CARDIOVASCULAR:-chest pain, -syncope. RESPIRATORY: -cough, -SOB GASTROINTESTINAL: +RUQ abdominal pain, +nausea, -vomiting, -diarrhea GENITOURINARY: -dysuria, -hematuria MUSCULOSKELETAL: -back pain, -neck pain SKIN: -rash or skin lesions. HEMATOLOGIC: -easy bruising or bleeding. LYMPHATIC: -swollen, enlarged glands. NEUROLOGICAL: -altered mental status or loss of consciousness, -headache, - neurologic symptoms PSYCHIATRIC: -anxiety, -depression. ALL OTHER SYSTEMS REVIEWED AND NEGATIVE. Physical Exam - Vital signs Vitals: Temp Pulse Resp BP Pulse Ox 97.8 F 71 18 149/99 H 97 02/26/17 23:03 02/26/17 23:03 02/26/17 23:03 02/26/17 23:03 02/26/17 23:03 - Notes Notes: PHYSICAL EXAMINATION: GENERAL: Well-appearing, well-nourished and in no acute distress. HEAD: Atraumatic, normocephalic. EYES: Pupils equal round and reactive to light, extraocular movements intact, sclera anicteric, conjunctiva are normal. ENT: nares patent, oropharynx clear without exudates. Moist mucous membranes. NECK: Normal range of motion, supple without lymphadenopathy LUNGS: Breath sounds clear to auscultation bilaterally and equal. No wheezes rales or rhonchi. HEART: Regular rate and rhythm without murmurs ABDOMEN: Soft, nontender, normoactive bowel sounds. No guarding, no rebound. No masses appreciated. EXTREMITIES: Normal range of motion, no pitting or edema. No cyanosis. NEUROLOGICAL: Cranial nerves grossly intact. Normal speech, normal gait. Normal sensory and motor exams. PSYCH: Normal mood, normal affect. SKIN: Warm, Dry, normal turgor, no rashes or lesions noted. Course - Re-evaluation Re-evalutation: Patient appears well. His liver enzymes are normal and he does not have a gallbladder. Labs are remarkable for hyponatremia, which patient has had multiple times in the past. No seizures and he is asymptomatic. Once again, offered patient detox, but he declines at this time. We will have him follow- up with his primary care physician for further evaluation. - Vital Signs Vital signs: Temp Pulse Resp BP Pulse Ox 97.8 F 71 18 149/99 H 97 02/26/17 23:03 02/26/17 23:03 02/26/17 23:03 02/26/17 23:03 02/26/17 23:03 - Laboratory Result Diagrams: 02/27/17 01:30 02/27/17 01:10 Laboratory results interpreted by me: 02/27/17 02/27/17 01:10 01:30 MCHC 36.3 H Sodium 122.1 L Chloride 84 L Lipase 20.8 L Discharge - Discharge Clinical Impression: Chronic hyponatremia Abdominal pain Qualifiers: Abdominal location: unspecified location Qualified Code(s): R10.9 - Unspecified abdominal pain Nausea & vomiting Qualifiers: Vomiting type: unspecified Vomiting Intractability: non-intractable Qualified Code(s): R11.2 - Nausea with vomiting, unspecified Condition: Stable Disposition: HOME, SELF-CARE Additional Instructions: ABDOMINAL PAIN: There are many causes of abdominal pain. Pain can mean a serious problem requiring surgery (such as appendicitis). It can also be an innocent problem that goes away on its own (such as a viral infection). Often, time must pass to determine the cause of pain. The physician does not feel that hospitalization is necessary, at present. Things may change within the next 24 hours. Call the doctor or come back for re- examination if any problems occur, such as: (1) Pain that becomes more severe, steady, or becomes concentrated in one specific area. Also, pain that is more severe with movement or coughing. (2) Vomiting that persists or becomes more frequent. (3) Blood in the vomitus, urine, or bowel movements. Blood in the stool may have a tarry or black appearance. (4) Shaking chills or fever greater than 100 degrees F. (5) The abdomen becomes more distended or swollen. (6) Bowel movements cease. (7) Failure to improve as expected. NORMAL EXAM AND WORKUP: At this time, your examination and workup show no significant abnormality. No significant abnormal physical findings are noted. All laboratory, EKG, and imaging (x-ray, CT scans, ultrasound) studies that were ordered show no significant abnormality. Although your examination and all studies that were ordered showed no significant abnormal finding, there are no examinations and no studies that are 100% accurate. There is always the possibility that some abnormality could exist and not be detected with physical examination or within the limits and capabilities of laboratory and other studies. You should return or follow up as you were instructed on your visit today for further evaluation if your symptoms do not resolve. FOLLOW-UP CARE: If you have been referred to a physician for follow-up care, call the physician s office for an appointment as you were instructed or within the next two days. If you experience worsening or a significant change in your symptoms, notify the physician immediately or return to the Emergency Department at any time for re-evaluation. Forms: Elevated Blood Pressure Referrals: [facility] [Outside] - Follow up as needed
[2017-02-27 01:53] LABS: ABSOLUTE EOSINOPHILS # (AUTO) 0.2 10^3/uL (0.0-0.6); ABSOLUTE LYMPHOCYTES (AUTO) 1.6 10^3/uL (0.5-4.7); ABSOLUTE MONOCYTES (AUTO) 0.6 10^3/uL (0.1-1.4); ABSOLUTE NEUT (AUTO) 3.1 10^3/uL (1.7-8.2); BASOPHILS % (AUTO) 0.7 % (0-2); EOSINOPHILS % (AUTO) 3.6 % (0-6); HEMATOCRIT 38.5 % (37.9-51.0); HGB HCT DIFFERENCE 3.5; LYMPHOCYTES % (AUTO) 28.7 % (13-45); MEAN CORPUSCULAR HEMOGLOBIN 29.8 pg (27.0-33.4); MEAN CORPUSCULAR HGB CONC 36.3 g/dL (32.0-36.0); MONOCYTES % (AUTO) 10.7 % (3-13); RED BLOOD COUNT 4.68 10^6/uL (4.35-5.55); RED CELL DISTRIBUTION WIDTH 13.1 % (11.5-14.0); SEGMENTED NEUTROPHILS % (AUTO) 56.3 % (42-78); WHITE BLOOD COUNT 5.6 10^3/uL (4.0-10.5)
[2017-02-27 01:54] LABS: MEAN CORPUSCULAR VOLUME 82 fl (80-97)
[2017-02-27 03:04] VITALS: BP 136/78
[2017-02-27 03:15] LABS: APPEARANCE,URINE CLEAR; BILIRUBIN,URINE NEGATIVE (NEGATIVE); GLUCOSE, URINE NEGATIVE (NEGATIVE); KETONES,URINE TRACE mg/dL (NEGATIVE); LEUKOCYTE ESTERASE,URINE NEGATIVE (NEGATIVE); NITRITE,URINE NEGATIVE (NEGATIVE); PROTEIN,URINE NEGATIVE (NEGATIVE); URINE SPECIFIC GRAVITY 1.005; UROBILINOGEN,URINE NEGATIVE mg/dL (<2.0)
--- NOTE | 2017-02-27 20:22 | EKG REPORT ---
SEVERITY:- NORMAL ECG - SINUS RHYTHM : Confirmed by: Mariaelena Sahni MD 27-Feb-2017 20:22:34
== END 2017-02-27 02:19 | disposition home or self-care (01) ==
LOC: ER 22:47
DX: E87.1 Hypo-osmolality and hyponatremia (principal); R10.9 Unspecified abdominal pain; R11.2 Nausea with vomiting, unspecified; F19.10 Other psychoactive substance abuse, uncomplicated; R10.11 Right upper quadrant pain; F17.200 Nicotine dependence, unspecified, uncomplicated
CPT/HCPCS: 36415; 80053; 81001; 83690; 84484; 85025; 93005; 93010; 99284

== ENCOUNTER 2017-02-28 01:15 | Emergency (ER) | payer MEDICARE ==
--- NOTE | 2017-02-28 02:13 | ER Document Report ---
ED General - General Chief Complaint: LIVER PAIN Stated Complaint: LIVER PAIN Time Seen by Provider: 02/28/17 02:00 Notes: Patient is a 41-year-old male comes emergency department for chief complaint of pain in his upper abdomen on the right side. He states his liver is swollen. He states that he took 18 7.5/325 Percocets over the past 24 hours, he states that he has now run out, he states he took them because he has chronic abdominal pain status post gastric bypass, cholecystectomy, and bowel obstruction surgeries. He states he threw up earlier but has been drinking fluids since that time without difficulty. He denies any rash, seizure, tremors or diarrhea. Patient was seen yesterday for the same complaint of liver pain, was discharged at that time. He denies suicidal or homicidal ideations, he denies even being depressed, he states he just has a problem with pain medication. He states he was previously prescribed his pain medication and they were left over although now he has run out of the leftover ones. TRAVEL OUTSIDE OF THE [place] IN LAST 30 DAYS: No - Related Data Allergies/Adverse Reactions: quetiapine fumarate [From [employer]] Adverse Reaction (Verified 02/24/17 09:56) Hypotension Past Medical History - General Information source: Patient - Social History Smoking Status: Never Smoker Drug Abuse: Prescription drugs Lives with: Parents Family History: CAD - States all the males in his family have of heart disease in their 40s., CVA, Other - [place] Patient has suicidal ideation: No Patient has homicidal ideation: No - Past Medical History Cardiac Medical History: Reports: Hx Hypercholesterolemia, Hx Hypertension, Hx Peripheral Vascular Disease - Left carotid stenosis 50-69% Denies: Hx Congestive Heart Failure, Hx DVT, Hx Heart Attack, Hx Pulmonary Embolism Pulmonary Medical History: Denies: Hx Asthma, Hx COPD Neurological Medical History: Reports: Hx Migraine. Denies: Hx Seizures Endocrine Medical History: Reports: Hx Hypothyroidism. Denies: Hx Diabetes Mellitus Type 1, Hx Diabetes Mellitus Type 2, Hx Hyperthyroidism Renal/ Medical History: Denies: Hx Peritoneal Dialysis GI Medical History: Reports: Hx Gastroesophageal Reflux Disease, Hx Hiatal Hernia. Denies: Hx Cirrhosis, Hx Hepatitis Musculoskeltal Medical History: Denies Hx Arthritis Psychiatric Medical History: Reports: Hx Anxiety, Hx Depression Infectious Medical History: Denies: Hx Hepatitis Past Surgical History: Reports: Hx Abdominal Surgery - gastric bypass 05, bowel blockagex2, umbilical hernia repair, Hx Cardiac Catheterization - Which is found to be negative~2015, Hx Cholecystectomy, Hx Gastric Bypass Surgery - Immunizations Immunizations up to date: Yes Hx Diphtheria, Pertussis, Tetanus Vaccination: Yes Review of Systems - Review of Systems Constitutional: No symptoms reported EENT: No symptoms reported Cardiovascular: No symptoms reported Respiratory: No symptoms reported Gastrointestinal: See HPI Genitourinary: No symptoms reported Male Genitourinary: No symptoms reported Musculoskeletal: No symptoms reported Skin: No symptoms reported Hematologic/Lymphatic: No symptoms reported Neurological/Psychological: No symptoms reported Physical Exam - Vital signs Vitals: Temp Pulse Resp BP Pulse Ox 98.2 F 63 18 140/92 H 98 02/28/17 01:55 02/28/17 01:55 02/28/17 01:55 02/28/17 01:55 02/28/17 01:55 Interpretation: Normal - General General appearance: Appears well, Alert In distress: None - HEENT Head: Normocephalic, Atraumatic Eyes: Normal Pupils: PERRL - Respiratory Respiratory status: No respiratory distress Chest status: Nontender Breath sounds: Normal Chest palpation: Normal - Cardiovascular Rhythm: Regular Heart sounds: Normal auscultation Murmur: No - Abdominal Inspection: Normal Distension: No distension Bowel sounds: Normal Tenderness: Nontender Organomegaly: No organomegaly - Back Back: Normal, Nontender - Extremities General upper extremity: Normal inspection, Nontender, Normal color, Normal ROM , Normal temperature General lower extremity: Normal inspection, Nontender, Normal color, Normal ROM , Normal temperature, Normal weight bearing. No: Gemini's sign - Neurological Neuro grossly intact: Yes Cognition: Normal Orientation: AAOx4 Wishon Coma Scale Eye Opening: Spontaneous [place] Coma Scale Verbal: Oriented Maxime Coma Scale Motor: Obeys Commands Maxime Coma Scale Total: 15 Speech: Normal Motor strength normal: LUE, RUE, LLE, RLE Sensory: Normal - Psychological Associated symptoms: Other - Patient with steady stream of statements and questions, interjecting when I speak, difficult to have a conversation with him - Skin Skin Temperature: Warm Skin Moisture: Dry Skin Color: Normal Course - Re-evaluation Re-evalutation: Patient denying any suicidal or homicidal ideation, denies ever attempting suicide, denies being depressed at home, states he just has a problem with pain medicine and takes pain medication for abdominal pain when the chance arises. Vital signs unremarkable. Abdominal exam unremarkable. 02/28/17 02:30 Spoke with Lilia at poison control, recommends a Tylenol level and LFTs, if they are elevated recommends treating. No further recommendations at this time. 02/28/17 03:42 Patient's liver enzymes are mildly elevated in the 100s, this is a change compared to prior, Tylenol level initially is negative. Spoke with poison control again, Lilia, recommendation is for patient be treated with NAC for the next 24 hours with serial chemistries. 02/28/17 03:55 Ordered acetylcysteine at 14,000 mg, 140 mg/kg with patient at about 100 kg, called Lilia at poison control and confirmed, recommendation is greater than 100 kg that patient be treated at a maximum of 14,000 mg loading dose and then 70 mg/kg every 4 hours 5 doses. 02/28/17 04:[address] Cavanaugh, internal medicine, patient will be admitted to medical floor. Recommended added CK blood test. Called nursing it service continuity supervisor, she states patient can be on the for and receive p.o. acetylcysteine. - Vital Signs Vital signs: Temp Pulse Resp BP Pulse Ox 98.2 F 63 18 140/92 H 98 02/28/17 01:55 02/28/17 01:55 02/28/17 01:55 02/28/17 01:55 02/28/17 01:55 - Laboratory Result Diagrams: 02/28/17 02:54 Laboratory results interpreted by me: 02/28/17 02:54 Sodium 122.4 L Chloride 83 L AST 128 H ALT 161 H Acetaminophen < 10 L Discharge - Discharge Clinical Impression: Substance abuse, Elevated liver function tests Condition: Stable Disposition: ADMITTED OBSERVATION Admitting Provider: Hospitalist Unit Admitted: Medical Floor
[2017-02-28 03:21] LABS: ALANINE AMINOTRANSFERASE 161 U/L (21-72); ALBUMIN 4.2 g/dL (3.5-5.0); ALKALINE PHOSPHATASE 101 U/L (38-126); ANION GAP 12 (5-19); ASPARTATE AMINO TRANSFERASE 128 U/L (17-59); BILIRUBIN,DIRECT 0.4 mg/dL (0.0-0.4); BILIRUBIN,TOTAL 0.8 mg/dL (0.2-1.3); BLOOD UREA NITROGEN 7 mg/dL (7-20); CALCIUM 8.9 mg/dL (8.4-10.2); CARBON DIOXIDE 27 mmol/L (22-30); CHLORIDE 83 mmol/L (98-107); CREATININE RESULT 0.81 mg/dL (0.52-1.25); GLUCOSE 84 mg/dL (75-110); POTASSIUM 4.1 mmol/L (3.6-5.0); SODIUM 122.4 mmol/L (137-145); TOTAL PROTEIN 6.8 g/dL (6.3-8.2)
[2017-02-28] MEDS ORDERED: ACETYLCYSTEINE 20% SOLN 800 MG/4 ML VIAL.NEB PO ONE ×2 (03:38→03:54)
[2017-02-28] MEDS ORDERED: ACETYLCYSTEINE 20% SOLN 6000 MG/30 ML VIAL ONE ×2 (04:12→04:52)
[2017-02-28] MEDS ORDERED: MAGNESIUM HYDROXIDE SUSP 30 ML UDCUP PO PRN (04:29)
[2017-02-28] MEDS ORDERED: MAG HYDROX/AL HYDROX/SIMETH SUSP 30 ML UDCUP PO PRN (04:29)
[2017-02-28 04:30] LABS: URINE BARBITURATES SCREEN NEGATIVE; URINE METHADONE SCREEN NEGATIVE; URINE OPIATES LOW UNCONFIRMED POSITIVE; URINE PHENCYCLIDINE SCREEN NEGATIVE
[2017-02-28] MEDS ORDERED: ZIPRASIDONE MESYLATE INJ/PF 20 MG SDV IM ONE (04:38)
[2017-02-28] MEDS ORDERED: KETOROLAC TROMETHAMINE INJ/PF 30 MG/1 ML SDV IV ONE (04:40)
[2017-02-28] MEDS ORDERED: HALOPERIDOL LACTATE INJ 5 MG/1 ML VIAL IV ONE (04:40)
[2017-02-28] MEDS ORDERED: HALOPERIDOL LACTATE INJ 5 MG/1 ML VIAL IV PRN (04:42)
[2017-02-28] MEDS ORDERED: ACETYLCYSTEINE 20% SOLN 6000 MG/30 ML VIAL PO ONE (04:45)
[2017-02-28] MEDS ORDERED: BISACODYL 10 MG SUPP.RECT PR ONE (04:58)
[2017-02-28] MEDS ORDERED: PHARMACY COMMUNICATION ORDER MC NR (05:00)
--- NOTE | 2017-02-28 05:07 | PDOC H&P ---
History of Present Illness Admission Date/PCP: 02/28/17 04:25 Dr. Bee, PCP History of Present Illness: FRANKY VELIZ is a 41 year old male with past medical history of polysubstance abuse, chronic abdominal and chronic chest pain who presents to the emergency department with complaints of abdominal pain. Patient reportedly took 26 tablets of 7.5/325 Percocet that he got off the street within the last 24 hours. He does complain of nausea some vomiting. Patient reports she has been also getting Valium 10 mg p.o. 3 times daily also off of the street. He reports he scared of dying and had no intention of committing suicide. He reports that he was most recently off of Valium just prior to October when he was in treatment. Patient reports that he was off of this for over 14 days. He had no seizures at that time. He does complain of withdrawal. Upon reading past psychiatric notes, it appears as though patient is quite afraid of being off of his Valium according to his mother. Patient is found to have mildly elevated liver enzymes although a negative Tylenol level. In discussing this case with poison control they recommended that patient receive oral acetylcysteine. Patient will be observed for this. Past Medical History Cardiac Medical History: Reports: Hyperlipidema, Hypertension, Peripheral Vascular Disease - Left carotid stenosis 50-69% Denies: Congestive Heart Failure, DVT, Myocardial Infarction, Pulmonary Embolism Pulmonary Medical History: Denies: Asthma, Chronic Obstructive Pulmonary Disease (COPD) Neurological Medical History: Reports: Migraine Denies: Seizures Endocrine Medical History: Reports: Hypothyroidism Denies: Diabetes Mellitus Type 1, Diabetes Mellitus Type 2, Hyperthyroidism GI Medical History: Reports: Gastroesophageal Reflux Disease, Hiatal Hernia Denies: Cirrhosis, Hepatitis Musculoskeltal Medical History: Denies: Arthritis Psychiatric Medical History: Reports: Depression, General Anxiety Disorder, Substance Abuse Past Surgical History Past Surgical History: Reports: Cardiac Catheterization - Which is found to be negative~2014, Cholecystectomy, Gastric Bypass Surgery, Herniorrhaphy Social History Smoking Status: Never Smoker Frequency of Alcohol Use: None Hx Recreational Drug Use: No Drugs: None Hx Prescription Drug Abuse: Yes - Advance Directive Resuscitation Status: Full Code Surrogate healthcare decision maker:: MotherZena Family History Family History: CAD - States all the males in his family have of heart disease in their 40s., CVA Parental Family History Reviewed: Yes Children Family History Reviewed: Yes Sibling(s) Family History Reviewed.: Yes Medication/Allergy Home Medications: Atorvastatin Calcium 40 mg PO DAILY 04/01/16 Divalproex Sodium [Depakote ER 500 mg Tab.sr] 500 mg PO QHS 04/01/16 Isosorbide Mononitrate [Isosorbide Mononitrate ER] 30 mg PO QAM 04/01/16 Levothyroxine Sodium 50 mcg PO DAILY 04/01/16 Nadolol 20 mg PO BID 04/01/16 Buspirone HCl [Buspar 10 mg Tablet] 10 mg PO TID 02/24/17 Metoclopramide HCl [Reglan] 5 mg PO Q6 #20 tablet 02/24/17 Ondansetron [Zofran Odt 4 mg Tablet] 1 - 2 tab PO Q4H PRN #30 tab.rapdis Sertraline HCl 150 mg PO DAILY 02/24/17 Allergies/Adverse Reactions: quetiapine fumarate [From Seroquel] Adverse Reaction (Verified 02/24/17 09:56) Hypotension Review of Systems Constitutional: ABSENT: chills, fever(s), headache(s), weight gain, weight loss Eyes: ABSENT: visual disturbances Ears: ABSENT: hearing changes Cardiovascular: PRESENT: as per HPI. ABSENT: chest pain, dyspnea on exertion, edema, orthropnea, palpitations Respiratory: ABSENT: cough, hemoptysis Gastrointestinal: PRESENT: as per HPI, abdominal pain, constipation, nausea. ABSENT: diarrhea, hematemesis, hematochezia, vomiting Genitourinary: ABSENT: dysuria, hematuria Musculoskeletal: ABSENT: joint swelling Integumentary: ABSENT: rash, wounds Neurological: ABSENT: abnormal gait, abnormal speech, confusion, dizziness, focal weakness, syncope Psychiatric: ABSENT: anxiety, depression, homidical ideation, suicidal ideation Endocrine: ABSENT: cold intolerance, heat intolerance, polydipsia, polyuria Hematologic/Lymphatic: ABSENT: easy bleeding, easy bruising Physical Exam Vital Signs: Temp Pulse Resp BP Pulse Ox 98.2 F 63 18 140/92 H 98 02/28/17 01:55 02/28/17 01:55 02/28/17 01:55 02/28/17 01:55 02/28/17 01:55 General appearance: PRESENT: mild distress, obese, well-developed, well- nourished Head exam: PRESENT: atraumatic, normocephalic Eye exam: PRESENT: conjunctiva pink, EOMI, PERRLA - Significant mydriasis. ABSENT: scleral icterus Ear exam: PRESENT: normal external ear exam Mouth exam: PRESENT: moist, tongue midline Neck exam: ABSENT: JVD, lymphadenopathy, thyromegaly, tracheal deviation Respiratory exam: PRESENT: clear to auscultation pradeep. ABSENT: rales, rhonchi, wheezes Cardiovascular exam: PRESENT: RRR, +S1, +S2. ABSENT: diastolic murmur, gallop, rubs, systolic murmur Pulses: PRESENT: normal dorsalis pedis pul Vascular exam: PRESENT: normal capillary refill GI/Abdominal exam: PRESENT: hypoactive bowel sounds, soft. ABSENT: distended, firm, guarding, mass, Brambila's sign, organolmegaly, rebound, rigid, tenderness Rectal exam: PRESENT: deferred Extremities exam: PRESENT: full ROM. ABSENT: calf tenderness, clubbing, pedal edema Neurological exam: PRESENT: alert, awake, oriented to person, oriented to place , oriented to time, oriented to situation, CN II-XII grossly intact. ABSENT: motor sensory deficit Psychiatric exam: PRESENT: agitated, anxious, unusual affect. ABSENT: homicidal ideation, suicidal ideation Focused psych exam: PRESENT: psychomotor agitation, restlessness Skin exam: PRESENT: dry, intact, warm. ABSENT: cyanosis, rash Results Laboratory Results: 02/16/15 01/01/17 02/27/17 01:45 11:16 00:36 WBC Hgb Hct Plt Count Sodium Potassium Chloride Carbon Dioxide Anion Gap BUN Creatinine Glucose Calcium Total Bilirubin Direct Bilirubin AST ALT Alkaline Phosphatase Creatine Kinase Ur Specific [place] 1.005 Urine Ketones TRACE H Urine Blood SMALL H Stool Occult Blood NEGATIVE Urine Opiates Screen Urine Methadone Screen Acetaminophen Ur Barbiturates Screen Ur Phencyclidine Scrn Ur Amphetamines Screen U Benzodiazepines Scrn Urine Cocaine Screen U Marijuana (THC) Screen Serum Alcohol Hepatitis A IgM Ab Negative Hep Bs Antigen Negative Hep B Core IgM Ab Negative Hepatitis C Antibody <0.1 02/27/17 02/27/17 02/28/17 01:10 01:30 02:54 WBC 5.6 Hgb 14.0 Hct 38.5 Plt Count 158 Sodium 122.4 L Potassium 4.1 Chloride 83 L Carbon Dioxide 27 Anion Gap 12 BUN 7 Creatinine 0.81 Glucose 84 Calcium 8.9 Total Bilirubin 0.8 Direct Bilirubin 0.4 AST 17 128 H ALT 33 161 H Alkaline Phosphatase 101 Creatine Kinase Ur Specific [place] Urine Ketones Urine Blood Stool Occult Blood Urine Opiates Screen Urine Methadone Screen Acetaminophen < 10 L Ur Barbiturates Screen Ur Phencyclidine Scrn Ur Amphetamines Screen U Benzodiazepines Scrn Urine Cocaine Screen U Marijuana (THC) Screen Serum Alcohol Hepatitis A IgM Ab Hep Bs Antigen Hep B Core IgM Ab Hepatitis C Antibody 02/28/17 02/28/17 02/28/17 02:54 02:54 04:02 WBC Hgb Hct Plt Count Sodium Potassium Chloride Carbon Dioxide Anion Gap BUN Creatinine Glucose Calcium Total Bilirubin Direct Bilirubin AST ALT Alkaline Phosphatase Creatine Kinase 99 Ur Specific [place] Urine Ketones Urine Blood Stool Occult Blood Urine Opiates Screen UNCONFIRMED POSITIVE Urine Methadone Screen NEGATIVE Acetaminophen Ur Barbiturates Screen NEGATIVE Ur Phencyclidine Scrn NEGATIVE Ur Amphetamines Screen NEGATIVE U Benzodiazepines Scrn UNCONFIRMED POSITIVE Urine Cocaine Screen NEGATIVE U Marijuana (THC) Screen NEGATIVE Serum Alcohol < 10 Hepatitis A IgM Ab Hep Bs Antigen Hep B Core IgM Ab Hepatitis C Antibody Assessment & Plan - Diagnosis (1) Acetaminophen overdose Qualifiers: Encounter type: initial encounter Injury intent: accidental or unintentional Qualified Code(s): T39.1X1A - Poisoning by 4-Aminophenol derivatives, accidental (unintentional), initial encounter Is this a current diagnosis for this admission?: Yes Plan: Have discussed this case with [place] poison control. Patient will be placed on Acetadote orally. Will avoid hepatotoxic agents. I recommended this patient that he re-attend rehab. Patient is cautioned against taking medications that do not belong to him. (2) Chronic opiate abuse Is this a current diagnosis for this admission?: Yes Plan: Patient will be given as needed clonidine for his opiate abuse. (3) Chronic abdominal pain Is this a current diagnosis for this admission?: Yes Plan: Patient has had extensive workup for his abdominal pain and most frequently is from chronic constipation. Patient will be given Toradol (4) Elevated LFTs Is this a current diagnosis for this admission?: Yes Plan: Secondary to unintentional Tylenol overdose. We will place patient on Acetadote oral protocol. (5) Chronic hyponatremia Is this a current diagnosis for this admission?: Yes Plan: Patient appears to be chronically hyponatremic. 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 Patient has had evaluation previously of both his cortisol and TSH. (6) Polysubstance abuse Is this a current diagnosis for this admission?: Yes (7) Chronic chest pain Is this a current diagnosis for this admission?: Yes Plan: Patient reportedly had a negative cardiac catheterization in 2014 (8) Hyperlipidemia Qualifiers: Hyperlipidemia type: unspecified Qualified Code(s): E78.5 - Hyperlipidemia , unspecified Is this a current diagnosis for this admission?: Yes (9) Hypothyroid Qualifiers: Hypothyroidism type: unspecified Qualified Code(s): E03.9 - Hypothyroidism , unspecified Is this a current diagnosis for this admission?: Yes Plan: Continue patient on Synthroid 50 mcg p.o. daily 11/08/16 00:54 TSH 2.97 Free T4 1.52 (10) Chronic benzodiazepine abuse Is this a current diagnosis for this admission?: Yes Plan: Place patient on low-dose Valium 2 mg p.o. bid to prevent withdrawal. At this time, I have strongly recommended to this patient that he stop using benzodiazepines. (11) Status post gastric bypass for obesity Is this a current diagnosis for this admission?: Yes (12) Status post cholecystectomy Is this a current diagnosis for this admission?: No (13) Severe obesity (BMI 35.0-35.9 with comorbidity) Is this a current diagnosis for this admission?: Yes - Time Time Spent: 30 to 50 Minutes Medications reviewed and adjusted accordingly: Yes Anticipated discharge: Home Within: within 24 hours - Inpatient Certification Based on my medical assessment, after consideration of the patient's comorbidities, presenting symptoms, or acuity I expect that the services needed warrant INPATIENT care.: No I certify that my determination is in accordance with my understanding of Medicare's requirements for reasonable and necessary INPATIENT services [42 CFR 412.3e].: No Post Hospital Care: D/C Office Coordinator Documentation
[2017-02-28] MEDS: ONDANSETRON HCL INJ/PF 4 MG/2 ML SDV IV PRN ×3 (05:20→20:03)
--- NOTE | 2017-02-28 06:27 | RADIOLOGY REPORT (SQ) ---
EXAM DESCRIPTION: U/S ABDOMEN COMPLETE W/DOPPLER COMPLETED DATE/TIME: 02/28/2017 6:11 am REASON FOR STUDY: Abdominal pain, elevated LFT D68.32 HEMORRHAGIC DISORD D/T EXTRINSIC CIRCULATING ANTICOAG COMPARISON: Right upper quadrant ultrasound 01/01/2017. TECHNIQUE: Grayscale images acquired of the abdomen and recorded on PACS. Additional selected color Doppler and spectral images recorded. LIMITATIONS: Acoustical interference from fat or from air in the bowel. FINDINGS: PANCREAS: Obscured by overlying bowel gas. LIVER: Measures 15.8 cm. Echotexture within normal limits. LIVER VASCULATURE: Normal directional flow of the main portal vein. GALLBLADDER: Surgically absent. ULTRASOUND-DETECTED ROGERS'S SIGN: Not applicable. INTRAHEPATIC DUCTS AND COMMON DUCT:CBD and intrahepatic ducts normal caliber. INFERIOR VENA CAVA: Obscured by overlying bowel gas. AORTA: No aneurysm in the visualized proximal segment, the mid and distal abdominal aorta was obscure d by overlying bowel gas. RIGHT KIDNEY: Measures 9.8 cm. Normal echogenicity. No hydronephrosis. LEFT KIDNEY: Measures 9.7 cm. Normal echogenicity. No hydronephrosis. SPLEEN:Not enlarged, it measures 9.3 cm. PERITONEAL AND PLEURAL SPACES: No ascites or effusions. IMPRESSION: Suboptimal exam due to overlying bowel gas. Status post cholecystectomy. No biliary du ctal dilation. TECHNICAL DOCUMENTATION: JOB ID: [id number] [employer]- All Rights Reserved
[2017-02-28] MEDS: LANSOPRAZOLE 15 MG TAB.RAP.DR PO SCH ×2 (06:47→17:44)
[2017-02-28] MEDS: HEPARIN SOD (PORCINE) 5,000 UNIT/ML 1 ML SYRINGE SUBCUT SCH ×3 (06:47→21:13)
[2017-02-28] MEDS: BUSPIRONE HCL 10 MG TABLET PO SCH ×3 (06:47→21:13)
[2017-02-28 07:42] LABS: PROTHROMBIN TIME 13.1 SEC (11.4-15.4)
[2017-02-28] MEDS ORDERED: ACETYLCYSTEINE 20% SOLN 6000 MG/30 ML VIAL PO SCH ×3 (08:00→10:00)
[2017-02-28] MEDS: DIAZEPAM 2 MG TABLET PO SCH ×2 (09:26→21:12)
[2017-02-28] MEDS: PROMETHAZINE HCL 25 MG SUPP.RECT PR PRN (09:27)
[2017-02-28] MEDS: DOCUSATE SODIUM 100 MG CAPSULE PO SCH ×2 (09:34→17:40)
[2017-02-28] MEDS: TRAMADOL HCL 50 MG TABLET PO PRN (17:44)
[2017-02-28] MEDS ORDERED: SODIUM CHLORIDE 1 GM TABLET PO SCH (18:00)
[2017-02-28] MEDS ORDERED: ISOSORBIDE MONONITRATE 30 MG TAB.ER.24H PO ONE (21:00)
[2017-02-28] MEDS: NADOLOL 40 MG TABLET PO SCH (21:24)
[2017-02-28] MEDS ORDERED: (PENDING PHARMACY ID) (Trazodone Hcl [Desyrel] 100 MG) PO SCH (22:00)
[2017-02-28] MEDS ORDERED: TRAZODONE HCL 50 MG TABLET PO SCH (22:00)
[2017-02-28] MEDS ORDERED: (PENDING PHARMACY ID) (Nadolol [Corgard] 20 MG) PO SCH (22:00)
[2017-02-28] MEDS ORDERED: DIVALPROEX SODIUM 500 MG TAB.SR.24H PO SCH (22:00)
[2017-03-01] MEDS: ONDANSETRON HCL INJ/PF 4 MG/2 ML SDV IV PRN (02:32)
[2017-03-01] MEDS: TRAMADOL HCL 50 MG TABLET PO PRN ×2 (02:32→10:33)
[2017-03-01 03:25] LABS: PROTHROMBIN TIME 13.1 SEC (11.4-15.4)
[2017-03-01 03:32] LABS: ALANINE AMINOTRANSFERASE 82 U/L (21-72); ALKALINE PHOSPHATASE 80 U/L (38-126); ANION GAP 13 (5-19); ASPARTATE AMINO TRANSFERASE 36 U/L (17-59); BILIRUBIN,DIRECT 0.4 mg/dL (0.0-0.4); BLOOD UREA NITROGEN 7 mg/dL (7-20); CALCIUM 8.8 mg/dL (8.4-10.2); CARBON DIOXIDE 23 mmol/L (22-30); CHLORIDE 83 mmol/L (98-107); CREATININE RESULT 0.64 mg/dL (0.52-1.25); GLUCOSE 88 mg/dL (75-110); POTASSIUM 4.2 mmol/L (3.6-5.0); TOTAL PROTEIN 6.5 g/dL (6.3-8.2)
[2017-03-01 03:38] LABS: SODIUM 119.3 mmol/L (137-145)
[2017-03-01 03:56] LABS: ABSOLUTE EOSINOPHILS # (AUTO) 0.1 10^3/uL (0.0-0.6); ABSOLUTE MONOCYTES (AUTO) 0.5 10^3/uL (0.1-1.4); ABSOLUTE NEUT (AUTO) 2.7 10^3/uL (1.7-8.2); BASOPHILS % (AUTO) 0.7 % (0-2); EOSINOPHILS % (AUTO) 2.4 % (0-6); HEMATOCRIT 38.6 % (37.9-51.0); HEMOGLOBIN 14.2 g/dL (13.5-17.0); LYMPHOCYTES % (AUTO) 36.8 % (13-45); MEAN CORPUSCULAR HGB CONC 36.7 g/dL (32.0-36.0); MEAN CORPUSCULAR VOLUME 82 fl (80-97); MONOCYTES % (AUTO) 8.9 % (3-13); RED BLOOD COUNT 4.72 10^6/uL (4.35-5.55); RED CELL DISTRIBUTION WIDTH 13.1 % (11.5-14.0); SEGMENTED NEUTROPHILS % (AUTO) 51.2 % (42-78); WHITE BLOOD COUNT 5.3 10^3/uL (4.0-10.5)
[2017-03-01] MEDS: HEPARIN SOD (PORCINE) 5,000 UNIT/ML 1 ML SYRINGE SUBCUT SCH (05:17)
[2017-03-01] MEDS: BUSPIRONE HCL 10 MG TABLET PO SCH (05:17)
[2017-03-01] MEDS: LANSOPRAZOLE 15 MG TAB.RAP.DR PO SCH (05:17)
[2017-03-01] MEDS ORDERED: SODIUM CHLORIDE 1 GM TABLET PO SCH (10:00)
[2017-03-01] MEDS ORDERED: ISOSORBIDE MONONITRATE 30 MG TAB.ER.24H PO SCH (10:00)
[2017-03-01] MEDS ORDERED: SERTRALINE HCL 50 MG TABLET PO SCH (10:00)
[2017-03-01] MEDS ORDERED: LEVOTHYROXINE SODIUM 0.05 MG TABLET PO SCH (10:00)
[2017-03-01] MEDS: DIAZEPAM 2 MG TABLET PO SCH (10:01)
[2017-03-01] MEDS: NADOLOL 40 MG TABLET PO SCH (10:02)
[2017-03-01] MEDS: DOCUSATE SODIUM 100 MG CAPSULE PO SCH (10:05)
--- NOTE | 2017-03-01 10:26 | PDOC DISCHARGE SUMMARY ---
General - Admit/Disc Date/PCP Admission Date/Primary Care Provider: 02/28/17 04:29 Discharge Date: 03/01/17 - Discharge Diagnosis (1) Elevated LFTs Is this a current diagnosis for this admission?: Yes Summary: Secondary to chronic Tylenol use: Patient's LFTs have trended down. (2) Chronic abdominal pain Is this a current diagnosis for this admission?: Yes Summary: Supportive of care. Patient was told to follow-up with pain management. (3) Acetaminophen overdose Is this a current diagnosis for this admission?: Yes Summary: Ruled out: Patient's presentation more likely consistent with chronic Tylenol use. Patient's Tylenol level on 2 separate occasions was less than 10. Patient was in acute Tylenol overdose patient's Tylenol level should been greater than less than 10. Patient was however given an acetylcysteine/ Mucomyst however patient's report of taking several tablets containing acetaminophen appears to be incorrect or exaggerated. (4) Chronic hyponatremia Is this a current diagnosis for this admission?: Yes Summary: Patient placed on sodium replacement for 4 days. Since chronic hyponatremia is most likely result of SSRI and possibly Depakote (5) Polysubstance abuse Is this a current diagnosis for this admission?: Yes Summary: Patient will need to seek outpatient treatment facility for polysubstance abuse (6) Severe obesity (BMI 35.0-35.9 with comorbidity) Is this a current diagnosis for this admission?: Yes Summary: Encouraged dietary changes. - Additional Information Resuscitation Status: Full Code Discharge Diet: Regular Discharge Activity: Activity As Tolerated Home Medications: Buspirone HCl [Buspar 10 mg Tablet] 10 mg PO Q8 02/28/17 Divalproex Sodium [Divalproex Sodium ER] 500 mg PO QHS 02/28/17 Isosorbide Mononitrate [Isosorbide Mononitrate ER] 30 mg PO DAILY 02/28/17 Levothyroxine Sodium [Synthroid] 50 mcg PO DAILY 02/28/17 Metoclopramide HCl [Reglan] 5 mg PO Q6HP PRN 02/28/17 Nadolol [Corgard] 20 mg PO Q12 02/28/17 Sertraline HCl [Zoloft] 150 mg PO DAILY 02/28/17 Trazodone HCl [Desyrel] 100 mg PO QHS 02/28/17 Sodium Chloride [Sodium Chloride 1 gm Tablet] 1 gm PO TID #12 tablet 03/01/17 History of Present Illness Patient complains of: Abdominal pain History of Present Illness: FRANKY VELIZ is a 41 year old male resents to the emergency room after reporting that he took 26 tablets of 7.5/325 Percocets that he got off the streets in the last 24 hours. Patient's Tylenol level was less than 10 then approximately 10 hours later another Tylenol level was drawn which was less than 10 as well. During hospitalization patient was asking staff as well as physician to give him pain medication. Patient's mother arrived at the hospital was very frustrated with patient's substance abuse. Patient's mother reported to nurses that he does this type of behavior all the time. Due to concern for acute Tylenol toxicity patient was given Mucomyst however treatment protocol was discontinued after discovering the patient's Tylenol level continue to be less than 10 8-10 hrs. later. Patient was noted to have low sodium however this is a chronic problem she is most likely related to patient' s psych medication and Depakote. During hospitalization patient was on floor without any evidence of somnolence. Patient was noted to be up walking around room and walking out of room to nurses station requesting for pain medication. Hospital Course Hospital Course: FRANKY VELIZ is a 41 year old male resents to the emergency room after reporting that he took 26 tablets of 7.5/325 Percocets that he got off the streets in the last 24 hours. Patient's Tylenol level was less than 10 then approximately 10 hours later another Tylenol level was drawn which was less than 10 as well. During hospitalization patient was asking staff as well as physician to give him pain medication. Patient's mother arrived at the hospital was very frustrated with patient's substance abuse. Patient's mother reported to nurses that he does this type of behavior all the time. Due to concern for acute Tylenol toxicity patient was given Mucomyst however treatment protocol was discontinued after discovering the patient's Tylenol level continue to be less than 10 8-10 hrs. later. Patient was noted to have low sodium however this is a chronic problem she is most likely related to patient' s psych medication and Depakote. During hospitalization patient was on floor without any evidence of somnolence. Patient was noted to be up walking around room and walking out of room to nurses station requesting for pain medication. Physical Exam Vital Signs: Temp Pulse Resp BP Pulse Ox 97.3 F 58 L 20 138/94 H 99 03/01/17 08:33 03/01/17 08:33 03/01/17 08:33 03/01/17 08:33 03/01/17 08:33 Intake & Output 02/28/17 03/01/17 03/02/17 06:59 06:59 06:59 Intake Total 1643 Output Total 1000 Balance 643 Weight 99.2 kg 100.3 kg General appearance: PRESENT: no acute distress, well-developed, well-nourished Head exam: PRESENT: atraumatic, normocephalic Eye exam: PRESENT: conjunctiva pink, EOMI. ABSENT: scleral icterus Ear exam: PRESENT: normal external ear exam Mouth exam: PRESENT: moist, tongue midline Neck exam: ABSENT: carotid bruit, JVD, lymphadenopathy, thyromegaly Respiratory exam: PRESENT: clear to auscultation pradeep. ABSENT: rales, rhonchi, wheezes Cardiovascular exam: PRESENT: RRR. ABSENT: diastolic murmur, rubs, systolic murmur Pulses: PRESENT: normal dorsalis pedis pul Vascular exam: PRESENT: normal capillary refill GI/Abdominal exam: PRESENT: normal bowel sounds, tenderness - Diffuse tenderness in all quadrants. ABSENT: distended, guarding, mass, organolmegaly, rebound Rectal exam: PRESENT: deferred Extremities exam: PRESENT: full ROM. ABSENT: calf tenderness, clubbing, pedal edema Neurological exam: PRESENT: alert, awake, oriented to person, oriented to place , oriented to time, oriented to situation, CN II-XII grossly intact. ABSENT: motor sensory deficit Psychiatric exam: PRESENT: appropriate affect, normal mood. ABSENT: homicidal ideation, suicidal ideation Skin exam: PRESENT: dry, intact, warm. ABSENT: cyanosis, rash Results Laboratory Results: 03/01/17 02:54 03/01/17 02:54 03/01/17 03/01/17 02:54 02:54 WBC 5.3 RBC 4.72 Hgb 14.2 Hct 38.6 MCV 82 MCH 30.0 MCHC 36.7 H RDW 13.1 Plt Count 169 Seg Neutrophils % 51.2 Lymphocytes % 36.8 Monocytes % 8.9 Eosinophils % 2.4 Basophils % 0.7 Absolute Neutrophils 2.7 Absolute Lymphocytes 2.0 Absolute Monocytes 0.5 Absolute Eosinophils 0.1 Absolute Basophils 0.0 Sodium 119.3 L* Potassium 4.2 Chloride 83 L Carbon Dioxide 23 Anion Gap 13 BUN 7 Creatinine 0.64 Est GFR ( Amer) > 60 Est GFR (Non-Af Amer) > 60 Glucose 88 Calcium 8.8 Total Bilirubin 1.0 AST 36 ALT 82 H Alkaline Phosphatase 80 Total Protein 6.5 Albumin 4.0 Impressions: Abdomen Ultrasound 02/28/17 00:00 IMPRESSION: Suboptimal exam due to overlying bowel gas. Status post cholecystectomy. No biliary ductal dilation. Plan Time Spent: Less than 30 Minutes
[2017-03-01 11:31] VITALS: BP 123/67
[2017-03-01] MEDS: PROMETHAZINE HCL 25 MG SUPP.RECT PR PRN (11:55)
== END 2017-03-01 13:30 | disposition home or self-care (01) ==
LOC: ER 01:15 → UNDOADMOB 04:25 → EH 04:25 → 4N 06:24
PROVIDERS: ADMIT Family Medicine; ATTEND Family Medicine
DX: D68.32 Hemorrhagic disorder due to extrinsic circulating anticoagulants (principal); T39.1X1A Poisoning by 4-Aminophenol derivatives, accidental (unintentional), initial encounter; G89.29 Other chronic pain; R10.10 Upper abdominal pain, unspecified; R79.89 Other specified abnormal findings of blood chemistry; E87.1 Hypo-osmolality and hyponatremia; E66.01 Morbid (severe) obesity due to excess calories; Z68.35 Body mass index [BMI] 35.0-35.9, adult; F19.10 Other psychoactive substance abuse, uncomplicated; E78.00 Pure hypercholesterolemia, unspecified; I10 Essential (primary) hypertension; E03.9 Hypothyroidism, unspecified; Z98.84 Bariatric surgery status; Z90.49 Acquired absence of other specified parts of digestive tract
CPT/HCPCS: 99285; 36415 ×2; 80307 ×3; 82550; 85025; 85610 ×2; 80053 ×2; 76700; 93976; A9270 ×18; J1644 ×2; J1630; J1885; J3490; J2405 ×2

== ENCOUNTER 2017-03-24 18:44 | Emergency (ER) | payer MEDICARE ==
[2017-03-24] MEDS ORDERED: NORMAL SALINE 1000 ML 1,000 ML IV ONE (19:38)
--- NOTE | 2017-03-24 19:41 | ER Document Report ---
ED Medical Screen (RME) - General Chief Complaint: Abdominal Pain Stated Complaint: ABDOMINAL PAIN Time Seen by Provider: 03/24/17 19:32 Notes: Patient is well-known to the emergency department. He has a history of narcotic abuse. Patient was recently admitted to the hospital for Tylenol overdose. Patient states again he has been taking Tylenol excessively. He states he now has pressure in his abdomen that goes up into his chest. He has been nauseous and having vomiting. He states he also feels very dizzy and lightheaded. TRAVEL OUTSIDE OF THE [place] IN LAST 30 DAYS: No - Related Data Allergies/Adverse Reactions: quetiapine fumarate [From [email or web address]] Adverse Reaction (Verified 03/24/17 18:48) Hypotension Past Medical History - Social History Family history: CAD - Past Medical History Cardiac Medical History: Reports: Hx Hypercholesterolemia, Hx Hypertension, Hx Peripheral Vascular Disease - Left carotid stenosis 50-69% Denies: Hx Congestive Heart Failure, Hx DVT, Hx Heart Attack, Hx Pulmonary Embolism Pulmonary Medical History: Denies: Hx Asthma, Hx COPD Neurological Medical History: Reports: Hx Migraine, Hx Seizures Endocrine Medical History: Reports: Hx Hypothyroidism. Denies: Hx Diabetes Mellitus Type 1, Hx Diabetes Mellitus Type 2, Hx Hyperthyroidism Renal/ Medical History: Denies: Hx Peritoneal Dialysis GI Medical History: Reports: Hx Gastroesophageal Reflux Disease, Hx Hiatal Hernia. Denies: Hx Cirrhosis, Hx Hepatitis Musculoskeltal Medical History: Denies Hx Arthritis Psychiatric Medical History: Reports: Hx Anxiety, Hx Depression Infectious Medical History: Denies: Hx Hepatitis Past Surgical History: Reports: Hx Abdominal Surgery - gastric bypass 05, bowel blockagex2, umbilical hernia repair, Hx Cardiac Catheterization - Which is found to be negative~2014, Hx Cholecystectomy, Hx Gastric Bypass Surgery, Hx Herniorrhaphy - Immunizations Immunizations up to date: Yes Hx Diphtheria, Pertussis, Tetanus Vaccination: Yes History of Influenza Vaccine for 02/2017 - 07/2017 Season: Refused Physical Exam - Vital signs Vitals: Temp Pulse Resp BP Pulse Ox 97.8 F 71 20 135/104 H 98 03/24/17 18:49 03/24/17 18:49 03/24/17 18:49 03/24/17 18:49 03/24/17 18:49 Course - Vital Signs Vital signs: Temp Pulse Resp BP Pulse Ox 97.8 F 71 20 135/104 H 98 03/24/17 18:49 03/24/17 18:49 03/24/17 18:49 03/24/17 18:49 03/24/17 18:49
[2017-03-24] MEDS ORDERED: ONDANSETRON HCL INJ/PF 4 MG/2 ML SDV IV ONE ×2 (19:44→21:31)
[2017-03-24 20:19] LABS: ABSOLUTE BASOPHILS # (AUTO) 0.1 10^3/uL (0.0-0.2); ABSOLUTE EOSINOPHILS # (AUTO) 0.4 10^3/uL (0.0-0.6); ABSOLUTE LYMPHOCYTES (AUTO) 1.2 10^3/uL (0.5-4.7); ABSOLUTE MONOCYTES (AUTO) 0.6 10^3/uL (0.1-1.4); BASOPHILS % (AUTO) 0.7 % (0-2); EOSINOPHILS % (AUTO) 3.5 % (0-6); HEMATOCRIT 42.8 % (37.9-51.0); HEMOGLOBIN 14.8 g/dL (13.5-17.0); HGB HCT DIFFERENCE 1.6; LYMPHOCYTES % (AUTO) 11.5 % (13-45); MEAN CORPUSCULAR HEMOGLOBIN 29.8 pg (27.0-33.4); MEAN CORPUSCULAR HGB CONC 34.5 g/dL (32.0-36.0); MONOCYTES % (AUTO) 5.7 % (3-13); RED BLOOD COUNT 4.96 10^6/uL (4.35-5.55); RED CELL DISTRIBUTION WIDTH 13.2 % (11.5-14.0); SEGMENTED NEUTROPHILS % (AUTO) 78.6 % (42-78); WHITE BLOOD COUNT 10.2 10^3/uL (4.0-10.5)
[2017-03-24 20:21] LABS: MEAN CORPUSCULAR VOLUME 86 fl (80-97)
[2017-03-24 20:43] LABS: ALANINE AMINOTRANSFERASE 23 U/L (21-72); ALBUMIN 4.4 g/dL (3.5-5.0); ALKALINE PHOSPHATASE 55 U/L (38-126); ANION GAP 10 (5-19); ASPARTATE AMINO TRANSFERASE 23 U/L (17-59); BILIRUBIN,DIRECT 0.5 mg/dL (0.0-0.4); BILIRUBIN,TOTAL 0.5 mg/dL (0.2-1.3); BLOOD UREA NITROGEN 13 mg/dL (7-20); CALCIUM 9.4 mg/dL (8.4-10.2); CARBON DIOXIDE 31 mmol/L (22-30); CHLORIDE 90 mmol/L (98-107); CREATININE RESULT 0.82 mg/dL (0.52-1.25); GLUCOSE 101 mg/dL (75-110); LIPASE 18.5 U/L (23-300); SODIUM 130.7 mmol/L (137-145); TOTAL PROTEIN 7.5 g/dL (6.3-8.2)
[2017-03-24] MEDS ORDERED: FUROSEMIDE INJ/PF 40 MG/4 ML SDV IV ONE (20:57)
--- NOTE | 2017-03-24 21:37 | ER Document Report ---
ED General - General Chief Complaint: Abdominal Pain Stated Complaint: ABDOMINAL PAIN Time Seen by Provider: 03/24/17 19:32 Notes: Patient is a 41-year-old male with a past medical history of chronic narcotic and benzodiazepine abuse who presents with chronic epigastric and right upper quadrant abdominal pain. Nothing is new or different about the patient's pain today that prompted a visit to the emergency department. He is very well-known to me as well as this department for frequent visits for the similar complaint. He states that he continues to abuse Narco and Percocet as well as Valium which he states he uses to treat his chronic abdominal pain. Pain is described as a constant dull, throbbing pain to the upper abdomen. He notes associated nausea and vomiting. No melena or hematochezia. He does not currently have a primary care doctor and does get all of his medications illicitly. TRAVEL OUTSIDE OF THE [place] IN LAST 30 DAYS: No - Related Data Allergies/Adverse Reactions: quetiapine fumarate [From [employer]] Adverse Reaction (Verified 03/24/17 18:48) Hypotension Past Medical History - General Information source: Patient - Social History Smoking Status: Never Smoker Frequency of alcohol use: None Drug Abuse: None Lives with: Parents Family History: CAD - States all the males in his family have of heart disease in their 40s., CVA, Other - [place] Patient has suicidal ideation: No Patient has homicidal ideation: No - Past Medical History Cardiac Medical History: Reports: Hx Hypercholesterolemia, Hx Hypertension, Hx Peripheral Vascular Disease - Left carotid stenosis 50-69% Denies: Hx Congestive Heart Failure, Hx DVT, Hx Heart Attack, Hx Pulmonary Embolism Pulmonary Medical History: Denies: Hx Asthma, Hx COPD Neurological Medical History: Reports: Hx Migraine, Hx Seizures Endocrine Medical History: Reports: Hx Hypothyroidism. Denies: Hx Diabetes Mellitus Type 1, Hx Diabetes Mellitus Type 2, Hx Hyperthyroidism Renal/ Medical History: Denies: Hx Peritoneal Dialysis GI Medical History: Reports: Hx Gastroesophageal Reflux Disease, Hx Hiatal Hernia. Denies: Hx Cirrhosis, Hx Hepatitis Musculoskeltal Medical History: Denies Hx Arthritis Psychiatric Medical History: Reports: Hx Anxiety, Hx Depression Infectious Medical History: Denies: Hx Hepatitis Past Surgical History: Reports: Hx Abdominal Surgery - gastric bypass 05, bowel blockagex2, umbilical hernia repair, Hx Cardiac Catheterization - Which is found to be negative~2014, Hx Cholecystectomy, Hx Gastric Bypass Surgery, Hx Herniorrhaphy - Immunizations Immunizations up to date: Yes Hx Diphtheria, Pertussis, Tetanus Vaccination: Yes Review of Systems - Review of Systems Notes: Constitutional: Negative for fever. HENT: Negative for sore throat. Eyes: Negative for visual changes. Cardiovascular: Negative for chest pain. Respiratory: Negative for shortness of breath. Gastrointestinal: Positive for abdominal pain and nausea Genitourinary: Negative for dysuria. Musculoskeletal: Negative for back pain. Skin: Negative for rash. Neurological: Negative for headaches, weakness or numbness. 10 point ROS negative except as marked above and in HPI. Physical Exam - Vital signs Vitals: Temp Pulse Resp BP Pulse Ox 97.8 F 71 20 135/104 H 98 03/24/17 18:49 03/24/17 18:49 03/24/17 18:49 03/24/17 18:49 03/24/17 18:49 Interpretation: Normal Notes: PHYSICAL EXAMINATION: GENERAL: Well-appearing, well-nourished and in no acute distress. HEAD: Atraumatic, normocephalic. EYES: Pupils equal round and reactive to light, extraocular movements intact, sclera anicteric, conjunctiva are normal. ENT: nares patent, oropharynx clear without exudates. Moist mucous membranes. NECK: Normal range of motion, supple without lymphadenopathy LUNGS: Breath sounds clear to auscultation bilaterally and equal. No wheezes rales or rhonchi. HEART: Regular rate and rhythm without murmurs ABDOMEN: Soft, mild epigastric abdominal tenderness otherwise no localized tenderness, normoactive bowel sounds. No guarding, no rebound. No masses appreciated. EXTREMITIES: Normal range of motion, no pitting or edema. No cyanosis. NEUROLOGICAL: No focal neurological deficits. Moves all extremities spontaneously and on command. PSYCH: Somewhat depressed mood and affect. Poor eye contact. Poor insight and judgment. SKIN: Warm, Dry, normal turgor, no rashes or lesions noted. Course - Re-evaluation Re-evalutation: 03/24/17 21:32 Patient presents with ongoing chronic abdominal pain, very similar to all the prior presentations for which have seen him. He continues to abuse Tylenol containing narcotic pain medications as well as diazepam. His Tylenol level is 0 and he has not ingested more than 4 g in the past 24 hours. His LFTs are normal. The only lab abnormalities that his potassium is elevated at 6. However there are no EKG changes to suggest that this is a symptomatic hyperkalemia. He has been given a liter of IV fluids as well as 40 mg of IV Lasix to reduce the potassium and has been instructed to follow-up with his primary care doctor within the next 24 hours for recheck of his potassium level. I have again spent 10-15 minutes at the bedside emphasizing with the patient that he is a chronic narcotic and benzodiazepine addict, that he suffers from hyperalgesia and chronic cycles of withdrawal and intoxication. Patient now notes that his social situation is deteriorating as his mother is planning to kick him out of the house and patient does not see how he will continue to fund his habit. Patient continues to deflect attempts at pointing out his obvious addiction pattern and continues to focus on his chronic abdominal pain as the reason for his need for chronic pain medications. He however denies being acutely suicidal or denies any intent to harm himself by ingesting his medications stating "that is the last thing I want". I do not suspect an acute biliary pathology, pancreatitis, hepatitis, bowel obstruction, or mesenteric ischemia based on his exam and history. His abdominal exam is extremely benign without any focal tenderness, rebound or guarding. At this time will discharge with return precautions and follow-up recommendations. Verbal discharge instructions given a the bedside and opportunity for questions given. Medication warnings reviewed. Patient is in agreement with this plan and has verbalized understanding of return precautions and the need for primary care follow-up in the next 24-72 hours. - Vital Signs Vital signs: Temp Pulse Resp BP Pulse Ox 97.3 F 61 18 129/89 H 96 03/24/17 21:57 03/24/17 21:57 03/24/17 21:57 03/24/17 21:57 03/24/17 21:57 - Laboratory Result Diagrams: 03/24/17 19:52 03/24/17 19:52 Laboratory results interpreted by me: 03/24/17 03/24/17 19:52 19:52 Seg Neutrophils % 78.6 H Lymphocytes % 11.5 L Sodium 130.7 L Potassium 6.0 H* Chloride 90 L Carbon Dioxide 31 H Direct Bilirubin 0.5 H Lipase 18.5 L Acetaminophen < 10 L - EKG Interpretation by Me Additional EKG results interpreted by me: 03/24/17 21:35 Normal sinus rhythm. Rate 71. No ST elevations or depressions. QTC is 418. Discharge - Discharge Clinical Impression: Substance abuse, Chronic opiate abuse, Chronic abdominal pain, Chronic benzodiazepine abuse, Hyperkalemia Condition: Stable Disposition: HOME, SELF-CARE Additional Instructions: Your potassium was high but her other labs are otherwise normal. Please have your potassium rechecked by her primary doctor in the next 24-48 hours. As we have discussed, you are chronic narcotic and benzodiazepine addict. Your chronic pain is due to the your addiction and continued use of these medications. If you want the symptoms. You need to stop abusing these medicines. Return if you become suicidal, have persistent vomiting that prevents you from being able to tolerate fluids, or any other symptoms that are worrisome to you.
[2017-03-24 21:57] VITALS: BP 129/89
--- NOTE | 2017-03-25 09:41 | EKG REPORT ---
SEVERITY:- NORMAL ECG - SINUS RHYTHM : Confirmed by: Galen Lloyd 25-Mar-2017 09:41:04
== END 2017-03-24 21:57 | disposition home or self-care (01) ==
LOC: ER 18:44
DX: G89.29 Other chronic pain (principal); R10.13 Epigastric pain; R10.11 Right upper quadrant pain; F11.20 Opioid dependence, uncomplicated; F13.20 Sedative, hypnotic or anxiolytic dependence, uncomplicated; F55.8 Abuse of other non-psychoactive substances; E87.5 Hyperkalemia; R11.2 Nausea with vomiting, unspecified; F32.9 Major depressive disorder, single episode, unspecified; I10 Essential (primary) hypertension; Z98.84 Bariatric surgery status; Z90.49 Acquired absence of other specified parts of digestive tract
CPT/HCPCS: 93005; 96376; 99284; 96361; 96374; 96375; 36415; 83690; 80307; 85025; 80053; 93010; J1940; J2405; J7030

== ENCOUNTER 2017-04-05 12:55 | Emergency (ER) | payer MEDICARE ==
--- NOTE | 2017-04-05 13:05 | ER Document Report ---
ED Medical Screen (RME) - General Chief Complaint: Abdominal Pain Stated Complaint: ABDOMINAL PAIN Time Seen by Provider: 04/05/17 13:04 TRAVEL OUTSIDE OF THE [place] IN LAST 30 DAYS: No - HPI Notes: 04/05/17 13:04 Multiple visits for right upper quadrant pain returns again for similar pain today. - Related Data Allergies/Adverse Reactions: quetiapine fumarate [From Sero[employer]] Adverse Reaction (Verified 03/24/17 18:48) Hypotension Past Medical History - Social History Family history: CAD - Past Medical History Cardiac Medical History: Reports: Hx Hypercholesterolemia, Hx Hypertension, Hx Peripheral Vascular Disease - Left carotid stenosis 50-69% Denies: Hx Congestive Heart Failure, Hx DVT, Hx Heart Attack, Hx Pulmonary Embolism Pulmonary Medical History: Denies: Hx Asthma, Hx COPD Neurological Medical History: Reports: Hx Migraine, Hx Seizures Endocrine Medical History: Reports: Hx Hypothyroidism. Denies: Hx Diabetes Mellitus Type 1, Hx Diabetes Mellitus Type 2, Hx Hyperthyroidism Renal/ Medical History: Denies: Hx Peritoneal Dialysis GI Medical History: Reports: Hx Gastroesophageal Reflux Disease, Hx Hiatal Hernia. Denies: Hx Cirrhosis, Hx Hepatitis Musculoskeltal Medical History: Denies Hx Arthritis Psychiatric Medical History: Reports: Hx Anxiety, Hx Depression Infectious Medical History: Denies: Hx Hepatitis Past Surgical History: Reports: Hx Abdominal Surgery - gastric bypass 05, bowel blockagex2, umbilical hernia repair, Hx Cardiac Catheterization - Which is found to be negative~2014, Hx Cholecystectomy, Hx Gastric Bypass Surgery, Hx Herniorrhaphy - Immunizations Immunizations up to date: Yes Hx Diphtheria, Pertussis, Tetanus Vaccination: Yes History of Influenza Vaccine for 02/2017 - 07/2017 Season: Refused Review of Systems - Review of Systems Gastrointestinal: Abdominal pain Physical Exam - Vital signs Vitals: Temp Pulse Resp BP Pulse Ox 97.8 F 70 16 118/77 97 04/05/17 12:58 04/05/17 12:58 04/05/17 12:58 04/05/17 12:58 04/05/17 12:58 - Respiratory Respiratory status: No respiratory distress Chest status: Nontender Breath sounds: Normal Chest palpation: Normal Course - Vital Signs Vital signs: Temp Pulse Resp BP Pulse Ox 97.8 F 70 16 118/77 97 04/05/17 12:58 04/05/17 12:58 04/05/17 12:58 04/05/17 12:58 04/05/17 12:58
[2017-04-05] MEDS ORDERED: ONDANSETRON 4 MG TAB.RAPDIS PO ONE (13:10)
--- NOTE | 2017-04-05 13:22 | ER Document Report ---
ED GI/ - General Chief Complaint: Abdominal Pain Stated Complaint: ABDOMINAL PAIN Time Seen by Provider: 04/05/17 13:04 Notes: The patient is a 41-year-old male, past medical history chronic right upper quadrant abdominal pain, chronic abuser of benzos and opioids, frequent user of the emergency room, presents with his usual right upper quadrant abdominal pain. He is also saying he is having nausea, vomiting and diarrhea. Patient denies fevers, hematemesis, blood in stool, headache, lightheadedness, chest pain, shortness of breath, urinary symptoms or back pain. TRAVEL OUTSIDE OF THE [place] IN LAST 30 DAYS: No - Related Data Allergies/Adverse Reactions: quetiapine fumarate [From [employer]] Adverse Reaction (Verified 03/24/17 18:48) Hypotension Past Medical History - General Information source: Patient - Social History Smoking Status: Never Smoker Chew tobacco use (# tins/day): No Frequency of alcohol use: None Drug Abuse: Prescription drugs Family History: CAD - States all the males in his family have of heart disease in their 40s., CVA, Other - [place] Patient has suicidal ideation: No Patient has homicidal ideation: No - Past Medical History Cardiac Medical History: Reports: Hx Hypercholesterolemia, Hx Hypertension, Hx Peripheral Vascular Disease - Left carotid stenosis 50-69% Denies: Hx Congestive Heart Failure, Hx DVT, Hx Heart Attack, Hx Pulmonary Embolism Pulmonary Medical History: Denies: Hx Asthma, Hx COPD Neurological Medical History: Reports: Hx Migraine, Hx Seizures Endocrine Medical History: Reports: Hx Hypothyroidism. Denies: Hx Diabetes Mellitus Type 1, Hx Diabetes Mellitus Type 2, Hx Hyperthyroidism Renal/ Medical History: Denies: Hx Peritoneal Dialysis GI Medical History: Reports: Hx Gastroesophageal Reflux Disease, Hx Hiatal Hernia. Denies: Hx Cirrhosis, Hx Hepatitis Musculoskeltal Medical History: Denies Hx Arthritis Psychiatric Medical History: Reports: Hx Anxiety, Hx Depression Infectious Medical History: Denies: Hx Hepatitis Past Surgical History: Reports: Hx Abdominal Surgery - gastric bypass 05, bowel blockagex2, umbilical hernia repair, Hx Cardiac Catheterization - Which is found to be negative~2014, Hx Cholecystectomy, Hx Gastric Bypass Surgery, Hx Herniorrhaphy - Immunizations Immunizations up to date: Yes Hx Diphtheria, Pertussis, Tetanus Vaccination: Yes Review of Systems - Review of Systems Notes: REVIEW OF SYSTEMS: CONSTITUTIONAL: -fevers, -chills EENT: -eye pain, -difficulty swallowing, -nasal congestion CARDIOVASCULAR:-chest pain, -syncope. RESPIRATORY: -cough, -SOB GASTROINTESTINAL: +RUQ abdominal pain, +nausea, +vomiting, +diarrhea GENITOURINARY: -dysuria, -hematuria MUSCULOSKELETAL: -back pain, -neck pain SKIN: -rash or skin lesions. HEMATOLOGIC: -easy bruising or bleeding. LYMPHATIC: -swollen, enlarged glands. NEUROLOGICAL: -altered mental status or loss of consciousness, -headache, - neurologic symptoms PSYCHIATRIC: -anxiety, -depression. ALL OTHER SYSTEMS REVIEWED AND NEGATIVE. Physical Exam - Vital signs Vitals: Temp Pulse Resp BP Pulse Ox 97.8 F 70 16 118/77 97 04/05/17 12:58 04/05/17 12:58 04/05/17 12:58 04/05/17 12:58 04/05/17 12:58 - Notes Notes: PHYSICAL EXAMINATION: GENERAL: Well-appearing, well-nourished and in no acute distress. HEAD: Atraumatic, normocephalic. EYES: Pupils equal round and reactive to light, extraocular movements intact, sclera anicteric, conjunctiva are normal. ENT: nares patent, oropharynx clear without exudates. Moist mucous membranes. NECK: Normal range of motion, supple without lymphadenopathy LUNGS: Breath sounds clear to auscultation bilaterally and equal. No wheezes rales or rhonchi. HEART: Regular rate and rhythm without murmurs ABDOMEN: Soft, nontender, normoactive bowel sounds. No guarding, no rebound. No masses appreciated. EXTREMITIES: Normal range of motion, no pitting or edema. No cyanosis. NEUROLOGICAL: Cranial nerves grossly intact. Normal speech, normal gait. Normal sensory and motor exams. PSYCH: Normal mood, normal affect. SKIN: Warm, Dry, normal turgor, no rashes or lesions noted. Course - Re-evaluation Re-evalutation: Patient's right upper quadrant abdominal pain is chronic in nature and he has had multiple ER visits for this issue. No abnormalities on labs and instructed to follow with his primary care physician. He does not have a gallbladder. - Vital Signs Vital signs: Temp Pulse Resp BP Pulse Ox 97.8 F 70 16 118/77 97 04/05/17 12:58 04/05/17 12:58 04/05/17 12:58 04/05/17 12:58 04/05/17 12:58 - Laboratory Result Diagrams: 04/05/17 13:51 04/05/17 13:51 Discharge - Discharge Clinical Impression: RUQ abdominal pain Condition: Stable Additional Instructions: ABDOMINAL PAIN: There are many causes of abdominal pain. Pain can mean a serious problem requiring surgery (such as appendicitis). It can also be an innocent problem that goes away on its own (such as a viral infection). Often, time must pass to determine the cause of pain. The physician does not feel that hospitalization is necessary, at present. Things may change within the next 24 hours. Call the doctor or come back for re- examination if any problems occur, such as: (1) Pain that becomes more severe, steady, or becomes concentrated in one specific area. Also, pain that is more severe with movement or coughing. (2) Vomiting that persists or becomes more frequent. (3) Blood in the vomitus, urine, or bowel movements. Blood in the stool may have a tarry or black appearance. (4) Shaking chills or fever greater than 100 degrees F. (5) The abdomen becomes more distended or swollen. (6) Bowel movements cease. (7) Failure to improve as expected. NORMAL EXAM AND WORKUP: At this time, your examination and workup show no significant abnormality. No significant abnormal physical findings are noted. All laboratory, EKG, and imaging (x-ray, CT scans, ultrasound) studies that were ordered show no significant abnormality. Although your examination and all studies that were ordered showed no significant abnormal finding, there are no examinations and no studies that are 100% accurate. There is always the possibility that some abnormality could exist and not be detected with physical examination or within the limits and capabilities of laboratory and other studies. You should return or follow up as you were instructed on your visit today for further evaluation if your symptoms do not resolve. FOLLOW-UP CARE: If you have been referred to a physician for follow-up care, call the physician s office for an appointment as you were instructed or within the next two days. If you experience worsening or a significant change in your symptoms, notify the physician immediately or return to the Emergency Department at any time for re-evaluation. Referrals: TIFFANY CONCEPCION MD [ACTIVE STAFF] - Follow up as needed
[2017-04-05 14:22] LABS: ABSOLUTE BASOPHILS # (AUTO) 0.1 10^3/uL (0.0-0.2); ABSOLUTE EOSINOPHILS # (AUTO) 0.1 10^3/uL (0.0-0.6); ABSOLUTE LYMPHOCYTES (AUTO) 2.3 10^3/uL (0.5-4.7); ABSOLUTE MONOCYTES (AUTO) 0.6 10^3/uL (0.1-1.4); ABSOLUTE NEUT (AUTO) 6.9 10^3/uL (1.7-8.2); BASOPHILS % (AUTO) 0.8 % (0-2); EOSINOPHILS % (AUTO) 1.2 % (0-6); HEMATOCRIT 42.6 % (37.9-51.0); HEMOGLOBIN 14.7 g/dL (13.5-17.0); HGB HCT DIFFERENCE 1.5; LYMPHOCYTES % (AUTO) 23.1 % (13-45); MEAN CORPUSCULAR HEMOGLOBIN 29.9 pg (27.0-33.4); MEAN CORPUSCULAR HGB CONC 34.4 g/dL (32.0-36.0); MEAN CORPUSCULAR VOLUME 87 fl (80-97); MONOCYTES % (AUTO) 6.4 % (3-13); RED BLOOD COUNT 4.91 10^6/uL (4.35-5.55); RED CELL DISTRIBUTION WIDTH 13.4 % (11.5-14.0); SEGMENTED NEUTROPHILS % (AUTO) 68.5 % (42-78); WHITE BLOOD COUNT 10.1 10^3/uL (4.0-10.5)
[2017-04-05 15:41] LABS: ALANINE AMINOTRANSFERASE 28 U/L (21-72); ALBUMIN 4.2 g/dL (3.5-5.0); ALKALINE PHOSPHATASE 49 U/L (38-126); ANION GAP 14 (5-19); ASPARTATE AMINO TRANSFERASE 15 U/L (17-59); BILIRUBIN,DIRECT 0.3 mg/dL (0.0-0.4); BILIRUBIN,TOTAL 0.5 mg/dL (0.2-1.3); BLOOD UREA NITROGEN 12 mg/dL (7-20); CARBON DIOXIDE 26 mmol/L (22-30); CHLORIDE 95 mmol/L (98-107); CREATININE RESULT 0.75 mg/dL (0.52-1.25); GLUCOSE 84 mg/dL (75-110); LIPASE 44.9 U/L (23-300); POTASSIUM 4.2 mmol/L (3.6-5.0); SODIUM 134.9 mmol/L (137-145); TOTAL PROTEIN 6.5 g/dL (6.3-8.2)
[2017-04-05 15:51] VITALS: BP 129/86
== END 2017-04-05 15:58 | disposition home or self-care (01) ==
LOC: ER 12:55
DX: R10.11 Right upper quadrant pain (principal); R11.2 Nausea with vomiting, unspecified; R19.7 Diarrhea, unspecified; F19.10 Other psychoactive substance abuse, uncomplicated
CPT/HCPCS: 99284; 36415; 83690; 80307 ×2; 85025; 80053; A9270; S0119

== ENCOUNTER 2017-05-06 08:12 | Emergency (ER) | payer MEDICARE ==
--- NOTE | 2017-05-06 08:57 | ER Document Report ---
ED General - General Mode of Arrival: Ambulatory Information source: Patient TRAVEL OUTSIDE OF THE [place] IN LAST 30 DAYS: No <AYLEEN VALENTINE - Last Filed: 05/06/17 08:46> <EVER SALINAS - Last Filed: 05/06/17 09:45> - General Chief Complaint: Abdominal Pain Stated Complaint: ABDOMINAL PAIN Time Seen by Provider: 05/06/17 08:24 Notes: Patient is a 41 year old male who frequents this emergency room with a history of chronic narcotic and benzo abuse and chronic right upper quadrant pain presents to the emergency room complaining of right upper quadrant pain. Patient states that this pain is different from his usual pain. Patient states that 2 1/2 weeks ago he went to have a mini laportomy. Post surgery, patient developed a hernia which was removed and then developed an incisional abscess which was drained. Patient states that he has ran out of narcos 2 days ago and has been taking Tylenol and Hydrocodone for pain. Patient states he is also nauseous. Patient states that he had a follow up 5 days ago and was told all was well following recent surgeries. For the month of April, the patient has been prescribed 70 Narco and 33 Ocycodone. (AYLEEN VALENTINE) - Related Data Allergies/Adverse Reactions: quetiapine fumarate [From [employer]] Adverse Reaction (Verified 03/24/17 18:48) Hypotension Past Medical History - General Information source: Patient - Social History Smoking Status: Never Smoker Frequency of alcohol use: Occasional Family History: CAD - States all the males in his family have of heart disease in their 40s., CVA, Other - [place] - Past Medical History Cardiac Medical History: Reports: Hx Hypercholesterolemia, Hx Hypertension, Hx Peripheral Vascular Disease - Left carotid stenosis 50-69% Neurological Medical History: Reports: Hx Migraine, Hx Seizures Endocrine Medical History: Reports: Hx Hypothyroidism GI Medical History: Reports: Hx Gastroesophageal Reflux Disease, Hx Hiatal Hernia Psychiatric Medical History: Reports: Hx Anxiety, Hx Depression Past Surgical History: Reports: Hx Abdominal Surgery - gastric bypass 05, bowel blockagex2, umbilical hernia repair, Hx Cardiac Catheterization - Which is found to be negative~2014, Hx Cholecystectomy, Hx Gastric Bypass Surgery, Hx Herniorrhaphy - Immunizations Immunizations up to date: Yes Hx Diphtheria, Pertussis, Tetanus Vaccination: Yes <AYLEEN VALENTINE - Last Filed: 05/06/17 08:46> Review of Systems - Review of Systems Constitutional: No symptoms reported EENT: No symptoms reported Cardiovascular: No symptoms reported Respiratory: No symptoms reported Gastrointestinal: See HPI, Abdominal pain, Nausea Genitourinary: No symptoms reported Male Genitourinary: No symptoms reported Musculoskeletal: No symptoms reported Skin: No symptoms reported Hematologic/Lymphatic: No symptoms reported Neurological/Psychological: No symptoms reported -: Yes All other systems reviewed and negative <AYLEEN VALENTINE - Last Filed: 05/06/17 08:46> Physical Exam - General General appearance: Appears well, Alert In distress: None - HEENT Head: Normocephalic, Atraumatic Eyes: Normal Conjunctiva: Normal Pupils: PERRL - Respiratory Respiratory status: No respiratory distress Chest status: Nontender Breath sounds: Normal - Cardiovascular Rhythm: Regular Heart sounds: Normal auscultation - Abdominal Inspection: Normal Distension: No distension Bowel sounds: Hyperactive Tenderness: Nontender - Back Back: Normal - Extremities General upper extremity: Normal ROM General lower extremity: Normal ROM - Neurological Neuro grossly intact: Yes Cognition: Normal Orientation: AAOx4 [place] Coma Scale Eye Opening: Spontaneous [place] Coma Scale Verbal: Oriented [place] Coma Scale Motor: Obeys Commands Maxime Coma Scale Total: 15 Speech: Normal - Psychological Associated symptoms: Normal affect, Normal mood - Skin Skin Temperature: Warm Skin Moisture: Dry Skin Color: Normal <AYLEEN VALENTINE - Last Filed: 05/06/17 08:46> <EVER SALINAS - Last Filed: 05/06/17 09:45> - Vital signs Vitals: Resp 18 05/06/17 08:12 - Abdominal Notes: healing midline abdominal incision with some drainage. (AYLEEN VALENTINE) Course - Laboratory Result Diagrams: 05/06/17 09:10 05/06/17 09:10 - Diagnostic Test Radiology reviewed: Image reviewed, Reports reviewed - Acute abdominal series is unremarkable. There is quite a lot of small gas pockets and stool noted. <EVER SALINAS - Last Filed: 05/06/17 09:45> - Vital Signs Vital signs: Temp Pulse Resp BP Pulse Ox 18 05/06/17 08:12 - Laboratory Laboratory results interpreted by me: 05/06/17 09:10 Sodium 136.2 L Acetaminophen < 10 L Discharge <MEMETAMZACHARIAH - Last Filed: 05/06/17 08:46> <EVER SALINAS - Last Filed: 05/06/17 09:45> - Discharge Clinical Impression: Recurrent right upper quadrant abdominal pain Condition: Stable Disposition: HOME, SELF-CARE Additional Instructions: Abdominal Pain There are many causes of abdominal pain. Pain can mean a serious problem requiring surgery (such as appendicitis). It can also be an innocent problem that goes away on its own (such as a viral infection). Often, time must pass to determine the cause of pain. The physician does not feel that hospitalization is necessary, at present. Things may change within the next 24 hours. Call the doctor or come back for re- examination if any problems occur, such as: (1) Pain that becomes more severe, steady, or becomes concentrated in one specific area. Also, pain that is more severe with movement or coughing. (2) Vomiting that persists or becomes more frequent. (3) Blood in the vomitus, urine, or bowel movements. Blood in the stool may have a tarry or black appearance. (4) Shaking chills or fever greater than 100 degrees F. (5) The abdomen becomes more distended or swollen. (6) Bowel movements cease. (7) Failure to improve as expected. //////////////////////////////////////////////////////////////////////////////// //////////////////////////////////////////////////////////////////////////////// /////////////////// Your evaluation today does not show any radiological or laboratory abnormalities. Your right upper quadrant pain is probably related to the chronic right upper quadrant abdominal pain that you have been experiencing for quite some time. You should follow-up with your surgeons and or gastroenterology doctors, or your primary care provider for further pain management. RETURN TO THE EMERGENCY ROOM IF ANY NEW OR WORSENING SYMPTOMS. Kristin Attestation: 05/06/17 09:45 I personally performed the services described in the documentation, reviewed and edited the documentation which was dictated to the scribe in my presence, and it accurately records my words and actions. (EVER SALINAS) Scribe Documentation - Scribe Written by Kristin:: Kristin Ambriz, 05/06/2017 09:01 acting as scribe for :: Crescencio <AYLEEN VALENTINE - Last Filed: 05/06/17 08:46>
[2017-05-06 09:22] LABS: ABSOLUTE EOSINOPHILS # (AUTO) 0.2 10^3/uL (0.0-0.6); ABSOLUTE LYMPHOCYTES (AUTO) 1.2 10^3/uL (0.5-4.7); ABSOLUTE MONOCYTES (AUTO) 0.5 10^3/uL (0.1-1.4); ABSOLUTE NEUT (AUTO) 3.9 10^3/uL (1.7-8.2); BASOPHILS % (AUTO) 0.8 % (0-2); EOSINOPHILS % (AUTO) 2.7 % (0-6); HEMATOCRIT 40.7 % (37.9-51.0); HGB HCT DIFFERENCE 1.3; LYMPHOCYTES % (AUTO) 20.6 % (13-45); MEAN CORPUSCULAR HEMOGLOBIN 29.4 pg (27.0-33.4); MEAN CORPUSCULAR HGB CONC 34.5 g/dL (32.0-36.0); MEAN CORPUSCULAR VOLUME 85 fl (80-97); MONOCYTES % (AUTO) 7.9 % (3-13); RED BLOOD COUNT 4.78 10^6/uL (4.35-5.55); WHITE BLOOD COUNT 5.8 10^3/uL (4.0-10.5)
[2017-05-06 09:37] LABS: ALANINE AMINOTRANSFERASE 41 U/L (21-72); ALKALINE PHOSPHATASE 62 U/L (38-126); ANION GAP 10 (5-19); ASPARTATE AMINO TRANSFERASE 25 U/L (17-59); BILIRUBIN,DIRECT 0.2 mg/dL (0.0-0.4); BILIRUBIN,TOTAL 0.4 mg/dL (0.2-1.3); BLOOD UREA NITROGEN 10 mg/dL (7-20); CALCIUM 9.9 mg/dL (8.4-10.2); CARBON DIOXIDE 24 mmol/L (22-30); CHLORIDE 102 mmol/L (98-107); CREATININE RESULT 0.73 mg/dL (0.52-1.25); GLUCOSE 110 mg/dL (75-110); MAGNESIUM 1.8 mg/dL (1.6-2.3); POTASSIUM 4.2 mmol/L (3.6-5.0); SODIUM 136.2 mmol/L (137-145); TOTAL PROTEIN 6.4 g/dL (6.3-8.2)
--- NOTE | 2017-05-06 09:39 | RADIOLOGY REPORT (SQ) ---
EXAM DESCRIPTION: ACUTE ABDOMEN SERIES COMPLETED DATE/TIME: 05/06/2017 9:32 am REASON FOR STUDY: RUQ abd pain, recent minilap w/ bowel resection COMPARISON: 11/10/2016. NUMBER OF VIEWS: Three views. TECHNIQUE: Frontal chest, supine abdomen and upright/decubitus abdomen radiographic images acquired. LIMITATIONS: None. FINDINGS: CHEST: Lungs clear of infiltrates. FREE AIR: None. No abnormal gas collections. BOWEL GAS PATTERN: Nonobstructive pattern. No dilated loops or air fluid levels. CALCIFICATIONS: No suspicious calcifications. HARDWARE: Surgical clips. SOFT TISSUES: No gross mass or suggestion of organomegaly. BONES: No acute fracture. No worrisome bone lesions. OTHER: No other significant finding. IMPRESSION: NO RADIOGRAPHIC EVIDENCE FOR ACUTE ABDOMINAL DISEASE. TECHNICAL DOCUMENTATION: JOB ID: [id number] [employer]- All Rights Reserved
[2017-05-06] MEDS ORDERED: TRAMADOL HCL 50 MG TABLET PO ONE (09:41)
[2017-05-06 10:28] VITALS: BP 130/89
== END 2017-05-06 10:27 | disposition home or self-care (01) ==
LOC: ER 08:12
DX: R10.11 Right upper quadrant pain (principal); G89.29 Other chronic pain; R11.0 Nausea; I10 Essential (primary) hypertension; Z98.84 Bariatric surgery status; Z98.890 Other specified postprocedural states
CPT/HCPCS: 99284; 36415; 83735; 80307; 85025; 80053; 74022; A9270

== ENCOUNTER 2017-05-07 05:33 | Emergency (ER) | payer MEDICARE ==
[2017-05-07] MEDS ORDERED: ASPIRIN 81 MG TABLET, CHEWABLE PO ONE (05:47)
[2017-05-07 05:57] LABS: ABSOLUTE EOSINOPHILS # (AUTO) 0.2 10^3/uL (0.0-0.6); ABSOLUTE LYMPHOCYTES (AUTO) 1.7 10^3/uL (0.5-4.7); ABSOLUTE MONOCYTES (AUTO) 0.5 10^3/uL (0.1-1.4); ABSOLUTE NEUT (AUTO) 2.5 10^3/uL (1.7-8.2); BASOPHILS % (AUTO) 0.9 % (0-2); EOSINOPHILS % (AUTO) 4.9 % (0-6); HEMATOCRIT 40.6 % (37.9-51.0); HEMOGLOBIN 13.9 g/dL (13.5-17.0); LYMPHOCYTES % (AUTO) 34.2 % (13-45); MEAN CORPUSCULAR HEMOGLOBIN 29.4 pg (27.0-33.4); MEAN CORPUSCULAR HGB CONC 34.2 g/dL (32.0-36.0); MEAN CORPUSCULAR VOLUME 86 fl (80-97); MONOCYTES % (AUTO) 9.5 % (3-13); PLATELET COUNT 285 10^3/uL (150-450); RED BLOOD COUNT 4.72 10^6/uL (4.35-5.55); RED CELL DISTRIBUTION WIDTH 14.1 % (11.5-14.0); SEGMENTED NEUTROPHILS % (AUTO) 50.5 % (42-78); TOTAL CELLS COUNTED % (AUTO) 100 %
[2017-05-07 06:18] LABS: ALANINE AMINOTRANSFERASE 36 U/L (21-72); ALBUMIN 4.1 g/dL (3.5-5.0); ALKALINE PHOSPHATASE 54 U/L (38-126); ANION GAP 12 (5-19); ASPARTATE AMINO TRANSFERASE 24 U/L (17-59); BILIRUBIN,DIRECT 0.3 mg/dL (0.0-0.4); BILIRUBIN,TOTAL 0.5 mg/dL (0.2-1.3); BLOOD UREA NITROGEN 10 mg/dL (7-20); CALCIUM 9.6 mg/dL (8.4-10.2); CARBON DIOXIDE 26 mmol/L (22-30); CHLORIDE 94 mmol/L (98-107); CREATINE KINASE 24 U/L (55-170); GLUCOSE 97 mg/dL (75-110); LIPASE 53.9 U/L (23-300); POTASSIUM 4.3 mmol/L (3.6-5.0); SODIUM 131.6 mmol/L (137-145); TOTAL PROTEIN 6.9 g/dL (6.3-8.2)
[2017-05-07 06:30] LABS: CREATINE KINASE MB 0.28 ng/mL (<4.55)
[2017-05-07 06:31] LABS: TROPONIN I < 0.012 ng/mL
--- NOTE | 2017-05-07 06:35 | RADIOLOGY REPORT (SQ) ---
EXAM DESCRIPTION: CHEST SINGLE VIEW CLINICAL HISTORY: CP/ epigastric pain COMPARISON: None. FINDINGS: Single frontal view of the chest. The cardiomediastinal silhouette has normal size and contour. No consolidation, pneumothorax, or pleural effusion. No displaced rib fractures identified. Upper abdominal soft tissues are unremarkable. Leads overlie the chest. IMPRESSION: 1. No acute pulmonary process identified.
[2017-05-07] MEDS ORDERED: ONDANSETRON HCL INJ/PF 4 MG/2 ML SDV IV ONE (07:28)
[2017-05-07] MEDS ORDERED: MECLIZINE HCL 25 MG TABLET PO ONE (07:28)
[2017-05-07] MEDS ORDERED: KETOROLAC TROMETHAMINE INJ/PF 30 MG/1 ML SDV IV ONE (07:28)
--- NOTE | 2017-05-07 07:28 | ER Document Report ---
ED General - General Mode of Arrival: Ambulatory Information source: Patient TRAVEL OUTSIDE OF THE [place] IN LAST 30 DAYS: No - HPI Onset: This morning <AYLEEN VALENTINE - Last Filed: 05/07/17 07:43> <EVER SALINAS - Last Filed: 05/07/17 12:43> - General Chief Complaint: Chest Pain Stated Complaint: ABDOMINAL PAIN Time Seen by Provider: 05/07/17 06:30 Notes: Patient is a 41 year old male who frequents this emergency room with a history of chronic narcotic and benzo abuse and chronic right upper quadrant pain presents to the emergency room complaining of chest pain onset 0400 this morning. Patient was in this emergency department yesterday complaining of right upper quadrant pain and states that the pain moved into his chest, midline abdomen at his incision, and head. Patient states this pain is completely new to him. Patient states "My head is so dizzy I cant stand or breathe". Patient states that he has not ran out of his pain medication of Oxycodone. At bedside the patient is writhing, moaning, and grabbing is chest and abdomen. Patients pulse ox is at 96. (AYLEEN VALENTINE) - Related Data Allergies/Adverse Reactions: quetiapine fumarate [From Seroquel] Adverse Reaction (Verified 03/24/17 18:48) Hypotension Past Medical History - General Information source: Patient - Social History Smoking Status: Current Some Day Smoker Family History: CAD - States all the males in his family have of heart disease in their 40s., CVA, Other - [place] Patient has suicidal ideation: No Patient has homicidal ideation: No - Past Medical History Cardiac Medical History: Reports: Hx Hypercholesterolemia, Hx Hypertension, Hx Peripheral Vascular Disease - Left carotid stenosis 50-69% Neurological Medical History: Reports: Hx Migraine, Hx Seizures Endocrine Medical History: Reports: Hx Hypothyroidism GI Medical History: Reports: Hx Gastroesophageal Reflux Disease, Hx Hiatal Hernia Psychiatric Medical History: Reports: Hx Anxiety, Hx Depression Past Surgical History: Reports: Hx Abdominal Surgery - gastric bypass 05, bowel blockagex2, umbilical hernia repair, Hx Cardiac Catheterization - Which is found to be negative~2014, Hx Cholecystectomy, Hx Gastric Bypass Surgery, Hx Herniorrhaphy - Immunizations Immunizations up to date: Yes Hx Diphtheria, Pertussis, Tetanus Vaccination: Yes <AYLEEN VALENTINE - Last Filed: 05/07/17 07:43> Review of Systems - Review of Systems Constitutional: No symptoms reported EENT: No symptoms reported Cardiovascular: See HPI, Chest pain, Dizziness Respiratory: No symptoms reported Gastrointestinal: See HPI, Abdominal pain Genitourinary: No symptoms reported Male Genitourinary: No symptoms reported Musculoskeletal: No symptoms reported Skin: No symptoms reported Hematologic/Lymphatic: No symptoms reported Neurological/Psychological: See HPI, Headaches -: Yes All other systems reviewed and negative <MEME,CONCHAZACHARIAH - Last Filed: 05/07/17 07:43> Physical Exam - General General appearance: Appears well, Alert - HEENT Head: Normocephalic, Atraumatic Eyes: Normal Conjunctiva: Normal Pupils: Dilated - react to direct light - Respiratory Respiratory status: No respiratory distress Chest status: Nontender Breath sounds: Normal - Cardiovascular Rhythm: Regular Heart sounds: Normal auscultation Murmur: No Friction rub: No Gallop: None auscultated - Abdominal Inspection: Normal Distension: No distension Bowel sounds: Normal Tenderness: Nontender Organomegaly: No organomegaly - Back Back: Normal - Extremities General upper extremity: Normal ROM General lower extremity: Normal ROM - Neurological Neuro grossly intact: Yes Cognition: Normal Orientation: AAOx4 Rainelle Coma Scale Eye Opening: Spontaneous Maxime Coma Scale Verbal: Oriented Rainelle Coma Scale Motor: Obeys Commands Maxime Coma Scale Total: 15 Speech: Normal - Psychological Associated symptoms: Normal affect, Normal mood - Skin Skin Temperature: Warm Skin Moisture: Dry Skin Color: Normal <MEME,TAMZACHARIAH - Last Filed: 05/07/17 07:43> <EVER SALINAS - Last Filed: 05/07/17 12:43> - Vital signs Vitals: Resp BP Pulse Ox 17 131/102 H 100 05/07/17 05:36 05/07/17 05:36 05/07/17 05:36 - General Notes: Patient is writhing and moaning in bed. Patient clutches his chest and abdomen. (AYLEEN VALENTINE) Course - Laboratory Result Diagrams: 05/07/17 05:45 05/07/17 05:45 <AYLEEN VALENTINE - Last Filed: 05/07/17 07:43> - Laboratory Result Diagrams: 05/07/17 05:45 05/07/17 05:45 - Diagnostic Test Radiology reviewed: Image reviewed, Reports reviewed - CT scan of the head is normal. CT scan of the chest with IV contrast shows old granulomatous disease, no pulmonary emboli or other abnormalities noted. CT scan of the abdomen and pelvis with oral and IV contrast shows nothing significant or acute found. <EVER SALINAS - Last Filed: 05/07/17 12:43> - Re-evaluation Re-evalutation: 05/07/17 08:25 1 hour after receiving Toradol, Zofran, and Antivert, he states the dizziness has not improved at all, the pain in his chest and abdomen is still the same, he is asking for more pain medication. He has been told in the past and received a letter telling him he would not receive any narcotic medication here for his chronic pain syndrome. Due to his complaints he will be CT scan with contrast to exclude any acute pathology. This is a very difficult patient due to his history and also a dangerous patient from a medical legal standpoint when evaluating his complaints. 05/07/17 08:54 The patient continues to ask for pain medications, he was told that he will not receive narcotics. He was agreeable to Tylenol. When he began drinking the contrast for the CT scan, he intentionally tried to throw it up, claiming he was in too much pain. When I went in to see him a few minutes ago and got the story that his head was hurting worse, his dizziness was worse despite the Antivert, and his chest pain was worse and his abdominal pain was worse, he did not realize I had been standing in the room behind the curtain observing him for a while and he seemed to be resting quite comfortably. 05/07/17 12:42 I once again found the patient to seeing to be resting quietly and comfortably, until I went him to tell him that all his scans lab work EKGs were normal and there is no explanation for all his symptoms. Then began rolling about in slapping is just talking about severe pain in there , telling me that the pain medicine had at home did not help and there has to be something wrong. He was advised to follow-up with his surgeon, a GI doctor, and a primary care provider to help verify his issues and manage his pain. He is reluctant to go home in such pain, however he will not receive any narcotic prescriptions from this emergency room due to his long history of chronic pain and narcotic and benzo abuse. (EVER SALINAS) - Vital Signs Vital signs: Temp Pulse Resp BP Pulse Ox 20 146/99 H 99 05/07/17 11:24 05/07/17 11:00 05/07/17 11:00 - Laboratory Laboratory results interpreted by me: 05/07/17 05/07/17 05:45 05:45 RDW 14.1 H Sodium 131.6 L Chloride 94 L Creatine Kinase 24 L Discharge <AYLEEN VALENTINE - Last Filed: 05/07/17 07:43> <EVER SALINAS - Last Filed: 05/07/17 12:43> - Discharge Clinical Impression: Chronic abdominal pain Chest pain Qualifiers: Chest pain type: unspecified Qualified Code(s): R07.9 - Chest pain, unspecified Headache Qualifiers: Headache type: unspecified Headache chronicity pattern: acute headache Intractability: intractable Qualified Code(s): R51 - Headache Condition: Stable Disposition: HOME, SELF-CARE Additional Instructions: There were no abnormalities found on CT scan of your head. There were no abnormalities seen on a contrasted CT scan of your chest. There were no significant or acute changes found on a contrasted CT scan of your abdomen and pelvis. Lab work including a CBC, Chem-12 and evaluation of liver function tests, lipase , and cardiac enzymes were all normal. The EKG done today was normal. There is no clear explanation for all of the symptoms you have, but much of this appears related to your chronic upper abdominal pain. You should follow-up with your general surgeon, a flower grader, or a primary care provider to manage your pain. RETURN TO THE EMERGENCY ROOM IF ANY NEW OR WORSENING SYMPTOMS. Scribe Attestation: 05/07/17 07:51 I personally performed the services described in the documentation, reviewed and edited the documentation which was dictated to the scribe in my presence, and it accurately records my words and actions. (EVER SALINAS) Scribe Documentation - Scribe Written by Scribe:: Kristin Ambriz, 05/07/2017 07:50 acting as scribe for :: Crescencio <AYLEEN VALENTINE - Last Filed: 05/07/17 07:43>
[2017-05-07] MEDS ORDERED: ACETAMINOPHEN 325 MG TABLET PO ONE (08:49)
[2017-05-07] MEDS ORDERED: METOCLOPRAMIDE HCL INJ/PF 10 MG/2 ML SDV IV ONE (08:53)
--- NOTE | 2017-05-07 11:35 | RADIOLOGY REPORT (SQ) ---
EXAM DESCRIPTION: CT HEAD WITHOUT COMPLETED DATE/TIME: 05/07/2017 11:24 am REASON FOR STUDY: dizzy, headache COMPARISON: 01/10/2017 TECHNIQUE: Axial images acquired through the brain without intravenous contrast. Images reviewed wi th bone, brain and subdural windows. Images stored on PACS. All CT scanners at this facility use dose modulation, iterative reconstruction, and/or weight based d osing when appropriate to reduce radiation dose to as low as reasonably achievable (ALARA). [facility]: Dose Right [facility]: CareDose [facility]: Dose Right [facility]: Teradose 4D [facility]: Smart [employer] RADIATION DOSE: CT Rad equipment meets quality standard of care and radiation dose reduction techniq ues were employed. CTDIvol: 64.6 mGy. DLP: 1163 mGy-cm. mGy. LIMITATIONS: Motion artifact. FINDINGS: VENTRICLES: Normal size and contour. CEREBRUM: No masses. No hemorrhage. No midline shift. No evidence for acute infarction. Normal gra y/white matter differentiation. No areas of low density in the white matter. CEREBELLUM: No masses. No hemorrhage. No alteration of density. No evidence for acute infarction. EXTRAAXIAL SPACES: No fluid collections. No masses. ORBITS AND GLOBE: No intra- or extraconal masses. Normal contour of globe without masses. CALVARIUM: No fracture. PARANASAL SINUSES: No fluid or mucosal thickening. SOFT TISSUES: No mass or hematoma. OTHER: No other significant finding. IMPRESSION: NORMAL BRAIN CT WITHOUT CONTRAST. EVIDENCE OF ACUTE STROKE: NO. COMMENT: Quality ID # [id number]: Final reports with documentation of one or more dose reduction techniques (e.g., Automated exposure control, adjustment of the mA and/or kV according to patient size, use of iterative reconstruction technique) TECHNICAL DOCUMENTATION: JOB ID: [id number]- All Rights Reserved
--- NOTE | 2017-05-07 11:49 | RADIOLOGY REPORT (SQ) ---
EXAM DESCRIPTION: CTA CHEST COMPLETED DATE/TIME: 05/07/2017 11:26 am REASON FOR STUDY: chest pain, SOB COMPARISON: 10/27/2016 TECHNIQUE: CT scan of the chest performed using helical scanning technique with dynamic intravenous contrast injection. Images reviewed with lung, soft tissue and bone windows. Reconstructed coronal and sagittal MPR images reviewed. Additional 3 dimensional post-processing performed to develop Maximal Intensity Projection images ([place] P). All images stored on PACS. All CT scanners at this facility use dose modulation, iterative reconstruction, and/or weight based d osing when appropriate to reduce radiation dose to as low as reasonably achievable (ALARA). [facility]: Dose Right [facility]: CareDose [facility]: Dose Right [facility]: Teradose 4D [facility]: [employer] CONTRAST TYPE AND DOSE: contrast/concentration: Isovue 370.00 mg/ml; Total Contrast Delivered: 64.0 ml; Total Saline Delivered: 96.0 ml Contrast bolus optimized for the pulmonary arteries. Not diagnostic for the aorta. RENAL FUNCTION: Creatinine 0.78 RADIATION DOSE: CT Rad equipment meets quality standard of care and radiation dose reduction techniq ues were employed. CTDIvol: 7.6 - 29.8 mGy. DLP: 3155 mGy-cm. . LIMITATIONS: None. FINDINGS: LUNGS AND PLEURA: No masses, infiltrates, pneumothorax. No pleural effusions. Small calc ifications and scarring in the right upper lobe which may be related to previous granulomatous diseas e. AORTA AND GREAT VESSELS: No aneurysm. Contrast bolus not optimized for the aorta. HEART: No pericardial effusion. No significant coronary artery calcifications. PULMONARY ARTERIES: No emboli visualized in the main pulmonary arteries or the segmental branches. HILAR AND MEDIASTINAL STRUCTURES: Small calcified nodes in the right hilum consistent with previous g ranulomatous disease. No active adenopathy. No masses. HARDWARE: None in the chest. UPPER ABDOMEN: See abdomen and pelvis CT report. THYROID AND OTHER SOFT TISSUES: No masses. No adenopathy. BONES: No acute or significant finding. 3D MIPS: Confirm above findings. OTHER: No other significant finding. IMPRESSION: 1. No evidence of pulmonary embolus or active disease in the chest. 2. Old granulomatous disease. COMMENT: Quality ID # [id number]: Final reports with documentation of one or more dose reduction techniques (e.g., Automated exposure control, adjustment of the mA and/or kV according to patient size, use of iterative reconstruction technique) TECHNICAL DOCUMENTATION: JOB ID: [id number] [employer]- All Rights Reserved
--- NOTE | 2017-05-07 11:57 | RADIOLOGY REPORT (SQ) ---
EXAM DESCRIPTION: CT ABD/PELVIS WITH IV ORAL COMPLETED DATE/TIME: 05/07/2017 11:26 am REASON FOR STUDY: gastric bypass, abd pain COMPARISON: 10/07/2016. TECHNIQUE: CT scan of the abdomen and pelvis performed using helical scanning technique with dynamic intravenous contrast injection. No oral contrast. Images reviewed with lung, soft tissue, and bone windows. Reconstructed coronal and sagittal MPR images reviewed. Delayed images for evaluation of the urinary system also acquired. All images stored on PACS. All CT scanners at this facility use dose modulation, iterative reconstruction, and/or weight based d osing when appropriate to reduce radiation dose to as low as reasonably achievable (ALARA). [facility]: Dose Right [facility]: CareDose [facility]: Dose Right [facility]: Teradose 4D [facility]: [employer] CONTRAST TYPE AND DOSE: 64 mL Isovue 370- low osmolar. RENAL FUNCTION: BUN 10 creatinine 0.78. RADIATION DOSE: . LIMITATIONS: None. FINDINGS: LOWER CHEST: See separate report of the CT of the chest. LIVER: Normal size. No masses. No dilated ducts. SPLEEN: Normal size. No focal lesions. PANCREAS: No masses. No significant calcifications. No adjacent inflammation or peripancreatic fluid collections. Pancreatic duct not dilated. GALLBLADDER: No identified stones by CT criteria. No inflammatory changes to suggest cholecystitis. ADRENAL GLANDS: No significant masses or asymmetry. RIGHT KIDNEY AND URETER: No solid masses. No significant calcifications. No hydronephrosis or hyd roureter. LEFT KIDNEY AND URETER: No solid masses. No significant calcifications. No hydronephrosis or hydr oureter. AORTA AND VESSELS: No aneurysm. No dissection. Renal arteries, SMA, celiac without stenosis. RETROPERITONEUM: No retroperitoneal adenopathy, hemorrhage or masses. BOWEL AND PERITONEAL CAVITY: Previous gastric bypass. No masses or inflammatory changes. No free flu id or peritoneal masses. APPENDIX: Not visualized. PELVIS: No mass. No free fluid. Normal bladder. ABDOMINAL WALL: Previous midline surgical incision. No masses. No hernias. BONES: No significant or acute findings. OTHER: No other significant finding. IMPRESSION: SURGICAL CHANGES. NO SIGNIFICANT OR ACUTE FINDING IN THE ABDOMEN OR PELVIS ON CT SCAN W ITH IV CONTRAST. TECHNICAL DOCUMENTATION: JOB ID: [id number] Quality ID # [id number]: Final reports with documentation of one or more dose reduction techniques (e.g., Au tomated exposure control, adjustment of the mA and/or kV according to patient size, use of iterative reconstruction technique) 2010 [employer]- All Rights Reserved
[2017-05-07 12:50] VITALS: BP 147/101
--- NOTE | 2017-05-08 08:00 | EKG REPORT ---
SEVERITY:- NORMAL ECG - SINUS RHYTHM : Confirmed by: Mariaelena Sahni MD 08-May-2017 07:58:47
== END 2017-05-07 12:48 | disposition home or self-care (01) ==
LOC: ER 05:33
DX: R07.9 Chest pain, unspecified (principal); R51 Headache; R10.11 Right upper quadrant pain; G89.29 Other chronic pain; R42 Dizziness and giddiness; I10 Essential (primary) hypertension; F17.200 Nicotine dependence, unspecified, uncomplicated; H57.04 Mydriasis; Z98.84 Bariatric surgery status
CPT/HCPCS: 93005; 99285; 96374; 96375; 36415; 82553; 82550; 83690; 85025; 80053; 84484; 71010; 71275; 70450; 74177; 93010; A9270 ×2; J1885; J2765; J2405

== ENCOUNTER 2017-05-11 08:07 | Emergency (ER) | payer MEDICARE ==
[2017-05-11] MEDS ORDERED: ASPIRIN 81 MG TABLET, CHEWABLE PO ONE (08:13)
--- NOTE | 2017-05-11 08:25 | ER Document Report ---
ED General - General Mode of Arrival: Medic Information source: Patient TRAVEL OUTSIDE OF THE [place] IN LAST 30 DAYS: No <AYLEEN VALENTINE - Last Filed: 05/11/17 11:17> <JENNYFER BRITO - Last Filed: 05/11/17 17:33> - General Chief Complaint: Abdominal Pain Stated Complaint: ABDOMINAL PAIN Time Seen by Provider: 05/11/17 08:11 Notes: Patient is a 41 year old male who frequents this emergency room with a history of chronic narcotic and benzo abuse and chronic right upper quadrant pain presents to the emergency room via EMS complaining of chest and abdominal pain. Patient was last seen in the emergency department on 05/07/2018 complaining of chest and abdominal pain and stated the pain also moved into his groin area. Patient states the pain is so severe he can hardly breathe or move. Patient states he has had many surgeries on his abdomen is latest being to remove an abscess 1 1/2 weeks ago. Patients associated symptoms include vomiting, chills , diaphoresis. Patient denies diarrhea or fevers. (AYLEEN VALENTINE) 41-year-old male presents emergency department complaining of diffuse abdominal pain that radiates to his chest and all the way down to his legs into his toes, states the pain has been progressively worsening since the , states that he had an abscess drained near his incision within the past week and a half, feels like there is something wrong deep inside of his abdomen. States he is out of multiple medications including his oxycodone and his Depakote. States he has not followed up with his psychiatrist to have his Depakote refilled, states the use this for his headaches. Denies fevers, diarrhea. (JENNYFER BRITO) - Related Data Allergies/Adverse Reactions: quetiapine fumarate [From Seroquel] Adverse Reaction (Verified 03/24/17 18:48) Hypotension Past Medical History - General Information source: Patient - Social History Smoking Status: Current Some Day Smoker Family History: CAD - States all the males in his family have of heart disease in their 40s., CVA, Other - [place] - Past Medical History Cardiac Medical History: Reports: Hx Hypercholesterolemia, Hx Hypertension, Hx Peripheral Vascular Disease - Left carotid stenosis 50-69% Neurological Medical History: Reports: Hx Migraine, Hx Seizures Endocrine Medical History: Reports: Hx Hypothyroidism GI Medical History: Reports: Hx Gastroesophageal Reflux Disease, Hx Hiatal Hernia Psychiatric Medical History: Reports: Hx Anxiety, Hx Depression Past Surgical History: Reports: Hx Abdominal Surgery - gastric bypass 05, bowel blockagex2, umbilical hernia repair, Hx Cardiac Catheterization - Which is found to be negative~2015, Hx Cholecystectomy, Hx Gastric Bypass Surgery, Hx Herniorrhaphy - Immunizations Immunizations up to date: Yes Hx Diphtheria, Pertussis, Tetanus Vaccination: Yes <AYLEEN VALENTINE - Last Filed: 05/11/17 11:17> Review of Systems - Review of Systems Constitutional: See HPI, Chills, Diaphoresis EENT: No symptoms reported Cardiovascular: See HPI, Chest pain Respiratory: See HPI, Short of breath Gastrointestinal: See HPI, Vomiting Genitourinary: No symptoms reported Male Genitourinary: No symptoms reported Musculoskeletal: No symptoms reported Skin: No symptoms reported Hematologic/Lymphatic: No symptoms reported Neurological/Psychological: No symptoms reported -: Yes All other systems reviewed and negative <AYLEEN VALENTINE - Last Filed: 05/11/17 11:17> Physical Exam <AYLEEN VALENTINE - Last Filed: 05/11/17 11:17> <JENNYFER BRITO - Last Filed: 05/11/17 17:33> - Vital signs Vitals: Temp Pulse Resp BP Pulse Ox 97.6 F 68 14 126/94 H 100 05/11/17 08:10 05/11/17 08:10 05/11/17 08:10 05/11/17 08:10 05/11/17 08:10 - Notes Notes: GENERAL: Alert, interacts well. Patient is clutching abdomen and chest at bedside. No imperic signs of discomfort as far as vital sign abnormalities. HEAD: Normocephalic, atraumatic. EYES: Pupils equal, round, and reactive to light. Extraocular movements intact. ENT: Oral mucosa moist, tongue midline. NECK: Full range of motion. Supple. Trachea midline. LUNGS: Clear to auscultation bilaterally, no wheezes, rales, or rhonchi. No respiratory distress. HEART: Regular rate and rhythm. No murmurs, gallops, or rubs. ABDOMEN: Tender to palpation around incision, 1/2 cm opening at incision which is draining a small amount of clear fluid, 1 1/2 cm deep that does not go beyond the SubQ, no erythema. EXTREMITIES: Moves all 4 extremities spontaneously. No edema, radial and dorsalis pedis pulses 2/4 bilaterally. No cyanosis. NEUROLOGICAL: Alert and oriented x3. Normal speech. PSYCH: Normal affect, normal mood. SKIN: Warm, dry, normal turgor. No rashes or lesions noted. (AYLEEN VALENTINE) Course - Laboratory Result Diagrams: 05/11/17 08:30 05/11/17 08:30 <AYLEEN VALENTINE - Last Filed: 05/11/17 11:17> - Laboratory Result Diagrams: 05/11/17 08:30 05/11/17 08:30 <JENNYFER BRITO - Last Filed: 05/11/17 17:33> - Re-evaluation Re-evalutation: 05/11/17 10:07 CBC unremarkable, no leukocytosis, CT scan the abdomen from the reveals no acute intra-abdominal process, pain is unchanged since then, no indication for repeat CAT scan. CMP is actually improved from the and , sodium is now normal. Cardiac enzymes once again negative, EKG once again nonischemic. It is very important that the patient follow-up with his primary care physician as well as a surgeon as an outpatient. Patient will be discharged home. (JENNYFER BRITO) - Vital Signs Vital signs: Temp Pulse Resp BP Pulse Ox 97.6 F 62 14 118/72 100 05/11/17 08:10 05/11/17 10:29 05/11/17 10:29 05/11/17 10:29 05/11/17 10:29 - Laboratory Laboratory results interpreted by me: 05/11/17 05/11/17 08:30 08:30 RDW 14.2 H Creatine Kinase 23 L - EKG Interpretation by Me Additional EKG results interpreted by me: 05/11/17 10:08 EKG shows sinus rhythm at a rate of 62, normal axis, normal intervals, no ST segment elevations or depressions, no T-wave inversions per my interpretation. Isolated T-wave inversion in V3 otherwise unremarkable. (JENNYFER BRITO) Discharge <AYLEEN VALENTINE - Last Filed: 05/11/17 11:17> <JENNYFER BRITO - Last Filed: 12/31/17 17:33> - Discharge Clinical Impression: Chronic abdominal pain, Atypical chest pain HTN (hypertension) Qualifiers: Hypertension type: essential hypertension Qualified Code(s): I10 - Essential ( primary) hypertension Headache Qualifiers: Headache type: unspecified Headache chronicity pattern: chronic headache Intractability: not intractable Qualified Code(s): R51 - Headache Condition: Stable Disposition: HOME, SELF-CARE Additional Instructions: Your blood work is improved compared to your last 2 visits, your heart attack enzymes are negative, your sodium is normal at 140.5, your white blood cell count is negative. The CAT scan that was performed on the did not reveal any process deep in your abdomen. There is no indication for repeat CAT scan today. Too many CAT scans can cause cancer. It is very important that you follow-up with the surgeon who performed your surgeries. It is also very important that you follow-up with Dr. Duarte who prescribes your Depakote. Forms: Elevated Blood Pressure Scribe Attestation: 05/11/17 17:33 I personally performed the services described in the documentation, reviewed and edited the documentation which was dictated to the scribe in my presence, and it accurately records my words and actions. (JENNYFER BRITO) Scribe Documentation - Scribe Written by Kristin:: Kristin Ambriz, 05/11/2017 08:37 acting as scribe for :: Chad <AYLEEN VALENTINE - Last Filed: 05/11/17 11:17>
[2017-05-11 08:46] LABS: ABSOLUTE EOSINOPHILS # (AUTO) 0.2 10^3/uL (0.0-0.6); ABSOLUTE LYMPHOCYTES (AUTO) 1.4 10^3/uL (0.5-4.7); ABSOLUTE MONOCYTES (AUTO) 0.4 10^3/uL (0.1-1.4); ABSOLUTE NEUT (AUTO) 4.3 10^3/uL (1.7-8.2); BASOPHILS % (AUTO) 0.6 % (0-2); EOSINOPHILS % (AUTO) 2.9 % (0-6); HEMATOCRIT 42.1 % (37.9-51.0); HEMOGLOBIN 14.5 g/dL (13.5-17.0); LYMPHOCYTES % (AUTO) 21.9 % (13-45); MEAN CORPUSCULAR HEMOGLOBIN 29.8 pg (27.0-33.4); MEAN CORPUSCULAR HGB CONC 34.5 g/dL (32.0-36.0); MEAN CORPUSCULAR VOLUME 86 fl (80-97); PLATELET COUNT 270 10^3/uL (150-450); RED BLOOD COUNT 4.88 10^6/uL (4.35-5.55); RED CELL DISTRIBUTION WIDTH 14.2 % (11.5-14.0); SEGMENTED NEUTROPHILS % (AUTO) 68.6 % (42-78); TOTAL CELLS COUNTED % (AUTO) 100 %; WHITE BLOOD COUNT 6.3 10^3/uL (4.0-10.5)
--- NOTE | 2017-05-11 08:46 | RADIOLOGY REPORT (SQ) ---
EXAM DESCRIPTION: CHEST SINGLE VIEW COMPLETED DATE/TIME: 05/11/2017 8:38 am REASON FOR STUDY: chest pain COMPARISON: 05/07/2017 EXAM PARAMETERS: NUMBER OF VIEWS: One view. TECHNIQUE: Single frontal radiographic view of the chest acquired. RADIATION DOSE: NA LIMITATIONS: None. FINDINGS: LUNGS AND PLEURA: No opacities, masses or pneumothorax. No pleural effusion. MEDIASTINUM AND HILAR STRUCTURES: No masses. Contour normal. HEART AND VASCULAR STRUCTURES: Heart normal in size. Normal vasculature. BONES: No acute findings. HARDWARE: None in the chest. OTHER: No other significant finding. IMPRESSION: NO ACUTE RADIOGRAPHIC FINDING IN THE CHEST. TECHNICAL DOCUMENTATION: JOB ID: [id number] [employer]- All Rights Reserved
[2017-05-11] MEDS ORDERED: KETOROLAC TROMETHAMINE 60 MG/2 ML SDV IV ONE (08:54)
[2017-05-11] MEDS ORDERED: RINGERS SOLUTION,LACTATED 1,000 ML IV ONE (08:54)
[2017-05-11 09:18] LABS: ALANINE AMINOTRANSFERASE 45 U/L (21-72); ALBUMIN 4.5 g/dL (3.5-5.0); ALKALINE PHOSPHATASE 60 U/L (38-126); ANION GAP 15 (5-19); ASPARTATE AMINO TRANSFERASE 22 U/L (17-59); BILIRUBIN,DIRECT 0.3 mg/dL (0.0-0.4); BILIRUBIN,TOTAL 0.6 mg/dL (0.2-1.3); BLOOD UREA NITROGEN 10 mg/dL (7-20); CARBON DIOXIDE 25 mmol/L (22-30); CHLORIDE 101 mmol/L (98-107); CREATINE KINASE 23 U/L (55-170); GLUCOSE 96 mg/dL (75-110); LIPASE 51.5 U/L (23-300); POTASSIUM 4.6 mmol/L (3.6-5.0); SODIUM 140.5 mmol/L (137-145); TOTAL PROTEIN 7.2 g/dL (6.3-8.2)
[2017-05-11 09:28] LABS: CREATINE KINASE MB < 0.22 ng/mL (<4.55); TROPONIN I < 0.012 ng/mL
[2017-05-11 10:31] VITALS: BP 118/72
--- NOTE | 2017-05-11 12:40 | EKG REPORT ---
SEVERITY:- NORMAL ECG - SINUS RHYTHM : Confirmed by: Mariaelena Sahni MD 11-May-2017 12:39:40
== END 2017-05-11 10:29 | disposition home or self-care (01) ==
LOC: ER 08:07
DX: R51 Headache (principal); R07.9 Chest pain, unspecified; R10.9 Unspecified abdominal pain; R10.11 Right upper quadrant pain; F17.200 Nicotine dependence, unspecified, uncomplicated
CPT/HCPCS: 93005; 99284; 96361; 96374; 36415; 82553; 82550; 83690; 85025; 80053; 84484; 71010; 93010; A9270; J1885; J7120

== ENCOUNTER 2017-05-12 05:45 | Emergency (ER) | payer MEDICARE ==
[2017-05-12] MEDS ORDERED: HYDROXYZINE PAMOATE 50 MG CAPSULE PO ONE (06:34)
--- NOTE | 2017-05-12 06:46 | ER Document Report ---
ED GI/ - General Chief Complaint: Abdominal Pain Stated Complaint: CHEST PAIN Time Seen by Provider: 05/12/17 06:13 Notes: Patient is complaining of pain in the left upper quadrant of his abdomen, under the rib cage, that has been going on for 3-4 days. He was seen here yesterday for the same condition and when his entire workup was normal, he was discharged and went to [facility] where he was evaluated further and discharged. His evaluations here in the past [address] scans of the chest and abdomen and the patient says he also had a CT of his chest in [place] at [facility], as well. All of his lab studies here were also normal. This patient is well-known to this emergency department and this is edition for having been to this facility almost 30 times in the past 6 months. Patient has a history of gastric bypass surgery and had to have 3 corrective surgeries this year for the same. He has had a hernia of the abdomen repaired as well. He says he has a history of intussusception 3 times in the past 12 years. Also had his gallbladder out and another hernia repaired. Patient says he has been vomiting and not having any bowel movements, although he does say he is passing yellow watery stools. Has felt weak and dizzy and having chills and sweats although he has not taken his temperature. Patient is out of all of his medications and says that EMS lost them when they brought him into the emergency department yesterday. Patient has a history of depression and anxiety. Also has a history of cardiac catheterization about 4 years ago and was told he had small vessel disease. Did not require any stents or other procedures. Is on nitroglycerin for cardiac chest pain. TRAVEL OUTSIDE OF THE [place] IN LAST 30 DAYS: No - Related Data Allergies/Adverse Reactions: quetiapine fumarate [From [employer]] Adverse Reaction (Verified 03/24/17 18:48) Hypotension Past Medical History - Social History Smoking Status: Unknown if Ever Smoked Family History: CAD - States all the males in his family have of heart disease in their 40s., CVA, Other - [place] Patient has suicidal ideation: No Patient has homicidal ideation: No - Past Medical History Cardiac Medical History: Reports: Hx Hypercholesterolemia, Hx Hypertension, Hx Peripheral Vascular Disease - Left carotid stenosis 50-69% Neurological Medical History: Reports: Hx Migraine, Hx Seizures Endocrine Medical History: Reports: Hx Hypothyroidism GI Medical History: Reports: Hx Gastroesophageal Reflux Disease, Hx Hiatal Hernia, Other - Gastric bypass surgery in 2004. Psychiatric Medical History: Reports: Hx Anxiety, Hx Depression Past Surgical History: Reports: Hx Abdominal Surgery - gastric bypass 05, bowel blockagex2, umbilical hernia repair, Hx Cardiac Catheterization - Which is found to be negative~2015, Hx Cholecystectomy, Hx Gastric Bypass Surgery, Hx Herniorrhaphy - Immunizations Immunizations up to date: Yes Hx Diphtheria, Pertussis, Tetanus Vaccination: Yes Review of Systems - Review of Systems Notes: REVIEW OF SYSTEMS: CONSTITUTIONAL : Denies fever. EENT: Denies eye, ear, nose or mouth or throat pain or other symptoms. CARDIOVASCULAR: Denies chest pain. Pain is not actually in his chest, but under his anterior left rib cage, confined primarily to the left upper quadrant. RESPIRATORY: Denies cough, chest congestion, but says he has some shortness of breath. GASTROINTESTINAL: See HPI. GENITOURINARY: Denies difficulty or painful urinating, urinary frequency, blood in urine. MUSCULOSKELETAL: Denies back or neck pain. Denies joint pain or swelling. SKIN: Denies rash or skin lesions. NEUROLOGICAL: Denies LOC or altered mental status. Denies headache. Denies sensory loss or motor deficits. ALL OTHER SYSTEMS REVIEWED AND NEGATIVE. Physical Exam - Vital signs Vitals: Resp Pulse Ox 13 97 05/12/17 05:48 05/12/17 05:48 - Notes Notes: PHYSICAL EXAMINATION: GENERAL: Anxious, wincing from pain, pressing and holding his left upper quadrant. Vital signs are all normal. HEAD: Atraumatic, normocephalic. EYES: Pupils equal round and reactive to light, extraocular movements intact. ENT: oropharynx clear without exudates. Moist mucous membranes. NECK: Normal range of motion, supple. LUNGS: Breath sounds clear and equal bilaterally. HEART: Regular rate and rhythm without murmurs. ABDOMEN: Tender in the left upper quadrant, but no guarding or rebound present. No masses felt. No bruits heard. BACK: No tenderness throughout entire back. EXTREMITIES: Normal range of motion without pain. NEUROLOGICAL: Normal speech, normal gait. Normal sensory, motor, and reflex exams. Awake, alert, and oriented x3. Cranial nerves normal. PSYCH: Very anxious. SKIN: Warm, dry, no rashes. Course - Re-evaluation Re-evalutation: 05/12/17 10:13 Lab results were all essentially normal. Trace ketones in urine. Patient's chest x-ray, as part of the acute abdomen, was normal. However, he has some loops of small bowel with air that could be secondary from a partial small bowel obstruction and a CT scan will be ordered to further investigate. 05/12/17 14:18 Discussed at length the patient's condition and workup today with the patient's mother. She apparently provides for him. She says that she is almost been driven to financial ruin by this patient's medical or pseudo-medical problems. 05/13/17 10:09 Late entry. Review of the patient's entire evaluation on this visit shows essentially normal lab workup with a normal WBC, normal chemistries, including normal troponin and a normal EKG twice during this visit. Patient had just had a CTA of his chest done on May 07, 4 days earlier, that was normal. D- dimer on this visit is negative. I think this patient is a low risk for pulmonary embolus with no history of the same, negative CTA of the chest 4 days ago, and a negative d-dimer at this time. He says that he had a CT scan of his abdomen and pelvis in [place], after he left the emergency department here yesterday and was told that study was normal. CT scan here today says that there is "mild mural thickening involving the rectosigmoid colon with subtle pericolonic stranding suggestive of mild infectious or inflammatory colitis". I have given the patient a dose of IV Levaquin 750 mg here today and plan to give him a prescription for the same to take as an outpatient for a week, but in the process of discharge the patient, I forgot to write that prescription. See addendum note on this patient this morning. Patient was given prescriptions for Vistaril, Depakote, and Zoloft, enough for a couple of days. He is scheduled to see his abdominal surgeon Friday, 13 May, in [place]. He is also scheduled to see his mental health provider at [facility] on May 14. I declined to give the patient any pain medications, because I have not found anything definitively and objectively abnormal that would cause this patient to have such pain that required anything stronger for pain relief. - Vital Signs Vital signs: Temp Pulse Resp BP Pulse Ox 78 18 140/99 H 95 05/12/17 14:40 05/12/17 14:40 05/12/17 14:40 05/12/17 14:40 - Laboratory Result Diagrams: 05/12/17 07:03 05/12/17 07:03 Laboratory results interpreted by me: 05/12/17 05/12/17 05/12/17 07:03 07:03 08:11 RDW 14.7 H Seg Neutrophils % 79.9 H Lymphocytes % 12.2 L BUN 6 L Urine Ketones TRACE H - Diagnostic Test Radiology reviewed: Image reviewed, Reports reviewed - Radiologist read the patient's acute abdominal series as showing "dilated loops of small bowel with air identified throughout the colon. These findings are most suggestive of ileus, however partial small bowel obstruction could produce a similar appearance". Discharge - Discharge Clinical Impression: Abdominal pain, Nausea and vomiting Condition: Stable Disposition: HOME, SELF-CARE Additional Instructions: ABDOMINAL PAIN: There are many causes of abdominal pain. Pain can mean a serious problem requiring surgery (such as appendicitis). It can also be an innocent problem that goes away on its own (such as a viral infection). Often, time must pass to determine the cause of pain. The physician does not feel that hospitalization is necessary, at present. Things may change within the next 24 hours. Call the doctor or come back for re- examination if any problems occur, such as: (1) Pain that becomes more severe, steady, or becomes concentrated in one specific area. Also, pain that is more severe with movement or coughing. (2) Vomiting that persists or becomes more frequent. (3) Blood in the vomitus, urine, or bowel movements. Blood in the stool may have a tarry or black appearance. (4) Shaking chills or fever greater than 100 degrees F. (5) The abdomen becomes more distended or swollen. (6) Bowel movements cease. (7) Failure to improve as expected. NORMAL EXAM AND WORKUP: Your CT scan of your abdomen and pelvis shows evidence of mild colitis. Otherwise, at this time, your examination and workup show no significant abnormality. No significant abnormal physical findings are noted. All laboratory, EKG, and imaging (x-ray, CT scans, ultrasound) studies that were ordered show no significant abnormality. Although your examination and all studies that were ordered showed no significant abnormal finding, there are no examinations and no studies that are 100% accurate. There is always the possibility that some abnormality could exist and not be detected with physical examination or within the limits and capabilities of laboratory and other studies. You should return or follow up as you were instructed on your visit today for further evaluation if your symptoms do not resolve. Do not take any alcohol, or sedatives, and do not take any other medication without checking with your physician. ANTINAUSEA MEDICATION: You have been given a medication to suppress nausea and vomiting. This type of medication can be given as a shot, pill, or suppository. It will usually last for many hours. Pills and shots usually last six to eight hours, suppositories last about 12 hours. For the typical illness, only one or two doses of the medication may be necessary. Mild lightheadedness may occur. This type of medicine can cause drowsiness. Do not drive or operate dangerous machinery while under its influence. Do not mix with alcohol. See your doctor at once if you have muscle spasms or tightness, or uncontrollable motions (particularly of the neck, mouth, or jaw). Persistent vomiting or severe lightheadedness should also be evaluated by the physician. Colitis, Nonspecific Colitis is an inflammatory disease of the large intestine which affects the lining of the bowel. The cause is uncertain, though it is often caused by an infection. In some cases, the symptoms resolve and can return again in the future. Colitis is characterized by abdominal pain, often nausea and vomiting, and either diarrhea or difficulty with bowel movements. Sometimes blood will be present in the bowel movements. Fever is often present as well. Milder cases of colitis can be managed as an outpatient with medications for nausea and vomiting and pain, oral fluid therapy, and perhaps antibiotics, if a bacterial origin is suspected. Antidiarrhea medicine should usually be avoided in colitis. If you have increasing abdominal pain, repeated vomiting, fever, rectal bleeding, or worsening diarrhea, you should return for re-evaluation. Ciprofloxacin You have been given an antibacterial agent, ciprofloxacin (Cipro). This medicine is not related to the penicillins, sulfas, cephalosporins, or tetracyclines. It is often given to patients who are allergic to these drugs. It has been chosen for you either because other drugs are not appropriate, or because of the nature of your problem. Cipro should not be taken with antacids, as these can decrease its effectiveness. It can be taken without regard to meals. CIPRO SHOULD NOT BE TAKEN BY CHILDREN, NURSING WOMEN, OR WOMEN. Although Cipro is usually well-tolerated, common side effects can include nausea and diarrhea. Contact your doctor if you experience any unusual symptoms while on this medication, such as joint pain or swelling, shortness of breath, wheezing, faintness, or hives. Anxiety The physician feels that some of your health problems are being caused by anxiety. Anxiety affects your health in many ways. Anxiety alone can cause palpitations, sweats, chest pains, abdominal pains, shortness of breath, and headaches. It contributes to ulcer disease, high blood pressure, irritable bowel syndrome, and has been shown to cause flare-ups of many other diseases. Anxiety is not a simple disorder to treat. If the anxiety is due to recent life stresses, you may simply need time to "work through" the changes. If the anxiety is due to an underlying unhappiness with yourself or due to psychiatric disturbance, professional help will be needed. Your physician can refer you for further help if needed. Anti-anxiety medication is occasionally given if the stress is acute or if you are having trouble sleeping. Chronic or frequent use of these medications is not a good idea because the body becomes reliant on it, preventing you from dealing with life's normal stresses. FOLLOW-UP CARE: If you have been referred to a physician for follow-up care, call the physician s office for an appointment as you were instructed or within the next two days. If you experience worsening or a significant change in your symptoms, notify the physician immediately or return to the Emergency Department at any time for re-evaluation. Follow-up as you are scheduled visit tomorrow at [facility] with Dr. Duarte. Follow-up with the surgeon who you are scheduled to see Friday in [place]. Prescriptions: Hydroxyzine Pamoate [Vistaril 50 mg Capsule] 50 mg PO Q4HP PRN #20 capsule PRN Reason: Divalproex Sodium [Depakote ER 500 mg Tab.sr] 500 mg PO BID #6 tab.sr.24h Sertraline HCl [Zoloft] 100 mg PO DAILY #3 tablet Referrals: SHANE RESENDEZ MD [NO LOCAL MD] - Follow up tomorrow
[2017-05-12 07:15] LABS: ABSOLUTE EOSINOPHILS # (AUTO) 0.2 10^3/uL (0.0-0.6); ABSOLUTE LYMPHOCYTES (AUTO) 1.2 10^3/uL (0.5-4.7); ABSOLUTE MONOCYTES (AUTO) 0.5 10^3/uL (0.1-1.4); ABSOLUTE NEUT (AUTO) 7.8 10^3/uL (1.7-8.2); BASOPHILS % (AUTO) 0.5 % (0-2); EOSINOPHILS % (AUTO) 2.1 % (0-6); HEMATOCRIT 40.7 % (37.9-51.0); LYMPHOCYTES % (AUTO) 12.2 % (13-45); MEAN CORPUSCULAR HEMOGLOBIN 29.8 pg (27.0-33.4); MEAN CORPUSCULAR HGB CONC 34.3 g/dL (32.0-36.0); MEAN CORPUSCULAR VOLUME 87 fl (80-97); MONOCYTES % (AUTO) 5.3 % (3-13); PLATELET COUNT 272 10^3/uL (150-450); RED BLOOD COUNT 4.68 10^6/uL (4.35-5.55); RED CELL DISTRIBUTION WIDTH 14.7 % (11.5-14.0); SEGMENTED NEUTROPHILS % (AUTO) 79.9 % (42-78); TOTAL CELLS COUNTED % (AUTO) 100 %; WHITE BLOOD COUNT 9.7 10^3/uL (4.0-10.5)
[2017-05-12 07:28] LABS: ALANINE AMINOTRANSFERASE 35 U/L (21-72); ALBUMIN 4.4 g/dL (3.5-5.0); ALKALINE PHOSPHATASE 60 U/L (38-126); ANION GAP 13 (5-19); ASPARTATE AMINO TRANSFERASE 21 U/L (17-59); BILIRUBIN,DIRECT 0.2 mg/dL (0.0-0.4); BILIRUBIN,TOTAL 0.7 mg/dL (0.2-1.3); BLOOD UREA NITROGEN 6 mg/dL (7-20); CALCIUM 9.6 mg/dL (8.4-10.2); CARBON DIOXIDE 24 mmol/L (22-30); CHLORIDE 101 mmol/L (98-107); GLUCOSE 92 mg/dL (75-110); LIPASE 51.8 U/L (23-300); POTASSIUM 4.3 mmol/L (3.6-5.0); SODIUM 138.3 mmol/L (137-145); TOTAL PROTEIN 6.8 g/dL (6.3-8.2)
[2017-05-12 07:39] LABS: CREATINE KINASE MB 0.25 ng/mL (<4.55); TROPONIN I < 0.012 ng/mL
--- NOTE | 2017-05-12 07:42 | RADIOLOGY REPORT (SQ) ---
EXAM DESCRIPTION: ACUTE ABDOMEN SERIES CLINICAL HISTORY: LUQ pain, Hx multiple abdominal surgeries. COMPARISON: None. FINDINGS: Single view of the chest with 2 views of the abdomen. Cardiomediastinal silhouette has normal size and contour. Leads overlie the chest. No consolidation, pneumothorax, or pleural effusion. No displaced rib fractures. Upright spine views of the abdomen demonstrate no free intraperitoneal air. Dilated loop of small bowel in the abdomen with air identified throughout the colon. Moderate amount stool. Prior cholecystectomy. No acute osseous abnormalities. IMPRESSION: 1. No acute pulmonary process. 2. Dilated loops of small bowel with air identified throughout the colon. These findings are most suggestive of ileus however partial small bowel obstruction could produce a similar appearance.
[2017-05-12 08:47] LABS: APPEARANCE,URINE CLEAR; BILIRUBIN,URINE NEGATIVE (NEGATIVE); COLOR,URINE STRAW; GLUCOSE, URINE NEGATIVE (NEGATIVE); KETONES,URINE TRACE mg/dL (NEGATIVE); LEUKOCYTE ESTERASE,URINE NEGATIVE (NEGATIVE); NITRITE,URINE NEGATIVE (NEGATIVE); PROTEIN,URINE NEGATIVE (NEGATIVE); URINE SPECIFIC GRAVITY 1.009; UROBILINOGEN,URINE NEGATIVE mg/dL (<2.0)
[2017-05-12] MEDS ORDERED: METOCLOPRAMIDE HCL INJ/PF 10 MG/2 ML SDV IV ONE (09:01)
[2017-05-12] MEDS ORDERED: DIPHENHYDRAMINE HCL 50 MG/ML VIAL IV ONE (09:01)
[2017-05-12] MEDS ORDERED: ONDANSETRON HCL INJ/PF 4 MG/2 ML SDV IV ONE (09:01)
[2017-05-12] MEDS ORDERED: RINGERS SOLUTION,LACTATED 1,000 ML IV ONE ×2 (09:16→12:38)
--- NOTE | 2017-05-12 12:00 | RADIOLOGY REPORT (SQ) ---
EXAM DESCRIPTION: CT ABD/PELVIS WITH IV ORAL COMPLETED DATE/TIME: 05/12/2017 11:43 am REASON FOR STUDY: Abdominal pain, vomiting, Hx gastric bypass COMPARISON: 05/07/2017 TECHNIQUE: CT scan of the abdomen and pelvis performed using helical scanning technique with dynamic intravenous contrast injection and oral contrast. Images reviewed with lung, soft tissue, and bone w indows. Reconstructed coronal and sagittal MPR images reviewed. Delayed images for evaluation of the urinary system also acquired. All images stored on PACS. All CT scanners at this facility use dose modulation, iterative reconstruction, and/or weight based d osing when appropriate to reduce radiation dose to as low as reasonably achievable (ALARA). [facility]: Dose Right [facility]: CareDose [facility]: Dose Right [facility]: Teradose 4D [facility]: DBA Group CONTRAST TYPE AND DOSE: contrast/concentration: Isovue 370.00 mg/ml; Total Contrast Delivered: 100.0 ml; Total Saline Delivered: 53.0 ml RENAL FUNCTION: None required. The patient is less than 50 years old. RADIATION DOSE: CT Rad equipment meets quality standard of care and radiation dose reduction techniq ues were employed. CTDIvol: 15.3 - 18.8 mGy. DLP: 2057 mGy-cm.. LIMITATIONS: None. FINDINGS: LOWER CHEST: No significant findings. No nodules or infiltrates. LIVER: Normal size. No masses. No dilated ducts. SPLEEN: Normal size. No focal lesions. PANCREAS: No masses. No significant calcifications. No adjacent inflammation or peripancreatic fluid collections. Pancreatic duct not dilated. GALLBLADDER: Surgically absent. ADRENAL GLANDS: No significant masses or asymmetry. RIGHT KIDNEY AND URETER: No solid masses. No significant calcifications. No hydronephrosis or hyd roureter. LEFT KIDNEY AND URETER: No solid masses. No significant calcifications. No hydronephrosis or hydr oureter. AORTA AND VESSELS: No aneurysm. No dissection. Renal arteries, SMA, celiac without stenosis. RETROPERITONEUM: No retroperitoneal adenopathy, hemorrhage or masses. BOWEL AND PERITONEAL CAVITY: There is mild diffuse mural thickening involving the rectosigmoid colon with subtle pericolonic stranding compatible with colitis. Small and large bowel loops are otherwise normal. The patient is status post gastric bypass. No obstruction. APPENDIX: Not visualized. PELVIS: No mass. No free fluid. Normal bladder. ABDOMINAL WALL: No masses. Stable postsurgical change. No hernias. BONES: No significant or acute findings. OTHER: No other significant finding. IMPRESSION: MILD MURAL THICKENING INVOLVING THE RECTOSIGMOID COLON WITH SUBTLE PERICOLONIC STRANDING SUGGESTIVE OF MILD INFECTIOUS OR INFLAMMATORY COLITIS. FOLLOW-UP COLONOSCOPY IS RECOMMENDED GIVEN P RUBINA'S HISTORY OF MULTIPLE RECURRENT EPISODES OF ABDOMINAL PAIN. ADDITIONAL CHRONIC/ POSTSURGICAL CHANGE ABOVE. TECHNICAL DOCUMENTATION: JOB ID: [id number] Quality ID # [id number]: Final reports with documentation of one or more dose reduction techniques (e.g., Au tomated exposure control, adjustment of the mA and/or kV according to patient size, use of iterative reconstruction technique) 2010 [employer]- All Rights Reserved
[2017-05-12] MEDS ORDERED: LEVOFLOXACIN 750 MG/D5W RTU 750 MG/150 ML RTUPB IV ONE (12:36)
[2017-05-12] MEDS ORDERED: DIVALPROEX SODIUM 500 MG TAB.SR.24H PO ONE (14:16)
[2017-05-12 14:41] VITALS: BP 140/99
--- NOTE | 2017-05-13 09:36 | EKG REPORT ---
SEVERITY:- NORMAL ECG - SINUS RHYTHM : Confirmed by: Galen Lloyd 13-May-2017 09:35:43
--- NOTE | 2017-05-13 09:36 | EKG REPORT ---
SEVERITY:- NORMAL ECG - SINUS RHYTHM : Confirmed by: Galen Lloyd 13-May-2017 09:35:35
--- NOTE | 2017-05-13 10:06 | ER Document Report ---
Doctor's Note Notes: 05/13/17 10:05 Late entry. After patient had been discharged, I recall that I did not provide him with a prescription for an antibiotic for this mild colitis he is described as having by radiology. He did receive a loading dose of Levaquin IV while here so starting the antibiotic now will be no problem. I attempted to call the patient's listed telephone number of [phone] but only got a message so I left a message. I then tried to call the patient's mother's phone number at [phone] and it sounded as if the phone answered and I could hear Mr. Goodwin complaining of his abdominal pain in the background., But no one ever spoke to me on the telephone. I could not overhear the conversation occurring, but it sounded as if the patient was talking with his mother. I was not able to leave a message on this phone line. 05/13/17 10:21 05/13/17 10:18 I just spoke with the patient's mother and told her about my plan to put him on oral Levaquin for a week but that I forgot to give the prescription. She is on her way to [place] with the patient to be seen by his surgeon. I asked the patient's mother to make that aware of the Levaquin situation and for him to either decide if the patient needs to actually be on the Levaquin and write the prescription for it or another alternative antibiotic or to call me back to call the prescription for Levaquin to a pharmacy of the patient's choice patient 's mother understands the plan and is agreeable with it. Ranulfo Singer MD
== END 2017-05-12 14:41 | disposition home or self-care (01) ==
LOC: ER 05:45
DX: R10.12 Left upper quadrant pain (principal); R11.2 Nausea with vomiting, unspecified; R53.1 Weakness; R42 Dizziness and giddiness; R19.4 Change in bowel habit; R61 Generalized hyperhidrosis; R68.83 Chills (without fever); I10 Essential (primary) hypertension; R07.9 Chest pain, unspecified; Z79.899 Other long term (current) drug therapy; Z98.84 Bariatric surgery status; Z98.890 Other specified postprocedural states; Z90.49 Acquired absence of other specified parts of digestive tract; Z82.49 Family history of ischemic heart disease and other diseases of the circulatory system
CPT/HCPCS: 93005; 99285; 96375; 96365; 96366; 96368; 36415; 82553; 83690; 85025; 80053; 81001; 84484; 85379; 74022; 74177; 93010; J1200; A9270 ×2; J2765; J2405; J7120; J1956

== ENCOUNTER 2017-06-24 06:38 | Emergency (ER) | payer MEDICARE ==
--- NOTE | 2017-06-24 08:54 | ER Document Report ---
ED General - General Chief Complaint: Chest Pressure Stated Complaint: CHEST AND ABDOMINAL PAIN Time Seen by Provider: 06/24/17 08:50 TRAVEL OUTSIDE OF THE [place] IN LAST 30 DAYS: No - HPI Notes: Patient is a 41-year-old male with a history of chronic abdominal and chest pain who presents to the ED complaining of left upper chest pain that radiates into the shoulder and arm that began 6 hours ago as well as continued LUQ pain, chronic. Patient was seen and evaluated by [facility] yesterday/last evening and was discharged with a diagnosis of "chronic abdominal pain and opioid dependence." Patient is well-known to the emergency department here and has had frequent visits lately for the same concerns. Patient has a history of gastric bypass surgery as well as 3 corrections this year. Patient has had hernia repairs and a cholecystectomy as well. Patient also has a history of depression, anxiety, and a cardiac catheterization without any stent placement in the past. Patient states that he is primarily here for the inc chest pain despite a negative workup performed in [facility] yesterday for his abdomen as well as his chest pain. Patient is still urinating normally and having normal bowel movements. Patient does continue to have an appetite and has been keeping fluids and food down. Denies any headache , fever, head injury, neck pain, URI, sore throat, palpitations, syncope, cough , shortness of breath, wheeze, dyspnea, nausea/vomiting/diarrhea, urinary retention, dysuria, hematuria, or rash. Pt had prev neg d-dimer, CTA of the chest recently. ? not sure of work ups performed at [facility], but pt states that he has had CT scans performed there as well. His chronic abd pain is LUQ. - Related Data Allergies/Adverse Reactions: quetiapine fumarate [From Seroquel] Adverse Reaction (Verified 03/24/17 18:48) Hypotension Past Medical History - Social History Smoking Status: Never Smoker Family History: CAD - States all the males in his family have of heart disease in their 40s., CVA, Other - [place] - Past Medical History Cardiac Medical History: Reports: Hx Hypercholesterolemia, Hx Hypertension, Hx Peripheral Vascular Disease - Left carotid stenosis 50-69% Pulmonary Medical History: Denies: Hx Asthma, Hx COPD Neurological Medical History: Reports: Hx Migraine, Hx Seizures Endocrine Medical History: Reports: Hx Hypothyroidism. Denies: Hx Diabetes Mellitus Type 1, Hx Diabetes Mellitus Type 2, Hx Hyperthyroidism Renal/ Medical History: Denies: Hx Peritoneal Dialysis GI Medical History: Reports: Hx Gastroesophageal Reflux Disease, Hx Hiatal Hernia. Denies: Hx Cirrhosis, Hx Hepatitis Musculoskeltal Medical History: Denies Hx Arthritis Psychiatric Medical History: Reports: Hx Anxiety, Hx Depression Infectious Medical History: Denies: Hx Hepatitis Past Surgical History: Reports: Hx Abdominal Surgery - gastric bypass 05, bowel blockagex2, umbilical hernia repair, Hx Cardiac Catheterization - Which is found to be negative~2014, Hx Cholecystectomy, Hx Gastric Bypass Surgery, Hx Herniorrhaphy - Immunizations Immunizations up to date: Yes Hx Diphtheria, Pertussis, Tetanus Vaccination: Yes Review of Systems - Review of Systems -: Yes All other systems reviewed and negative Physical Exam - Vital signs Vitals: Temp Pulse Resp BP Pulse Ox 97.6 F 77 16 121/84 100 06/24/17 06:52 06/24/17 06:52 06/24/17 06:52 06/24/17 06:52 06/24/17 06:52 - Notes Notes: PHYSICAL EXAMINATION: GENERAL: Well-appearing, well-nourished and in no acute distress. HEAD: Atraumatic, normocephalic. EYES: Pupils equal round and reactive to light, extraocular movements intact, sclera anicteric, conjunctiva are normal. ENT: EAC clear b/l. TM's intact b/l without erythema, fluid, or perforation. Nares patent and without discharge. oropharynx clear without exudates. No tonsilar hypertrophy or erythema. Moist mucous membranes. No sinus tenderness. NECK: Normal range of motion, supple without lymphadenopathy Chest: + tenderness to the left chest walll, corresponds to pain described. No flail chest or deformity. LUNGS: Breath sounds clear to auscultation bilaterally and equal. No wheezes rales or rhonchi. HEART: Regular rate and rhythm without murmurs, rubs, gallops. ABDOMEN: Soft, nondistended abdomen. No guarding, no rebound. No masses appreciated. Normal bowel sounds present. No CVA tenderness bilaterally. + mild tenderness LUQ. Musculoskeletal: FROM to passive/active. Strength 5+/5. Extremities: No cyanosis, clubbing, or edema b/l. Peripheral pulses 2+. Capillary refill less than 3 seconds. NEUROLOGICAL: Normal speech, normal gait. Normal sensory, motor exams PSYCH: Normal mood, normal affect. SKIN: Warm, Dry, normal turgor, no rashes or lesions noted. Course - Re-evaluation Re-evalutation: 06/24/17 09:56 Patient is an afebrile, well-hydrated, 41-year-old male who presents to the ED with chest wall pain and chronic pain unspecified. Vitals are stable. PE is otherwise unremarkable. Patient is tolerating p.o. without any difficulties. Patient had a workup performed yesterday by [facility] and was discharged with chronic abdominal pain and opioid dependence diagnosis. Patient has frequented the ED on many occasions and recently for the same concerns and complaints. Patient has no significant ST-T changes on EKG, not tachycardic, hypoxic, or tachypneic. Patient has chest wall tenderness on exam. CBC, CMP, cardiac enzymes 1/EKG are otherwise unremarkable for any acute pathology. Reviewed case with Dr. Rodriguez who is in agreement that patient is stable for discharge without further need for other labs or imaging at this time. Patient had recent complete workups including CT scans that were unremarkable for any acute pathology. Patient has a heart score of 1. PERC 0. Low suspicion for any ACS, PE, pneumothorax, pericarditis, dissection, respiratory compromise, severe dehydration, sepsis, meningitis, or other systemic emergent condition at this time. Patient is aware that his condition can change from initial presentation and he needs to monitor symptoms closely and seek medical attention for any acute changes. Recommend conservative measures for symptoms. Recheck with your PCM in 3-5 days. Return to the ED with any worsening/concerning symptoms otherwise as reviewed in discharge. Patient is in agreement. - Vital Signs Vital signs: Temp Pulse Resp BP Pulse Ox 97.6 F 77 16 121/84 97 06/24/17 06:52 06/24/17 06:52 06/24/17 06:52 06/24/17 06:52 06/24/17 09:20 - Laboratory Result Diagrams: 06/24/17 06:28 06/24/17 06:28 Laboratory results interpreted by me: 06/24/17 06:28 Sodium 129.9 L Chloride 91 L Direct Bilirubin 0.6 H Creatine Kinase 53 L Discharge - Discharge Clinical Impression: Chest wall pain, Chronic abdominal pain Condition: Stable Disposition: HOME, SELF-CARE Instructions: Chest Wall Pain ([facility]) Additional Instructions: Rest, Ice, Compression Tylenol/ibuprofen as needed Light stretches daily Strength exercises as able Moist heat and massage may help F/u with your PCP in 3-5 days for a recheck Return to the ED with any worsening symptoms and/or development of fever, headache, chest pain, palpitations, syncope, shortness of breath, trouble breathing, abdominal pain, n/v/d, blood in stool/urine, loss of control of bowel /bladder, urinary retention, muscle weakness/paralysis, saddle anesthesia, numbness/tingling, or other worsening symptoms that are concerning to you. Referrals: [facility] [Provider Group] - Follow up as needed [facility] [Provider Group] - Follow up as needed
[2017-06-24 09:07] LABS: ABSOLUTE EOSINOPHILS # (AUTO) 0.1 10^3/uL (0.0-0.6); ABSOLUTE LYMPHOCYTES (AUTO) 1.3 10^3/uL (0.5-4.7); ABSOLUTE MONOCYTES (AUTO) 0.6 10^3/uL (0.1-1.4); ABSOLUTE NEUT (AUTO) 5.9 10^3/uL (1.7-8.2); BASOPHILS % (AUTO) 0.4 % (0-2); EOSINOPHILS % (AUTO) 1.5 % (0-6); HEMATOCRIT 43.2 % (37.9-51.0); HEMOGLOBIN 15.1 g/dL (13.5-17.0); LYMPHOCYTES % (AUTO) 15.9 % (13-45); MEAN CORPUSCULAR HEMOGLOBIN 29.9 pg (27.0-33.4); MEAN CORPUSCULAR HGB CONC 34.8 g/dL (32.0-36.0); MEAN CORPUSCULAR VOLUME 86 fl (80-97); MONOCYTES % (AUTO) 7.6 % (3-13); PLATELET COUNT 256 10^3/uL (150-450); RED BLOOD COUNT 5.04 10^6/uL (4.35-5.55); RED CELL DISTRIBUTION WIDTH 13.6 % (11.5-14.0); SEGMENTED NEUTROPHILS % (AUTO) 74.6 % (42-78); TOTAL CELLS COUNTED % (AUTO) 100 %
[2017-06-24 09:29] LABS: ALANINE AMINOTRANSFERASE 27 U/L (21-72); ALBUMIN 4.4 g/dL (3.5-5.0); ALKALINE PHOSPHATASE 63 U/L (38-126); ANION GAP 14 (5-19); ASPARTATE AMINO TRANSFERASE 20 U/L (17-59); BILIRUBIN,DIRECT 0.6 mg/dL (0.0-0.4); BILIRUBIN,TOTAL 0.9 mg/dL (0.2-1.3); BLOOD UREA NITROGEN 10 mg/dL (7-20); CALCIUM 10.2 mg/dL (8.4-10.2); CARBON DIOXIDE 25 mmol/L (22-30); CHLORIDE 91 mmol/L (98-107); CREATINE KINASE 53 U/L (55-170); GLUCOSE 103 mg/dL (75-110); POTASSIUM 4.6 mmol/L (3.6-5.0); SODIUM 129.9 mmol/L (137-145)
--- NOTE | 2017-06-24 09:29 | EKG REPORT ---
SEVERITY:- NORMAL ECG - SINUS RHYTHM : Confirmed by: Galen Lloyd 24-Jun-2017 09:28:25
--- NOTE | 2017-06-24 09:34 | RADIOLOGY REPORT (SQ) ---
EXAM DESCRIPTION: ACUTE ABDOMEN SERIES COMPLETED DATE/TIME: 06/24/2017 9:21 am REASON FOR STUDY: chest pain/abd pain COMPARISON: 05/12/2017. NUMBER OF VIEWS: Three views. TECHNIQUE: Frontal chest, supine abdomen and upright/decubitus abdomen radiographic images acquired. LIMITATIONS: None. FINDINGS: CHEST: Lungs clear of infiltrates. FREE AIR: None. No abnormal gas collections. BOWEL GAS PATTERN: Nonobstructive pattern. No dilated loops or air fluid levels. CALCIFICATIONS: No suspicious calcifications. HARDWARE: Surgical clips. SOFT TISSUES: No gross mass or suggestion of organomegaly. BONES: No acute fracture. No worrisome bone lesions. OTHER: No other significant finding. IMPRESSION: NO RADIOGRAPHIC EVIDENCE FOR ACUTE ABDOMINAL DISEASE. TECHNICAL DOCUMENTATION: JOB ID: [id number] [employer]- All Rights Reserved
[2017-06-24 09:41] LABS: CREATINE KINASE MB 1.43 ng/mL (<4.55); TROPONIN I < 0.012 ng/mL
[2017-06-24 10:19] VITALS: BP 112/84
== END 2017-06-24 10:19 | disposition home or self-care (01) ==
LOC: ER 06:38
DX: R07.89 Other chest pain (principal); R10.12 Left upper quadrant pain; G89.29 Other chronic pain; I10 Essential (primary) hypertension; Z98.84 Bariatric surgery status; Z98.890 Other specified postprocedural states; Z90.49 Acquired absence of other specified parts of digestive tract; Z82.49 Family history of ischemic heart disease and other diseases of the circulatory system; Z87.19 Personal history of other diseases of the digestive system
CPT/HCPCS: 36415; 74022; 80053; 82550; 82553; 84484; 85025; 93005; 93010; 99285

== ENCOUNTER 2017-07-06 19:22 | Emergency (ER) | payer MEDICARE ==
--- NOTE | 2017-07-06 19:54 | ER Document Report ---
ED General - General Chief Complaint: Chest Pain Stated Complaint: CHEST PAIN Time Seen by Provider: 07/06/17 19:25 Notes: Patient is a 41-year-old male well-known to me in the emergency department who again presents today for left-sided chest pain palpitations, and upper abdominal pain. Patient chronically has a symptoms and nothing is new or different about them today. He admits that he took 15 hydrocodone tablets in the past 36-24 hours as well as 30-40 mg of diazepam. Patient denies suicidal intention behind his use and he stated that he is using to treat his chronic pain and anxiety. He admits to illegally purchasing these on the street. He has had greater than 30 negative evaluations for chest and abdominal pain in the past 1 year. He describes his pain as a throbbing, aching, constant pain and associated with palpitations. Nothing improves or worsens his pain. He no longer has a primary care doctor. He has had a cardiac catheterization within the past 1 year which was negative. He has had 3 CTs of the chest in the past 1 year that have been negative without any evidence of an acute pulmonary embolus. TRAVEL OUTSIDE OF THE [place] IN LAST 30 DAYS: No - Related Data Allergies/Adverse Reactions: quetiapine fumarate [From [employer]] Adverse Reaction (Verified 03/24/17 18:48) Hypotension Past Medical History - General Information source: Patient - Social History Smoking Status: Former Smoker Frequency of alcohol use: None Drug Abuse: Prescription drugs Lives with: Family Family History: CAD - States all the males in his family have of heart disease in their 40s., CVA, Other - [place] - Past Medical History Cardiac Medical History: Reports: Hx Hypercholesterolemia, Hx Hypertension, Hx Peripheral Vascular Disease - Left carotid stenosis 50-69% Pulmonary Medical History: Denies: Hx Asthma, Hx COPD Neurological Medical History: Reports: Hx Migraine, Hx Seizures Endocrine Medical History: Reports: Hx Hypothyroidism. Denies: Hx Diabetes Mellitus Type 1, Hx Diabetes Mellitus Type 2, Hx Hyperthyroidism Renal/ Medical History: Denies: Hx Peritoneal Dialysis GI Medical History: Reports: Hx Gastroesophageal Reflux Disease, Hx Hiatal Hernia. Denies: Hx Cirrhosis, Hx Hepatitis Musculoskeltal Medical History: Denies Hx Arthritis Psychiatric Medical History: Reports: Hx Anxiety, Hx Depression Infectious Medical History: Denies: Hx Hepatitis Past Surgical History: Reports: Hx Abdominal Surgery - gastric bypass 05, bowel blockagex2, umbilical hernia repair, Hx Cardiac Catheterization - Which is found to be negative~2015, Hx Cholecystectomy, Hx Gastric Bypass Surgery, Hx Herniorrhaphy - Immunizations Immunizations up to date: Yes Hx Diphtheria, Pertussis, Tetanus Vaccination: Yes Review of Systems - Review of Systems Notes: Constitutional: Negative for fever. HENT: Negative for sore throat. Eyes: Negative for visual changes. Cardiovascular: Positive for chronic chest pain Respiratory: Negative for shortness of breath. Gastrointestinal: Positive for chronic upper abdominal pain Genitourinary: Negative for dysuria. Musculoskeletal: Negative for back pain. Skin: Negative for rash. Neurological: Negative for headaches, weakness or numbness. 10 point ROS negative except as marked above and in HPI. Physical Exam - Vital signs Vitals: Temp Pulse Resp BP Pulse Ox 98.2 F 66 16 130/85 H 97 07/06/17 19:31 07/06/17 19:31 07/06/17 19:31 07/06/17 19:31 07/06/17 19:31 Interpretation: Normal Notes: PHYSICAL EXAMINATION: GENERAL: Well-appearing, well-nourished and in no acute distress. HEAD: Atraumatic, normocephalic. EYES: Pupils equal round and reactive to light, extraocular movements intact, sclera anicteric, conjunctiva are normal. ENT: nares patent, oropharynx clear without exudates. Moist mucous membranes. NECK: Normal range of motion, supple without lymphadenopathy LUNGS: Breath sounds clear to auscultation bilaterally and equal. No wheezes rales or rhonchi. HEART: Regular rate and rhythm without murmurs ABDOMEN: Soft, nontender, normoactive bowel sounds. No guarding, no rebound. No masses appreciated. EXTREMITIES: Normal range of motion, no pitting or edema. No cyanosis. NEUROLOGICAL: No focal neurological deficits. Moves all extremities spontaneously and on command. PSYCH: Anxious, tremulous, very poor insight and judgment SKIN: Warm, Dry, normal turgor, no rashes or lesions noted. Course - Re-evaluation Re-evalutation: 07/06/17 19:50 Presentation of chest pain in an otherwise well appearing patient. Low clinical suspicion for ACS given clinical history, exam, EKG without ST elevations or depressions, and negative initial troponin. HEART score less than or equal to 3. PE also seems unlikely given clinical history, absence of tachycardia or dyspnea. Patient is PERC criteria negative. CXR without evidence of pneumothorax or pneumonia. No widened mediastinum. Aortic dissection also seems unlikely given history, symmetric pulses, CXR, and vitals. Patient continues to abuse hydrocodone as well as Valium. I have spoken to this patient no less than 5 times at length about his ongoing use of prescription drugs as well as their direct impact on his repeated presentations for chronic pain and chronic anxiety. We did again review the chronic nature of his presentation, the need for him to emergently enter into drug rehab. Patient continues to be in a state of denial regarding the impact of his drug use on his recurrent presentations for chronic abdominal and chest wall pain. Of note, patient has had 20 [address] scans since 2013. Future providers should be aware of this and avoid further radiographic imaging as patient continues to be a very elevated risk for iatrogenic injury related to overuse of CT imaging. At this time will discharge with return precautions and follow-up recommendations. Verbal discharge instructions given a the bedside and opportunity for questions given. Medication warnings reviewed. Patient is in agreement with this plan and has verbalized understanding of return precautions and the need for primary care follow-up in the next 24-72 hours. - Vital Signs Vital signs: Temp Pulse Resp BP Pulse Ox 98.2 F 66 16 130/85 H 97 07/06/17 19:31 07/06/17 19:31 07/06/17 19:31 07/06/17 19:31 07/06/17 19:31 - Diagnostic Test Radiology reviewed: Image reviewed, Reports reviewed Radiology results interpreted by me: 07/06/17 19:51 Chest x-ray: No acute infiltrate or pneumothorax - EKG Interpretation by Me Additional EKG results interpreted by me: 07/06/17 19:52 Sinus rhythm. Rate 66. No ST elevations or depressions. QTC is 403. Discharge - Discharge Clinical Impression: Chronic chest pain, Chronic benzodiazepine abuse, Substance abuse, Chronic opiate abuse Condition: Stable Disposition: HOME, SELF-CARE Additional Instructions: As we have discussed, you continue to be severely addicted to opiate and benzodiazepine medications that you are abusing. You need to get into rehab. Your recurrent chest pain is not coming from your heart. You have had greater than 30 negative workups in the past 14 months for this complaint. I strongly encourage you to follow-up with a psychiatrist and discontinue the use of these addictive medications immediately.
--- NOTE | 2017-07-06 20:43 | RADIOLOGY REPORT (SQ) ---
EXAM DESCRIPTION: CHEST SINGLE VIEW COMPLETED DATE/TIME: 07/06/2017 8:19 pm REASON FOR STUDY: cp COMPARISON: 05/11/2017 EXAM PARAMETERS: NUMBER OF VIEWS: One view. TECHNIQUE: Single frontal radiographic view of the chest acquired. RADIATION DOSE: NA LIMITATIONS: None. FINDINGS: LUNGS AND PLEURA: No opacities, masses or pneumothorax. No pleural effusion. MEDIASTINUM AND HILAR STRUCTURES: No masses. Contour normal. HEART AND VASCULAR STRUCTURES: Heart normal in size. Normal vasculature. BONES: No acute findings. HARDWARE: None in the chest. OTHER: No other significant finding. IMPRESSION: NO ACUTE RADIOGRAPHIC FINDING IN THE CHEST. TECHNICAL DOCUMENTATION: JOB ID: [id number] [place]-72 2010 [employer]- All Rights Reserved Reading location - IP/workstation name: [email or web address]
[2017-07-06 21:06] VITALS: BP 123/89
--- NOTE | 2017-07-06 21:24 | EKG REPORT ---
SEVERITY:- BORDERLINE ECG - SINUS RHYTHM PROBABLE LEFT ATRIAL ABNORMALITY : Confirmed by: Grupo Galarza MD 06-Jul-2017 21:23:54
== END 2017-07-06 21:06 | disposition home or self-care (01) ==
LOC: ER 19:22
DX: G89.29 Other chronic pain (principal); R07.9 Chest pain, unspecified; F19.10 Other psychoactive substance abuse, uncomplicated; F11.10 Opioid abuse, uncomplicated; E78.00 Pure hypercholesterolemia, unspecified; I10 Essential (primary) hypertension; E03.9 Hypothyroidism, unspecified; Z87.891 Personal history of nicotine dependence; Z98.84 Bariatric surgery status; Z90.49 Acquired absence of other specified parts of digestive tract
CPT/HCPCS: 36415; 71045; 84484; 93005; 93010; 99285

== ENCOUNTER 2017-07-08 17:56 | Emergency (ER) | payer MEDICARE ==
--- NOTE | 2017-07-08 19:18 | ER Document Report ---
ED Medical Screen (RME) - General Chief Complaint: Abdominal Pain Stated Complaint: ABDOMINAL PAIN Time Seen by Provider: 07/08/17 19:07 Mode of Arrival: Wheelchair Information source: Patient Notes: 41-year-old male who is seen here multipled times Patient states that he took 18 pain medications and overdosed on Tylenol a few days ago and now is having right upper quadrant pain I have greeted and performed a rapid initial assessment of this patient. A comprehensive ED assessment and evaluation of the patient, analysis of test results and completion of the medical decision making process will be conducted by additional ED providers. PHYSICAL EXAMINATION: GENERAL: Well-appearing, well-nourished and in no acute distress. HEAD: Atraumatic, normocephalic. EYES: Pupils equal round extraocular movements intact, conjunctiva are normal. ENT: Nares patent NECK: Normal range of motion LUNGS: No respiratory distress Abd: tender i nthe RUQ no guarding Musculoskeletal: Normal range of motion NEUROLOGICAL: Normal speech, normal gait. PSYCH: Normal mood, normal affect. SKIN: Warm, Dry, normal turgor, no rashes or lesions noted. TRAVEL OUTSIDE OF THE [place] IN LAST 30 DAYS: No - Related Data Allergies/Adverse Reactions: quetiapine fumarate [From Seroquel] Adverse Reaction (Verified 03/24/17 18:48) Hypotension Past Medical History - Social History Frequency of alcohol use: None Drug Abuse: None Family history: CAD - Past Medical History Cardiac Medical History: Reports: Hx Hypercholesterolemia, Hx Hypertension, Hx Peripheral Vascular Disease - Left carotid stenosis 50-69% Pulmonary Medical History: Denies: Hx Asthma, Hx COPD Neurological Medical History: Reports: Hx Migraine, Hx Seizures Endocrine Medical History: Reports: Hx Hypothyroidism. Denies: Hx Diabetes Mellitus Type 1, Hx Diabetes Mellitus Type 2, Hx Hyperthyroidism Renal/ Medical History: Denies: Hx Peritoneal Dialysis GI Medical History: Reports: Hx Gastroesophageal Reflux Disease, Hx Hiatal Hernia. Denies: Hx Cirrhosis, Hx Hepatitis Musculoskeltal Medical History: Denies Hx Arthritis Psychiatric Medical History: Reports: Hx Anxiety, Hx Depression Infectious Medical History: Denies: Hx Hepatitis Past Surgical History: Reports: Hx Abdominal Surgery - gastric bypass 05, bowel blockagex2, umbilical hernia repair, Hx Cardiac Catheterization - Which is found to be negative~2014, Hx Cholecystectomy, Hx Gastric Bypass Surgery, Hx Herniorrhaphy - Immunizations Immunizations up to date: Yes Hx Diphtheria, Pertussis, Tetanus Vaccination: Yes History of Influenza Vaccine for 02/2017 - 07/2017 Season: Refused Physical Exam - Vital signs Vitals: Temp Pulse Resp BP Pulse Ox 98.0 F 71 23 H 111/76 96 07/08/17 18:07 07/08/17 18:07 07/08/17 18:07 07/08/17 18:07 07/08/17 18:07 Course - Vital Signs Vital signs: Temp Pulse Resp BP Pulse Ox 98.0 F 71 23 H 111/76 96 07/08/17 18:07 07/08/17 18:07 07/08/17 18:07 07/08/17 18:07 07/08/17 18:07
[2017-07-08 20:26] LABS: ABSOLUTE EOSINOPHILS # (AUTO) 0.1 10^3/uL (0.0-0.6); ABSOLUTE LYMPHOCYTES (AUTO) 1.9 10^3/uL (0.5-4.7); ABSOLUTE MONOCYTES (AUTO) 0.6 10^3/uL (0.1-1.4); ABSOLUTE NEUT (AUTO) 4.9 10^3/uL (1.7-8.2); BASOPHILS % (AUTO) 0.4 % (0-2); EOSINOPHILS % (AUTO) 1.2 % (0-6); HEMATOCRIT 41.7 % (37.9-51.0); HEMOGLOBIN 14.6 g/dL (13.5-17.0); LYMPHOCYTES % (AUTO) 25.9 % (13-45); MEAN CORPUSCULAR HEMOGLOBIN 29.9 pg (27.0-33.4); MEAN CORPUSCULAR HGB CONC 35.1 g/dL (32.0-36.0); MEAN CORPUSCULAR VOLUME 85 fl (80-97); MONOCYTES % (AUTO) 7.6 % (3-13); PLATELET COUNT 382 10^3/uL (150-450); RED CELL DISTRIBUTION WIDTH 13.3 % (11.5-14.0); SEGMENTED NEUTROPHILS % (AUTO) 64.9 % (42-78); TOTAL CELLS COUNTED % (AUTO) 100 %; WHITE BLOOD COUNT 7.5 10^3/uL (4.0-10.5)
--- NOTE | 2017-07-08 20:41 | ER Document Report ---
ED General - General Mode of Arrival: Wheelchair TRAVEL OUTSIDE OF THE [place] IN LAST 30 DAYS: No <AYLEEN VALENTINE - Last Filed: 07/08/17 23:19> <HUGHGEOVANNA - Last Filed: 07/08/17 23:41> - General Chief Complaint: Abdominal Pain Stated Complaint: ABDOMINAL PAIN Time Seen by Provider: 07/08/17 19:07 Notes: Patient is a 41 year old male who is seen frequently in this emergency department complains of right upper quadrant pain that extends into the right side of his neck, face, and right shoulder. Patient states he recently took 18 pain medications and overdosed on Tylenol a few days ago and believes this is the cause of his right upper quadrant pain. Patient describes the pain as sharp and burning and states this does not feel like his chronic chest and abdominal pain. He also complains of vomiting and decreased urination. Patient at bedside stated he was not trying to hurt himself when he took the pain medications. (AYLEEN VALENTINE) - Related Data Allergies/Adverse Reactions: quetiapine fumarate [From [employer]] Adverse Reaction (Verified 03/24/17 18:48) Hypotension Past Medical History - General Information source: Patient - Social History Smoking Status: Never Smoker Frequency of alcohol use: None Drug Abuse: None Family History: CAD - States all the males in his family have of heart disease in their 40s., CVA, Other - [place] Patient has suicidal ideation: No Patient has homicidal ideation: No - Past Medical History Cardiac Medical History: Reports: Hx Hypercholesterolemia, Hx Hypertension, Hx Peripheral Vascular Disease - Left carotid stenosis 50-69% Pulmonary Medical History: Denies: Hx Asthma, Hx COPD Neurological Medical History: Reports: Hx Migraine, Hx Seizures Endocrine Medical History: Reports: Hx Hypothyroidism. Denies: Hx Diabetes Mellitus Type 1, Hx Diabetes Mellitus Type 2, Hx Hyperthyroidism Renal/ Medical History: Denies: Hx Peritoneal Dialysis GI Medical History: Reports: Hx Gastroesophageal Reflux Disease, Hx Hiatal Hernia. Denies: Hx Cirrhosis, Hx Hepatitis Musculoskeltal Medical History: Denies Hx Arthritis Psychiatric Medical History: Reports: Hx Anxiety, Hx Depression Infectious Medical History: Denies: Hx Hepatitis Past Surgical History: Reports: Hx Abdominal Surgery - gastric bypass 05, bowel blockagex2, umbilical hernia repair, Hx Cardiac Catheterization - Which is found to be negative~2014, Hx Cholecystectomy, Hx Gastric Bypass Surgery, Hx Herniorrhaphy - Immunizations Immunizations up to date: Yes Hx Diphtheria, Pertussis, Tetanus Vaccination: Yes <AYLEEN VALENTINE - Last Filed: 07/08/17 23:19> Review of Systems - Review of Systems Constitutional: No symptoms reported EENT: No symptoms reported Cardiovascular: No symptoms reported Respiratory: No symptoms reported Gastrointestinal: See HPI Genitourinary: See HPI Male Genitourinary: No symptoms reported Musculoskeletal: No symptoms reported Skin: No symptoms reported Hematologic/Lymphatic: No symptoms reported Neurological/Psychological: No symptoms reported -: Yes All other systems reviewed and negative <MEMEAYLEEN - Last Filed: 07/08/17 23:19> Physical Exam <MEME,TAMZACHARIAH - Last Filed: 07/08/17 23:19> <HUGHGEOVANNA Rasmussen - Last Filed: 07/08/17 23:41> - Vital signs Vitals: Temp Pulse Resp BP Pulse Ox 98.0 F 71 23 H 111/76 96 07/08/17 18:07 07/08/17 18:07 07/08/17 18:07 07/08/17 18:07 07/08/17 18:07 - Notes Notes: GENERAL: Alert, interacts well. No acute distress. Appears anxious. HEAD: Normocephalic, atraumatic. EYES: Pupils equal, round, and reactive to light. Extraocular movements intact. ENT: Oral mucosa moist, tongue midline. NECK: Full range of motion. Supple. Trachea midline. LUNGS: Clear to auscultation bilaterally, no wheezes, rales, or rhonchi. No respiratory distress. HEART: Regular rate and rhythm. No murmurs, gallops, or rubs. ABDOMEN: Soft, non-tender. Non-distended. Bowel sounds present in all 4 quadrants. EXTREMITIES: Moves all 4 extremities spontaneously. NEUROLOGICAL: Alert and oriented x3. Normal speech. PSYCH: Appears anxious. SKIN: Warm, dry, normal turgor. No rashes or lesions noted. (MEMECONCHAZACHARIAH) Course - Laboratory Result Diagrams: 07/08/17 20:15 07/08/17 20:15 <MEMECONCHAZACHARIAH - Last Filed: 07/08/17 23:19> - Laboratory Result Diagrams: 07/08/17 20:15 07/08/17 20:15 - EKG Interpretation by [facility] EKG shows normal: Sinus rhythm Rate: Normal Rhythm: NSR <GEOVANNA REESE - Last Filed: 07/08/17 23:41> - Re-evaluation Re-evalutation: 07/08/17 22:52 Patient's labs within normal limits are nonsignificant other than he does show signs of hyponatremia. Upon chart review patient has had chronic hyponatremia although it is slightly lower than his recent baseline. Patient was instructed to follow-up in the next 2-3 days for redraw of his sodium levels by his primary care physician. All of his other labs within normal limits are nonsignificant and his acetaminophen level was within normal limits. His anxiousness improved after Compazine. I discussed with him in depth trying cognitive exercises to help relieve with his anxiousness. Advised that his family care doctor can help refer the appropriate psychologist that could help with his anxiety. 07/08/17 22:54 Patient's liver enzymes and lipase within normal limits but he does have right upper quadrant pain. Will provide Zantac to see if this helps. He is to follow -up with his family care doctor in the next 2-3 days for Na redarw and to let them know if Zantac is helping with his symptoms. (GEOVANNA REESE) - Vital Signs Vital signs: Temp Pulse Resp BP Pulse Ox 98.0 F 71 23 H 111/76 96 07/08/17 18:07 07/08/17 18:07 07/08/17 18:07 07/08/17 18:07 07/08/17 18:07 - Laboratory Laboratory results interpreted by me: 07/08/17 20:15 Sodium 123.6 L Chloride 92 L Carbon Dioxide 21 L Direct Bilirubin 0.5 H Acetaminophen < 10 L Discharge <AYLEEN VALENTINE - Last Filed: 07/08/17 23:19> <GEOVANNA REESE - Last Filed: 07/08/17 23:41> - Discharge Clinical Impression: Abdominal pain Qualifiers: Abdominal location: right upper quadrant Qualified Code(s): R10.11 - Right upper quadrant pain Instructions: Abdominal Pain ([facility]) Additional Instructions: Please follow-up with your primary care doctor in the next 2-3 days for sodium redraw as well as let them know if Zantac is helping with your symptoms. Return to emergency department if symptoms are worsening or for any other concerns Prescriptions: Ranitidine HCl [Zantac] 150 mg PO BID #60 tablet Referrals: LINO LIMA MD [Primary Care Provider] - Follow up as needed Scribe Attestation: 07/08/17 23:41 I personally performed the services described documentation, reviewed and edited the documentation which was dictated to describe my presence, and it accurately records my words and actions. (GEOVANNA REESE) Scribe Documentation - Scribe Written by Tonyaibe:: Kristin Ambriz, 07/08/2017 20:48 acting as scribe for :: Hugh <AYLEEN VALENTINE - Last Filed: 07/08/17 23:19>
--- NOTE | 2017-07-08 20:45 | EKG REPORT ---
SEVERITY:- NORMAL ECG - SINUS RHYTHM : Confirmed by: Grupo Galarza MD 08-Jul-2017 20:45:13
[2017-07-08 20:55] LABS: ACETAMINOPHEN < 10 ug/mL (10-30); ALANINE AMINOTRANSFERASE 28 U/L (21-72); ALBUMIN 4.5 g/dL (3.5-5.0); ALKALINE PHOSPHATASE 56 U/L (38-126); ANION GAP 11 (5-19); ASPARTATE AMINO TRANSFERASE 31 U/L (17-59); BILIRUBIN,DIRECT 0.5 mg/dL (0.0-0.4); BILIRUBIN,TOTAL 0.8 mg/dL (0.2-1.3); BLOOD UREA NITROGEN 9 mg/dL (7-20); CALCIUM 9.3 mg/dL (8.4-10.2); CARBON DIOXIDE 21 mmol/L (22-30); CHLORIDE 92 mmol/L (98-107); GLUCOSE 100 mg/dL (75-110); SODIUM 123.6 mmol/L (137-145); TOTAL PROTEIN 7.5 g/dL (6.3-8.2)
[2017-07-08 20:58] LABS: URINE AMPHETAMINES SCREEN NEGATIVE; URINE BARBITURATES SCREEN NEGATIVE; URINE BENZODIAZEPINES SCREEN UNCONFIRMED POSITIVE; URINE COCAINE SCREEN NEGATIVE; URINE MARIJUANA (THC) SCREEN NEGATIVE; URINE METHADONE SCREEN NEGATIVE; URINE PHENCYCLIDINE SCREEN NEGATIVE
--- NOTE | 2017-07-08 21:40 | RADIOLOGY REPORT (SQ) ---
EXAM DESCRIPTION: CHEST SINGLE VIEW COMPLETED DATE/TIME: 07/08/2017 9:17 pm REASON FOR STUDY: chest/abd pain COMPARISON: None. EXAM PARAMETERS: NUMBER OF VIEWS: One view. TECHNIQUE: Single frontal radiographic view of the chest acquired. RADIATION DOSE: NA LIMITATIONS: None. FINDINGS: LUNGS AND PLEURA: No opacities, masses or pneumothorax. No pleural effusion. MEDIASTINUM AND HILAR STRUCTURES: No masses. Contour normal. HEART AND VASCULAR STRUCTURES: Heart normal in size. Normal vasculature. BONES: No acute findings. HARDWARE: None in the chest. OTHER: No other significant finding. IMPRESSION: NO ACUTE RADIOGRAPHIC FINDING IN THE CHEST. TECHNICAL DOCUMENTATION: JOB ID: [id number] [employer]- All Rights Reserved Reading location - IP/workstation name: [email or web address]
[2017-07-08] MEDS ORDERED: PROCHLORPERAZINE EDISYLATE INJ 10 MG/2 ML VIAL IV ONE (22:39)
[2017-07-08 23:54] VITALS: BP 112/74
== END 2017-07-08 23:45 | disposition home or self-care (01) ==
LOC: ER 17:56
DX: R10.11 Right upper quadrant pain (principal); M54.2 Cervicalgia; R51 Headache; M25.511 Pain in right shoulder; R11.10 Vomiting, unspecified; R39.9 Unspecified symptoms and signs involving the genitourinary system; E87.1 Hypo-osmolality and hyponatremia; F41.9 Anxiety disorder, unspecified; I10 Essential (primary) hypertension; Z98.84 Bariatric surgery status; Z87.19 Personal history of other diseases of the digestive system; Z90.49 Acquired absence of other specified parts of digestive tract
CPT/HCPCS: 93005; 99284; 36415; 83690; 80307 ×2; 85025; 80053; 84484; 71045; 93010; J0780

== ENCOUNTER 2017-07-13 17:19 | Emergency (ER) | payer MEDICARE ==
--- NOTE | 2017-07-13 18:32 | ER Document Report ---
ED Medical Screen (RME) - General Chief Complaint: Chest Pain Stated Complaint: CHEST PAIN Time Seen by Provider: 07/13/17 18:30 Notes: Patient is here complaining of pain in his upper chest and throat region since about 3 PM. Is taking nitroglycerin and aspirin for this pain. Patient is extremely well known in this emergency department by this staff in this position. He has been here numerous times for either abdominal pain or chest pain, almost always felt to be secondary to anxiety. TRAVEL OUTSIDE OF THE [place] IN LAST 30 DAYS: No - Related Data Allergies/Adverse Reactions: quetiapine fumarate [From [employer]] Adverse Reaction (Verified 07/13/17 17:20) Hypotension Past Medical History - Social History Frequency of alcohol use: None Drug Abuse: Prescription drugs Family history: CAD - Past Medical History Cardiac Medical History: Reports: Hx Hypercholesterolemia, Hx Hypertension, Hx Peripheral Vascular Disease - Left carotid stenosis 50-69% Pulmonary Medical History: Denies: Hx Asthma, Hx COPD Neurological Medical History: Reports: Hx Migraine, Hx Seizures Endocrine Medical History: Reports: Hx Hypothyroidism. Denies: Hx Diabetes Mellitus Type 1, Hx Diabetes Mellitus Type 2, Hx Hyperthyroidism Renal/ Medical History: Denies: Hx Peritoneal Dialysis GI Medical History: Reports: Hx Gastroesophageal Reflux Disease, Hx Hiatal Hernia. Denies: Hx Cirrhosis, Hx Hepatitis Musculoskeltal Medical History: Denies Hx Arthritis Psychiatric Medical History: Reports: Hx Anxiety, Hx Depression Infectious Medical History: Denies: Hx Hepatitis Past Surgical History: Reports: Hx Abdominal Surgery - gastric bypass 05, bowel blockagex2, umbilical hernia repair, Hx Cardiac Catheterization - Which is found to be negative~2014, Hx Cholecystectomy, Hx Gastric Bypass Surgery, Hx Herniorrhaphy - Immunizations Immunizations up to date: Yes Hx Diphtheria, Pertussis, Tetanus Vaccination: Yes History of Influenza Vaccine for 02/2017 - 07/2017 Season: Refused Physical Exam - Vital signs Vitals: Temp Pulse Resp BP Pulse Ox 97.8 F 78 16 112/75 98 07/13/17 17:30 07/13/17 17:30 07/13/17 17:30 07/13/17 17:30 07/13/17 17:30 Course - Vital Signs Vital signs: Temp Pulse Resp BP Pulse Ox 97.8 F 78 16 112/75 98 07/13/17 17:30 07/13/17 17:30 07/13/17 17:30 07/13/17 17:30 07/13/17 17:30
[2017-07-13 18:42] LABS: ABSOLUTE EOSINOPHILS # (AUTO) 0.1 10^3/uL (0.0-0.6); ABSOLUTE LYMPHOCYTES (AUTO) 1.6 10^3/uL (0.5-4.7); ABSOLUTE MONOCYTES (AUTO) 0.4 10^3/uL (0.1-1.4); ABSOLUTE NEUT (AUTO) 4.5 10^3/uL (1.7-8.2); BASOPHILS % (AUTO) 0.7 % (0-2); EOSINOPHILS % (AUTO) 0.9 % (0-6); HEMATOCRIT 41.3 % (37.9-51.0); HEMOGLOBIN 14.5 g/dL (13.5-17.0); LYMPHOCYTES % (AUTO) 23.8 % (13-45); MEAN CORPUSCULAR HEMOGLOBIN 30.2 pg (27.0-33.4); MEAN CORPUSCULAR HGB CONC 35.2 g/dL (32.0-36.0); MEAN CORPUSCULAR VOLUME 86 fl (80-97); MONOCYTES % (AUTO) 6.4 % (3-13); PLATELET COUNT 319 10^3/uL (150-450); RED BLOOD COUNT 4.81 10^6/uL (4.35-5.55); RED CELL DISTRIBUTION WIDTH 13.5 % (11.5-14.0); SEGMENTED NEUTROPHILS % (AUTO) 68.2 % (42-78); TOTAL CELLS COUNTED % (AUTO) 100 %; WHITE BLOOD COUNT 6.5 10^3/uL (4.0-10.5)
[2017-07-13 18:47] LABS: ALANINE AMINOTRANSFERASE 25 U/L (21-72); ALKALINE PHOSPHATASE 48 U/L (38-126); ANION GAP 9 (5-19); ASPARTATE AMINO TRANSFERASE 24 U/L (17-59); BILIRUBIN,DIRECT 0.4 mg/dL (0.0-0.4); BILIRUBIN,TOTAL 0.5 mg/dL (0.2-1.3); BLOOD UREA NITROGEN 11 mg/dL (7-20); CALCIUM 9.1 mg/dL (8.4-10.2); CARBON DIOXIDE 25 mmol/L (22-30); CHLORIDE 97 mmol/L (98-107); GLUCOSE 93 mg/dL (75-110); LIPASE 84.1 U/L (23-300); SODIUM 130.6 mmol/L (137-145); TOTAL PROTEIN 6.8 g/dL (6.3-8.2)
[2017-07-13 18:59] LABS: CREATINE KINASE MB < 0.22 ng/mL (<4.55); TROPONIN I < 0.012 ng/mL
--- NOTE | 2017-07-13 19:15 | RADIOLOGY REPORT (SQ) ---
EXAM DESCRIPTION: CHEST PA/LAT COMPLETED DATE/TIME: 07/13/2017 7:01 pm REASON FOR STUDY: Left anterior chest pain COMPARISON: None. EXAM PARAMETERS: NUMBER OF VIEWS: two views TECHNIQUE: Digital Frontal and Lateral radiographic views of the chest acquired. RADIATION DOSE: NA LIMITATIONS: none FINDINGS: LUNGS AND PLEURA: No opacities, masses or pneumothorax. No pleural effusion. MEDIASTINUM AND HILAR STRUCTURES: No masses or contour abnormalities. HEART AND VASCULAR STRUCTURES: Heart normal size. No evidence for failure. BONES: No acute findings. HARDWARE: None in the chest. OTHER: No other significant finding. IMPRESSION: NO SIGNIFICANT RADIOGRAPHIC FINDING IN THE CHEST. TECHNICAL DOCUMENTATION: JOB ID: [id number] [employer]- All Rights Reserved Reading location - IP/workstation name: [email or web address]
--- NOTE | 2017-07-13 19:25 | ER Document Report ---
ED Cardiac - General Chief Complaint: Chest Pain Stated Complaint: CHEST PAIN Time Seen by Provider: 07/13/17 18:30 Mode of Arrival: Medic Information source: Patient TRAVEL OUTSIDE OF THE [place] IN LAST 30 DAYS: No - HPI Patient complains to provider of: Chest pain Associated symptoms: denies: Dizziness, Edema, Fatigue, Fever/chills, Hypotension, Nausea/vomiting, Shortness of breath, Syncope, Weakness Exacerbated by: Denies Relieved by: Nothing Notes: The patient is here with complaints of chest pain. The patient has been seen in this emergency department multiple times for chest pain in the past. States this pain started at approximately 3:00. Is in the left chest and radiates into his throat area. He occasionally has the feelings of palpitations. He denies any significant difficulty breathing with this. Patient has a history of hypertension and high cholesterol. He denies a history of diabetes, smoking , CAD. He does report a history of hydrocodone abuse. Denies any recent long trips, recent surgeries, leg pain or leg swelling, history of DVT or PE, cancer. He reports having a normal stress test approximately 1 year ago. Patient states that this feels like similar pain he has had in the past. Also complains of some intermittent abdominal pain, he states that this is chronic and has not changed from his normal pain. States that his main reason for coming emergency department today was due to his chest pain. Nothing makes his pain better or worse. He denies any other complaints at this time. - Related Data Allergies/Adverse Reactions: quetiapine fumarate [From Seroquel] Adverse Reaction (Verified 07/13/17 17:20) Hypotension Past Medical History - Social History Smoking Status: Never Smoker Frequency of alcohol use: None Drug Abuse: Prescription drugs Family History: CAD - States all the males in his family have of heart disease in their 40s., CVA, Other - [place] Patient has suicidal ideation: No Patient has homicidal ideation: No - Past Medical History Cardiac Medical History: Reports: Hx Hypercholesterolemia, Hx Hypertension, Hx Peripheral Vascular Disease - Left carotid stenosis 50-69% Pulmonary Medical History: Denies: Hx Asthma, Hx COPD Neurological Medical History: Reports: Hx Migraine, Hx Seizures Endocrine Medical History: Reports: Hx Hypothyroidism. Denies: Hx Diabetes Mellitus Type 1, Hx Diabetes Mellitus Type 2, Hx Hyperthyroidism Renal/ Medical History: Denies: Hx Peritoneal Dialysis GI Medical History: Reports: Hx Gastroesophageal Reflux Disease, Hx Hiatal Hernia. Denies: Hx Cirrhosis, Hx Hepatitis Musculoskeltal Medical History: Denies Hx Arthritis Psychiatric Medical History: Reports: Hx Anxiety, Hx Depression Infectious Medical History: Denies: Hx Hepatitis Past Surgical History: Reports: Hx Abdominal Surgery - gastric bypass 05, bowel blockagex2, umbilical hernia repair, Hx Cardiac Catheterization - Which is found to be negative~2015, Hx Cholecystectomy, Hx Gastric Bypass Surgery, Hx Herniorrhaphy - Immunizations Immunizations up to date: Yes Hx Diphtheria, Pertussis, Tetanus Vaccination: Yes Review of Systems - Review of Systems -: Yes All other systems reviewed and negative Physical Exam - Vital signs Vitals: Temp Pulse Resp BP Pulse Ox 97.8 F 78 16 112/75 98 07/13/17 17:30 07/13/17 17:30 07/13/17 17:30 07/13/17 17:30 07/13/17 17:30 - Notes Notes: GENERAL: alert, cooperative, nontoxic, no distress. HEAD: normocephalic, atraumatic EYES: conjunctiva pink without discharge, no external redness or swelling. EARS: no external swelling, no external redness NOSE: atraumatic, no external swelling MOUTH/THROAT: mucous membranes moist and pink, posterior pharynx without erythema, swelling, exudate. No trismus or drooling. NECK: soft, supple, full range of motion, no meningismus. CHEST: no distress, lungs clear and equal throughout. No wheezing, rales, rhonchi. CARDIAC: regular rate and rhythm, no murmur, normal capillary refill, normal pulses. No peripheral edema noted. ABDOMEN: Soft, no focal tenderness. No rebound tenderness or guarding. BACK: full range of motion, no CVA tenderness. EXTREMITIES: full range of motion of all extremities. No redness, no swelling. NEURO: alert and oriented x 3, no focal deficits, full range of motion of all extremities. PYSCH: appropriate mood, affect. Patient is cooperative. SKIN: pink, warm, dry, no rash. Course - Re-evaluation Re-evalutation: 07/13/17 19:51 The patient is nontoxic appearing with stable vitals. The patient is here with chest pain that is been present for the last 5 hours. His EKG is normal and unchanged from prior EKGs. Chest x-ray is unremarkable. Lab work including troponin, lipase, LFTs are all unremarkable. His sodium is slightly low at 130 , this is actually improved from prior sodiums we have had in the system. The patient is seen in the emergency department constantly for chest pain and abdominal pain. This point he does not appear to have an acute cause of his pain. Heart Score = 1 points Low Score (0-3 points) Risk of MACE of 0.9-1.7%. Patient is nontoxic appearing at this time. Patient can be discharged home at this time with instructions to follow-up with his primary care doctor at the next available appointment. Follow-up sooner for increasing pain, high fever, difficulty breathing, or for any further concerns. Patient has no PE risk factors and is PERC rule negative for PE, therefore no further provocative testing is needed at this time. 07/13/17 19:57 The patient's emergency department workup and current diagnosis were explained to the patient and or family. Follow-up instructions were provided. Medications if prescribed were discussed. Instructions for when to return to the emergency department including specific worrisome symptoms were discussed with the patient and/or family. - Vital Signs Vital signs: Temp Pulse Resp BP Pulse Ox 97.8 F 78 16 112/75 98 07/13/17 17:30 07/13/17 17:30 07/13/17 17:30 07/13/17 17:30 07/13/17 17:30 - Laboratory Result Diagrams: 07/13/17 17:04 07/13/17 17:04 Laboratory results interpreted by me: 07/13/17 17:04 Sodium 130.6 L Chloride 97 L - Diagnostic Test Radiology reviewed: Image reviewed, Reports reviewed - No acute abnormality of the chest. - EKG Interpretation by [facility] EKG shows normal: Sinus rhythm, Intervals, QRS Complexes, ST-T Waves Rate: Normal When compared to previous EKG there are: No significant change Discharge - Discharge Clinical Impression: Chest pain Qualifiers: Chest pain type: unspecified Qualified Code(s): R07.9 - Chest pain, unspecified Condition: Stable Disposition: HOME, SELF-CARE Instructions: Chest Pain of Unclear Cause ([facility]) Additional Instructions: Follow-up with your family doctor at the next available appointment. Follow-up sooner for increasing pain, high fever, difficulty breathing or swallowing, or for any further concerns. Forms: Smoking Cessation Education Referrals: AYDEE HINOJOSA, [Primary Care Provider] - Follow up as needed
[2017-07-13 19:53] LABS: APPEARANCE,URINE CLEAR; BILIRUBIN,URINE NEGATIVE (NEGATIVE); COLOR,URINE YELLOW; GLUCOSE, URINE NEGATIVE (NEGATIVE); KETONES,URINE TRACE mg/dL (NEGATIVE); LEUKOCYTE ESTERASE,URINE NEGATIVE (NEGATIVE); NITRITE,URINE NEGATIVE (NEGATIVE); PROTEIN,URINE NEGATIVE (NEGATIVE); URINE SPECIFIC GRAVITY 1.013; UROBILINOGEN,URINE NEGATIVE mg/dL (<2.0)
[2017-07-13 20:01] LABS: URINE AMPHETAMINES SCREEN NEGATIVE; URINE BARBITURATES SCREEN NEGATIVE; URINE BENZODIAZEPINES SCREEN UNCONFIRMED POSITIVE; URINE COCAINE SCREEN NEGATIVE; URINE MARIJUANA (THC) SCREEN NEGATIVE; URINE METHADONE SCREEN NEGATIVE; URINE PHENCYCLIDINE SCREEN NEGATIVE
[2017-07-13 20:05] VITALS: BP 119/70
--- NOTE | 2017-07-13 20:20 | EKG REPORT ---
SEVERITY:- BORDERLINE ECG - SINUS RHYTHM PROBABLE LEFT ATRIAL ABNORMALITY : Confirmed by: Grupo Galarza MD 13-Jul-2017 20:19:09
== END 2017-07-13 20:05 | disposition home or self-care (01) ==
LOC: ER 17:19
DX: R07.9 Chest pain, unspecified (principal); E78.00 Pure hypercholesterolemia, unspecified; I10 Essential (primary) hypertension; E03.9 Hypothyroidism, unspecified; Z98.84 Bariatric surgery status; Z90.49 Acquired absence of other specified parts of digestive tract
CPT/HCPCS: 36415; 71046; 80053; 80307; 81001; 82553; 83690; 84484; 85025; 93005; 93010; 99285

== ENCOUNTER 2017-07-29 13:34 | Emergency (ER) | payer MEDICARE ==
[2017-07-29] MEDS ORDERED: ACETYLCYSTEINE INJ 6000 MG/30 ML IV ONE ×2 (14:15)
--- NOTE | 2017-07-29 14:22 | ER Document Report ---
ED General - General Chief Complaint: Possible Overdose Stated Complaint: ABDOMINAL PAIN Time Seen by Provider: 07/29/17 14:02 Mode of Arrival: Ambulatory Information source: Patient, [facility] Records, Outside Facility Records Notes: 41-year-old male chronic drug-seeking patient presents with complaints of abdominal pain. Patient notes that he has been taking narcotics off the street , says that he is having right upper quadrant pain. Patient denies any fevers or chills he notes he took a large amount of narcotics and believes that he may have overdosed on Tylenol 3 days ago. TRAVEL OUTSIDE OF THE [place] IN LAST 30 DAYS: No - HPI Onset: Other Onset/Duration: Persistent Quality of pain: Achy Severity: Mild Pain Level: 1 Associated symptoms: Other Exacerbated by: Denies Relieved by: Denies Similar symptoms previously: Yes Recently seen / treated by doctor: Yes - Related Data Allergies/Adverse Reactions: quetiapine fumarate [From Seroquel] Adverse Reaction (Verified 07/29/17 13:38) Hypotension Past Medical History - Social History Smoking Status: Never Smoker Cigarette use (# per day): No Chew tobacco use (# tins/day): No Smoking Education Provided: No Frequency of alcohol use: None Drug Abuse: Prescription drugs Family History: CAD - States all the males in his family have of heart disease in their 40s., CVA, Other - [place] Patient has suicidal ideation: No Patient has homicidal ideation: No - Past Medical History Cardiac Medical History: Reports: Hx Hypercholesterolemia, Hx Hypertension, Hx Peripheral Vascular Disease - Left carotid stenosis 50-69% Pulmonary Medical History: Denies: Hx Asthma, Hx COPD Neurological Medical History: Reports: Hx Migraine, Hx Seizures Endocrine Medical History: Reports: Hx Hypothyroidism. Denies: Hx Diabetes Mellitus Type 1, Hx Diabetes Mellitus Type 2, Hx Hyperthyroidism Renal/ Medical History: Denies: Hx Peritoneal Dialysis GI Medical History: Reports: Hx Gastroesophageal Reflux Disease, Hx Hiatal Hernia. Denies: Hx Cirrhosis, Hx Hepatitis Musculoskeltal Medical History: Denies Hx Arthritis Psychiatric Medical History: Reports: Hx Anxiety, Hx Depression Infectious Medical History: Denies: Hx Hepatitis Past Surgical History: Reports: Hx Abdominal Surgery - gastric bypass 05, bowel blockagex2, umbilical hernia repair, Hx Cardiac Catheterization - Which is found to be negative~2014, Hx Cholecystectomy, Hx Gastric Bypass Surgery, Hx Herniorrhaphy - Immunizations Immunizations up to date: Yes Hx Diphtheria, Pertussis, Tetanus Vaccination: Yes Review of Systems - Review of Systems Notes: REVIEW OF SYSTEMS: CONSTITUTIONAL : Denies fever, chills, or sweats. Denies recent illness. EENT: Denies eye, ear, throat, or mouth pain or symptoms. Denies nasal or sinus congestion or discharge. Denies throat, tongue, or mouth swelling or difficulty swallowing. CARDIOVASCULAR: Denies chest pain. Denies palpitations or racing or irregular heart beat. Denies ankle edema. RESPIRATORY: Denies cough, cold, or chest congestion. Denies shortness of breath, difficulty breathing, or wheezing. GASTROINTESTINAL: Admits to abdominal pain. GENITOURINARY: Denies difficulty urinating, painful urination, burning, frequency, blood in urine, or discharge. MUSCULOSKELETAL: Denies back or neck pain or stiffness. Denies joint pain or swelling. SKIN: Denies rash, lesions or sores. HEMATOLOGIC : Denies easy bruising or bleeding. LYMPHATIC: Denies swollen, enlarged glands. NEUROLOGICAL: Denies confusion or altered mental status. Denies passing out or loss of consciousness. Denies dizziness or lightheadedness. Denies headache. Denies weakness or paralysis or loss of use of either side. Denies problems with gait or speech. Denies sensory loss, numbness, or tingling. Denies seizures. PSYCHIATRIC: Denies anxiety or stress. Denies depression, suicidal ideation, or homicidal ideation. ALL OTHER SYSTEMS REVIEWED AND NEGATIVE. Dictation was performed using [employer] voice recognition software PHYSICAL EXAMINATION: GENERAL: Well-appearing, well-nourished and in no acute distress. HEAD: Atraumatic, normocephalic. EYES: Pupils equal round and reactive to light, extraocular movements intact, sclera anicteric, conjunctiva are normal. ENT: Nares patent, oropharynx clear without exudates. Moist mucous membranes. NECK: Normal range of motion, supple without lymphadenopathy LUNGS: Breath sounds clear to auscultation bilaterally and equal. No wheezes rales or rhonchi. HEART: Regular rate and rhythm without murmurs ABDOMEN: Soft, nontender, nondistended abdomen. No guarding, no rebound. No masses appreciated. Musculoskeletal: Normal range of motion, no pitting or edema. No cyanosis. NEUROLOGICAL: Cranial nerves grossly intact. Normal speech, normal gait. Normal sensory, motor exams PSYCH: Normal mood, normal affect. SKIN: Warm, Dry, normal turgor, no rashes or lesions noted. Physical Exam - Vital signs Vitals: Temp Pulse Resp BP Pulse Ox 97.8 F 81 14 91/73 L 100 07/29/17 13:50 07/29/17 13:50 07/29/17 13:50 07/29/17 13:50 07/29/17 13:50 Course - Re-evaluation Re-evalutation: 07/29/17 14:35 [place] drug database review notes 07/25/2017 07/25/2017 OXYCODONE HCL 5 MG TABLET [id number] 13 5 0 0 [id number] SAIRA Márquez ([place], [place] [id number] [facility] [place] FRANKY VELIZ 1975 [address] [place] [address] 01 19.5 05/27/2017 05/27/2017 OXYCODONE- ACETAMINOPHEN 10- 325 [id number] 42 14 0 0 [id number] [place], [place] [id number] [facility] [place] 1975 [address] [place] [address] 04 [facility] 05/27/2017 05/27/2017 OXYCODONE- ACETAMINOPHEN 10- 325 [id number] 15 5 0 0 [id number] [place], [place] [id number] [facility] [place] FRANKY VELIZ 1975 [address] [place] [address] 01 45 05/07/2017 05/07/2017 OXYCODONE- ACETAMINOPHEN 10- 325 [id number] 25 6 0 0 [id number] [place], [place] [id number] [facility] [place] 1975 [address] [place] [address] 04 [facility] 05/02/2017 05/02/2017 OXYCODONE HCL 5 MG TABLET [id number] 20 5 0 0 [id number] [place], [place] [id number] [facility] [place] FRANKY VELIZ 1975 [address] [place] [address] 04 30 04/29/2017 04/29/2017 OXYCODONE HCL 5 MG TABLET [id number] 13 5 0 0 [id number] [place], [place] [id number] [facility] [place] FRANKY VELIZ 1975 [address] [place] [address] 04 19.5 04/17/2017 04/17/2017 HYDROCODONE- ACETAMIN 5- 325 MG [id number] 30 7 0 0 [id number] [place], [place] [id number] [facility] [place] FRANKY VELIZ 1975 [address] [place] [address] 01 21.43 04/14/2017 04/14/2017 HYDROCODONE- ACETAMIN 5- 325 MG [id number] 20 2 0 0 [id number] [place], [place] [id number] [employer] [place] FRANKY VELIZ 1975 [address] [place] [address] 04 50 04/13/2017 04/13/2017 HYDROCODONE- ACETAMIN 5- 325 MG [id number] 20 5 0 0 [id number] [place], [place] [id number] [facility] [place] FRANKY VELIZ 1975 [address] [place] [address] 04 20 Patient states that he is taking narcotics he gets off the streets, I have obviously counseled the patient that he should not be taking any illegal medications, that he should not be taking narcotics in the amount that he is taking, 07/29/17 14:37 07/29/17 15:08 Patient's liver enzymes are normal his Tylenol level is undetectable I do not believe he has taken a toxic dose 07/29/17 15:09 After performing a Medical Screening Examination, I estimate there is LOW risk for ACUTE APPENDICITIS, BOWEL OBSTRUCTION, ACUTE CHOLECYSTITIS, PERFORATED DIVERTICULITIS, INCARCERATED HERNIA, PANCREATITIS, TESTICULAR TORSION or PERFORATED ULCER, thus I consider the discharge disposition reasonable. Also, there is no evidence or peritonitis, sepsis, or toxicity. I have reevaluated this patient multiple times and no significant life threatening changes are noted. The patient and I have discussed the diagnosis and risks, and we agree with discharging home with close follow-up with the understanding that symptoms and presentations can change. We also discussed returning to the Emergency Department immediately if new or worsening symptoms occur. We have discussed the symptoms which are most concerning (e.g., bloody stool, fever, changing or worsening pain, intractable vomiting - standard verbal up date) that necessitate immediate return. - Vital Signs Vital signs: Temp Pulse Resp BP Pulse Ox 97.8 F 81 14 91/73 L 100 07/29/17 13:50 07/29/17 13:50 07/29/17 13:50 07/29/17 13:50 07/29/17 13:50 - Laboratory Result Diagrams: 07/29/17 14:31 07/29/17 14:31 Laboratory results interpreted by me: 07/29/17 07/29/17 14:31 14:31 Sodium 134.9 L Chloride 97 L Salicylates < 1.0 L Acetaminophen < 10 L Discharge - Discharge Clinical Impression: Chronic opiate abuse Abdominal pain Qualifiers: Abdominal location: right upper quadrant Qualified Code(s): R10.11 - Right upper quadrant pain Condition: Stable Disposition: HOME, SELF-CARE Instructions: Abdominal Pain ([facility]) Additional Instructions: You must stop taking narcotics and other medications that are not prescribed to you Referrals: AYDEE HINOJOSA DO [Primary Care Provider] - Follow up as needed
[2017-07-29 14:48] LABS: ABSOLUTE EOSINOPHILS # (AUTO) 0.2 10^3/uL (0.0-0.6); ABSOLUTE LYMPHOCYTES (AUTO) 0.9 10^3/uL (0.5-4.7); ABSOLUTE MONOCYTES (AUTO) 0.4 10^3/uL (0.1-1.4); ABSOLUTE NEUT (AUTO) 4.9 10^3/uL (1.7-8.2); BASOPHILS % (AUTO) 0.6 % (0-2); EOSINOPHILS % (AUTO) 2.6 % (0-6); HEMATOCRIT 44.4 % (37.9-51.0); HEMOGLOBIN 15.4 g/dL (13.5-17.0); LYMPHOCYTES % (AUTO) 13.8 % (13-45); MEAN CORPUSCULAR HEMOGLOBIN 29.9 pg (27.0-33.4); MEAN CORPUSCULAR HGB CONC 34.6 g/dL (32.0-36.0); MEAN CORPUSCULAR VOLUME 87 fl (80-97); MONOCYTES % (AUTO) 6.2 % (3-13); PLATELET COUNT 398 10^3/uL (150-450); RED BLOOD COUNT 5.13 10^6/uL (4.35-5.55); RED CELL DISTRIBUTION WIDTH 13.1 % (11.5-14.0); SEGMENTED NEUTROPHILS % (AUTO) 76.8 % (42-78); TOTAL CELLS COUNTED % (AUTO) 100 %; WHITE BLOOD COUNT 6.3 10^3/uL (4.0-10.5)
[2017-07-29 14:58] LABS: PROTHROMBIN TIME 12.8 SEC (11.4-15.4)
[2017-07-29 15:02] LABS: ALANINE AMINOTRANSFERASE 28 U/L (21-72); ALBUMIN 4.3 g/dL (3.5-5.0); ALKALINE PHOSPHATASE 70 U/L (38-126); ANION GAP 9 (5-19); ASPARTATE AMINO TRANSFERASE 19 U/L (17-59); BILIRUBIN,DIRECT 0.4 mg/dL (0.0-0.4); BILIRUBIN,TOTAL 0.5 mg/dL (0.2-1.3); BLOOD UREA NITROGEN 10 mg/dL (7-20); CARBON DIOXIDE 29 mmol/L (22-30); CHLORIDE 97 mmol/L (98-107); GLUCOSE 107 mg/dL (75-110); POTASSIUM 4.8 mmol/L (3.6-5.0); SODIUM 134.9 mmol/L (137-145); TOTAL PROTEIN 7.3 g/dL (6.3-8.2)
[2017-07-29 15:06] LABS: ACETAMINOPHEN < 10 ug/mL (10-30); SALICYLATE < 1.0 mg/dL (2.0-20.0)
[2017-07-29 15:27] VITALS: BP 101/75
--- NOTE | 2017-07-29 15:52 | EKG REPORT ---
SEVERITY:- NORMAL ECG - SINUS RHYTHM : Confirmed by: Galen Lloyd 29-Jul-2017 15:51:53
== END 2017-07-29 15:33 | disposition home or self-care (01) ==
LOC: ER 13:34
DX: R10.11 Right upper quadrant pain (principal); F11.10 Opioid abuse, uncomplicated; I10 Essential (primary) hypertension; Z87.19 Personal history of other diseases of the digestive system; Z98.84 Bariatric surgery status; Z90.49 Acquired absence of other specified parts of digestive tract
CPT/HCPCS: 36415; 80053; 80307; 85025; 85610; 93005; 93010; 99284

== ENCOUNTER 2017-08-01 17:53 | Emergency (ER) | payer MEDICARE ==
--- NOTE | 2017-08-01 18:14 | ER Document Report ---
ED General - General Chief Complaint: Flank Pain Stated Complaint: LOW BACK PAIN Time Seen by Provider: 08/01/17 18:11 TRAVEL OUTSIDE OF THE [place] IN LAST 30 DAYS: No - Related Data Allergies/Adverse Reactions: quetiapine fumarate [From Seroquel] Adverse Reaction (Verified 07/29/17 13:38) Hypotension Past Medical History - Social History Smoking Status: Unknown if Ever Smoked Chew tobacco use (# tins/day): No Frequency of alcohol use: None Drug Abuse: None Family History: CAD - States all the males in his family have of heart disease in their 40s., CVA, Other - [place] Patient has suicidal ideation: No Patient has homicidal ideation: No - Past Medical History Cardiac Medical History: Reports: Hx Hypercholesterolemia, Hx Hypertension, Hx Peripheral Vascular Disease - Left carotid stenosis 50-69% Pulmonary Medical History: Denies: Hx Asthma, Hx COPD Neurological Medical History: Reports: Hx Migraine, Hx Seizures Endocrine Medical History: Reports: Hx Hypothyroidism. Denies: Hx Diabetes Mellitus Type 1, Hx Diabetes Mellitus Type 2, Hx Hyperthyroidism Renal/ Medical History: Denies: Hx Peritoneal Dialysis GI Medical History: Reports: Hx Gastroesophageal Reflux Disease, Hx Hiatal Hernia. Denies: Hx Cirrhosis, Hx Hepatitis Musculoskeltal Medical History: Denies Hx Arthritis Psychiatric Medical History: Reports: Hx Anxiety, Hx Depression Infectious Medical History: Denies: Hx Hepatitis Past Surgical History: Reports: Hx Abdominal Surgery - gastric bypass 05, bowel blockagex2, umbilical hernia repair bowel resectio, Hx Cardiac Catheterization - Which is found to be negative~2014, Hx Cholecystectomy, Hx Gastric Bypass Surgery, Hx Herniorrhaphy - Immunizations Immunizations up to date: Yes Hx Diphtheria, Pertussis, Tetanus Vaccination: Yes Physical Exam - Vital signs Vitals: Temp Pulse Resp BP Pulse Ox 97.5 F 82 20 105/76 99 08/01/17 18:02 08/01/17 18:02 08/01/17 18:02 08/01/17 18:02 08/01/17 18:02 Course - Vital Signs Vital signs: Temp Pulse Resp BP Pulse Ox 97.5 F 82 20 105/76 99 08/01/17 18:02 08/01/17 18:02 08/01/17 18:02 08/01/17 18:02 08/01/17 18:02
[2017-08-01 19:05] LABS: ABSOLUTE BASOPHILS # (AUTO) 0.1 10^3/uL (0.0-0.2); ABSOLUTE EOSINOPHILS # (AUTO) 0.2 10^3/uL (0.0-0.6); ABSOLUTE LYMPHOCYTES (AUTO) 2.5 10^3/uL (0.5-4.7); ABSOLUTE MONOCYTES (AUTO) 0.5 10^3/uL (0.1-1.4); ABSOLUTE NEUT (AUTO) 4.2 10^3/uL (1.7-8.2); BASOPHILS % (AUTO) 0.8 % (0-2); EOSINOPHILS % (AUTO) 2.6 % (0-6); HEMATOCRIT 42.5 % (37.9-51.0); HEMOGLOBIN 14.9 g/dL (13.5-17.0); LYMPHOCYTES % (AUTO) 33.2 % (13-45); MEAN CORPUSCULAR HEMOGLOBIN 30.5 pg (27.0-33.4); MEAN CORPUSCULAR HGB CONC 34.9 g/dL (32.0-36.0); MEAN CORPUSCULAR VOLUME 87 fl (80-97); MONOCYTES % (AUTO) 6.9 % (3-13); PLATELET COUNT 448 10^3/uL (150-450); RED BLOOD COUNT 4.87 10^6/uL (4.35-5.55); SEGMENTED NEUTROPHILS % (AUTO) 56.5 % (42-78); TOTAL CELLS COUNTED % (AUTO) 100 %; WHITE BLOOD COUNT 7.4 10^3/uL (4.0-10.5)
[2017-08-01 19:17] LABS: APPEARANCE,URINE CLEAR; BILIRUBIN,URINE NEGATIVE (NEGATIVE); COLOR,URINE STRAW; GLUCOSE, URINE NEGATIVE (NEGATIVE); KETONES,URINE NEGATIVE (NEGATIVE); LEUKOCYTE ESTERASE,URINE NEGATIVE (NEGATIVE); NITRITE,URINE NEGATIVE (NEGATIVE); PROTEIN,URINE NEGATIVE (NEGATIVE); URINE SPECIFIC GRAVITY 1.008; UROBILINOGEN,URINE NEGATIVE mg/dL (<2.0)
[2017-08-01 19:26] LABS: ALANINE AMINOTRANSFERASE 44 U/L (21-72); ALBUMIN 4.3 g/dL (3.5-5.0); ALKALINE PHOSPHATASE 58 U/L (38-126); ANION GAP 7 (5-19); ASPARTATE AMINO TRANSFERASE 27 U/L (17-59); BILIRUBIN,DIRECT 0.3 mg/dL (0.0-0.4); BILIRUBIN,TOTAL 0.3 mg/dL (0.2-1.3); BLOOD UREA NITROGEN 17 mg/dL (7-20); CALCIUM 9.6 mg/dL (8.4-10.2); CARBON DIOXIDE 31 mmol/L (22-30); CHLORIDE 95 mmol/L (98-107); GLUCOSE 85 mg/dL (75-110); POTASSIUM 4.7 mmol/L (3.6-5.0); SODIUM 133.3 mmol/L (137-145)
[2017-08-01 20:05] VITALS: BP 106/76
== END 2017-08-01 20:07 | disposition home or self-care (01) ==
LOC: ER 17:53
DX: M54.5 Low back pain (principal); R10.9 Unspecified abdominal pain; E78.00 Pure hypercholesterolemia, unspecified; I10 Essential (primary) hypertension; E03.9 Hypothyroidism, unspecified; Z98.84 Bariatric surgery status; Z90.49 Acquired absence of other specified parts of digestive tract
CPT/HCPCS: 36415; 80053; 81001; 85025; 99284

== ENCOUNTER 2017-08-12 16:30 | Emergency (ER) | payer MEDICARE ==
--- NOTE | 2017-08-12 17:29 | ER Document Report ---
ED Medical Screen (RME) - General Chief Complaint: Chest Pain Stated Complaint: CHEST PAIN Time Seen by Provider: 08/12/17 17:19 Notes: 41-year-old male patient chronic abdomen chest pain chronic narcotic use and abuse. Comes in complaining of severe abdominal pain for 4 days, and chest began hurting 2:00 in the morning goes into his left chest shoulder and neck. When asked if this is similar to his multiple prior visits for the same thing he states notes different it is a lot worse. I have greeted and performed a rapid initial assessment of this patient. A comprehensive ED assessment and evaluation of the patient, analysis of test results and completion of the medical decision making process will be conducted by additional ED providers. TRAVEL OUTSIDE OF THE [place] IN LAST 30 DAYS: No - Related Data Allergies/Adverse Reactions: quetiapine fumarate [From Seroquel] Adverse Reaction (Verified 08/12/17 16:31) Hypotension Past Medical History - Social History Frequency of alcohol use: None Drug Abuse: None Family history: CAD - Past Medical History Cardiac Medical History: Reports: Hx Hypercholesterolemia, Hx Hypertension, Hx Peripheral Vascular Disease - Left carotid stenosis 50-69% Pulmonary Medical History: Denies: Hx Asthma, Hx COPD Neurological Medical History: Reports: Hx Migraine, Hx Seizures Endocrine Medical History: Reports: Hx Hypothyroidism. Denies: Hx Diabetes Mellitus Type 1, Hx Diabetes Mellitus Type 2, Hx Hyperthyroidism Renal/ Medical History: Denies: Hx Peritoneal Dialysis GI Medical History: Reports: Hx Gastroesophageal Reflux Disease, Hx Hiatal Hernia. Denies: Hx Cirrhosis, Hx Hepatitis Musculoskeltal Medical History: Denies Hx Arthritis Psychiatric Medical History: Reports: Hx Anxiety, Hx Depression Infectious Medical History: Denies: Hx Hepatitis Past Surgical History: Reports: Hx Abdominal Surgery - gastric bypass 05, bowel blockagex2, umbilical hernia repair bowel resectio, Hx Cardiac Catheterization - Which is found to be negative~2014, Hx Cholecystectomy, Hx Gastric Bypass Surgery, Hx Herniorrhaphy - Immunizations Immunizations up to date: Yes Hx Diphtheria, Pertussis, Tetanus Vaccination: Yes History of Influenza Vaccine for 02/2017 - 07/2017 Season: Refused Physical Exam - Vital signs Vitals: Temp Pulse Resp BP Pulse Ox 98.0 F 78 18 114/91 H 97 08/12/17 16:33 08/12/17 16:33 08/12/17 16:33 08/12/17 16:33 08/12/17 16:33 Course - Vital Signs Vital signs: Temp Pulse Resp BP Pulse Ox 98.0 F 78 18 114/91 H 97 08/12/17 16:33 08/12/17 16:33 08/12/17 16:33 08/12/17 16:33 08/12/17 16:33
[2017-08-12 18:02] LABS: ABSOLUTE LYMPHOCYTES (AUTO) 1.2 10^3/uL (0.5-4.7); ABSOLUTE MONOCYTES (AUTO) 0.4 10^3/uL (0.1-1.4); ABSOLUTE NEUT (AUTO) 5.5 10^3/uL (1.7-8.2); BASOPHILS % (AUTO) 0.5 % (0-2); EOSINOPHILS % (AUTO) 0.5 % (0-6); HEMATOCRIT 43.9 % (37.9-51.0); HEMOGLOBIN 15.3 g/dL (13.5-17.0); LYMPHOCYTES % (AUTO) 17.4 % (13-45); MEAN CORPUSCULAR HEMOGLOBIN 29.7 pg (27.0-33.4); MEAN CORPUSCULAR HGB CONC 34.9 g/dL (32.0-36.0); MEAN CORPUSCULAR VOLUME 85 fl (80-97); MONOCYTES % (AUTO) 5.4 % (3-13); PLATELET COUNT 311 10^3/uL (150-450); RED BLOOD COUNT 5.17 10^6/uL (4.35-5.55); RED CELL DISTRIBUTION WIDTH 12.6 % (11.5-14.0); SEGMENTED NEUTROPHILS % (AUTO) 76.2 % (42-78); TOTAL CELLS COUNTED % (AUTO) 100 %; WHITE BLOOD COUNT 7.2 10^3/uL (4.0-10.5)
[2017-08-12 18:19] LABS: ALANINE AMINOTRANSFERASE 29 U/L (21-72); ALBUMIN 4.6 g/dL (3.5-5.0); ALKALINE PHOSPHATASE 64 U/L (38-126); ANION GAP 12 (5-19); ASPARTATE AMINO TRANSFERASE 16 U/L (17-59); BILIRUBIN,DIRECT 0.4 mg/dL (0.0-0.4); BLOOD UREA NITROGEN 12 mg/dL (7-20); CALCIUM 9.9 mg/dL (8.4-10.2); CARBON DIOXIDE 24 mmol/L (22-30); CHLORIDE 95 mmol/L (98-107); GLUCOSE 83 mg/dL (75-110); LIPASE 45.7 U/L (23-300); POTASSIUM 4.5 mmol/L (3.6-5.0); SODIUM 130.6 mmol/L (137-145); TOTAL PROTEIN 7.4 g/dL (6.3-8.2)
[2017-08-12 18:31] LABS: CREATINE KINASE MB < 0.22 ng/mL (<4.55); TROPONIN I < 0.012 ng/mL
--- NOTE | 2017-08-12 18:48 | ER Document Report ---
ED General - General Chief Complaint: Chest Pain Stated Complaint: CHEST PAIN Time Seen by Provider: 08/12/17 17:19 TRAVEL OUTSIDE OF THE [place] IN LAST 30 DAYS: No - HPI Notes: 41-year-old male who is a frequent visitor to the emergency department, typically 3 visits per month, with a history of chronic chest and abdominal pain presents with the same. He describes 3 days gradual onset diffuse mid abdominal pain that also radiates up into his chest. Aching crampy at times, associated nausea but no vomiting. He has a complicated history including previous gastric bypass and several revisions. He has not seen a surgeon in follow-up since April, he saw his primary care doctor several days ago but is unhappy with what he has been told. No fever, chills or sweats. He is seen by the physician in triage with studies ordered prior to my evaluation. No other modifying factors, no other associated symptoms, no other provocative or palliative factors. - Related Data Allergies/Adverse Reactions: quetiapine fumarate [From SeroBigBadl] Adverse Reaction (Verified 08/12/17 16:31) Hypotension Past Medical History - Social History Smoking Status: Never Smoker Frequency of alcohol use: None Drug Abuse: None Family History: CAD - States all the males in his family have of heart disease in their 40s., CVA, Other - [place] Patient has suicidal ideation: No Patient has homicidal ideation: No - Past Medical History Cardiac Medical History: Reports: Hx Hypercholesterolemia, Hx Hypertension, Hx Peripheral Vascular Disease - Left carotid stenosis 50-69% Pulmonary Medical History: Denies: Hx Asthma, Hx COPD Neurological Medical History: Reports: Hx Migraine, Hx Seizures Endocrine Medical History: Reports: Hx Hypothyroidism. Denies: Hx Diabetes Mellitus Type 1, Hx Diabetes Mellitus Type 2, Hx Hyperthyroidism Renal/ Medical History: Denies: Hx Peritoneal Dialysis GI Medical History: Reports: Hx Gastroesophageal Reflux Disease, Hx Hiatal Hernia. Denies: Hx Cirrhosis, Hx Hepatitis Musculoskeltal Medical History: Denies Hx Arthritis Psychiatric Medical History: Reports: Hx Anxiety, Hx Depression Infectious Medical History: Denies: Hx Hepatitis Past Surgical History: Reports: Hx Abdominal Surgery - gastric bypass 05, bowel blockagex2, umbilical hernia repair bowel resectio, Hx Cardiac Catheterization - Which is found to be negative~2014, Hx Cholecystectomy, Hx Gastric Bypass Surgery, Hx Herniorrhaphy - Immunizations Immunizations up to date: Yes Hx Diphtheria, Pertussis, Tetanus Vaccination: Yes Review of Systems - Review of Systems Notes: Review of systems as in the history of present illness, otherwise negative. Physical Exam - Vital signs Vitals: Temp Pulse Resp BP Pulse Ox 98.0 F 78 18 114/91 H 97 08/12/17 16:33 18 16:33 08/12/17 16:33 08/12/17 16:33 08/12/17 16:33 - Notes Notes: General: Well developed . HEENT: Normocephalic, atraumatic. Pupils equal round reactive to light. No JVD. Chest: No trauma. Respiratory: Good air exchange, normal excursion. Cardiac: Regular rhythm. No murmurs or gallops. Abdomen: Soft, benign. On distracted examination he really appears to have no appreciable tenderness. His well-healed surgical scars, no tympany, no distention. The abdomen is soft. Back: No asymmetry or gross abnormality. Motor: Grossly normal power and tone. Neurologic: Alert, nonfocal. Cranial nerves II-12 are intact. Sensation intact. Vascular: Well perfused. Normal peripheral pulses. Skin: No petechiae or purpura. Course - Re-evaluation Re-evalutation: This is a well-appearing male presents with exacerbation of chronic chest and abdominal pain. Evaluation the patient's labs were ordered prior to me seeing him are unremarkable including normal CBC chemistries and lipase. His ECG shows no evidence of acute ischemia. Patient declined my offer for injection antiemetics but did receive a dose of oral Zofran. I sat down and had an extensive discussion with him with regard to my review of his records that show negative CT and acute abdominal series recently as well as his litany of visits of which none have shown an acute emergent abnormality. I am impressed upon him the absolute critical need for continued primary care follow-up as well as seen a surgeon. At this point I do not believe that he has any additional emergent testing that would be helpful and/or necessary. He is asked to follow-up closely with his primary care physician, given a prescription for Zofran use as needed. - Vital Signs Vital signs: Temp Pulse Resp BP Pulse Ox 98.1 F 72 16 126/86 H 98 08/12/17 19:03 08/12/17 19:03 08/12/17 19:03 08/12/17 19:03 08/12/17 19:03 - Laboratory Result Diagrams: 08/12/17 17:48 08/12/17 17:48 Laboratory results interpreted by me: 08/12/17 17:48 Sodium 130.6 L Chloride 95 L AST 16 L Discharge - Discharge Clinical Impression: Chest pain Qualifiers: Chest pain type: unspecified Qualified Code(s): R07.9 - Chest pain, unspecified Abdominal pain Qualifiers: Abdominal location: periumbilical Qualified Code(s): R10.33 - Periumbilical pain Disposition: HOME, SELF-CARE Instructions: Abdominal Pain ([facility]), Chest Pain of Unclear Cause ([facility]) Prescriptions: Ondansetron [Zofran Odt 4 mg Tablet] 1 - 2 tab PO Q4H PRN #15 tab.rapdis PRN Reason: For Nausea/Vomiting Referrals: AYDEE HINOJOSA DO [Primary Care Provider] - Follow up as needed
[2017-08-12] MEDS ORDERED: ONDANSETRON 4 MG TAB.RAPDIS PO ONE (18:49)
[2017-08-12 19:04] VITALS: BP 126/86
--- NOTE | 2017-08-12 22:44 | EKG REPORT ---
SEVERITY:- NORMAL ECG - SINUS RHYTHM : Confirmed by: Galen Lloyd 12-Aug-2017 22:44:00
== END 2017-08-12 19:04 | disposition home or self-care (01) ==
LOC: ER 16:30
DX: R07.9 Chest pain, unspecified (principal); R10.33 Periumbilical pain; R11.0 Nausea; I10 Essential (primary) hypertension; G89.29 Other chronic pain
CPT/HCPCS: 93005; 99285; 36415; 82553; 83690; 85025; 80053; 84484; 93010; A9270; S0119

== ENCOUNTER 2017-08-30 15:15 | Emergency (ER) | payer MEDICARE ==
--- NOTE | 2017-08-30 15:45 | ER Document Report ---
ED Medical Screen (RME) - General Mode of Arrival: Wheelchair Information source: Patient TRAVEL OUTSIDE OF THE U.S. IN LAST 30 DAYS: No <VIDAL TORIBIO - Last Filed: 08/30/17 21:03> <JENNYFER BRITO - Last Filed: 08/30/17 21:18> - General Chief Complaint: Abdominal Pain Stated Complaint: ABDOMINAL PAIN Time Seen by Provider: 08/30/17 15:34 Notes: 41 y.o male with a PMHx of liver issues and cholecystectomy presents to the ED with RUQ pain. He reports that he has chronic abd pain for which he usually take Hydrocodone. Pt states that recently he took 15 vicoden for 3 days and last night he started having pain similar to the pain hes had previously with elevated liver enzymes. He also reports dizziness, nausea and 3 episodes of diarrhea today. He states that his last non-liquid BM was about 8 days ago. Pt denies any blood in stool but notes some blood on the toilet paper after using the restroom. Pt denies any hx of pancreatitis. (VIDAL TORIBIO) - Related Data Allergies/Adverse Reactions: quetiapine fumarate [From [employer]] Adverse Reaction (Verified 08/30/17 15:39) Hypotension Past Medical History - Social History Family history: CAD - Past Medical History Cardiac Medical History: Reports: Hx Hypercholesterolemia, Hx Hypertension, Hx Peripheral Vascular Disease - Left carotid stenosis 50-69% Pulmonary Medical History: Denies: Hx Asthma, Hx COPD Neurological Medical History: Reports: Hx Migraine, Hx Seizures Endocrine Medical History: Reports: Hx Hypothyroidism. Denies: Hx Diabetes Mellitus Type 1, Hx Diabetes Mellitus Type 2, Hx Hyperthyroidism Renal/ Medical History: Denies: Hx Peritoneal Dialysis GI Medical History: Reports: Hx Gastroesophageal Reflux Disease, Hx Hiatal Hernia. Denies: Hx Cirrhosis, Hx Hepatitis Musculoskeltal Medical History: Denies Hx Arthritis Psychiatric Medical History: Reports: Hx Anxiety, Hx Depression Infectious Medical History: Denies: Hx Hepatitis Past Surgical History: Reports: Hx Abdominal Surgery - gastric bypass 05, bowel blockagex2, umbilical hernia repair bowel resectio, Hx Cardiac Catheterization - Which is found to be negative~2014, Hx Cholecystectomy, Hx Gastric Bypass Surgery, Hx Herniorrhaphy - Immunizations Immunizations up to date: Yes Hx Diphtheria, Pertussis, Tetanus Vaccination: Yes History of Influenza Vaccine for 02/2017 - 07/2017 Season: Refused <VIDAL TORIBIO - Last Filed: 08/30/17 21:03> Review of Systems - Review of Systems Gastrointestinal: See HPI, Abdominal pain, Diarrhea, Nausea Neurological/Psychological: Other - dizziness <VIDAL TORIBIO - Last Filed: 08/30/17 21:03> Physical Exam <VIDAL TORIBIO - Last Filed: 08/30/17 21:03> <JENNYFER BRITO - Last Filed: 08/30/17 21:18> - Vital signs Vitals: Temp Pulse Resp BP Pulse Ox 97.5 F 66 20 127/86 H 97 08/30/17 15:26 08/30/17 15:26 08/30/17 15:26 08/30/17 15:26 08/30/17 15:26 - Notes Notes: Physical Exam: General: Alert. Speaks quietly, winces while talking. Otherwise no other signs of distress. HEENT: Normocephalic. Atraumatic. PERRL. Extraocular movements intact. Neck: Supple. Respiratory: No respiratory distress. lungs clear to auscultation. Abdominal: Normal Inspection. No distension. Extremities: Moves all four extremities. Neurological: Normal cognition. Normal speech. Psychological: Normal affect. Normal Mood. Skin: Warm. Dry. Normal color. (VIDAL TORIBIO) Scars to the abdominal wall consistent with prior surgeries. (JENNYFER BRITO) Course - Laboratory Result Diagrams: 08/30/17 15:58 08/30/17 15:58 <VIDAL TORIBIO - Last Filed: 08/30/17 21:03> - Laboratory Result Diagrams: 08/30/17 15:58 08/30/17 15:58 <JENNYFER BRITO - Last Filed: 08/30/17 21:18> - Vital Signs Vital signs: Temp Pulse Resp BP Pulse Ox 97.5 F 66 15 129/88 H 97 08/30/17 15:26 08/30/17 15:26 08/30/17 17:01 08/30/17 17:01 08/30/17 17:01 - Laboratory Laboratory results interpreted by me: 08/30/17 08/30/17 15:58 15:58 Seg Neutrophils % 78.5 H ALT 82 H Acetaminophen < 10 L Doctor's Discharge <VIDAL TORIBIO - Last Filed: 08/30/17 21:03> <JENNYFER BRITO - Last Filed: 08/30/17 21:18> - Discharge Clinical Impression: Abdominal pain Qualifiers: Abdominal location: generalized Qualified Code(s): R10.84 - Generalized abdominal pain Condition: Stable Disposition: HOME, SELF-CARE Additional Instructions: Return immediately for any new or worsening symptoms. Follow up with primary care provider, call tomorrow to make followup appointment. Referrals: AYDEE HINOJOSA, DO [Primary Care Provider] - Follow up as needed
[2017-08-30 16:15] LABS: ABSOLUTE EOSINOPHILS # (AUTO) 0.1 10^3/uL (0.0-0.6); ABSOLUTE MONOCYTES (AUTO) 0.3 10^3/uL (0.1-1.4); ABSOLUTE NEUT (AUTO) 5.6 10^3/uL (1.7-8.2); BASOPHILS % (AUTO) 0.6 % (0-2); EOSINOPHILS % (AUTO) 1.7 % (0-6); HEMATOCRIT 41.4 % (37.9-51.0); HEMOGLOBIN 14.3 g/dL (13.5-17.0); LYMPHOCYTES % (AUTO) 14.6 % (13-45); MEAN CORPUSCULAR HEMOGLOBIN 29.6 pg (27.0-33.4); MEAN CORPUSCULAR HGB CONC 34.5 g/dL (32.0-36.0); MEAN CORPUSCULAR VOLUME 86 fl (80-97); MONOCYTES % (AUTO) 4.6 % (3-13); PLATELET COUNT 400 10^3/uL (150-450); RED BLOOD COUNT 4.83 10^6/uL (4.35-5.55); RED CELL DISTRIBUTION WIDTH 13.1 % (11.5-14.0); SEGMENTED NEUTROPHILS % (AUTO) 78.5 % (42-78); TOTAL CELLS COUNTED % (AUTO) 100 %; WHITE BLOOD COUNT 7.2 10^3/uL (4.0-10.5)
[2017-08-30 16:24] LABS: INTERNATIONAL RATION (INR) 0.95; PROTHROMBIN TIME 13.1 SEC (11.4-15.4)
[2017-08-30 16:37] LABS: ALANINE AMINOTRANSFERASE 82 U/L (21-72); ALKALINE PHOSPHATASE 71 U/L (38-126); ANION GAP 10 (5-19); ASPARTATE AMINO TRANSFERASE 56 U/L (17-59); BILIRUBIN,DIRECT 0.3 mg/dL (0.0-0.4); BILIRUBIN,TOTAL 0.4 mg/dL (0.2-1.3); BLOOD UREA NITROGEN 7 mg/dL (7-20); CALCIUM 9.6 mg/dL (8.4-10.2); CARBON DIOXIDE 29 mmol/L (22-30); CHLORIDE 100 mmol/L (98-107); GLUCOSE 110 mg/dL (75-110); LIPASE 37.5 U/L (23-300); POTASSIUM 4.6 mmol/L (3.6-5.0); SODIUM 138.5 mmol/L (137-145); TOTAL PROTEIN 6.5 g/dL (6.3-8.2)
[2017-08-30 16:38] LABS: ACETAMINOPHEN < 10 ug/mL (10-30)
--- NOTE | 2017-08-30 17:06 | ER Document Report ---
ED GI/ - General Chief Complaint: Abdominal Pain Stated Complaint: ABDOMINAL PAIN Time Seen by Provider: 08/30/17 15:34 Mode of Arrival: Wheelchair Information source: Patient Notes: Patient is a 41-year-old male who is very well-known to this emergency department who presents to the ER today for his chronic abdominal pain to the upper left, right and lower left quadrants of the abdomen. Patient admits to nausea but no vomiting, fever, chills, diarrhea, change in bowel movements. Patient states he has "here because he is concerned about his kidney function and liver function today. TRAVEL OUTSIDE OF THE [place].S. IN LAST 30 DAYS: No - Related Data Allergies/Adverse Reactions: quetiapine fumarate [From [employer]] Adverse Reaction (Verified 08/30/17 15:39) Hypotension Past Medical History - General Information source: Patient - Social History Smoking Status: Never Smoker Chew tobacco use (# tins/day): No Frequency of alcohol use: None Drug Abuse: None Family History: CAD - States all the males in his family have of heart disease in their 40s., CVA, Other - [place] Patient has suicidal ideation: No Patient has homicidal ideation: No - Past Medical History Cardiac Medical History: Reports: Hx Hypercholesterolemia, Hx Hypertension, Hx Peripheral Vascular Disease - Left carotid stenosis 50-69% Pulmonary Medical History: Denies: Hx Asthma, Hx COPD Neurological Medical History: Reports: Hx Migraine, Hx Seizures Endocrine Medical History: Reports: Hx Hypothyroidism. Denies: Hx Diabetes Mellitus Type 1, Hx Diabetes Mellitus Type 2, Hx Hyperthyroidism Renal/ Medical History: Denies: Hx Peritoneal Dialysis GI Medical History: Reports: Hx Gastroesophageal Reflux Disease, Hx Hiatal Hernia. Denies: Hx Cirrhosis, Hx Hepatitis Musculoskeltal Medical History: Denies Hx Arthritis Psychiatric Medical History: Reports: Hx Anxiety, Hx Depression Infectious Medical History: Denies: Hx Hepatitis Past Surgical History: Reports: Hx Abdominal Surgery - gastric bypass 05, bowel blockagex2, umbilical hernia repair bowel resectio, Hx Cardiac Catheterization - Which is found to be negative~2014, Hx Cholecystectomy, Hx Gastric Bypass Surgery, Hx Herniorrhaphy - Immunizations Immunizations up to date: Yes Hx Diphtheria, Pertussis, Tetanus Vaccination: Yes Review of Systems - Review of Systems Constitutional: No symptoms reported EENT: No symptoms reported Cardiovascular: No symptoms reported Respiratory: No symptoms reported Gastrointestinal: See HPI Genitourinary: No symptoms reported Male Genitourinary: No symptoms reported Musculoskeletal: No symptoms reported Skin: No symptoms reported Hematologic/Lymphatic: No symptoms reported Neurological/Psychological: No symptoms reported Physical Exam - Vital signs Vitals: Temp Pulse Resp BP Pulse Ox 97.5 F 66 20 127/86 H 97 08/30/17 15:26 08/30/17 15:26 08/30/17 15:26 08/30/17 15:26 08/30/17 15:26 - Notes Notes: PHYSICAL EXAMINATION: GENERAL: Anxious appearing, but in no acute distress. HEAD: Atraumatic, normocephalic. EYES: Pupils equal round and reactive to light, extraocular movements intact, sclera anicteric, conjunctiva are normal. NECK: Normal range of motion, supple without lymphadenopathy LUNGS: CTAB and equal. No wheezes rales or rhonchi. HEART: Regular rate and rhythm without murmurs ABDOMEN: Soft, mild diffuse tenderness. No guarding, no rebound BACK: no vertebral tenderness, normal ROM GI/: no CVA tenderness EXTREMITIES: Normal range of motion, no pitting edema. No cyanosis. NEUROLOGICAL: Cranial nerves grossly intact. Normal sensory/motor exams. PSYCH: Normal mood, normal affect. SKIN: Warm, Dry, normal turgor, no rashes or lesions noted Course - Re-evaluation Re-evalutation: 08/31/17 18:11 Lab work is all unremarkable today, patient is here for his chronic abdominal pain. His vital signs are all stable and he is afebrile today, not vomiting, tolerating p.o. fluids. - Vital Signs Vital signs: Temp Pulse Resp BP Pulse Ox 97.5 F 66 15 129/88 H 97 08/30/17 15:26 08/30/17 15:26 08/30/17 17:01 08/30/17 17:01 08/30/17 17:01 - Laboratory Result Diagrams: 08/30/17 15:58 08/30/17 15:58 Laboratory results interpreted by me: 08/30/17 08/30/17 15:58 15:58 Seg Neutrophils % 78.5 H ALT 82 H Acetaminophen < 10 L Discharge - Discharge Clinical Impression: Abdominal pain Qualifiers: Abdominal location: generalized Qualified Code(s): R10.84 - Generalized abdominal pain Condition: Stable Disposition: HOME, SELF-CARE Additional Instructions: Return immediately for any new or worsening symptoms. Follow up with primary care provider, call tomorrow to make followup appointment. Referrals: AYDEE HINOJOSA, DO [Primary Care Provider] - Follow up as needed
[2017-08-30 17:29] VITALS: BP 129/88
--- NOTE | 2017-08-31 09:40 | EKG REPORT ---
SEVERITY:- NORMAL ECG - SINUS RHYTHM : Confirmed by: Galen Lloyd 31-Aug-2017 09:39:23
== END 2017-08-30 17:33 | disposition home or self-care (01) ==
LOC: ER 15:15
DX: R10.84 Generalized abdominal pain (principal); R10.12 Left upper quadrant pain; R10.31 Right lower quadrant pain; R10.32 Left lower quadrant pain; R11.0 Nausea; I10 Essential (primary) hypertension
CPT/HCPCS: 36415; 80053; 80307; 83690; 85025; 85610; 85730; 93005; 93010; 99284

== ENCOUNTER 2017-09-02 11:00 | Emergency (ER) | payer MEDICARE ==
[2017-09-02 11:23] VITALS: BP 120/78
--- NOTE | 2017-09-02 11:53 | ER Document Report ---
ED Medical Screen (RME) - General Chief Complaint: Chest Pain Stated Complaint: CHEST PAIN Time Seen by Provider: 09/02/17 11:31 Mode of Arrival: Ambulatory Information source: Patient Notes: 41 yr old male chronic pain presents with complaints of chest pain and abd pain that started yesterday. pt denies any fevers or chills, was just in [place] past 2 days in a row, had extensive work up and was negative I have greeted and performed a rapid initial assessment of this patient. A comprehensive ED assessment and evaluation of the patient, analysis of test results and completion of the medical decision making process will be conducted by additional ED providers. PHYSICAL EXAMINATION: GENERAL: Well-appearing, well-nourished and in no acute distress. HEAD: Atraumatic, normocephalic. EYES: Pupils equal round extraocular movements intact, conjunctiva are normal. ENT: Nares patent NECK: Normal range of motion LUNGS: No respiratory distress Musculoskeletal: Normal range of motion NEUROLOGICAL: Normal speech, normal gait. PSYCH: Normal mood, normal affect. SKIN: Warm, Dry, normal turgor, no rashes or lesions noted. TRAVEL OUTSIDE OF THE [place] IN LAST 30 DAYS: No - Related Data Allergies/Adverse Reactions: quetiapine fumarate [From [employer]] Adverse Reaction (Verified 09/02/17 11:01) Hypotension Past Medical History - Social History Chew tobacco use (# tins/day): No Frequency of alcohol use: None Drug Abuse: None Family history: CAD - Past Medical History Cardiac Medical History: Reports: Hx Hypercholesterolemia, Hx Hypertension, Hx Peripheral Vascular Disease - Left carotid stenosis 50-69% Pulmonary Medical History: Denies: Hx Asthma, Hx COPD Neurological Medical History: Reports: Hx Migraine, Hx Seizures Endocrine Medical History: Reports: Hx Hypothyroidism. Denies: Hx Diabetes Mellitus Type 1, Hx Diabetes Mellitus Type 2, Hx Hyperthyroidism Renal/ Medical History: Denies: Hx Peritoneal Dialysis GI Medical History: Reports: Hx Gastroesophageal Reflux Disease, Hx Hiatal Hernia. Denies: Hx Cirrhosis, Hx Hepatitis Musculoskeltal Medical History: Denies Hx Arthritis Psychiatric Medical History: Reports: Hx Anxiety, Hx Depression Infectious Medical History: Denies: Hx Hepatitis Past Surgical History: Reports: Hx Abdominal Surgery - gastric bypass 05, bowel blockagex2, umbilical hernia repair bowel resectio, Hx Cardiac Catheterization - Which is found to be negative~2014, Hx Cholecystectomy, Hx Gastric Bypass Surgery, Hx Herniorrhaphy - Immunizations Immunizations up to date: Yes Hx Diphtheria, Pertussis, Tetanus Vaccination: Yes History of Influenza Vaccine for 02/2017 - 07/2017 Season: Refused Physical Exam - Vital signs Vitals: Temp Pulse Resp BP Pulse Ox 97.7 F 62 20 120/78 97 09/02/17 11:19 09/02/17 11:19 09/02/17 11:19 09/02/17 11:19 09/02/17 11:19 Course - Vital Signs Vital signs: Temp Pulse Resp BP Pulse Ox 97.7 F 62 20 120/78 97 09/02/17 11:19 09/02/17 11:19 09/02/17 11:19 09/02/17 11:19 09/02/17 11:19 Doctor's Discharge - Discharge Referrals: MONY MORAN MD [Primary Care Provider] - Follow up as needed
[2017-09-02 12:30] LABS: ABSOLUTE EOSINOPHILS # (AUTO) 0.1 10^3/uL (0.0-0.6); ABSOLUTE LYMPHOCYTES (AUTO) 0.9 10^3/uL (0.5-4.7); ABSOLUTE MONOCYTES (AUTO) 0.3 10^3/uL (0.1-1.4); ABSOLUTE NEUT (AUTO) 9.6 10^3/uL (1.7-8.2); BASOPHILS % (AUTO) 0.4 % (0-2); EOSINOPHILS % (AUTO) 1.3 % (0-6); HEMOGLOBIN 14.1 g/dL (13.5-17.0); LYMPHOCYTES % (AUTO) 8.3 % (13-45); MEAN CORPUSCULAR HEMOGLOBIN 29.5 pg (27.0-33.4); MEAN CORPUSCULAR HGB CONC 34.3 g/dL (32.0-36.0); MEAN CORPUSCULAR VOLUME 86 fl (80-97); MONOCYTES % (AUTO) 2.8 % (3-13); PLATELET COUNT 411 10^3/uL (150-450); RED BLOOD COUNT 4.77 10^6/uL (4.35-5.55); RED CELL DISTRIBUTION WIDTH 13.2 % (11.5-14.0); SEGMENTED NEUTROPHILS % (AUTO) 87.2 % (42-78); TOTAL CELLS COUNTED % (AUTO) 100 %
[2017-09-02 12:47] LABS: URINE AMPHETAMINES SCREEN NEGATIVE; URINE BARBITURATES SCREEN NEGATIVE; URINE BENZODIAZEPINES SCREEN UNCONFIRMED POSITIVE; URINE COCAINE SCREEN NEGATIVE; URINE MARIJUANA (THC) SCREEN NEGATIVE; URINE METHADONE SCREEN NEGATIVE; URINE PHENCYCLIDINE SCREEN NEGATIVE
[2017-09-02 12:53] LABS: ALANINE AMINOTRANSFERASE 39 U/L (21-72); ALBUMIN 4.2 g/dL (3.5-5.0); ALKALINE PHOSPHATASE 67 U/L (38-126); ANION GAP 14 (5-19); ASPARTATE AMINO TRANSFERASE 19 U/L (17-59); BILIRUBIN,DIRECT 0.3 mg/dL (0.0-0.4); BILIRUBIN,TOTAL 0.5 mg/dL (0.2-1.3); BLOOD UREA NITROGEN 8 mg/dL (7-20); CALCIUM 9.5 mg/dL (8.4-10.2); CARBON DIOXIDE 27 mmol/L (22-30); CHLORIDE 96 mmol/L (98-107); CREATINE KINASE 26 U/L (55-170); GLUCOSE 102 mg/dL (75-110); LIPASE 38.4 U/L (23-300); POTASSIUM 4.6 mmol/L (3.6-5.0); SODIUM 136.7 mmol/L (137-145)
[2017-09-02 12:55] LABS: ACETAMINOPHEN < 10 ug/mL (10-30); ALCOHOL < 10 mg/dL (NONE DETECTED); SALICYLATE < 1.0 mg/dL (2.0-20.0)
--- NOTE | 2017-09-02 12:55 | ER Document Report ---
ED General - General Chief Complaint: Chest Pain Stated Complaint: CHEST PAIN Time Seen by Provider: 09/02/17 11:31 Mode of Arrival: Ambulatory Information source: Patient, Outside Facility Records - Records from [place] note 2 days of evaluations including CTA chest CT abdomen pelvis with oral and IV contrast CTA neck lab work Notes: 41-year-old male chronic opioid abuse presents with complaints of chronic chest pain abdominal pain. Patient has been seen multiple times for similar complaints denies any new symptoms TRAVEL OUTSIDE OF THE [place] IN LAST 30 DAYS: No - HPI Onset: Other Onset/Duration: Persistent Quality of pain: Achy Severity: Mild Pain Level: 1 Associated symptoms: Chest pain, Other Exacerbated by: Denies Relieved by: Denies Similar symptoms previously: Yes Recently seen / treated by doctor: Yes - Related Data Allergies/Adverse Reactions: quetiapine fumarate [From [employer]] Adverse Reaction (Verified 09/02/17 11:01) Hypotension Past Medical History - General Information source: Patient - Social History Smoking Status: Current Every Day Smoker Cigarette use (# per day): Yes Chew tobacco use (# tins/day): No Smoking Education Provided: No Frequency of alcohol use: None Drug Abuse: None Family History: CAD - States all the males in his family have of heart disease in their 40s., CVA, Other - [place] Patient has suicidal ideation: No Patient has homicidal ideation: No - Past Medical History Cardiac Medical History: Reports: Hx Hypercholesterolemia, Hx Hypertension, Hx Peripheral Vascular Disease - Left carotid stenosis 50-69% Pulmonary Medical History: Denies: Hx Asthma, Hx COPD Neurological Medical History: Reports: Hx Migraine, Hx Seizures Endocrine Medical History: Reports: Hx Hypothyroidism. Denies: Hx Diabetes Mellitus Type 1, Hx Diabetes Mellitus Type 2, Hx Hyperthyroidism Renal/ Medical History: Denies: Hx Peritoneal Dialysis GI Medical History: Reports: Hx Gastroesophageal Reflux Disease, Hx Hiatal Hernia. Denies: Hx Cirrhosis, Hx Hepatitis Musculoskeltal Medical History: Denies Hx Arthritis Psychiatric Medical History: Reports: Hx Anxiety, Hx Depression Infectious Medical History: Denies: Hx Hepatitis Past Surgical History: Reports: Hx Abdominal Surgery - gastric bypass 05, bowel blockagex2, umbilical hernia repair bowel resectio, Hx Cardiac Catheterization - Which is found to be negative~2014, Hx Cholecystectomy, Hx Gastric Bypass Surgery, Hx Herniorrhaphy - Immunizations Immunizations up to date: Yes Hx Diphtheria, Pertussis, Tetanus Vaccination: Yes Review of Systems - Review of Systems Notes: REVIEW OF SYSTEMS: CONSTITUTIONAL : Denies fever, chills, or sweats. Denies recent illness. EENT: Denies eye, ear, throat, or mouth pain or symptoms. Denies nasal or sinus congestion or discharge. Denies throat, tongue, or mouth swelling or difficulty swallowing. CARDIOVASCULAR: Admits to chest pain. RESPIRATORY: Denies cough, cold, or chest congestion. Denies shortness of breath, difficulty breathing, or wheezing. GASTROINTESTINAL: Admits to abdominal pain GENITOURINARY: Denies difficulty urinating, painful urination, burning, frequency, blood in urine, or discharge. MUSCULOSKELETAL: Denies back or neck pain or stiffness. Denies joint pain or swelling. SKIN: Denies rash, lesions or sores. HEMATOLOGIC : Denies easy bruising or bleeding. LYMPHATIC: Denies swollen, enlarged glands. NEUROLOGICAL: Denies confusion or altered mental status. Denies passing out or loss of consciousness. Denies dizziness or lightheadedness. Denies headache. Denies weakness or paralysis or loss of use of either side. Denies problems with gait or speech. Denies sensory loss, numbness, or tingling. Denies seizures. PSYCHIATRIC: Denies anxiety or stress. Denies depression, suicidal ideation, or homicidal ideation. ALL OTHER SYSTEMS REVIEWED AND NEGATIVE. Dictation was performed using [employer] voice recognition software PHYSICAL EXAMINATION: GENERAL: Chronically ill-appearing male HEAD: Atraumatic, normocephalic. EYES: Pupils equal round and reactive to light, extraocular movements intact, sclera anicteric, conjunctiva are normal. ENT: Nares patent, oropharynx clear without exudates. Moist mucous membranes. NECK: Normal range of motion, supple without lymphadenopathy LUNGS: Breath sounds clear to auscultation bilaterally and equal. No wheezes rales or rhonchi. HEART: Regular rate and rhythm without murmurs ABDOMEN: Soft, nontender, nondistended abdomen. No guarding, no rebound. No masses appreciated. Musculoskeletal: Normal range of motion, no pitting or edema. No cyanosis. NEUROLOGICAL: Cranial nerves grossly intact. Normal speech, normal gait. Normal sensory, motor exams PSYCH: Normal mood, normal affect. SKIN: Surgical incision noted well-healed Physical Exam - Vital signs Vitals: Temp Pulse Resp BP Pulse Ox 97.7 F 62 20 120/78 97 09/02/17 11:19 09/02/17 11:19 09/02/17 11:19 09/02/17 11:19 09/02/17 11:19 Course - Re-evaluation Re-evalutation: 09/02/17 14:02 I had mental health evaluate the patient to believe this is a somatic delusion delusional disorder, the mother agrees, patient admits to significant opioid abuse, he has had extensive workup over the past few months and more so in the past 2 days at [place] where he was given consistent morphine. I have low suspicion of any life-threatening issues believe that he does require mental health evaluation outpatient and he does follow-up with Dr. Duarte I discussed the patient's discharge plan and he walked out prior to paperwork being provided to him Mother plans on tossing him out of the house, notes that he has strained her bank account with his chronic opioid dependence After performing a Medical Screening Examination, I estimate there is LOW risk for RUPTURED ESOPHAGUS, PNEUMOTHORAX, PULMONARY EMBOLISM, ACUTE CORONARY SYNDROME, OR THORACIC AORTIC DISSECTION, thus I consider the discharge disposition reasonable. I have reevaluated this patient multiple times and no significant life threatening changes are noted. The patient and I have discussed the diagnosis and risks, and we agree with discharging home with close follow-up. We also discussed returning to the Emergency Department immediately if new or worsening symptoms occur. We have discussed the symptoms which are most concerning (e.g., bloody sputum, worsening pain or shortness of breath) that necessitate immediate return. 09/02/17 14:07 - Vital Signs Vital signs: Temp Pulse Resp BP Pulse Ox 97.7 F 62 20 120/78 97 09/02/17 11:19 09/02/17 11:19 09/02/17 11:19 09/02/17 11:19 09/02/17 11:19 - Laboratory Result Diagrams: 09/02/17 12:07 09/02/17 12:07 Laboratory results interpreted by me: 09/02/17 09/02/17 12:07 12:07 WBC 11.0 H Seg Neutrophils % 87.2 H Lymphocytes % 8.3 L Monocytes % 2.8 L Absolute Neutrophils 9.6 H Sodium 136.7 L Chloride 96 L Creatine Kinase 26 L Salicylates < 1.0 L Acetaminophen < 10 L - Diagnostic Test Radiology reviewed: Reports reviewed - Reviewed CT chest CT abdomen pelvis with oral and IV contrast and CT neck imaging from [place] over the past 2 days which all were negative Discharge - Discharge Clinical Impression: Delusional disorder, somatic type, continuous Opiate addiction Qualifiers: Complication of substance-induced condition: with delusions Qualified Code(s): F11.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 Social, marital, or work problems can result from the delusional believes of delusional disorder. Individuals with delusional disorder may be able to factually describe that mother's view there believes as a rational but are unable to accept this themselves (I. E., There may be "factual insight" but no true insight (. Many individuals develop irritable or dysphoric mood, which can usually be understood as a reaction to their delusional beliefs. Anger and violent behavior can occur with jealous, persecutory, and erotomanic type. Legal difficulties can occur, particularly in jealous and somatic types. Functional impairment is usually more circumscribed than that seen with other psychotic disorders, although in some cases, the impairment may be substantial and include poor occupational functioning and social isolation. Poor psychosocial functioning is present, delusional beliefs themselves often play a significant role. Common characteristic of individuals with delusional disorder is apparent normality their behavior and appearance with her delusion ideas are not being discussed or acted on. Follow-up CARE: While in the emergency department received a mental health assessment. Based on your mental health assessment it was determined that your symptoms can be managed in an outpatient therapy setting. We recommend you follow-up with your primary outpatient/medication management provider Dr. Padilla at [facility]. You mentioned being addicted to pain medications, mental health provided resources for treatment if you decide to get help. Addiction can affect many areas of your life to include family relations, occupation, etc. education was provided on addiction, we recommend you discuss the stresses you are experiencing with your outpatient provider. We also recommended you discuss today's visit with your primary care provider. Benzodiazepines Referrals: [facility] [Provider Group] - Follow up in 3-5 days MONY MORAN MD [Primary Care Provider] - Follow up as needed
[2017-09-02 13:06] LABS: TROPONIN I < 0.012 ng/mL
--- NOTE | 2017-09-02 13:34 | EKG REPORT ---
SEVERITY:- NORMAL ECG - SINUS RHYTHM : Confirmed by: Grupo Galarza MD 02-Sep-2017 13:33:53
--- NOTE | 2017-09-02 15:04 | PSYCHOLOGICAL NOTE ---
Psych Note - Psych Note Psych Note: Reason for consult: Substance abuse Contact Permissions: None Patient is a 41-year-old male. Patient reports he knows his mother wants him to get substance use treatment but states that he will not get it. Patient reports he knows he is addicted to painkillers but states today he is truly feeling pain. Patient reports that there is something inside of his intestines. Patient reports he came to the emergency department because he wants diazepam. Patient reports he is currently withdrawing which is also causing pain in his chest. Patient reports his pain is during his life. Patient reports that he has had a lot of surgeries to include gastric bypass. Patient reports that he does not smoke or drink. Patient reports that he recently was given morphine and [place] and states that he thinks he is withdrawing. Patient reports he has circulation issues with his stomach and heart. Patient reports his skin is pale and goes cold because of circulation. Patient reports he has a lot of health issues. Patient reports he needs "nitro " to ease up the circulation. Patient reports he cannot push out his pee and states it is probably because there is something in his intestines. Patient reports that he goes to the doctors and they run their tests and they do not know anything, and send him home so he comes back and asks them to run tests again. Patient reports he does not want drug treatment. Patient reports he has never had suicidal or homicidal thoughts. Patient reports that he sees a psychiatrist at [facility]. Patient reports Dr. Duarte gives him medication for his anxiety and depression. Patient reports that in the past he was in pain management but he is off of pain management but still takes pain medication. Patient reports that he will take the resource for treatment facilities but will not go to any. Patient reports he just wants to know if something is inside of his intestines. Patient reports his mother and son is always angry with him because he goes to the hospital stating that they do not believe anything is physically wrong with him. Patient reports he feels his mom is angry because of his addiction to painkillers. Diagnosis: Per History ( patient report) 300.00 (F 41.9) unspecified anxiety disorder Per history (patient report) 311 (F32.9) unspecified depressive disorder 292.9 (F19.99) Unspecified substance-related disorder R/O 297.1 (F 22) delusional disorder; somatic type Impression/plan: Patient is psychiatrically cleared for discharge. The physician consulted mental health to provide substance use treatment resources and provide education on addiction. Clinician provided resources to patient and discuss the resources. Clinician observed when assessment was finished and clinician revealed patient in a wheelchair back to the waiting area he stated to his mother "are you happy I talked with them). Clinician observed patient's mother then replied she would be providing patient with a 30 day notice to be evicted from her home. Clinician recommended patient follow-up with his primary outpatient therapist provider at [facility] to discuss today's visit. Clinician observed after comprehensive chart review patient has been seen at [facility] emergency department frequently for health related complaints, but has not been previously seen by mental health. attending physician in agreement with plan. Consulted with Dr. Wetzel regarding the management and care of patient.
== END 2017-09-02 13:04 | disposition home or self-care (01) ==
LOC: ER 11:00
DX: F22 Delusional disorders (principal); F11.250 Opioid dependence with opioid-induced psychotic disorder with delusions; R07.9 Chest pain, unspecified; F17.210 Nicotine dependence, cigarettes, uncomplicated; E78.00 Pure hypercholesterolemia, unspecified; I10 Essential (primary) hypertension; E03.9 Hypothyroidism, unspecified; Z98.84 Bariatric surgery status; Z90.49 Acquired absence of other specified parts of digestive tract
CPT/HCPCS: 36415; 80053; 80307; 82550; 82553; 83690; 84484; 85025; 93005; 93010; 99285

== ENCOUNTER 2017-09-03 12:51 | Emergency (ER) | payer MEDICARE ==
--- NOTE | 2017-09-03 13:01 | ER Document Report ---
ED General - General Stated Complaint: POSSIBLE OVERDOSE Time Seen by Provider: 09/03/17 12:54 Mode of Arrival: Ambulatory Information source: Patient Notes: 41-year-old male history of excessive visits for previous similar chest pains presents with complaints of chest pain as well as taking Flexeril in attempt to harm himself. TRAVEL OUTSIDE OF THE [place] IN LAST 30 DAYS: No - HPI Onset: Other Onset/Duration: Persistent Quality of pain: No pain Severity: Mild Pain Level: 1 Associated symptoms: None Exacerbated by: Denies Relieved by: Denies Similar symptoms previously: Yes Recently seen / treated by doctor: Yes - Related Data Allergies/Adverse Reactions: quetiapine fumarate [From Seroquel] Adverse Reaction (Verified 09/02/17 11:01) Hypotension Past Medical History - Social History Smoking Status: Never Smoker Cigarette use (# per day): No Chew tobacco use (# tins/day): No Smoking Education Provided: No Family History: CAD - States all the males in his family have of heart disease in their 40s., CVA, Other - [place] - Past Medical History Cardiac Medical History: Reports: Hx Hypercholesterolemia, Hx Hypertension, Hx Peripheral Vascular Disease - Left carotid stenosis 50-69% Pulmonary Medical History: Denies: Hx Asthma, Hx COPD Neurological Medical History: Reports: Hx Migraine, Hx Seizures Endocrine Medical History: Reports: Hx Hypothyroidism. Denies: Hx Diabetes Mellitus Type 1, Hx Diabetes Mellitus Type 2, Hx Hyperthyroidism Renal/ Medical History: Denies: Hx Peritoneal Dialysis GI Medical History: Reports: Hx Gastroesophageal Reflux Disease, Hx Hiatal Hernia. Denies: Hx Cirrhosis, Hx Hepatitis Musculoskeltal Medical History: Denies Hx Arthritis Psychiatric Medical History: Reports: Hx Anxiety, Hx Depression Infectious Medical History: Denies: Hx Hepatitis Past Surgical History: Reports: Hx Abdominal Surgery - gastric bypass 05, bowel blockagex2, umbilical hernia repair bowel resectio, Hx Cardiac Catheterization - Which is found to be negative~2014, Hx Cholecystectomy, Hx Gastric Bypass Surgery, Hx Herniorrhaphy - Immunizations Immunizations up to date: Yes Hx Diphtheria, Pertussis, Tetanus Vaccination: Yes Review of Systems - Review of Systems Notes: REVIEW OF SYSTEMS: CONSTITUTIONAL : Denies fever, chills, or sweats. Denies recent illness. EENT: Denies eye, ear, throat, or mouth pain or symptoms. Denies nasal or sinus congestion or discharge. Denies throat, tongue, or mouth swelling or difficulty swallowing. CARDIOVASCULAR: Admits to chest pain RESPIRATORY: Denies cough, cold, or chest congestion. Denies shortness of breath, difficulty breathing, or wheezing. GASTROINTESTINAL: Admits to abdominal pain GENITOURINARY: Denies difficulty urinating, painful urination, burning, frequency, blood in urine, or discharge. MUSCULOSKELETAL: Denies back or neck pain or stiffness. Denies joint pain or swelling. SKIN: Denies rash, lesions or sores. HEMATOLOGIC : Denies easy bruising or bleeding. LYMPHATIC: Denies swollen, enlarged glands. NEUROLOGICAL: Denies confusion or altered mental status. Denies passing out or loss of consciousness. Denies dizziness or lightheadedness. Denies headache. Denies weakness or paralysis or loss of use of either side. Denies problems with gait or speech. Denies sensory loss, numbness, or tingling. Denies seizures. PSYCHIATRIC: Admits to taking medications ALL OTHER SYSTEMS REVIEWED AND NEGATIVE. Dictation was performed using [employer] voice recognition software PHYSICAL EXAMINATION: GENERAL: Chronically ill-appearing male HEAD: Atraumatic, normocephalic. EYES: Pupils equal round and reactive to light, extraocular movements intact, sclera anicteric, conjunctiva are normal. ENT: Nares patent, oropharynx clear without exudates. Moist mucous membranes. NECK: Normal range of motion, supple without lymphadenopathy LUNGS: Breath sounds clear to auscultation bilaterally and equal. No wheezes rales or rhonchi. HEART: Regular rate and rhythm without murmurs ABDOMEN: Soft, nontender, nondistended abdomen. No guarding, no rebound. No masses appreciated. Musculoskeletal: Normal range of motion, no pitting or edema. No cyanosis. NEUROLOGICAL: Cranial nerves grossly intact. Normal speech, normal gait. Normal sensory, motor exams PSYCH: Normal mood, normal affect. SKIN: Warm, Dry, normal turgor, no rashes or lesions noted. Physical Exam - Vital signs Vitals: Pulse Ox 98 09/03/17 12:57 Course - Re-evaluation Re-evalutation: 09/03/17 13:01 Patient is not drowsy he is not sleepy, he was able to ambulate to EMS, and is awake and alert here, he has been evaluated EKGs been ordered, I have very low suspicion of actual self harm with this gentleman as he has malingering issues 09/03/17 18:26 Patient was evaluated by mental health, they do not believe patient was attempting to harm himself, and in agreement with this assessment. He is otherwise well-appearing at his baseline state of complaining of chest pain abdominal pain Patient is alert oriented speaking freely After performing a Medical Screening Examination, I estimate there is LOW risk for RUPTURED ESOPHAGUS, PNEUMOTHORAX, PULMONARY EMBOLISM, ACUTE CORONARY SYNDROME, OR THORACIC AORTIC DISSECTION, thus I consider the discharge disposition reasonable. I have reevaluated this patient multiple times and no significant life threatening changes are noted. The patient and I have discussed the diagnosis and risks, and we agree with discharging home with close follow-up. We also discussed returning to the Emergency Department immediately if new or worsening symptoms occur. We have discussed the symptoms which are most concerning (e.g., bloody sputum, worsening pain or shortness of breath) that necessitate immediate return. 09/03/17 18:28 - Vital Signs Vital signs: Temp Pulse Resp BP Pulse Ox 15 127/97 H 97 09/03/17 14:01 09/03/17 14:01 09/03/17 14:01 - EKG Interpretation by Me EKG shows normal: Sinus rhythm, [place], Intervals, QRS Complexes Discharge - Discharge Clinical Impression: Suicidal ideation, Delusional disorder, somatic type, continuous Opiate addiction Qualifiers: Substance use status: with unspecified opioid-induced disorder Qualified Code(s ): F11.29 - Opioid dependence with unspecified opioid-induced disorder Condition: Stable Disposition: HOME, SELF-CARE Additional Instructions: Return immediately if there are any other concerns
[2017-09-03 14:51] VITALS: BP 127/97
--- NOTE | 2017-09-03 18:10 | EKG REPORT ---
SEVERITY:- NORMAL ECG - SINUS RHYTHM : Confirmed by: Grupo Galarza MD 03-Sep-2017 18:08:55
--- NOTE | 2017-09-04 16:25 | PSYCHOLOGICAL NOTE ---
Psych Note - Psych Note Psych Note: Reason for consult: 41-year-old male history of excessive visits for previous similar chest pains presents with complaints of chest pain as well as taking Flexeril in attempt to harm himself. Patient disclosed that he "overtook his muscle relaxers" and estimates that to be about 8 or 10. He states that he took them for pain not an attempt at self- harm. Patient denies ever taking that much before. He states the last 4 days he has been in a lot of pain. He discloses frustration because the hospitals keep turning him away stating "I cannot eat, cannot pass anything, my stomach hurts all the way up to my head." Patient disclosed that he had 3 sections of his intestines, and abscess and hernia operated on in April. Patient discloses that he has not eaten for 7 or 8 days but confirms he has drink water today. Patient states that the pain has been just the last 2 weeks however the last 4 days have been very bad "it is so bad it is a different kind of pain." Patient discloses he has been in pain management for 8 years but "I did not abuse pain pills the whole time." He states that he has been taking Valium for his anxiety for over 20 years. Patient is alert and orientated to person, place, time and circumstance. Mood is dysphoric with expressive affect showing pain. Patient denies suicidal and homicidal ideation. Possible somatic delusions are noted. Thought processes are organized and linear however irrational. Attention and concentration are poor. Conversational speech was full of patient moaning. Eye contact was poor. Intellectual abilities appear to be within the average range. Attention and concentration are poor. Insight, judgment, impulse control are poor due to substance abuse. 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 Patient does not meet IVC criteria per [place] GS 122C. Patient states that he took his muscle relaxers in attempt to relieve pain denies attempting self-harm. Patient has history of substance abuse. Patient has frequent visitations to [facility] ED with similar complaints. Patient is encouraged to receive substance abuse treatment. Dr. Wetzel was consulted and the care and management of this patient; attending physician is in agreement with recommendations and disposition.
== END 2017-09-03 14:40 | disposition home or self-care (01) ==
LOC: ER 12:51
DX: F22 Delusional disorders (principal); F11.29 Opioid dependence with unspecified opioid-induced disorder; R45.851 Suicidal ideations; R07.9 Chest pain, unspecified; I10 Essential (primary) hypertension; R10.9 Unspecified abdominal pain; Z76.5 Malingerer [conscious simulation]; Z82.49 Family history of ischemic heart disease and other diseases of the circulatory system
CPT/HCPCS: 93005; 93010; 99284

== ENCOUNTER 2017-09-05 10:07 | Emergency (ER) | payer MEDICARE ==
[2017-09-05 10:15] VITALS: BP 119/61
--- NOTE | 2017-09-05 10:52 | ER Document Report ---
ED General - General Chief Complaint: Pain All Over Stated Complaint: PAIN ALL OVER Time Seen by Provider: 09/05/17 10:35 Mode of Arrival: Ambulatory Information source: Patient Notes: 41 yr old male presents with complaints of chest pain , abd pain and generalized body aches. Pt has been seen now 6 times this week with similar complaints. pt denies any new concerns. TRAVEL OUTSIDE OF THE [place] IN LAST 30 DAYS: No - HPI Onset: Other - 2-3 year duration Onset/Duration: Persistent Quality of pain: [place] Severity: Mild Pain Level: 1 Associated symptoms: Body/muscle aches Exacerbated by: Denies Relieved by: Other - morphine Similar symptoms previously: Yes Recently seen / treated by doctor: Yes - Related Data Allergies/Adverse Reactions: quetiapine fumarate [From Seroquel] Adverse Reaction (Verified 09/05/17 10:10) Hypotension Past Medical History - Social History Smoking Status: Never Smoker Cigarette use (# per day): No Chew tobacco use (# tins/day): No Smoking Education Provided: No Family History: CAD - States all the males in his family have of heart disease in their 40s., CVA, Other - [place] - Past Medical History Cardiac Medical History: Reports: Hx Hypercholesterolemia, Hx Hypertension, Hx Peripheral Vascular Disease - Left carotid stenosis 50-69% Pulmonary Medical History: Denies: Hx Asthma, Hx COPD Neurological Medical History: Reports: Hx Migraine, Hx Seizures Endocrine Medical History: Reports: Hx Hypothyroidism. Denies: Hx Diabetes Mellitus Type 1, Hx Diabetes Mellitus Type 2, Hx Hyperthyroidism Renal/ Medical History: Denies: Hx Peritoneal Dialysis GI Medical History: Reports: Hx Gastroesophageal Reflux Disease, Hx Hiatal Hernia. Denies: Hx Cirrhosis, Hx Hepatitis Musculoskeltal Medical History: Denies Hx Arthritis Psychiatric Medical History: Reports: Hx Anxiety, Hx Depression Infectious Medical History: Denies: Hx Hepatitis Past Surgical History: Reports: Hx Abdominal Surgery - gastric bypass 05, bowel blockagex2, umbilical hernia repair bowel resectio, Hx Cardiac Catheterization - Which is found to be negative~2014, Hx Cholecystectomy, Hx Gastric Bypass Surgery, Hx Herniorrhaphy - Immunizations Immunizations up to date: Yes Hx Diphtheria, Pertussis, Tetanus Vaccination: Yes Review of Systems - Review of Systems Notes: REVIEW OF SYSTEMS: CONSTITUTIONAL : Denies fever, chills, or sweats. Denies recent illness. EENT: Denies eye, ear, throat, or mouth pain or symptoms. Denies nasal or sinus congestion or discharge. Denies throat, tongue, or mouth swelling or difficulty swallowing. CARDIOVASCULAR: admits to chest pain RESPIRATORY: Denies cough, cold, or chest congestion. Denies shortness of breath, difficulty breathing, or wheezing. GASTROINTESTINAL: admits to abdominal pain GENITOURINARY: Denies difficulty urinating, painful urination, burning, frequency, blood in urine, or discharge. MUSCULOSKELETAL: admits ot body aches SKIN: Denies rash, lesions or sores. HEMATOLOGIC : Denies easy bruising or bleeding. LYMPHATIC: Denies swollen, enlarged glands. NEUROLOGICAL: Denies confusion or altered mental status. Denies passing out or loss of consciousness. Denies dizziness or lightheadedness. Denies headache. Denies weakness or paralysis or loss of use of either side. Denies problems with gait or speech. Denies sensory loss, numbness, or tingling. Denies seizures. PSYCHIATRIC: Denies anxiety or stress. Denies depression, suicidal ideation, or homicidal ideation. ALL OTHER SYSTEMS REVIEWED AND NEGATIVE. Dictation was performed using [employer] voice recognition software PHYSICAL EXAMINATION: GENERAL: chronically ill appearing male HEAD: Atraumatic, normocephalic. EYES: Pupils equal round and reactive to light, extraocular movements intact, sclera anicteric, conjunctiva are normal. ENT: Nares patent, oropharynx clear without exudates. Moist mucous membranes. NECK: Normal range of motion, supple without lymphadenopathy LUNGS: Breath sounds clear to auscultation bilaterally and equal. No wheezes rales or rhonchi. HEART: Regular rate and rhythm without murmurs ABDOMEN: Soft, nontender, nondistended abdomen. No guarding, no rebound. No masses appreciated. Musculoskeletal: Normal range of motion, no pitting or edema. No cyanosis. NEUROLOGICAL: Cranial nerves grossly intact. Normal speech, normal gait. Normal sensory, motor exams PSYCH: Normal mood, normal affect. SKIN: Warm, Dry, normal turgor, no rashes or lesions noted. Physical Exam - Vital signs Vitals: Temp Pulse Resp BP Pulse Ox 98.1 F 83 16 119/61 100 09/05/17 10:13 09/05/17 10:13 09/05/17 10:13 09/05/17 10:13 09/05/17 10:13 Course - Re-evaluation Re-evalutation: 09/05/17 10:50 This is a 41-year-old male whose own mother refuses to keep in the house anymore presents with complaints of generalized pain. Pt has had significant work up for similar pain. Pt had ekg performed, screening exam, normal vital signs. he has had extensive labs and imaging, he is in no distress and is stable for discharge 09/05/17 10:59 After performing a Medical Screening Examination, I estimate there is LOW risk for RUPTURED ESOPHAGUS, PNEUMOTHORAX, PULMONARY EMBOLISM, ACUTE CORONARY SYNDROME, OR THORACIC AORTIC DISSECTION, thus I consider the discharge disposition reasonable. I have reevaluated this patient multiple times and no significant life threatening changes are noted. The patient and I have discussed the diagnosis and risks , I explained that at some point he will have a medical concern that could be missed since he has his chronic pain seeking behavior. We also discussed returning to the Emergency Department immediately if new or worsening symptoms occur. We have discussed the symptoms which are most concerning (e.g., bloody sputum, worsening pain or shortness of breath) that necessitate immediate return. - Vital Signs Vital signs: Temp Pulse Resp BP Pulse Ox 98.1 F 83 16 119/61 100 09/05/17 10:13 09/05/17 10:13 09/05/17 10:13 09/05/17 10:13 09/05/17 10:13 Discharge - Discharge Clinical Impression: Chest pain of uncertain etiology, Substance abuse Condition: Stable Disposition: HOME, SELF-CARE Additional Instructions: You have been given a full medical examination, there screening exam notes no acute abnormalities her vital signs are stable, you are stable for discharge Please follow-up with your primary care physician for further evaluation and care return immediately if there are any other concerns Referrals: MONY MORAN MD [Primary Care Provider] - Follow up tomorrow
== END 2017-09-05 10:55 | disposition home or self-care (01) ==
LOC: ER 10:07
DX: R07.9 Chest pain, unspecified (principal); R10.84 Generalized abdominal pain; M79.1 Myalgia; F19.10 Other psychoactive substance abuse, uncomplicated; E78.00 Pure hypercholesterolemia, unspecified; I10 Essential (primary) hypertension; E03.9 Hypothyroidism, unspecified; Z90.49 Acquired absence of other specified parts of digestive tract; Z98.84 Bariatric surgery status
CPT/HCPCS: 99283

== ENCOUNTER 2017-09-07 01:29 | Emergency (ER) | payer MEDICARE ==
--- NOTE | 2017-09-07 03:56 | ER Document Report ---
ED General - General Chief Complaint: Chest Pain Stated Complaint: CHEST PAIN Time Seen by Provider: 09/07/17 03:38 Mode of Arrival: Ambulatory Information source: Patient Notes: Patient is a 41-year-old male who presents the emergency department today via EMS for complaints of chest pain. Patient reports that she has pain started several days ago and has been getting worse this evening and into this morning. Patient reports that the pain feels like a crushing chest pain with radiation into his left arm neck. Patient was given 324 mg of aspirin, sublingual nitroglycerin 3 and Zofran 4 mg by EMS. Patient has a history of hypertension , hyperlipidemia and coronary artery disease however patient has no history of myocardial infarction. Patient has been seen in this emergency department several times recently with using the symptoms. Patient reports a history of prescription drug abuse. TRAVEL OUTSIDE OF THE [place] IN LAST 30 DAYS: No - Related Data Allergies/Adverse Reactions: quetiapine fumarate [From [email or web address]] Adverse Reaction (Verified 09/05/17 10:10) Hypotension Past Medical History - General Information source: Patient - Social History Smoking Status: Current Some Day Smoker Frequency of alcohol use: Heavy Drug Abuse: Prescription drugs Family History: CAD - States all the males in his family have of heart disease in their 40s., CVA, Other - [place] Patient has suicidal ideation: No Patient has homicidal ideation: No - Past Medical History Cardiac Medical History: Reports: Hx Hypercholesterolemia, Hx Hypertension, Hx Peripheral Vascular Disease - Left carotid stenosis 50-69% Pulmonary Medical History: Denies: Hx Asthma, Hx COPD Neurological Medical History: Reports: Hx Migraine, Hx Seizures Endocrine Medical History: Reports: Hx Hypothyroidism. Denies: Hx Diabetes Mellitus Type 1, Hx Diabetes Mellitus Type 2, Hx Hyperthyroidism Renal/ Medical History: Denies: Hx Peritoneal Dialysis GI Medical History: Reports: Hx Gastroesophageal Reflux Disease, Hx Hiatal Hernia. Denies: Hx Cirrhosis, Hx Hepatitis Musculoskeltal Medical History: Denies Hx Arthritis Psychiatric Medical History: Reports: Hx Anxiety, Hx Depression Infectious Medical History: Denies: Hx Hepatitis Past Surgical History: Reports: Hx Abdominal Surgery - gastric bypass 05, bowel blockagex2, umbilical hernia repair bowel resectio, Hx Cardiac Catheterization - Which is found to be negative~2014, Hx Cholecystectomy, Hx Gastric Bypass Surgery, Hx Herniorrhaphy - Immunizations Immunizations up to date: Yes Hx Diphtheria, Pertussis, Tetanus Vaccination: Yes Physical Exam - Vital signs Vitals: Temp Pulse Resp BP Pulse Ox 97.7 F 80 20 103/70 97 09/07/17 02:02 09/07/17 02:02 09/07/17 02:02 09/07/17 02:02 09/07/17 02:02 - Notes Notes: PHYSICAL EXAMINATION: GENERAL: Disheveled appearing patient in no acute distress. HEAD: Atraumatic, normocephalic. EYES: Pupils equal round and reactive to light, extraocular movements intact, sclera anicteric, conjunctiva are normal. ENT: Nares patent, oropharynx clear without exudates. Moist mucous membranes. NECK: Normal range of motion, supple without lymphadenopathy LUNGS: Breath sounds clear to auscultation bilaterally and equal. No wheezes rales or rhonchi. HEART: Regular rate and rhythm without murmurs ABDOMEN: Soft, nontender, nondistended abdomen, previous surgical scars noted. No guarding, no rebound. No masses appreciated. Musculoskeletal: Normal range of motion, no pitting or edema. No cyanosis. NEUROLOGICAL: Cranial nerves grossly intact. Normal speech, normal gait. Normal sensory, motor exams PSYCH: Anxious. SKIN: Warm, Dry, normal turgor, no rashes or lesions noted. Course - Re-evaluation Re-evalutation: Patient's EKG is a normal sinus rhythm with no ST segment elevations or depressions. Patient has had this chest pain for several days and has had multiple cardiac workups in the last week. Patient reports he has also had a recent stress test which was negative. Will order a troponin and a chest x-ray to rule out any cardiac or infectious cause of patient's chronic chest pain. Patient is reporting that he still taking hydrocodone 15 mg tablets that are not prescribed to him. Troponin is negative, chest x-ray with no acute findings. Low suspicion for ACS as patients heart score is 1.Patient encouraged to follow-up with his primary care doctor for further follow-up. Patient agrees with this plan of care. - Vital Signs Vital signs: Temp Pulse Resp BP Pulse Ox 98.8 F 80 14 135/93 H 99 09/07/17 05:39 09/07/17 02:02 09/07/17 05:39 09/07/17 05:39 09/07/17 05:39 Discharge - Discharge Clinical Impression: Body aches Chest pain, unspecified Qualifiers: Chest pain type: unspecified Qualified Code(s): R07.9 - Chest pain, unspecified Condition: Stable Disposition: HOME, SELF-CARE Instructions: Chest Pain of Unclear Cause ([facility]) Additional Instructions: Chest Pain of Unclear Cause The exact cause of your chest pain isn't clear. Fortunately, there is no evidence of a dangerous medical condition. Further testing may be required to find the source of the pain. Most often, we find that this pain is coming from the chest wall -- the muscles or rib joints in the chest. But chest pain can come from the lung and lung lining, the esophagus, the heart valves or heart lining, and even the stomach or gallbladder. Rest. Eat lightly until the pain is gone. We may prescribe medicine for pain and inflammation. You should call the physician immediately if the pain radiates to the shoulder, jaw or arms; if you start to run a fever or develop a cough; or if you develop shortness of breath, or other new or alarming symptoms. Your workup today was normal. Please follow-up with your primary care physician this week. Referrals: MONY MORAN MD [Primary Care Provider] - Follow up as needed
[2017-09-07 05:46] VITALS: BP 135/93
--- NOTE | 2017-09-07 08:19 | EKG REPORT ---
SEVERITY:- NORMAL ECG - SINUS RHYTHM : Confirmed by: Grupo Galarza MD 07-Sep-2017 08:18:46
--- NOTE | 2017-09-07 08:42 | RADIOLOGY REPORT (SQ) ---
EXAM DESCRIPTION: CHEST 2 VIEWS COMPLETED DATE/TIME: 09/07/2017 4:19 am REASON FOR STUDY: chest pain COMPARISON: 07/13/2017 EXAM PARAMETERS: NUMBER OF VIEWS: two views TECHNIQUE: Digital Frontal and Lateral radiographic views of the chest acquired. RADIATION DOSE: NA LIMITATIONS: none FINDINGS: LUNGS AND PLEURA: No opacities, masses or pneumothorax. No pleural effusion. MEDIASTINUM AND HILAR STRUCTURES: No masses or contour abnormalities. HEART AND VASCULAR STRUCTURES: Heart normal size. No evidence for failure. BONES: Old right clavicle fracture. HARDWARE: None in the chest. OTHER: No other significant finding. IMPRESSION: NO ACUTE RADIOGRAPHIC FINDING IN THE CHEST. TECHNICAL DOCUMENTATION: JOB ID: [id number] [employer]- All Rights Reserved Reading location - IP/workstation name: [email or web address]
== END 2017-09-07 05:47 | disposition home or self-care (01) ==
LOC: ER 01:29
DX: R07.9 Chest pain, unspecified (principal); M79.1 Myalgia; M79.602 Pain in left arm; M54.2 Cervicalgia; I10 Essential (primary) hypertension; E78.5 Hyperlipidemia, unspecified; I25.10 Atherosclerotic heart disease of native coronary artery without angina pectoris; F17.200 Nicotine dependence, unspecified, uncomplicated
CPT/HCPCS: 36415; 71046; 84484; 93005; 93010; 99285

== ENCOUNTER → 2017-10-10 | Outpatient (CLI) | payer MEDICARE ==
--- NOTE | 2017-10-10 13:18 | RADIOLOGY REPORT (SQ) ---
EXAM DESCRIPTION: UPPER GI/SM BOWEL COMPLETED DATE/TIME: 10/10/2017 10:12 am REASON FOR STUDY: ABD PAIN R10.11 RIGHT UPPER QUADRANT PAIN COMPARISON: CT abdomen pelvis 05/12/2017 Three-way abdomen series 06/24/2017 TECHNIQUE: Under fluoroscopic guidance, patient ingested effervescent granules followed by thick and thin barium. Fluoroscopic spot images and routine radiographic images acquired and stored on PACS. 12 MM BARIUM TABLET GIVEN: Yes. No significant delay in passage. LIMITATIONS: None. FLUOROSCOPY TIME: FLUORO TIME: 2 minutes 18 series of images saved to PACS. FINDINGS: NEUROMUSCULAR COORDINATION OF SWALLOW: Normal. No aspiration. ESOPHAGEAL MOTILITY: Normal peristalsis. No esophageal spasm. ESOPHAGEAL MUCOSA: Normal mucosa without masses or ulceration. GASTRO-ESOPHAGEAL JUNCTION: No hiatal hernia or reflux. STOMACH: Patient is post gastric bypass. Prompt emptying of the gastric fundal pouch into theefferre nt loop of small bowel. DUODENAL BULB: Not seen due to gastric bypass DUODENUM: Not seen due to gastric bypass PROXIMAL SMALL BOWEL: Mucosa normal. No extrinsic masses or malrotation. NON-GI TRACT STRUCTURES: Clips right upper quadrant post cholecystectomy OTHER: No other significant finding. IMPRESSION: Intact gastric bypass with prompt emptying into normal appearing small bowel loops COMMENT: Quality ID [id number]: Final reports for procedures using fluoroscopy that document radiation exp osure indices, or exposure time and number of fluorographic images (if radiation exposure indices are not available) TECHNICAL DOCUMENTATION: JOB ID: [id number] [email or web address]- All Rights Reserved Reading location - IP/workstation name: [email or web address]
== END ==
LOC: RAD 08:02
PROVIDERS: ATTEND Internal Medicine
DX: R10.11 Right upper quadrant pain (principal)
CPT/HCPCS: 74249

== ENCOUNTER 2017-10-20 06:59 | Emergency (ER) | payer MEDICARE ==
--- NOTE | 2017-10-20 07:46 | EKG REPORT ---
SEVERITY:- NORMAL ECG - SINUS RHYTHM : Confirmed by: Grupo Galarza MD 20-Oct-2017 07:45:42
[2017-10-20] MEDS ORDERED: NITROGLYCERIN 0.4 MG/TAB 25 TAB/BOTTLE SL ONE (07:47)
--- NOTE | 2017-10-20 07:51 | ER Document Report ---
ED Respiratory Problem - General Chief Complaint: Breathing Difficulty Stated Complaint: DIFFICULTY BREATHING/CHEST PAIN Time Seen by Provider: 10/20/17 07:18 Mode of Arrival: Medic Information source: Patient Notes: Patient is a 42-year-old male who presents to the ER today via EMS for chest pain and shortness of breath that started approximately 6 hours ago. Patient is very well-known to this emergency department for his chronic chest pain and abdominal pain, drug abuse. Patient has never had a heart attack or stroke, patient continues to state that he thinks he has liver disease because he " takes a lot of Vicodin." Patient states that he is taken 120 Vicodin in 4 days that he bought off the street. Patient does not have a doctor that will prescribe him narcotic pain medication anymore. TRAVEL OUTSIDE OF THE [place] IN LAST 30 DAYS: No - Related Data Allergies/Adverse Reactions: quetiapine fumarate [From [employer]] Adverse Reaction (Verified 09/05/17 10:10) Hypotension Past Medical History - General Information source: Patient - Social History Smoking Status: Former Smoker Family History: CAD - States all the males in his family have of heart disease in their 40s., CVA, Other - MD - Past Medical History Cardiac Medical History: Reports: Hx Hypercholesterolemia, Hx Hypertension, Hx Peripheral Vascular Disease - Left carotid stenosis 50-69% Pulmonary Medical History: Denies: Hx Asthma, Hx COPD Neurological Medical History: Reports: Hx Migraine, Hx Seizures Endocrine Medical History: Reports: Hx Hypothyroidism. Denies: Hx Diabetes Mellitus Type 1, Hx Diabetes Mellitus Type 2, Hx Hyperthyroidism Renal/ Medical History: Denies: Hx Peritoneal Dialysis GI Medical History: Reports: Hx Gastroesophageal Reflux Disease, Hx Hiatal Hernia. Denies: Hx Cirrhosis, Hx Hepatitis Musculoskeltal Medical History: Denies Hx Arthritis Psychiatric Medical History: Reports: Hx Anxiety, Hx Depression Infectious Medical History: Denies: Hx Hepatitis Past Surgical History: Reports: Hx Abdominal Surgery - gastric bypass 05, bowel blockagex2, umbilical hernia repair bowel resectio, Hx Cardiac Catheterization - Which is found to be negative~2014, Hx Cholecystectomy, Hx Gastric Bypass Surgery, Hx Herniorrhaphy - Immunizations Immunizations up to date: Yes Hx Diphtheria, Pertussis, Tetanus Vaccination: Yes Review of Systems - Review of Systems Constitutional: No symptoms reported EENT: No symptoms reported Cardiovascular: See HPI Respiratory: See HPI Gastrointestinal: No symptoms reported Genitourinary: No symptoms reported Male Genitourinary: No symptoms reported Musculoskeletal: No symptoms reported Skin: No symptoms reported Hematologic/Lymphatic: No symptoms reported Neurological/Psychological: No symptoms reported Physical Exam - Vital signs Vitals: Resp Pulse Ox 22 H 100 10/20/17 07:23 10/20/17 07:23 - Notes Notes: PHYSICAL EXAMINATION: GENERAL: Uncomfortable appearing, holding chest, but in no acute distress. HEAD: Atraumatic, normocephalic. EYES: Pupils equal round and reactive to light, extraocular movements intact, sclera anicteric, conjunctiva are normal. ENT: ear canals without erythema or foreign body, TMs pearly leong with good bony landmarks, nares patent, oropharynx clear without exudates. Moist mucous membranes. NECK: Normal range of motion, supple without lymphadenopathy LUNGS: CTAB and equal. No wheezes rales or rhonchi. HEART: Entire chest tender to palpation to light touch, regular rate and rhythm without murmurs ABDOMEN: Soft, mild diffuse tenderness. No guarding, no rebound BACK: no vertebral tenderness, normal ROM GI/: no CVA tenderness EXTREMITIES: Normal range of motion, no pitting edema. No cyanosis. NEUROLOGICAL: Cranial nerves grossly intact. Normal sensory/motor exams. PSYCH: Anxious SKIN: Warm, Dry, normal turgor, no rashes or lesions noted Course - Re-evaluation Re-evalutation: 10/20/17 10:05 Lab work is unremarkable today including a normal troponin, EKG reveals a normal sinus rhythm without evidence of ischemia or abnormality. Patient is very anxious and continues to ask about his liver enzymes and his kidney function and his hemoglobin which he always does. I did advise him and his mother who is in the room with him that his lab work is all normal today. Patient is not reassured with this because he is certain that something is wrong. Nitroglycerin did not help patients pain today. I did advise patient to stop taking narcotic medication that he buys off the street. This is patient 's normal mentality here in the emergency department. 10/21/17 08:06 - Vital Signs Vital signs: Temp Pulse Resp BP Pulse Ox 97.4 F 16 137/90 H 100 10/20/17 10:16 10/20/17 10:16 10/20/17 10:16 10/20/17 10:16 - Laboratory Result Diagrams: 10/20/17 07:41 10/20/17 09:09 Laboratory results interpreted by me: 10/20/17 10/20/17 10/20/17 07:41 08:27 09:09 Seg Neutrophils % 79.9 H Sodium 131.1 L Chloride 96 L ALT 19 L Creatine Kinase 40 L Urine Ketones 20 H Urine Ascorbic Acid 40 H Discharge - Discharge Clinical Impression: Chest pain of uncertain etiology, Chronic chest pain, Chronic opiate abuse, Chronic benzodiazepine abuse Condition: Stable Disposition: HOME, SELF-CARE Additional Instructions: Return immediately for any new or worsening symptoms. Follow up with primary care provider, call tomorrow to make followup appointment. Referrals: MONY MORAN MD [Primary Care Provider] - Follow up as needed
[2017-10-20 08:07] LABS: ABSOLUTE EOSINOPHILS # (AUTO) 0.1 10^3/uL (0.0-0.6); ABSOLUTE MONOCYTES (AUTO) 0.5 10^3/uL (0.1-1.4); ABSOLUTE NEUT (AUTO) 6.3 10^3/uL (1.7-8.2); BASOPHILS % (AUTO) 0.4 % (0-2); EOSINOPHILS % (AUTO) 0.7 % (0-6); HEMATOCRIT 41.8 % (37.9-51.0); HEMOGLOBIN 14.8 g/dL (13.5-17.0); LYMPHOCYTES % (AUTO) 13.2 % (13-45); MEAN CORPUSCULAR HEMOGLOBIN 30.1 pg (27.0-33.4); MEAN CORPUSCULAR HGB CONC 35.3 g/dL (32.0-36.0); MEAN CORPUSCULAR VOLUME 85 fl (80-97); MONOCYTES % (AUTO) 5.8 % (3-13); PLATELET COUNT 286 10^3/uL (150-450); RED CELL DISTRIBUTION WIDTH 13.9 % (11.5-14.0); SEGMENTED NEUTROPHILS % (AUTO) 79.9 % (42-78); TOTAL CELLS COUNTED % (AUTO) 100 %; WHITE BLOOD COUNT 7.8 10^3/uL (4.0-10.5)
--- NOTE | 2017-10-20 08:34 | RADIOLOGY REPORT (SQ) ---
EXAM DESCRIPTION: CT HEAD WITHOUT COMPLETED DATE/TIME: 10/20/2017 7:57 am REASON FOR STUDY: left sided weakness COMPARISON: [address] brain since 2007, most recently 05/07/2017, 01/10/2017 TECHNIQUE: Axial images acquired through the brain without intravenous contrast. Images reviewed wi th bone, brain and subdural windows. Additional sagittal and coronal reconstructions were generated. Images stored on PACS. All CT scanners at this facility use dose modulation, iterative reconstruction, and/or weight based d osing when appropriate to reduce radiation dose to as low as reasonably achievable (ALARA). [facility]: Dose Right [facility]: CareDose [facility]: Dose Right [facility]: Teradose 4D [facility]: Mantex RADIATION DOSE: CT Rad equipment meets quality standard of care and radiation dose reduction techniq ues were employed. CTDIvol: 53.2 mGy. DLP: 1017 mGy-cm. mGy. LIMITATIONS: None. FINDINGS: VENTRICLES: Normal size and contour. CEREBRUM: No masses. No hemorrhage. No midline shift. No evidence for acute infarction. Normal gra y/white matter differentiation. No areas of low density in the white matter. CEREBELLUM: No masses. No hemorrhage. No alteration of density. No evidence for acute infarction. EXTRAAXIAL SPACES: No fluid collections. No masses. ORBITS AND GLOBE: No intra- or extraconal masses. Normal contour of globe without masses. CALVARIUM: No fracture. PARANASAL SINUSES: No fluid or mucosal thickening. SOFT TISSUES: No mass or hematoma. OTHER: No other significant finding. IMPRESSION: NORMAL BRAIN CT WITHOUT CONTRAST. EVIDENCE OF ACUTE STROKE: NO. COMMENT: Quality ID # [id number]: Final reports with documentation of one or more dose reduction techniques (e.g., Automated exposure control, adjustment of the mA and/or kV according to patient size, use of iterative reconstruction technique) TECHNICAL DOCUMENTATION: JOB ID: [id number] [employer]- All Rights Reserved Reading location - IP/workstation name: [email or web address]
--- NOTE | 2017-10-20 08:35 | RADIOLOGY REPORT (SQ) ---
EXAM DESCRIPTION: CHEST SINGLE VIEW COMPLETED DATE/TIME: 10/20/2017 8:00 am REASON FOR STUDY: cp COMPARISON: CTA chest 05/07/2017 Two-view chest 09/07/2017 EXAM PARAMETERS: NUMBER OF VIEWS: One view. TECHNIQUE: Single frontal radiographic view of the chest acquired. RADIATION DOSE: NA LIMITATIONS: None. FINDINGS: LUNGS AND PLEURA: No opacities, masses or pneumothorax. No pleural effusion. MEDIASTINUM AND HILAR STRUCTURES: No masses. Contour normal. HEART AND VASCULAR STRUCTURES: Heart normal in size. Normal vasculature. BONES: Old right clavicle fracture HARDWARE: None in the chest. OTHER: No other significant finding. IMPRESSION: NO ACUTE RADIOGRAPHIC FINDING IN THE CHEST. TECHNICAL DOCUMENTATION: JOB ID: [id number] [employer]- All Rights Reserved Reading location - IP/workstation name: [email or web address]
[2017-10-20 08:49] LABS: CREATINE KINASE MB 0.23 ng/mL (<4.55)
[2017-10-20] MEDS ORDERED: NITROGLYCERIN 2% OINTMENT 1 GM PACKET TP ONE (08:50)
[2017-10-20 08:51] LABS: TROPONIN I < 0.012 ng/mL
[2017-10-20 09:11] LABS: APPEARANCE,URINE CLEAR; BILIRUBIN,URINE NEGATIVE (NEGATIVE); COLOR,URINE YELLOW; GLUCOSE, URINE NEGATIVE (NEGATIVE); KETONES,URINE 20 mg/dL (NEGATIVE); LEUKOCYTE ESTERASE,URINE NEGATIVE (NEGATIVE); NITRITE,URINE NEGATIVE (NEGATIVE); PROTEIN,URINE NEGATIVE (NEGATIVE); URINE SPECIFIC GRAVITY 1.018; UROBILINOGEN,URINE NEGATIVE mg/dL (<2.0)
[2017-10-20 09:22] LABS: URINE AMPHETAMINES SCREEN NEGATIVE; URINE BARBITURATES SCREEN NEGATIVE; URINE BENZODIAZEPINES SCREEN UNCONFIRMED POSITIVE; URINE COCAINE SCREEN NEGATIVE; URINE MARIJUANA (THC) SCREEN NEGATIVE; URINE METHADONE SCREEN NEGATIVE; URINE PHENCYCLIDINE SCREEN NEGATIVE
[2017-10-20 09:30] LABS: ALANINE AMINOTRANSFERASE 19 U/L (21-72); ALBUMIN 4.3 g/dL (3.5-5.0); ALKALINE PHOSPHATASE 64 U/L (38-126); ANION GAP 11 (5-19); ASPARTATE AMINO TRANSFERASE 25 U/L (17-59); BILIRUBIN,DIRECT 0.4 mg/dL (0.0-0.4); BILIRUBIN,TOTAL 0.7 mg/dL (0.2-1.3); BLOOD UREA NITROGEN 15 mg/dL (7-20); CALCIUM 9.6 mg/dL (8.4-10.2); CARBON DIOXIDE 24 mmol/L (22-30); CHLORIDE 96 mmol/L (98-107); CREATINE KINASE 40 U/L (55-170); GLUCOSE 104 mg/dL (75-110); LIPASE 45.1 U/L (23-300); POTASSIUM 4.1 mmol/L (3.6-5.0); SODIUM 131.1 mmol/L (137-145); TOTAL PROTEIN 7.3 g/dL (6.3-8.2)
[2017-10-20 10:33] VITALS: BP 137/90
== END 2017-10-20 10:36 | disposition home or self-care (01) ==
LOC: ER 06:59
DX: R07.9 Chest pain, unspecified (principal); F11.20 Opioid dependence, uncomplicated; F19.20 Other psychoactive substance dependence, uncomplicated; R06.02 Shortness of breath; R10.9 Unspecified abdominal pain; G89.29 Other chronic pain; Z87.891 Personal history of nicotine dependence; Z79.899 Other long term (current) drug therapy; I10 Essential (primary) hypertension
CPT/HCPCS: 93005; 99285; 36415; 82553; 82550; 83690; 85025; 80053; 81001; 84484; 80307; 71045; 70450; 93010; A9270